=== PATIENT | female | born 1970 | race Caucasian/White ===

== ENCOUNTER 2019-01-31 15:45 | Emergency (ER) | payer OTHER, SELFPAY ==
[2019-01-31 15:50] VITALS: BP 182/91; PULSE 86; RESP 20; TEMP 36.7; O2SAT 96; BMI 59.1
--- NOTE | 2019-01-31 17:16 | ED.DCSUM_ITS ---
- ER Visit Summary Date of Service: 01/31/19 Chief Complaint: Concern for right lower leg cellulitis History of Present Illness: The patient is a 48 F who presents for evaluation with concern for right lower leg cellulitis. Patient states for the last 15 days she has been on Keflex for treatment of welling and erythema to the anterior right lower leg. She states that she has been having the swelling and redness intermittently over the last 3 years. She noted that it will improve when she sleeps overnight, including this latest bout that started a few weeks ago. Patient denies any fever, shortness of breath, chest pain, abdominal pain, nausea or vomiting, or any other complaints other than the discomfort at the site of the right lower leg. Has noted some clear seepage from the area. Patient has history of hypothyroidism, degenerative joint disease, and lower extremity edema. Physical Examination: Vital signs: afebrile, hemodynamically stable, no hypoxia on room air General: well nourished, well developed, in no distress Skin: warm, dry, no rash, no pallor HEENT: normocephalic and atraumatic; PERRL, EOMI, moist mucous membranes Cardiovascular: regular rate and rhythm without murmurs, 2+ pulses all distal extremities Respiratory: No increased work of breathing, lungs are clear to auscultation bilaterally, no rales, rhonchi or wheezing Abdominal: Abdomen is soft, nontender with normoactive bowel sounds, no guarding or rebound, no masses MSK: Moves all extremities, no deformities, normal strength, bilateral lower extremity 2+ pitting edema below the knees down to the ankles. Anterior right lower leg has erythema superimposed on hyperpigmentation and mild skin thickening, no warmth, no tenderness to palpation; mild skin hyperpigmentation and thickening to the anterior left lower extremity Neuro: Awake and alert, oriented ?4. No facial droop, sensation and motor function intact and symmetric Test Results: Abnormal Lab Results 01/31/19 01/31/19 17:20 17:20 WBC 11.6 H RBC 4.77 Hgb 12.5 Hct 39.4 MCV 82.6 MCH 26.2 L MCHC 31.7 L RDW 15.8 H RDW Differential 47.1 H Plt Count 269 MPV 11.1 Immature Gran % (Auto) 0.500 Neut % (Auto) 70.1 H Lymph % (Auto) 21.3 [place] % (Auto) 5.4 Eos % (Auto) 2.4 Baso % (Auto) 0.3 Absolute Neuts (auto) 8.2 H Absolute Lymphs (auto) 2.48 Total Counted Not Reportable Sodium 141 Potassium 3.6 Chloride 110 H Carbon Dioxide 25.0 Anion Gap 6 BUN 12 Creatinine 0.83 Estim Creat Clear Calc 68.57 Est GFR (MDRD) Af Amer 94 Est GFR (MDRD) Non-Af 78 BUN/Creatinine Ratio 14.5 Glucose 93 Calcium 8.4 L Total Bilirubin 0.30 AST 13 L ALT 18 Alkaline Phosphatase 78 Total Protein 7.5 Albumin 3.4 Globulin 4.1 Albumin/Globulin Ratio 0.8 L Emergency Department Course and Treatment: Patient's examination looks more consistent with skin changes secondary to significant lower extremity edema rather than cellulitis, especially given history of improvement when she sleeps at night, episodes over the last 3 years, and no improvement with antibiotic treatment over the last 2 weeks. Patient's legs were wrapped and elevated to help decrease the swelling. Workup was performed to look for any underlying systemic infection. Labs are unremarkable. Patient was reevaluated after having her legs wrapped and elevated for a period of time. The swelling had improved. Because there is still be small concern that this could be failed outpatient treatment of cellulitis on Keflex, patient was prescribed clindamycin. Will rewrap to help with the edema, and patient is in the process of getting compression stockings to help. She is to follow-up with her doctor to discuss whether she needs to be on any diuretics to help with the fluid overload as well. Patient is afebrile, well-appearing, no evidence of any systemic infection, no fluctuance or purulence noted to her leg, and no significant twisting frame changer the course of a couple weeks it would be concerning for need for inpatient management on IV antibiotics. Patient agreed with this plan and will return if any worsening of her condition. Discharged home. Treatment Plan: [] Disposition: [] Impression: Bilateral lower extremity lymphedema, concern for right lower extremity cellulitis This note was generated with iSTARation software. It may contain incorrect words, spelling, and punctuation that were not noted in review of the chart prior to signing ED Disposition - Plan for ED Patient: Disposition: Home or Assisted Living Instructions: Discharge Instructions for Cellulitis, ED Leg Swelling Bilateral Prescriptions: RX: Clindamycin [Cleocin] 450 mg PO TID #63 cap Referrals: Cirilo Feng MD [Primary Care Provider] - 3-5 Days Additional Instructions: Your right leg swelling and redness looks more consistent with changes from chronic leg edema and less concerning for cellulitis, especially since this is been ongoing and intermittent for 3 years and you have been on antibiotics for 2 weeks without any change. However in case is failure of the current antibiotic, you have been prescribed a new one to take. Please follow-up with your doctor in 3-5 days for another check of your legs. Please wrapped them as we showed you with the Piter wraps until you get appropriate compression socks to wear to help with the leg swelling. If you have any worsening of your condition or any new concerning symptoms, please return immediately to the emergency department for another evaluation.
[2019-01-31 17:40] LABS: Absolute Lymphocyte Count 2.48 X10^3/ul (0.83-4.51); Absolute Neutrophil Count 8.2 X10^3/uL (2.0-7.7); Basophil# 0.04 X10^3/uL; Basophil% 0.3 % (0-1); Eosinophil# 0.28 X10^3/uL; Eosinophils% 2.4 % (0-5); Hematocrit 39.4 % (37-47); Hemoglobin 12.5 g/dl (12.0-15.0); Lymphocyte # 2.48 X10^3/ul (4.0); Lymphocyte % 21.3 % (19-41); Mean Corp Hgb Conc 31.7 g/gl (32-36); Mean Corpuscular Hgb 26.2 pg (27.0-32.0); Mean Corpuscular Volume 82.6 fL (81-99); Mean Platelet Vol. 11.1 fl (6.2-12.0); Monocyte# 0.63 X10^3/uL; Monocyte% 5.4 % (0-10); Neutrophil # 8.15 X10^3/uL (2.7-7.7); Neutrophil % 70.1 % (47-70); POSITIVE COUNT NO; POSITIVE DIFFERENTIAL NO; POSITIVE MORPHOLOGY NO; Platelet Count 269 K/mm3 (150-450); RBC Distribution Width CV 15.8 % (11.6-14.6); RBC Distribution Width SD 47.1 fl (35.1-43.9); Red Blood Count 4.77 M/mm3 (4.2-5.4); White Blood Count 11.6 K/mm3 (4.4-11.0)
[2019-01-31 17:45] VITALS: RESP 14
--- NOTE | 2019-01-31 17:53 | ED.RN ---
PER MD, YONY WRAP APPLIED TO BILAT LOWER LEGS. NO COMPLAINTS OR CONCERNS REGARDING THE YONY WRAPS.
[2019-01-31 18:05] LABS: ALB/GLOB Ratio 0.8 RATIO (0.9-2.4); AST(SGOT) 13 U/L (15-37); Alanine Aminotransfer ALT/SGPT 18 U/L (13-56); Albumin, Serum 3.4 g/dL (3.2-5.0); Alkaline Phosphatase 78 U/L (45-117); Anion Gap 6 (5-15); BUN 12 mg/dL (7-18); BUN/Creat Ratio 14.5 RATIO (10-20); Calcium,Total 8.4 mg/dL (8.5-10.1); Chloride 110 mmol/L (98-107); Creatinine, Serum 0.83 mg/dL (0.55-1.02); EST Glomerular Filtration Rate 78 mL/min (>60); Est Glom Filt Rate - Afr Amer 94 mL/min (>60); Estimated Creatinine Clearance 68.57 ml/min; Globulin 4.1 g/dL (2.2-4.2); Glucose 93 mg/dL (74-106); Potassium 3.6 mmol/L (3.5-5.1); Protein, Total 7.5 g/dL (6.4-8.2); Sodium Level 141 mmol/L (136-145)
[2019-01-31 20:00] VITALS: PULSE 82; RESP 18; O2SAT 97
== END 2019-01-31 20:18 | disposition home or self-care (01) ==
PROVIDERS: Emergency Provider Emergency Medicine; Family Provider Family Medicine; PCP Family Medicine
DX: I89.0 Lymphedema, not elsewhere classified (principal); E03.9 Hypothyroidism, unspecified
CPT/HCPCS: 80053; 85025; 99284

== ENCOUNTER 2022-02-16 14:08 | Outpatient (CLI) | payer BC, SELFPAY ==
--- NOTE | 2022-02-16 14:15 | RAD_ITS ---
STUDY: X-RAY - PELVIS REASON FOR EXAM: Female, 51 years old. INFLAMMATORY POLYARTHROPATHY TECHNIQUE: One view of the pelvis was obtained. COMPARISON: None. FINDINGS: There is a non-specific bowel gas pattern. Normal visualized soft tissue structures. Degenerative lower lumbar changes. Normal bilateral iliac wings, sacroiliac joints and visualized sacrum. Normal visualized bilateral superior and inferior pubic rami. Normal pubic symphysis. Normal ischial tuberosities. Normal visualized right femoral head. Normal right acetabulum. Normal right hip joint. Normal visualized left femoral head. Normal left acetabulum. Normal left hip joint. RAD/Pelvis 1 or 2 Views IMPRESSION: Normal x-ray examination of the pelvis. Electronically Signed: Ryan Anguiano DO at 23:56 EDT ,
[2022-02-16 18:13] LABS: Absolute Lymphocyte Count 2.96 X10^3/uL (0.83-4.51); Absolute Neutrophil Count 6.4 X10^3/uL (2.0-7.7); Basophil# 0.07 X10^3/uL; Basophil% 0.7 % (0-1); Eosinophils% 1.9 % (0-5); Hematocrit 40.3 % (37-47); Hemoglobin 12.2 g/dL (12.0-15.0); Lymphocyte # 2.96 X10^3/ul (0.83-4.51); Lymphocyte % 28.5 % (19-41); Mean Corp Hgb Conc 30.3 g/dL (32-36); Mean Corpuscular Hgb 24.4 pg (27.0-32.0); Mean Corpuscular Volume 80.8 fL (81-99); Mean Platelet Vol. 12.3 fl (6.2-12.0); Monocyte# 0.69 X10^3/uL; Monocyte% 6.6 % (0-10); NRBC Flagged by Analyzer 0 % (0-5); Neutrophil # 6.42 X10^3/uL (2.7-7.7); Neutrophil % 61.8 % (47-70); Platelet Count 278 K/mm3 (150-450); RBC Distribution Width CV 16.1 % (11.6-14.6); RBC Distribution Width SD 47.5 fl (35.1-43.9); Red Blood Count 4.99 M/mm3 (4.2-5.4); White Blood Count 10.4 K/mm3 (4.4-11.0)
[2022-02-16 18:24] LABS: Erythrocyte Sedimentation Rate 50 mm/hr (0-30)
[2022-02-16 18:34] LABS: ALB/GLOB Ratio 0.9 RATIO (0.9-2.4); AST(SGOT) 17 U/L (15-37); Alanine Aminotransfer ALT/SGPT 28 U/L (13-56); Albumin, Serum 3.6 g/dL (3.2-5.0); Alkaline Phosphatase 77 U/L (45-117); Anion Gap 5 (5-15); BUN 23 mg/dL (7-18); BUN/Creat Ratio 20.7 RATIO (10-20); Calcium,Total 9.2 mg/dL (8.5-10.1); Chloride 106 mmol/L (98-107); Creatinine, Serum 1.11 mg/dL (0.55-1.02); EST Glomerular Filtration Rate 55 mL/min (>60); Est Glom Filt Rate - Afr Amer 67 mL/min (>60); Globulin 4.1 g/dL (2.2-4.2); Glucose 89 mg/dL (74-106); Protein, Total 7.7 g/dL (6.4-8.2); Sodium Level 139 mmol/L (136-145)
[2022-02-17 08:47] LABS: Hepatitis B Surface Antibody Non-Reactive; Hepatitis B Surface Antigen Non-Reactive (Nonreactive); Hepatitis C Antibody Non-Reactive (Nonreactive)
[2022-02-19 17:10] LABS: ANTINUCLEAR ANTIBODIES DIRECT Negative (Negative)
[2022-02-24 18:11] LABS: HLA B27 Negative (.)
== END 2022-02-16 23:59 | disposition home or self-care (01) ==
PROVIDERS: PCP Family Medicine; Referring Provider Internal Medicine Rheumatology; Visit Provider Internal Medicine Rheumatology
DX: M06.4 Inflammatory polyarthropathy (principal); M17.0 Bilateral primary osteoarthritis of knee; M47.897 Other spondylosis, lumbosacral region; K21.9 Gastro-esophageal reflux disease without esophagitis; J45.909 Unspecified asthma, uncomplicated; E03.9 Hypothyroidism, unspecified; G47.33 Obstructive sleep apnea (adult) (pediatric); G43.909 Migraine, unspecified, not intractable, without status migrainosus; I87.2 Venous insufficiency (chronic) (peripheral); M21.42 Flat foot [pes planus] (acquired), left foot; M21.41 Flat foot [pes planus] (acquired), right foot
CPT/HCPCS: 36415; 72170; 80053; 81374; 85025; 85652; 86038; 86140; 86431; 86706; 86803; 87340

== ENCOUNTER → 2022-03-31 | Outpatient (CLI) | payer BC, SELFPAY ==
[2022-03-31 15:15] LABS: Absolute Lymphocyte Count 1.92 X10^3/uL (0.83-4.51); Absolute Neutrophil Count 5.8 X10^3/uL (2.0-7.7); Basophil# 0.07 X10^3/uL; Basophil% 0.8 % (0-1); Eosinophils% 2.3 % (0-5); Hematocrit 39.3 % (37-47); Hemoglobin 11.9 g/dL (12.0-15.0); Lymphocyte # 1.92 X10^3/ul (0.83-4.51); Lymphocyte % 22.3 % (19-41); Mean Corp Hgb Conc 30.3 g/dL (32-36); Mean Corpuscular Hgb 24.8 pg (27.0-32.0); Mean Platelet Vol. 12.3 fl (6.2-12.0); Monocyte# 0.56 X10^3/uL; Monocyte% 6.5 % (0-10); NRBC Flagged by Analyzer 0 % (0-5); Neutrophil # 5.82 X10^3/uL (2.7-7.7); Neutrophil % 67.5 % (47-70); Platelet Count 286 K/mm3 (150-450); RBC Distribution Width CV 15.9 % (11.6-14.6); RBC Distribution Width SD 47.3 fl (35.1-43.9); Red Blood Count 4.79 M/mm3 (4.2-5.4); White Blood Count 8.6 K/mm3 (4.4-11.0)
[2022-03-31 15:32] LABS: ALB/GLOB Ratio 0.8 RATIO (0.9-2.4); AST(SGOT) 15 U/L (15-37); Alanine Aminotransfer ALT/SGPT 26 U/L (13-56); Albumin, Serum 3.4 g/dL (3.2-5.0); Alkaline Phosphatase 62 U/L (45-117); Anion Gap 4 (5-15); BUN 16 mg/dL (7-18); BUN/Creat Ratio 16.2 RATIO (10-20); Calcium,Total 9.1 mg/dL (8.5-10.1); Chloride 108 mmol/L (98-107); Creatinine, Serum 0.99 mg/dL (0.55-1.02); EST Glomerular Filtration Rate 63 mL/min (>60); Est Glom Filt Rate - Afr Amer 76 mL/min (>60); Glucose 99 mg/dL (74-106); Potassium 4.1 mmol/L (3.5-5.1); Protein, Total 7.4 g/dL (6.4-8.2); Sodium Level 141 mmol/L (136-145)
== END | disposition home or self-care (01) ==
LOC: MTLAB 13:51
PROVIDERS: PCP Family Medicine; Referring Provider Internal Medicine Rheumatology; Visit Provider Internal Medicine Rheumatology
DX: M05.79 Rheumatoid arthritis with rheumatoid factor of multiple sites without organ or systems involvement (principal); Z79.899 Other long term (current) drug therapy; M17.0 Bilateral primary osteoarthritis of knee; M47.897 Other spondylosis, lumbosacral region; K21.9 Gastro-esophageal reflux disease without esophagitis; J45.909 Unspecified asthma, uncomplicated; E03.9 Hypothyroidism, unspecified; G47.33 Obstructive sleep apnea (adult) (pediatric); G43.909 Migraine, unspecified, not intractable, without status migrainosus; I87.2 Venous insufficiency (chronic) (peripheral); M21.41 Flat foot [pes planus] (acquired), right foot; M21.42 Flat foot [pes planus] (acquired), left foot
CPT/HCPCS: 36415; 80053; 85025

== ENCOUNTER → 2022-06-27 | Outpatient (CLI) | payer BC, SELFPAY ==
[2022-06-27 18:13] LABS: Absolute Lymphocyte Count 2.13 X10^3/uL (0.83-4.51); Absolute Neutrophil Count 5.8 X10^3/uL (2.0-7.7); Basophil# 0.07 X10^3/uL; Basophil% 0.8 % (0-1); Eosinophil# 0.25 X10^3/uL; Eosinophils% 2.8 % (0-5); Hematocrit 38.8 % (37-47); Hemoglobin 12.3 g/dL (12.0-15.0); Lymphocyte # 2.13 X10^3/ul (0.83-4.51); Mean Corp Hgb Conc 31.7 g/dL (32-36); Mean Corpuscular Hgb 25.8 pg (27.0-32.0); Mean Corpuscular Volume 81.3 fL (81-99); Mean Platelet Vol. 11.7 fl (6.2-12.0); Monocyte# 0.54 X10^3/uL; Monocyte% 6.1 % (0-10); NRBC Flagged by Analyzer 0 % (0-5); Neutrophil # 5.84 X10^3/uL (2.7-7.7); Neutrophil % 65.8 % (47-70); Platelet Count 255 K/mm3 (150-450); RBC Distribution Width CV 15.7 % (11.6-14.6); RBC Distribution Width SD 46.5 fl (35.1-43.9); Red Blood Count 4.77 M/mm3 (4.2-5.4); White Blood Count 8.9 K/mm3 (4.4-11.0)
[2022-06-27 18:30] LABS: ALB/GLOB Ratio 0.8 RATIO (0.9-2.4); AST(SGOT) 11 U/L (15-37); Alanine Aminotransfer ALT/SGPT 25 U/L (13-56); Albumin, Serum 3.3 g/dL (3.2-5.0); Alkaline Phosphatase 77 U/L (45-117); Anion Gap 6 (5-15); BUN 23 mg/dL (7-18); BUN/Creat Ratio 18.4 RATIO (10-20); Calcium,Total 9.1 mg/dL (8.5-10.1); Chloride 108 mmol/L (98-107); Creatinine, Serum 1.25 mg/dL (0.55-1.02); EST Glomerular Filtration Rate 48 mL/min (>60); Est Glom Filt Rate - Afr Amer 58 mL/min (>60); Globulin 4.1 g/dL (2.2-4.2); Glucose 100 mg/dL (74-106); Potassium 4.1 mmol/L (3.5-5.1); Protein, Total 7.4 g/dL (6.4-8.2); Sodium Level 139 mmol/L (136-145)
== END | disposition home or self-care (01) ==
LOC: MTLAB 16:04
PROVIDERS: PCP Family Medicine; Referring Provider Internal Medicine Rheumatology; Visit Provider Internal Medicine Rheumatology
DX: M05.79 Rheumatoid arthritis with rheumatoid factor of multiple sites without organ or systems involvement (principal); Z79.899 Other long term (current) drug therapy; M17.0 Bilateral primary osteoarthritis of knee; M47.897 Other spondylosis, lumbosacral region; K21.9 Gastro-esophageal reflux disease without esophagitis; J45.909 Unspecified asthma, uncomplicated; E03.9 Hypothyroidism, unspecified; G47.33 Obstructive sleep apnea (adult) (pediatric); G43.909 Migraine, unspecified, not intractable, without status migrainosus; I87.2 Venous insufficiency (chronic) (peripheral); M21.41 Flat foot [pes planus] (acquired), right foot; M21.42 Flat foot [pes planus] (acquired), left foot
CPT/HCPCS: 36415; 80053; 85025

== ENCOUNTER → 2022-09-13 | Outpatient (CLI) | payer BC, SELFPAY ==
[2022-09-13 17:48] LABS: Absolute Lymphocyte Count 2.37 X10^3/uL (0.83-4.51); Absolute Neutrophil Count 5.9 X10^3/uL (2.0-7.7); Basophil# 0.08 X10^3/uL; Basophil% 0.9 % (0-1); Eosinophil# 0.28 X10^3/uL; Eosinophils% 3.1 % (0-5); Hematocrit 42.6 % (37-47); Lymphocyte # 2.37 X10^3/ul (0.83-4.51); Lymphocyte % 25.9 % (19-41); Mean Corp Hgb Conc 30.5 g/dL (32-36); Mean Corpuscular Volume 81.9 fL (81-99); Mean Platelet Vol. 12.9 fl (6.2-12.0); Monocyte# 0.49 X10^3/uL; Monocyte% 5.4 % (0-10); NRBC Flagged by Analyzer 0 % (0-5); Neutrophil # 5.87 X10^3/uL (2.7-7.7); Neutrophil % 64.2 % (47-70); Platelet Count 241 K/mm3 (150-450); RBC Distribution Width CV 15.5 % (11.6-14.6); RBC Distribution Width SD 45.5 fl (35.1-43.9); White Blood Count 9.1 K/mm3 (4.4-11.0)
[2022-09-13 17:54] LABS: ALB/GLOB Ratio 0.9 RATIO (0.9-2.4); AST(SGOT) 13 U/L (15-37); Alanine Aminotransfer ALT/SGPT 24 U/L (13-56); Albumin, Serum 3.4 g/dL (3.2-5.0); Alkaline Phosphatase 79 U/L (45-117); Anion Gap 9 (5-15); BUN 18 mg/dL (7-18); BUN/Creat Ratio 16.8 RATIO (10-20); Calcium,Total 8.9 mg/dL (8.5-10.1); Chloride 110 mmol/L (98-107); Creatinine, Serum 1.07 mg/dL (0.55-1.02); EST Glomerular Filtration Rate 57 mL/min (>60); Est Glom Filt Rate - Afr Amer 69 mL/min (>60); Globulin 3.8 g/dL (2.2-4.2); Glucose 123 mg/dL (74-106); Protein, Total 7.2 g/dL (6.4-8.2); Sodium Level 140 mmol/L (136-145)
== END | disposition home or self-care (01) ==
PROVIDERS: PCP Family Medicine; Referring Provider Internal Medicine Rheumatology; Visit Provider Internal Medicine Rheumatology
DX: M05.79 Rheumatoid arthritis with rheumatoid factor of multiple sites without organ or systems involvement (principal); M17.0 Bilateral primary osteoarthritis of knee; M47.897 Other spondylosis, lumbosacral region; K21.9 Gastro-esophageal reflux disease without esophagitis; J45.909 Unspecified asthma, uncomplicated; E03.9 Hypothyroidism, unspecified; G47.33 Obstructive sleep apnea (adult) (pediatric); G43.909 Migraine, unspecified, not intractable, without status migrainosus; I87.2 Venous insufficiency (chronic) (peripheral); M21.42 Flat foot [pes planus] (acquired), left foot; M21.41 Flat foot [pes planus] (acquired), right foot; K76.0 Fatty (change of) liver, not elsewhere classified; Z79.899 Other long term (current) drug therapy
CPT/HCPCS: 36415; 80053; 85025

== ENCOUNTER 2022-09-25 15:59 | Outpatient (CLI) | payer BC, SELFPAY ==
--- NOTE | 2022-09-25 16:02 | RAD_ITS ---
INDICATION: RA EXAMINATION/TECHNIQUE: X-RAY - XR Chest 2 Views COMPARISON: 11/13/2015 FINDINGS: LIFE-SUPPORT AND LINES: 1. None HEART AND VESSELS: The cardiac silhouette, pulmonary vasculature have normal appearance. No evidence of congestive failure. LUNGS AND PLEURAL SPACES: Lungs are clear. No focal infiltrate, consolidation or effusions. No evidence of pneumothorax. Mild crowding of bronchovascular markings at the lung bases contributed by shallow inspiration. MEDIASTINUM AND HILAR REGIONS: No masses adenopathy noted. No areas of calcification. Visualized upper airway is normal in position. BONY ELEMENTS: No acute bony changes noted. RAD/Chest PA and Lateral IMPRESSION: 1. No evidence of acute cardiopulmonary process. Shallow inspiration and a subsequent mild crowding of bronchovascular markings. Electronically Signed: Sebastian Rizvi MD at 17:15 EST ,
[2022-09-27 19:07] LABS: QNTFERON TB Mitogen Value > 10.00 IU/mL (.); QNTFERON TB Nil Value 0.02 IU/mL (.); QNTFERON TB1+ Ag Value 0.01 IU/mL (.); QNTFERON TB2+ Ag Value 0 IU/mL (.)
[2022-09-28 07:52] LABS: QNTIFERON TB Positive Criteria Negative (Negative)
== END 2022-09-25 23:59 | disposition home or self-care (01) ==
LOC: MTLAB 16:00
PROVIDERS: PCP Family Medicine; Referring Provider Internal Medicine Rheumatology; Visit Provider Internal Medicine Rheumatology
DX: M05.79 Rheumatoid arthritis with rheumatoid factor of multiple sites without organ or systems involvement (principal); Z79.899 Other long term (current) drug therapy; M17.0 Bilateral primary osteoarthritis of knee; M47.897 Other spondylosis, lumbosacral region; K21.9 Gastro-esophageal reflux disease without esophagitis; J45.909 Unspecified asthma, uncomplicated; E03.9 Hypothyroidism, unspecified; G57.33 Lesion of lateral popliteal nerve, bilateral lower limbs; G43.909 Migraine, unspecified, not intractable, without status migrainosus; I87.2 Venous insufficiency (chronic) (peripheral); M21.42 Flat foot [pes planus] (acquired), left foot; M21.41 Flat foot [pes planus] (acquired), right foot; K76.0 Fatty (change of) liver, not elsewhere classified
CPT/HCPCS: 36415; 71046; 86480

== ENCOUNTER → 2022-12-04 | Outpatient (CLI) | payer BC, SELFPAY ==
[2022-12-04 18:14] LABS: Absolute Neutrophil Count 5.6 X10^3/uL (2.0-7.7); Basophil# 0.07 X10^3/uL; Basophil% 0.8 % (0-1); Eosinophils% 2.2 % (0-5); Hematocrit 43.6 % (37-47); Hemoglobin 13.2 g/dL (12.0-15.0); Lymphocyte % 29.4 % (19-41); Mean Corp Hgb Conc 30.3 g/dL (32-36); Mean Corpuscular Hgb 25.4 pg (27.0-32.0); Mean Platelet Vol. 12.6 fl (6.2-12.0); Monocyte# 0.61 X10^3/uL; Monocyte% 6.6 % (0-10); NRBC Flagged by Analyzer 0 % (0-5); Neutrophil # 5.56 X10^3/uL (2.7-7.7); Neutrophil % 60.6 % (47-70); Platelet Count 307 K/mm3 (150-450); RBC Distribution Width CV 15.5 % (11.6-14.6); RBC Distribution Width SD 47.2 fl (35.1-43.9); Red Blood Count 5.19 M/mm3 (4.2-5.4); White Blood Count 9.2 K/mm3 (4.4-11.0)
[2022-12-04 18:41] LABS: ALB/GLOB Ratio 0.9 RATIO (0.9-2.4); AST(SGOT) 14 U/L (15-37); Alanine Aminotransfer ALT/SGPT 24 U/L (13-56); Albumin, Serum 3.6 g/dL (3.2-5.0); Alkaline Phosphatase 79 U/L (45-117); Anion Gap 9 (5-15); BUN 19 mg/dL (7-18); BUN/Creat Ratio 18.6 RATIO (10-20); Calcium,Total 9.2 mg/dL (8.5-10.1); Chloride 105 mmol/L (98-107); Creatinine, Serum 1.02 mg/dL (0.55-1.02); EST Glomerular Filtration Rate 60 mL/min (>60); Est Glom Filt Rate - Afr Amer 73 mL/min (>60); Globulin 3.9 g/dL (2.2-4.2); Glucose 89 mg/dL (74-106); Potassium 3.8 mmol/L (3.5-5.1); Protein, Total 7.5 g/dL (6.4-8.2); Sodium Level 142 mmol/L (136-145)
== END | disposition home or self-care (01) ==
PROVIDERS: PCP Family Medicine; Referring Provider Internal Medicine Rheumatology; Visit Provider Internal Medicine Rheumatology
DX: Z79.899 Other long term (current) drug therapy (principal); M17.0 Bilateral primary osteoarthritis of knee; M47.897 Other spondylosis, lumbosacral region; K21.9 Gastro-esophageal reflux disease without esophagitis; J45.909 Unspecified asthma, uncomplicated; E03.9 Hypothyroidism, unspecified; G47.33 Obstructive sleep apnea (adult) (pediatric); G43.909 Migraine, unspecified, not intractable, without status migrainosus; I87.2 Venous insufficiency (chronic) (peripheral); M21.42 Flat foot [pes planus] (acquired), left foot; M21.41 Flat foot [pes planus] (acquired), right foot; K76.0 Fatty (change of) liver, not elsewhere classified
CPT/HCPCS: 36415; 80053; 85025

== ENCOUNTER → 2023-02-12 | Outpatient (CLI) | payer BC, SELFPAY ==
[2023-02-12 17:42] LABS: Absolute Lymphocyte Count 2.91 X10^3/uL (0.83-4.51); Absolute Neutrophil Count 5.4 X10^3/uL (2.0-7.7); Basophil% 1.1 % (0-1); Eosinophil# 0.22 X10^3/uL; Eosinophils% 2.4 % (0-5); Hematocrit 43.4 % (37-47); Hemoglobin 13.2 g/dL (12.0-15.0); Lymphocyte # 2.91 X10^3/ul (0.83-4.51); Lymphocyte % 31.1 % (19-41); Mean Corp Hgb Conc 30.4 g/dL (32-36); Mean Corpuscular Hgb 25.8 pg (27.0-32.0); Mean Corpuscular Volume 84.8 fL (81-99); Monocyte# 0.68 X10^3/uL; Monocyte% 7.3 % (0-10); NRBC Flagged by Analyzer 0 % (0-5); Neutrophil % 57.6 % (47-70); Platelet Count 300 K/mm3 (150-450); RBC Distribution Width CV 15.5 % (11.6-14.6); RBC Distribution Width SD 47.1 fl (35.1-43.9); Red Blood Count 5.12 M/mm3 (4.2-5.4); White Blood Count 9.4 K/mm3 (4.4-11.0)
[2023-02-12 17:58] LABS: ALB/GLOB Ratio 0.9 RATIO (0.9-2.4); AST(SGOT) 16 U/L (15-37); Alanine Aminotransfer ALT/SGPT 25 U/L (13-56); Albumin, Serum 3.5 g/dL (3.2-5.0); Alkaline Phosphatase 77 U/L (45-117); BUN 19 mg/dL (7-18); BUN/Creat Ratio 14.3 RATIO (10-20); Chloride 109 mmol/L (98-107); Creatinine, Serum 1.33 mg/dL (0.55-1.02); EST Glomerular Filtration Rate 44 mL/min (>60); Est Glom Filt Rate - Afr Amer 54 mL/min (>60); Globulin 3.7 g/dL (2.2-4.2); Glucose 90 mg/dL (74-106); Potassium 3.9 mmol/L (3.5-5.1); Protein, Total 7.2 g/dL (6.4-8.2); Sodium Level 138 mmol/L (136-145)
[2023-02-12 17:59] LABS: Anion Gap 2 (5-15)
== END | disposition home or self-care (01) ==
PROVIDERS: PCP Family Medicine; Referring Provider Internal Medicine Rheumatology; Visit Provider Internal Medicine Rheumatology
DX: M05.79 Rheumatoid arthritis with rheumatoid factor of multiple sites without organ or systems involvement (principal); Z79.899 Other long term (current) drug therapy; M17.0 Bilateral primary osteoarthritis of knee; M47.897 Other spondylosis, lumbosacral region; K21.9 Gastro-esophageal reflux disease without esophagitis; J45.909 Unspecified asthma, uncomplicated; E03.9 Hypothyroidism, unspecified; G47.33 Obstructive sleep apnea (adult) (pediatric); G43.909 Migraine, unspecified, not intractable, without status migrainosus; I87.2 Venous insufficiency (chronic) (peripheral)
CPT/HCPCS: 36415; 80053; 85025

== ENCOUNTER → 2023-05-09 | Outpatient (CLI) | payer BC, SELFPAY ==
[2023-05-09 17:55] LABS: Absolute Lymphocyte Count 2.54 X10^3/uL (0.83-4.51); Absolute Neutrophil Count 5.9 X10^3/uL (2.0-7.7); Basophil# 0.08 X10^3/uL; Basophil% 0.9 % (0-1); Eosinophil# 0.18 X10^3/uL; Eosinophils% 1.9 % (0-5); Hematocrit 43.1 % (37-47); Hemoglobin 13.7 g/dL (12.0-15.0); Lymphocyte # 2.54 X10^3/ul (0.83-4.51); Lymphocyte % 27.3 % (19-41); Mean Corp Hgb Conc 31.8 g/dL (32-36); Mean Corpuscular Hgb 26.8 pg (27.0-32.0); Mean Corpuscular Volume 84.2 fL (81-99); Mean Platelet Vol. 12.5 fl (6.2-12.0); Monocyte# 0.55 X10^3/uL; Monocyte% 5.9 % (0-10); NRBC Flagged by Analyzer 0 % (0-5); Neutrophil # 5.89 X10^3/uL (2.7-7.7); Neutrophil % 63.5 % (47-70); Platelet Count 243 K/mm3 (150-450); RBC Distribution Width CV 14.6 % (11.6-14.6); RBC Distribution Width SD 44.2 fl (35.1-43.9); Red Blood Count 5.12 M/mm3 (4.2-5.4); White Blood Count 9.3 K/mm3 (4.4-11.0)
[2023-05-09 18:22] LABS: ALB/GLOB Ratio 0.9 RATIO (0.9-2.4); AST(SGOT) 12 U/L (15-37); Alanine Aminotransfer ALT/SGPT 22 U/L (13-56); Albumin, Serum 3.4 g/dL (3.2-5.0); Alkaline Phosphatase 78 U/L (45-117); Anion Gap 6 (5-15); BUN 14 mg/dL (7-18); BUN/Creat Ratio 12.2 RATIO (10-20); Calcium,Total 8.9 mg/dL (8.5-10.1); Chloride 109 mmol/L (98-107); Creatinine, Serum 1.15 mg/dL (0.55-1.02); EST Glomerular Filtration Rate 53 mL/min (>60); Est Glom Filt Rate - Afr Amer 64 mL/min (>60); Globulin 3.8 g/dL (2.2-4.2); Glucose 102 mg/dL (74-106); Potassium 4.2 mmol/L (3.5-5.1); Protein, Total 7.2 g/dL (6.4-8.2); Sodium Level 140 mmol/L (136-145)
== END | disposition home or self-care (01) ==
LOC: MTLAB 16:07
PROVIDERS: PCP Family Medicine; Referring Provider Internal Medicine Rheumatology; Visit Provider Internal Medicine Rheumatology
DX: M05.79 Rheumatoid arthritis with rheumatoid factor of multiple sites without organ or systems involvement (principal); M17.0 Bilateral primary osteoarthritis of knee; Z79.899 Other long term (current) drug therapy
CPT/HCPCS: 36415; 80053; 85025

== ENCOUNTER 2023-06-06 17:44 | Emergency (ER) | payer BC, SELFPAY ==
[2023-06-06 17:44] VITALS: BP 223/116; PULSE 146; RESP 20; TEMP 36.6; O2SAT 100; BMI 63.6
[2023-06-06 18:01] VITALS: BP 170/99; PULSE 146; RESP 17; O2SAT 98
--- NOTE | 2023-06-06 18:09 | EKG12_ITS ---
Test Reason : Blood Pressure : / mmHG Vent. Rate : 144 BPM Atrial Rate : 000 BPM P-R Int : 000 ms QRS Dur : 122 ms QT Int : 344 ms P-R-T Axes : 000 015 196 degrees QTc Int : 532 ms Atrial flutter with 2 to 1 block Non-specific intra-ventricular conduction delay ST & T wave abnormality, consider inferior ischemia ST & T wave abnormality, consider anterolateral ischemia Abnormal ECG Confirmed by DEREK KEITH, WYATT ([id number]), mapping editor DANIA WILLETT ([id number]) on 06/08/2023 1:06:07 PM Referred By: JACKELINE Confirmed By:RAUL REED MD
--- NOTE | 2023-06-06 18:10 | EDS_ITS ---
HPI History of Present Illness Chief Complaint: Chest Pain Detail of Chief Complaint: Tachycardia Informant: patient and spouse/S.O. Narrative Narrative: Patient presents to the emergency department with complaint of tachycardia. Patient states that she was just sitting watching her cat when she started feeling like her heart was racing. Patient denies any chest pain. She denies recent travel or surgery. Patient states that prior to one of her surgeries she think she remembers being told that she had A-fib. Patient currently not anticoagulated. She denies any chest pain. Denies significant shortness of breath. Patient denies recent illness. PFSH PFS Home Medications prednisone 20 mg tablet 60 mg (3 x 20 mg) PO DAILY ##15 11/13/15 [Rx Last Taken Unknown] Synthroid 1 tab PO DAILY 01/31/19 [History Last Taken Unknown] clindamycin HCl 150 mg capsule 450 mg (3 x 150 mg) PO TID #63 caps 01/31/19 [Rx Last Taken Unknown] apixaban 5 mg tablet (Eliquis) 5 mg PO BID #74 tabs 06/06/23 [Rx Last Taken Unknown] diltiazem HCl 120 mg capsule,extended release 24 hr (Cardizem CD) 120 mg PO DAILY #30 caps 06/06/23 [Rx Last Taken Unknown] Allergy/AdvReac Type Severity Reaction Status Date / Time azithromycin Allergy Hives Verified 06/06/23 17:46 tramadol Allergy Angioedema Verified 06/06/23 17:46 diclofenac AdvReac Vomiting Verified 06/06/23 17:46 doxycycline AdvReac Diarrhea Verified 06/06/23 17:46 levofloxacin [From Levaquin] AdvReac Other Verified 06/06/23 17:46 sulfamethoxazole AdvReac Diarrhea Verified 06/06/23 17:46 [From Bactrim] trimethoprim [From Bactrim] AdvReac Diarrhea Verified 06/06/23 17:46 Social History Smoking Status: Former smoker ROS ROS ED Review of Systems ROS Unobtainable: other Constitutional Constitutional ED: Reports lethargy; Denies chills, fever(s), sweats or weight loss Eyes Eyes: Denies blurry vision, change in vision or diplopia ENT ENT ED: Denies rhinorrhea or sore throat Cardiovascular Cardiovascular: Reports racing heartbeat; Denies chest pain or orthopnea Respiratory/Chest Respiratory/Chest: Denies cough, dyspnea, dyspnea on exertion, orthopnea or sputum Gastrointestinal Gastrointestinal: Denies abdominal pain, diarrhea, nausea or vomiting Genitourinary Genitourinary ED: Denies dysuria, hematuria or urinary frequency Musculoskeletal Musculoskeletal: Denies arthralgias, back pain, myalgias or neck pain Integumentary Denies abscess, Abrasions or rash Neurologic Neurologic: Denies headache(s) or weakness Psychiatric Psychiatric: Denies anxiety, depression or suicidal thoughts Endocrine Endocrinology: Denies polydipsia, polyphagia or polyuria Hematologic/Lymphatic Hematologic/Lymphatic: Denies easy bleeding, easy bruising or lymphadenopathy Allergic/Immunologic Allergic/Immunologic ED: Denies mouth swelling, tongue swelling or urticaria EXAM Physical Exam Const Vital Signs: 06/06/23 17:44 06/06/23 18:01 06/06/23 18:03 Temperature 97.8 F Temperature Source Temporal Pulse Rate 146 H 146 H Respiratory Rate 20 H 17 Respiratory Pattern Normal Blood Pressure 223/116 H 170/99 H Blood Pressure Mean 151 122 Pulse Ox 100 98 Oxygen Delivery Method Room Air Room Air 06/06/23 18:28 06/06/23 19:00 Temperature Temperature Source Pulse Rate 93 71 Respiratory Rate 18 11 L Respiratory Pattern Blood Pressure 152/82 H 147/76 H Blood Pressure Mean 105 99 Pulse Ox 96 98 Oxygen Delivery Method Room Air Room Air Positive well nourished and well developed General Appearance ED: well developed and NAD HEENT Reports TM's clear and moist mucous membranes normocephalic and atraumatic; Negative for trauma or tenderness Tympanic Membrane ED: Yes TM's clear Eyes PERRL and EOMs intact bilaterally General Eye ED: Negative for pale conjunctiva or scleral icterus Neck no lymphadenopathy, supple and no JVD General: Negative for tenderness Chest Wall inspection of chest normal and palpation of chest normal Chest: Negative for tenderness Resp normal respiratory effort and clear to auscultation bilaterally Effort and Inspection: Negative for respiratory distress or pain with movement Auscultation: Negative for rhonchi, wheezes or diminished lung sounds Cardio regular rhythm, S1 normal heart sound, S2 normal heart sound and no murmurs; Negative for regular rate Rate: tachycardic Peripheral Pulses: pulses 2+ throughout GI normal to inspection, nondistended, normoactive bowel sounds, soft to palpation, non-tender, non-distended and no masses Back/Spine no CVA tenderness and no thoracic nor lumbar tenderness Extremity normal to inspection General Extremety ED: Negative for edema General Extremity: Negative for edema Neuro oriented x3, CN's II-XII intact bilaterally, no sensory deficits noted and gait normal Sensorium / Orientation: awake, alert, oriented to person, oriented to place and oriented to time Motor Exam: strength 5/5 throughout and strength abnormal Psych mental status grossly normal Skin no rashes or lesions noted and no wounds MDM MDM MDM Narrative Medical decision making narrative: IV line established on arrival. Patient placed on a bus driver/monitor. EKG obtained on arrival showed a narrow complex tachycardia with a rate of [address] changes. Based on the rate and morphology suspect this could be atrial flutter with 2-1 block versus sinus tachycardia. Patient will have basic lab work-up ordered. I will give her Cardizem 20 mg IV bolus. Patient was given the Cardizem bolus and she converted back to sinus rhythm repeat EKG showed a sinus rhythm with a ventricular rate of 68 bpm with no acute ST segment changes. CBC with differential unremarkable. Chemistries unremarkable. Troponin was normal at 10 and D-dimer was less than 0.27. 1 view chest x-ray obtained showed no acute disease process. I discussed case with cardiology on-call Dr. Mayfield who recommended started patient on Cardizem CD and Eliquis. Patient was given first dose of Eliquis in the department. Patient will be discharged to home and advised to return if chest pain, increasing shortness of breath, tachycardia, or condition worsen anyway. Lpn Care Manager did review patient's EKG and was in agreement that this was likely a flutter. Lab Data Attestation: I reviewed the patient's lab results. Labs: Laboratory Results - last 24 hr 06/06/23 18:15 WBC 10.1 RBC 5.23 Hgb 13.6 Hct 43.9 MCV 83.9 MCH 26.0 L MCHC 31.0 L RDW Std Deviation 45.2 H RDW Coeff of Vijaya 14.9 H Plt Count 229 MPV 12.4 H Immature Gran % (Auto) 0.600 Neut % (Auto) 64.2 Lymph % (Auto) 25.7 [place] % (Auto) 6.6 Eos % (Auto) 2.1 Baso % (Auto) 0.8 Absolute Neuts (auto) 6.5 Absolute Lymphs (auto) 2.60 Nucleated RBC % 0 D-Dimer Quant (PE/DVT) < 0.27 L Sodium 140 Potassium 3.7 Chloride 110 H Carbon Dioxide 24.0 Anion Gap 6 BUN 16 Creatinine 1.02 Estim Creat Clear Calc 53.37 Est GFR (MDRD) Af Amer 73 Est GFR (MDRD) Non-Af 60 BUN/Creatinine Ratio 15.7 Glucose 103 Calcium 8.7 Troponin I High Sens 10 Radiography Diagnostic Testing: Clinical Impression(s) from Imaging Studies Chest X-Ray 06/06/23 18:31 IMPRESSION: 1. No evidence of acute cardiopulmonary process Electronically Signed: Sebastian Rizvi MD at 19:02 EDT , 1 view chest x-ray obtained interpreted by myself as no acute disease process without evidence of infiltrate or pneumothorax. EKG Initial EKG: Attestation: I personally reviewed and interpreted this EKG as follows: Comments: Supraventricular tachycardia with a rate of [address] changes. I suspect this may represent atrial flutter with 2-1 block. Discharge Plan Triage Chief Complaint: Chest Pain ED Provider: Chelsy Camp Dx/Rx/DC Orders Clinical Impression: Atrial flutter Instructions: ED Atrial Flutter Prescriptions: New diltiazem HCl [Cardizem CD] 120 mg capsule,extended release 24hr 120 mg PO DAILY Qty: 30 0RF Eliquis 5 mg tablet 5 mg PO BID Qty: 74 0RF Rx Instructions: 10 mg twice a day for the first week. Then 5 mg twice a day. No Action prednisone 20 MG tablet 60 mg PO DAILY Qty: 15 0RF Synthroid 1 TAB 1 tab PO DAILY clindamycin HCl 150 MG capsule 450 mg PO TID Qty: 63 0RF Primary Care Provider: Cirilo Feng Referrals: Cirilo Feng MD [Primary Care Provider] - Brenda Mayfield MD [Med Staff - Active Staff] - 3-5 Days Disposition Disposition: Home, Self Care
[2023-06-06 18:21] LABS: Absolute Neutrophil Count 6.5 X10^3/uL (2.0-7.7); Basophil# 0.08 X10^3/uL; Basophil% 0.8 % (0-1); Eosinophil# 0.21 X10^3/uL; Eosinophils% 2.1 % (0-5); Hematocrit 43.9 % (37-47); Hemoglobin 13.6 g/dL (12.0-15.0); Lymphocyte % 25.7 % (19-41); Mean Corpuscular Volume 83.9 fL (81-99); Mean Platelet Vol. 12.4 fl (6.2-12.0); Monocyte# 0.67 X10^3/uL; Monocyte% 6.6 % (0-10); NRBC Flagged by Analyzer 0 % (0-5); Neutrophil # 6.48 X10^3/uL (2.7-7.7); Neutrophil % 64.2 % (47-70); Platelet Count 229 K/mm3 (150-450); RBC Distribution Width CV 14.9 % (11.6-14.6); RBC Distribution Width SD 45.2 fl (35.1-43.9); Red Blood Count 5.23 M/mm3 (4.2-5.4); White Blood Count 10.1 K/mm3 (4.4-11.0)
[2023-06-06] MEDS: dilTIAZem 25 MG/5 ML Vial 20 MG IV BOLUS (18:22)
[2023-06-06] MEDS: 0.9% Normal Saline 1,000 ML 150 ML IV (18:22)
[2023-06-06 18:28] VITALS: BP 152/82; PULSE 93; RESP 18; O2SAT 96
--- NOTE | 2023-06-06 18:31 | RAD_ITS ---
INDICATION: tachycardia EXAMINATION/TECHNIQUE: X-RAY - XR Chest 1 View COMPARISON: 09/25/2022 FINDINGS: LIFE-SUPPORT AND LINES: 1. None HEART AND VESSELS: The cardiac silhouette, pulmonary vasculature have normal appearance. No evidence of congestive failure. LUNGS AND PLEURAL SPACES: Lungs are clear. No focal infiltrate, consolidation or effusions. No evidence of pneumothorax. No pulmonary mass is noted. MEDIASTINUM AND HILAR REGIONS: No masses adenopathy noted. No areas of calcification. Visualized upper airway is normal in position. BONY ELEMENTS: No acute bony changes noted. RAD/Chest 1 View (Portable) IMPRESSION: 1. No evidence of acute cardiopulmonary process Electronically Signed: Sebastian Rizvi MD at 19:02 EDT ,
[2023-06-06 18:39] LABS: Anion Gap 6 (5-15); BUN 16 mg/dL (7-18); BUN/Creat Ratio 15.7 RATIO (10-20); Calcium,Total 8.7 mg/dL (8.5-10.1); Chloride 110 mmol/L (98-107); Creatinine, Serum 1.02 mg/dL (0.55-1.02); D-Dimer Quantitative (DVT/PE) < 0.27 FEU/ug/m (0.27-0.49); EST Glomerular Filtration Rate 60 mL/min (>60); Est Glom Filt Rate - Afr Amer 73 mL/min (>60); Estimated Creatinine Clearance 53.37 ml/min; Glucose 103 mg/dL (74-106); Potassium 3.7 mmol/L (3.5-5.1); Sodium Level 140 mmol/L (136-145); Troponin-I HS 10 pg/mL (3.0-54.0)
[2023-06-06 19:00] VITALS: BP 147/76; PULSE 71; RESP 11; O2SAT 98
--- NOTE | 2023-06-06 20:03 | EKG12_ITS ---
Test Reason : DYSRHYTHMIA Blood Pressure : / mmHG Vent. Rate : 068 BPM Atrial Rate : 068 BPM P-R Int : 178 ms QRS Dur : 078 ms QT Int : 398 ms P-R-T Axes : 069 033 074 degrees QTc Int : 423 ms Normal sinus rhythm Normal ECG Confirmed by DEREK KEITH, WYATT ([id number]), city editor DANIA WILLETT ([id number]) on 06/08/2023 1:27:39 PM Referred By: HAO Confirmed By:RAUL REED MD
[2023-06-06 21:00] VITALS: BP 148/74; PULSE 71; RESP 20; O2SAT 95
== END 2023-06-06 21:17 | disposition home or self-care (01) ==
PROVIDERS: Emergency Provider Emergency Medicine; PCP Family Medicine; Visit Provider Emergency Medicine
DX: I48.92 Unspecified atrial flutter (principal); Z87.891 Personal history of nicotine dependence
CPT/HCPCS: 36415; 71045; 80048; 84484; 85025; 85379; 93005; 96361; 96374; 99284; J7030; A4216

== ENCOUNTER → 2023-08-07 | Outpatient (CLI) | payer BC, SELFPAY ==
[2023-08-07 17:45] LABS: Absolute Lymphocyte Count 2.27 X10^3/uL (0.83-4.51); Basophil# 0.07 X10^3/uL; Basophil% 0.8 % (0-1); Eosinophils% 2.2 % (0-5); Hematocrit 41.8 % (37-47); Hemoglobin 12.9 g/dL (12.0-15.0); Lymphocyte # 2.27 X10^3/ul (0.83-4.51); Lymphocyte % 24.7 % (19-41); Mean Corp Hgb Conc 30.9 g/dL (32-36); Mean Corpuscular Hgb 26.5 pg (27.0-32.0); Mean Platelet Vol. 12.2 fl (6.2-12.0); Monocyte# 0.64 X10^3/uL; NRBC Flagged by Analyzer 0 % (0-5); Neutrophil # 5.98 X10^3/uL (2.7-7.7); Neutrophil % 64.9 % (47-70); Platelet Count 248 K/mm3 (150-450); RBC Distribution Width CV 15.4 % (11.6-14.6); RBC Distribution Width SD 48.7 fl (35.1-43.9); Red Blood Count 4.86 M/mm3 (4.2-5.4); White Blood Count 9.2 K/mm3 (4.4-11.0)
[2023-08-07 18:17] LABS: ALB/GLOB Ratio 0.9 RATIO (0.9-2.4); AST(SGOT) 13 U/L (15-37); Alanine Aminotransfer ALT/SGPT 31 U/L (13-56); Albumin, Serum 3.4 g/dL (3.2-5.0); Alkaline Phosphatase 78 U/L (45-117); Anion Gap 6 (5-15); BUN 19 mg/dL (7-18); BUN/Creat Ratio 23.8 RATIO (10-20); Calcium,Total 8.8 mg/dL (8.5-10.1); Chloride 109 mmol/L (98-107); EST Glomerular Filtration Rate 80 mL/min (>60); Est Glom Filt Rate - Afr Amer 97 mL/min (>60); Globulin 3.7 g/dL (2.2-4.2); Glucose 97 mg/dL (74-106); Protein, Total 7.1 g/dL (6.4-8.2); Sodium Level 140 mmol/L (136-145)
== END | disposition home or self-care (01) ==
LOC: MTLAB 16:11
PROVIDERS: PCP Family Medicine; Referring Provider Internal Medicine Rheumatology; Visit Provider Internal Medicine Rheumatology
DX: M05.79 Rheumatoid arthritis with rheumatoid factor of multiple sites without organ or systems involvement (principal); M17.0 Bilateral primary osteoarthritis of knee; Z79.899 Other long term (current) drug therapy
CPT/HCPCS: 36415; 80053; 85025

== ENCOUNTER → 2023-08-14 | Outpatient (CLI) | payer BC, SELFPAY ==
--- NOTE | 2023-08-14 08:50 | ECHOCS_ITS ---
Reason For Study: ATRIAL FIBRILLATION Procedure This was a 2D Doppler, Color Flow transthoracic echocardiogram. The study was technically difficult. Exam performed in department. Left Ventricle Normal LV size. Left ventricular systolic function is normal. The estimated ejection fraction is 65 %. No regional wall motion abnormalities noted. Right Ventricle Normal RV size. Normal systolic function. Atria Normal left atrium. Normal right atrium. Mitral Valve Normal mitral valve. Tricuspid Valve Normal tricuspid valve. Mild (1+) tricuspid valve insufficiency. Pulmonary artery systolic pressure is 30 mmHg. Aortic Valve Normal aortic valve. Pulmonic Valve Normal pulmonic valve. Great Vessels Normal aortic root. The pulmonary artery is normal size. Normal inferior vena cava. Pericardium/Pleural No pericardial effusion. Medication 22 gauge I.V. with prn adaptor inserted into right arm. Diluted definity 2ml given slow IV push to enhance endocardial definition. MMode/2D Measurements & Calculations LVIDd: 4.8 cm IVSd: 1.1 cm Ao root diam: 2.9 cm LVIDs: 3.2 cm LVPWd: 1.1 cm RVDd: 3.6 cm FS: 32.4 % LAV(MOD-bp): 43.3 ml LVAd ap4: 35.3 cm2 SV(MOD-sp4): 74.9 ml LAV(MOD-bp) Indexed: 17.8 ml/m2 LVLd ap4: 8.0 cm LAV(MOD-sp2): 43.4 ml EDV(MOD-sp4): 125.7 ml LAV(MOD-sp4): 41.8 ml EDV(sp4-el): 132.8 ml LVAs ap4: 19.5 cm2 LVLs ap4: 6.1 cm ESV(MOD-sp4): 50.8 ml ESV(sp4-el): 52.5 ml EF(MOD-sp4): 59.6 % EF(sp4-el): 60.4 % SV(sp4-el): 80.3 ml LA A4 area: 16.9 cm2 LA dimension(2D): 4.0 cm RA A4 area: 15.7 cm2 Time Measurements MV dec time: 0.23 sec Doppler Measurements & Calculations MV E max jean: 94.4 cm/sec Lat Peak E' Jean: 13.2 cm/sec Med Peak E' Jean: 10.8 cm/sec MV A max jean: 94.4 cm/sec E/E' lat: 7.1 E/E' med: 8.8 MV E/A: 1.0 Ao V2 max: 138.0 cm/sec LV V1 max: 119.1 cm/sec PA V2 max: 97.9 cm/sec Ao max P.6 mmHg LV V1 max P.7 mmHg TR max jean: 258.0 cm/sec TR max P.6 mmHg ECHO/Echo Complete W/ Contrast Interpretation Summary Normal LV size. Left ventricular systolic function is normal. The estimated ejection fraction is 65 %. Pulmonary artery systolic pressure is 30 mmHg. Contrast injection was performed. Ordering Physician: Domo Bettencourt Referring Physician: SWEETIE COLEY Performed By: Vianney Mandel RDCS
== END | disposition home or self-care (01) ==
PROVIDERS: PCP Family Medicine; Referring Provider Internal Medicine Cardiovascular Disease; Visit Provider Internal Medicine Cardiovascular Disease
DX: I48.0 Paroxysmal atrial fibrillation (principal)
CPT/HCPCS: 93306; Q9957; A4216; C8929

== ENCOUNTER 2023-12-05 16:55 | Emergency (ER) | payer BC, SELFPAY ==
[2023-12-05] VITALS (10 sets, daily range): BP systolic 92–149; BP diastolic 47–74; PULSE 74–103; RESP 18–25; TEMP 35.9–37; O2SAT 97–100; BMI 56.7
--- NOTE | 2023-12-05 17:11 | EDS_ITS ---
HPI History of Present Illness Chief Complaint: Dizziness Detail of Chief Complaint: Low blood pressure status post gastric sleeve done yesterday. Informant: patient and spouse/S.O. Onset/Context/Timing Onset: Today Context: Sudden Onset Timing: Continuous Current Severity: Moderate Maximum Severity: Moderate Narrative Narrative: 53-year-old female history of A-fib, hypothyroid isms with a prior subtotal thyroidectomy, rheumatoid arthritis. On Sunday had a gastric sleeve bariatric surgery done in [facility] by a Dr. Tapia. Patient was discharged today. Says she felt fine when she got home she felt lightheaded and had a near syncopal episode. Did not lose consciousness. No injuries. Says she feels lightheaded. Denies nausea, vomiting or diarrhea. Denies fever or chills. Denies dysuria. She is having no chest pain or shortness of breath. Said her abdominal pain postop has not gotten any worse. Her last bowel movement was 2 days ago. Prior similar symptoms: Yes Recent Illness/Hospitalization: Yes PFSH [facility] Medical History Depression GERD (gastroesophageal reflux disease) Hyperlipidemia Hypothyroidism NORBERT on CPAP Paroxysmal atrial fibrillation Rheumatoid arthritis Home Medications diltiazem HCl 120 mg capsule,extended release 24 hr (Cardizem CD) 120 mg PO DAILY #30 caps 06/06/23 [Rx Last Taken Unknown] etanercept 50 mg/mL (1 mL) subcutaneous pen injector (Enbrel SureClick) 50 mg subcut QWEEK 07/02/23 [History Last Taken Unknown] hydroxychloroquine 200 mg tablet 200 mg PO BID 07/02/23 [History Last Taken Unknown] levothyroxine 200 mcg tablet 200 mcg PO DAILY 07/02/23 [History Last Taken Unknown] prednisone 10 mg tablet 10 mg PO DAILY PRN 07/02/23 [History Last Taken Unknown] ropinirole 1 mg tablet 1 mg PO QHS 07/02/23 [History Last Taken Unknown] albuterol sulfate 90 mcg/actuation aerosol inhaler 2 puff inhalation Q6H PRN 08/01/23 [History Last Taken Unknown] cholecalciferol (vitamin D3) 1,250 mcg (50,000 unit) capsule 1,250 mcg PO QWEEK 08/01/23 [History Last Taken Unknown] Allergy/AdvReac Type Severity Reaction Status Date / Time azithromycin Allergy Hives Verified 12/05/23 17:23 tramadol Allergy Angioedema Verified 12/05/23 17:23 diclofenac AdvReac Vomiting Verified 12/05/23 17:23 doxycycline AdvReac Diarrhea Verified 12/05/23 17:23 levofloxacin [From Levaquin] AdvReac Other Verified 12/05/23 17:23 sulfamethoxazole AdvReac Diarrhea Verified 12/05/23 17:23 [From Bactrim] trimethoprim [From Bactrim] AdvReac Diarrhea Verified 12/05/23 17:23 dioxyline phosphate Allergy Unknown Diarrhea Uncoded 08/01/23 13:54 Family History Mother Cancer Non hodgkins lymphoma Reticular sarcoma Father CVA (cerebral vascular accident) Atrial fibrillation Grandmother Diabetes Sister Atrial fibrillation Surgical History H/O arthroscopic knee surgery History of cholecystectomy History of colonoscopy History of esophagogastroduodenoscopy (EGD) History of lumbar laminectomy History of subtotal thyroidectomy History of total abdominal hysterectomy and bilateral salpingo-oophorectomy Social History Smoking Status: Former smoker how long ago did patient quit smokin alcohol intake: never substance use type: does not use ROS ROS ED ROS Narrative Denies recent illness. Review of Systems ROS Unobtainable: Denies due to encephalopathy Constitutional Constitutional ED: Denies chills or fever(s) Eyes Eyes: Denies blurry vision ENT ENT ED: Denies ear pain Cardiovascular Cardiovascular: Denies chest pain Respiratory/Chest Respiratory/Chest: Denies cough or dyspnea Gastrointestinal Gastrointestinal: Denies abdominal pain Genitourinary Genitourinary ED: Denies dysuria or hematuria Musculoskeletal Musculoskeletal: Denies arthralgias Integumentary Denies abscess Neurologic Neurologic: Denies headache(s) Psychiatric Psychiatric: Denies anxiety Endocrine Endocrinology: Denies cold intolerance Hematologic/Lymphatic Hematologic/Lymphatic: Reports none Allergic/Immunologic Allergic/Immunologic ED: Denies mouth swelling, tongue swelling or urticaria EXAM Physical Exam Narrative Exam Narrative: 33-year-old female blood pressure 92/47. Pulse ox 100% on room air no hypoxia. She does not look septic or toxic. H EENT exam very dry tongue and mucous membranes. Consistent with dehydration. Neck nontender no lymphadenopathy. Lungs clear to auscultation bilaterally. Heart regular rhythm rate about 99 no murmur. Chest wall and ribs nontender. Abdomen soft she just recently had her laparoscopic gastric sleeve surgery. She has well-healing incisions. Her abdomen is diffusely tender. More so than I would think from just being postop. She is not distended. No hernia or signs of obstruction. Moving all 4 extremities. Nontender no edema. Neurologically she is awake and alert with no focal motor deficits. Const Vital Signs: 12/05/23 16:56 12/05/23 17:22 12/05/23 17:36 Temperature 96.6 F L 96.6 F L Temperature Source Temporal Temporal Pulse Rate 99 99 Respiratory Rate 18 18 Respiratory Effort Normal Respiratory Pattern Normal Blood Pressure 92/47 L 92/47 L Blood Pressure Mean 62 62 Pulse Ox 100 100 Oxygen Delivery Method Room Air Room Air 12/05/23 18:49 Temperature 98.6 F Temperature Source Oral Pulse Rate 76 Respiratory Rate 24 H Respiratory Effort Respiratory Pattern Blood Pressure 149/71 H Blood Pressure Mean 97 Pulse Ox 100 Oxygen Delivery Method Room Air Positive well nourished and well developed; Negative for cachectic or contractures General Appearance ED: well developed; Negative for cachectic, contractures, cyanotic, diaphoretic, NAD or pallor Nutritional Appearance: Negative for cachectic HEENT Reports dry mucous membranes; Denies moist mucous membranes Negative for trauma or tenderness Mouth ED: Yes dry mucous membranes Mouth: dry mucous membranes Eyes PERRL and EOMs intact bilaterally General Eye ED: Negative for pale conjunctiva or scleral icterus Neck no lymphadenopathy, supple and no JVD General: Negative for tenderness Lymph Lymphatic: Negative for other Chest Wall inspection of chest normal and palpation of chest normal Chest: Negative for other Resp normal respiratory effort and clear to auscultation bilaterally Effort and Inspection: Negative for retractions, pain with movement or other Cardio regular rate, regular rhythm, S1 normal heart sound, S2 normal heart sound and no murmurs Palpation: Negative for palpable S3 or palpable S4 Rate: Negative for bradycardia, tachycardic or other Rhythm: Negative for abnormal rhythm GI normal to inspection, nondistended, normoactive bowel sounds, non-distended and no masses; Negative for non-tender GI Narrative: Recent laparoscopic surgery with well-healing incisions. They are dry and clean. Diffusely tender more than just postoperative abdominal wall pain. Inspection: Negative for abdominal distention Auscultation: normoactive bowel sounds Palpation: soft, tender and guarding; Negative for mass Back/Spine no CVA tenderness General Back: Negative for CVA tenderness Cervical Spine: Negative for cervical spine tenderness Thoracic Spine / Upper Back: Negative for thoracic spinal tenderness Lumbar Spine / Lower Back: Negative for lumbar spinal tenderness Extremity normal to inspection General Extremety ED: Negative for edema or tenderness General Extremity: Negative for edema Neuro oriented x3 and CN's II-XII intact bilaterally Sensorium / Orientation: alert; Negative for orientation impaired, lethargic or stuporous Motor Exam: strength 5/5 throughout Psych mental status grossly normal Appearance: Negative for other Attitude: No agitated Mood & Affect: Negative for depressed, anxious or tearful Skin no rashes or lesions noted and no wounds General Skin Exam: Negative for jaundice or pallor Lesions: No lesion noted Rashes: No rashes noted Trauma: Negative for abrasion Wounds: Negative for wounds noted MDM MDM MDM Narrative Medical decision making narrative: 53-year-old female status post laparoscopic gastric sleeve done yesterday at [facility]. Presents hypotensive and clinically looks dehydrated. She received 2 L normal saline. Screening labs and EKG will be obtained. History & Record Review Discussion w/independent historian: Patient Additional record(s) reviewed:: Prior inpatient record, Prior outpatient record, Prior ED visit and Prior labs Lab Data Attestation: I reviewed the patient's lab results. Lab results narrative: CBC shows elevated white count of 31,700. H&H 10.6 and 35.5. She did just have surgery. Platelets 464. Electrolytes show gap of 12. BUN of 18 creatinine 1.89. Glucose 224. Lactic acid is elevated 6.8. Liver enzymes are unremarkable. Labs: Laboratory Results - last 24 hr 12/05/23 17:01 WBC 31.7 H* RBC 4.15 L Hgb 10.6 L Hct 35.5 L MCV 85.5 MCH 25.5 L MCHC 29.9 L RDW Std Deviation 45.9 H RDW Coeff of Vijaya 15.1 H Plt Count 464 H MPV 13.2 H Immature Gran % (Auto) 1.500 H Neut % (Auto) 84.2 H Lymph % (Auto) 8.2 L [place] % (Auto) 5.7 Eos % (Auto) 0.0 Baso % (Auto) 0.4 Absolute Neuts (auto) 26.7 H Absolute Lymphs (auto) 2.59 Nucleated RBC % 0 Differential Comment SCANNED Diff Path Review March Sodium 142 Potassium 3.9 Chloride 111 H Carbon Dioxide 19.0 L Anion Gap 12 BUN 18 Creatinine 1.89 H Estim Creat Clear Calc 48.67 Est GFR (MDRD) Af Amer 36 L Est GFR (MDRD) Non-Af 30 L BUN/Creatinine Ratio 9.5 L Glucose 224 H Lactic Acid 6.8 H* Calcium 9.0 Total Bilirubin 0.50 AST 15 ALT 36 Alkaline Phosphatase 55 Total Protein 6.3 L Albumin 3.1 L Globulin 3.2 Albumin/Globulin Ratio 1.0 Radiography Chest X-Ray - ED: 1 View, Read by ED Physician, Read by Radiologist, Heart, Lungs, Mediastinum, Bony Structures, No Acute Disease and Chronic Changes Diagnostic Testing: Clinical Impression(s) from Imaging Studies Chest X-Ray 12/05/23 17:12 IMPRESSION: No radiographic evidence of acute cardiopulmonary disease. Electronically Signed: Ryan Anguiano DO at 17:35 EST , Abdomen/Pelvis CT 12/05/23 17:40 IMPRESSION: Complex fluid in the abdomen and pelvis likely related to blood product. Probable hematoma in the left upper quadrant. Left adrenal nodule. Electronically Signed: Ryan Anguiano DO at 19:02 EST , Chest x-ray, portable, single view interpreted by myself and radiologist shows no acute abnormality. Normal cardiac silhouette. Normal lung brooke. Rhythm Strip Rhythm Strip: Sinus Rhythm Rate: 85 Ectopy: PAC(s) Critical Care Time Critical Care Time: Yes Critical care time (excluding procedures): 30-74 minutes, Including time spent:, Discussing w/Patient &/or Family/Associate Director Finance, Discussing w/Consultants, Arranging Admission or Transfer, Performing Direct Patient Care at Bedside and - (40 minutes) Discharge Plan Triage Chief Complaint: Dizziness ED Provider: Isidro Schmidt Dx/Rx/DC Orders Clinical Impression: Acute hypotension, Anemia, Post-op bleeding, History of bariatric surgery Prescriptions: No Action hydroxychloroquine 200 mg tablet 200 mg PO BID Patient Comments: take 1 tablet by mouth twice a day ropinirole 1 mg tablet 1 mg PO QHS Patient Comments: take 1 tablet by mouth at bedtime levothyroxine 200 mcg tablet 200 mcg PO DAILY Patient Comments: take 1 tablet by mouth once daily ON AN EMPTY STOMACH FOR THYROID prednisone 10 mg tablet 10 mg PO DAILY PRN Patient Comments: take 1 tablet by mouth once daily if needed take for 3-5 DAYS WITH A FLARE Enbrel SureClick 50 mg/mL (1 mL) pen injector 50 mg subcut QWEEK cholecalciferol (vitamin D3) 1,250 mcg (50,000 unit) capsule 1,250 mcg PO QWEEK albuterol sulfate 90 mcg/actuation HFA aerosol inhaler 2 puff inhalation Q6H PRN diltiazem HCl [Cardizem CD] 120 mg capsule,extended release 24hr 120 mg PO DAILY Qty: 30 0RF Primary Care Provider: Cirilo Feng Referrals: Cirilo Feng MD [Primary Care Provider] - Disposition Disposition: Acute Care Hospital
--- NOTE | 2023-12-05 17:12 | RAD_ITS ---
INDICATION: hypotension post op EXAMINATION/TECHNIQUE: X-RAY - XR Chest 1 View COMPARISON: June 06, 2023 FINDINGS: LINES/DEVICES: None. LUNGS: No consolidation, edema or effusion. No pneumothorax. MEDIASTINUM AND CARDIOVASCULAR STRUCTURES: Cardiac silhouette not enlarged. Central airways and mediastinal contour are unremarkable. BONES AND SOFT TISSUES: Degenerative vertebral changes. RAD/Chest 1 View (Portable) IMPRESSION: No radiographic evidence of acute cardiopulmonary disease. Electronically Signed: Ryan Anguiano DO at 17:35 EST ,
[2023-12-05] MEDS: 0.9% Normal Saline (1000mL) 1,000 ML 1000 ML IV ×2 (17:14→17:16)
[2023-12-05 17:30] LABS: Absolute Lymphocyte Count 2.59 X10^3/uL (0.83-4.51); Absolute Neutrophil Count 26.7 X10^3/uL (2.0-7.7); Basophil# 0.14 X10^3/uL; Basophil% 0.4 % (0-1); Eosinophil# 0.01 X10^3/uL; Hematocrit 35.5 % (37-47); Hemoglobin 10.6 g/dL (12.0-15.0); Lymphocyte # 2.59 X10^3/ul (0.83-4.51); Lymphocyte % 8.2 % (19-41); Mean Corp Hgb Conc 29.9 g/dL (32-36); Mean Corpuscular Hgb 25.5 pg (27.0-32.0); Mean Corpuscular Volume 85.5 fL (81-99); Mean Platelet Vol. 13.2 fl (6.2-12.0); Monocyte# 1.81 X10^3/uL; Monocyte% 5.7 % (0-10); NRBC Flagged by Analyzer 0 % (0-5); Neutrophil # 26.68 X10^3/uL (2.7-7.7); Neutrophil % 84.2 % (47-70); POSITIVE COUNT YES; POSITIVE DIFFERENTIAL YES; Platelet Count 464 K/mm3 (150-450); RBC Distribution Width CV 15.1 % (11.6-14.6); RBC Distribution Width SD 45.9 fl (35.1-43.9); Red Blood Count 4.15 M/mm3 (4.2-5.4)
[2023-12-05 17:34] LABS: Differential Indicated SCAN CRITERIA MET; White Blood Count 31.7 K/mm3 (4.4-11.0)
--- NOTE | 2023-12-05 17:40 | CT_ITS ---
We are attempting to reach an attending provider to discuss findings. An addendum with communication details will be sent when the communication is complete. STUDY: CT ABDOMEN AND PELVIS WITH CONTRAST REASON FOR EXAM: Female, 53 years old. hypotension s/p gastric sleeve surgery yesterday RADIATION DOSAGE (If Supplied By Facility): CTDIvol = ( 29.07 ) mGy, DLP = ( 1853.91 ) mGycm TECHNIQUE: Transaxial images were obtained from the dome of the diaphragm to the symphysis pubis without oral contrast. IV 100mL Isovue-300 was administered. Sagittal and coronal images were reconstructed. Individualized dose optimization techniques were used for this CT. COMPARISON: None. FINDINGS: The visualized lung bases are unremarkable. The visualized portions of the heart are within normal limits. Normal liver. Hyperdense perihepatic and perisplenic fluid. Nonvisualization of the gallbladder. No significant dilatation of the extrahepatic biliary system. Normal spleen. Normal pancreas. 1.2 cm left adrenal nodule. Normal right kidney. Normal left kidney. Prior surgery of the stomach with an adjacent heterogeneous 12.5 x 9.9 x 10 cm mass likely a hematoma. Normal small intestine. Normal colon. The appendix is visualized and appears normal. Calcified abdominal aorta. Normal inferior vena cava. Normal retroperitoneum. Normal urinary bladder. Moderate complex fluid in the pelvis. Small gas droplets in the anterior abdominal wall. Normal osseous structures. CT/Abdomen/Pelvis W IV Cont ONLY IMPRESSION: Complex fluid in the abdomen and pelvis likely related to blood product. Probable hematoma in the left upper quadrant. Left adrenal nodule. Electronically Signed: Ryan Anguiano DO at 19:02 EST Reading Location ID and State: [facility] / [place] Tel [phone], Service support ,
--- OUTSIDE RECORDS SUMMARY | 2023-12-05 17:41 | XMS RPT_ITS | CCD ---
Author Name Unknown Address [address] [place] [address] Organization [facility] Care Team Providers Care Primer Boxer Name Role Phone Sweetie Feng Primary Care Provider [phone] DR SWEETIE FENG MD Primary Care Physician [phone] Sweetie Feng MD Primary Care Provider Sweetie Feng MD Primary Care Provider [phone] Sweetie Feng MD Primary Care Provider SOHA SHEPHERD Referring Unavailable SWEETIE FENG Primary Care Unavailable PROVIDER, UNKNOWN Referring Unavailable SWEETIE FENG Primary Care Unavailable Adrian GRIFFIN.Dixon MAGANA Unavailable SWEETIE FENG Primary Care Unavailable DAVID SHAIKH Attending Unavailable SWEETIE FENG Primary Care Unavailable VERN SHAIKHE Referring Unavailable SWEETIE FENG Primary Care Unavailable RUDDAILY, SOHA Referring Unavailable SWEETIE FENG Primary Care Unavailable RUDICK, SOHA Referring Unavailable SWEETIE FENG Primary Care Unavailable RUDICK SOHA Referring Unavailable SWEETIE FENG Primary Care Unavailable ADRIAN, DIXON Referring Unavailable SWEETIE FENG Primary Care Unavailable VERN SHAIKHE Attending Unavailable SWEETIE FENG Primary Care Unavailable ADRIAN, DIXON Referring Unavailable SWEETIE FENG Primary Care Unavailable BRANDIE CAREY Referring Unavailable SWEETIE FENG Primary Care Unavailable VERN SHAIKHE Attending Unavailable SWEETIE FENG Primary Care Unavailable MIKE RAMIREZ Attending Unavailable OLGA, SOHA Attending Unavailable ELDERBROCK, SWEETIE D Primary Care Unavailable LYALL-REESE, MALIHA Attending Unavailable ELDERBROCK, SWEETIE D Primary Care Unavailable JOAQUIN SHAW Attending Unavailab le DIXON CAMPBELL Referring Unavailable ELDERBROCK, SWEETIE D Primary Care Unavailable LIONEL MCGILL Attending Unavailable ELDERBROCK, SWEETIE D Primary Care Unavailable LYALL-REESE, MALIHA Attending Unavailable ELDERBROCK, SWEETIE D Primary Care Unavailable ELDERBROCK, SWEETIE D Referring Unavailable ADRIAN, DIXON Attending Unavailable ELDERBROCK, SWEETIE D Primary Care Unavailable ELDERBROCK, SWEETIE D Referring Unavailable ELDERBROCK, SWEETIE D Primary Care Unavailable DOWNING, SUZANNE Attending Unavailable ELDERBROCK, SWEETIE D Primary Care Unavailable ELDERBROCK, SWEETIE D Referring Unavailable ADRIAN, DIXON Attending Unavailable ELDERBROCK, SWEETIE D Primary Care Unavailable ELDERBROCK, SWEETIE D Referring Unavailable DOWNING, SUZANNE Attending Unavailable ELDERBROCK, SWEETIE D Referring Unavailable ADRIAN, DIXON Attending Unavailable ELDERBROCK, SWEETIE D Primary Care Unavailable ELDERBROCK, SWEETIE D Primary Care Unavailable ELDERBROCK, SWEETIE D Referring Unavailable ANDI, KARON Attending Unavailable ANDI, KARON Admitting Unavailable ANDI, KARON Referring Unavailable ANDI, KARON Attending Unavailable ELDERBROCK, SWEETIE D Primary Care Unavailable GROMOVSKY, BRANDIE R Attending Unavailable ELDERBROCK, SWEETIE D Primary Care Unavailable ELDERBROCK, SWEETIE D Referring Unavailable ADRIAN, DIXON Attending Unavailable ELDERBROCK, SWEETIE D Referring Unavailable ELDERBROCK, SWEETIE D Primary Care Unavailable ANDI, KARON Referring Unavailable ELDERBROCK, SWEETIE D Primary Care Unavailable GROKELSEA, BRANDIE R Attending Unavailable ELDERBROCK, SWEETIE D Primary Care Unavailable GROMOVSKY, BRANDIE R Referring Unavailable ELDERBROCK, SWEETIE D Primary Care Unavailable ELDERBROCK, SWEETIE D Referring Unavailable ANDI, KARON Attending Unavailable ELDERBROCK, SWEETIE D Primary Care Unavailable ELDERBROCK, SWEETIE D Primary Care Unavailable ANDI, KARON Referring Unavailable ELDERBROCK, SWEETIE D Primary Care Unavailable ANDI, KARON Referring Unavailable DOWNING, SUZANNE Attending Unavailable ELDERBROCK, SWEETIE D Referring Unavailable DOWNING, SUZANNE Attending Unavailable ELDERBROCK, SWEETIE D Primary Care Unavailable MERA RICHTER Attending Unavailable ELDERBROCK, SWEETIE D Primary Care Unavailable Allergies Allergy Classification Reported Allergen(s) Allergy Type Date of Onset Reaction(s) Facility (6 sources) Azithromycin; Translations: [azithromycin] Drug Allergy 11-05-19 08 Hives, Shortness Of Breath [place], [place] (20 sources) Diclofenac; Translations: [DICLOFENAC] Drug Allergy 04-27-20 14 Diarrhea [place], [place] (20 sources) Doxycycline; Translations: [doxycycline] Drug Allergy 11-03-20 11 Nausea And Vomiting, Vomiting [place] (20 sources) levoFLOXacin; Translations: [LEVOFLOXACIN] Drug Allergy 06-09-20 18 Other: See Comments [place] (20 sources) Sulfamethoxazole / Trimethoprim; Translations: [sulfamethoxazole-tr imethoprim] Drug Allergy 12-02-19 08 Rash, Diarrhea [place] (20 sources) traMADol; Translations: [TRAMADOL] Drug Allergy 02-07-20 18 Swelling, Other: See Comments [place] (7 sources) Other; Translations: [OTHER] Propensity to adverse reactions 02-11-20 08 Itching, Shortness Of Breath [place] (1 source) Vancomycin; Translations: [vancomycin] Drug Allergy [facility] Work Phone: (20 sources) Azithromycin Drug Allergy 02-11-20 08 Itching, Shortness of Breath [facility] (20 sources) Dioxyline Phosphate; Translations: [DIOXYLINE PHOSPHATE] Drug Allergy 10-17-20 16 Diarrhea [facility] NEGATED: Highlighted row has been ruled out! (1 source) Drug allergy [facility] Work Phone: Medications Current Medications Medication Drug Class(es) Dates Sig (Normalized) Sig (Original) acetaminophen 325 mg / oxyCODONE hydrochloride 5 mg oral tablet (1 source) Opioid Agonist Start: 07-11-2019 End: 07-18-2019 take 1 tablet by mouth every six hours as needed for pain, then take 1 tablet by mouth as needed for pain oxyCODONE-acetaminop hen (PERCOCET) 5-325 MG per tablet Indications: Biliary dyskinesia Take 1 tablet by mouth every 6 hours as needed for Pain for up to 7 days. Intended supply: 7 days. Take lowest dose possible to manage pain 28 tablet 0 07/11/2019 07/18/2019 Active ALPRAZolam 0.25 mg disintegrating oral tablet (1 source) Benzodiazepine Start: 07-11-2019 ALPRAZolam (NIRAVAM) dissolvable tablet 0.25 mg calcium chloride 0.0014 meq/ml / potassium chloride 0.004 meq/ml / sodium chloride 0.103 meq/ml / sodium lactate 0.028 meq/ml injectable solution (1 source) Start: 07-11-2019 lactated ringers infusion CPAP Machine MISC (3 sources) CPAP Machine MIS C Indications: Settings per paitent NORBERT 11 cm by Does not apply route nightly Indications: Settings per paitent NORBERT 0 Active cyclobenzaprine hydrochloride 10 mg oral tablet (6 sources) Muscle Relaxant Start: 08-03-2023 End: 09-02-2023 take 1 tablet by mouth every eight hours as needed cyclobenzaprine (FLEXERIL) 10 mg tablet Take 1 tablet by mouth three times a day as needed for muscle spasm. 90 tablet 0 08/03/2023 09/02/2023 Active Completed/Discontinued Medications Medication Drug Class(es) Dates Sig (Normalized) Sig (Original) acetaminophen 500 mg oral tablet (1 source) Start: 07-11-2019 End: 07-11-2019 acetaminophen (TYLENOL) tablet 1,000 mg [id number] 200 actuat albuterol 0.09 mg/actuat metered dose inhaler (20 sources) beta2-Adrenergic Agonist Start: 01-30-2022 take 1-2 puff(s) by inhalation four times daily as needed for wheezing albuterol HFA (PROVENTIL HFA, VENTOLIN HFA) 90 mcg/actuation inhaler Inhale 1-2 Puffs as instructed four times daily as needed. FOR WHEEZING AND SHORTNESS OF BREATH. 1 g 5 01/30/2022 Active Problems Active Problems Problem Classification Problem Date Documented Date Episodic/Chronic Acute bronchitis (1 source) Viral bronchitis; Translations: [Acute bronchitis due to other specified organisms] Episodic Anxiety disorders (2 sources) Claustrophobia; Translations: [Claustrophobia] 08-20-2023 Chronic Asthma (3 sources) Asthma; Translations: [Mild intermittent asthma, uncomplicated] Onset: 05-30-2023 03-28-2016 Chronic Biliary tract disease (3 sources) Biliary dyskinesia; Translations: [Biliary dyskinesia] Onset: 07-11-2019 07-11-2019 Episodic Cardiac dysrhythmias (20 sources) Atrial fibrillation; Translations: [Unspecified atrial fibrillation] Onset: 06-22-2023 06-25-2023 Chronic Diabetes mellitus without complication (3 sources) Prediabetes; Translations: [Pre-diabetes] 04-30-2019 Episodic Disorders of lipid metabolism (5 sources) Hyperlipidemia; Translations: [Hyperlipidemia, unspecified] Onset: 10-25-2023 08-10-2015 Chronic Esophageal disorders (1 source) Gastro-esophageal reflux disease without esophagitis; Translations: [Gastroesophageal reflux disease without esophagitis] Onset: 10-25-2023 Chronic Essential hypertension (3 sources) Hypertensive disorder; Translations: [High blood pressure] 04-30-2019 Chronic Headache; including migraine (20 sources) Abdominal migraine; Translations: [Abdominal migraine, not intractable] Onset: 01-20-2008 09-22-2015 Chronic Joint disorders and dislocations; trauma-related (20 sources) Chondromalacia of patella; Translations: [Chondromalacia patellae, unspecified knee] Onset: 06-28-2009 06-28-2009 Chronic Malaise and fatigue (3 sources) Fatigue; Translations: [Fatigue] 04-30-2019 Episodic Miscellaneous mental health disorders (2 sources) Not getting enough sleep; Translations: [Insufficient sleep syndrome] 08-28-2023 Chronic Mood disorders (20 sources) Depressive disorder; Translations: [Other specified depressive episodes] Onset: 09-18-2013 09-18-2013 Chronic Nutritional deficiencies (2 sources) Vitamin D deficiency; Translations: [Vitamin D deficiency, unspecified] Chronic Osteoarthritis (20 sources) Osteoarthritis of right knee joint; Translations: [Unilateral primary osteoarthritis, right knee] Onset: 02-24-2016 02-24-2016 Chronic Other connective tissue disease (1 source) Muscle pain; Translations: [Myalgia, unspecified site] Episodic Other connective tissue disease (1 source) Pain in left lower limb; Translations: [Pain in left leg] 08-03-2023 Episodic Other diseases of kidney and ureters (1 source) Disorder of kidney and/or ureter; Translations: [Other specified disorders of kidney and ureter] 08-17-2023 Chronic Other diseases of kidney and ureters (3 sources) Other specified disorders of kidney and ureter; Translations: [Other specified disorders of kidney and ureter] Onset: 08-17-2023 Chronic Other diseases of kidney and ureters (2 sources) Acquired renal cystic disease; Translations: [Cyst of kidney, acquired] 09-11-2023 Episodic Other diseases of kidney and ureters (2 sources) Cyst of kidney, acquired; Translations: [Acquired cyst of kidney] Onset: 09-14-2023 Episodic Other diseases of kidney and ureters (1 source) Kidney lesion; Translations: [Disorder of kidney and ureter, unspecified] 09-18-2023 Episodic Other diseases of kidney and ureters (1 source) Disorder of kidney and ureter, unspecified; Translations: [Kidney lesion] Onset: 10-31-2023 Episodic Other endocrine disorders (1 source) Other specified disorders of adrenal gland; Translations: [Adrenal incidentaloma (HCC)] Onset: 11-26-2023 Chronic Other hereditary and degenerative nervous system conditions (3 sources) Restless legs; Translations: [Restless legs syndrome] Chronic Other hereditary and degenerative nervous system conditions (2 sources) Restless legs syndrome; Translations: [RLS (restless legs syndrome)] Onset: 08-28-2023 Chronic Other liver diseases (2 sources) Fatty (change of) liver, not elsewhere classified; Translations: [Other chronic nonalcoholic liver disease] Onset: 10-25-2023 08-09-2023 Chronic Other lower respiratory disease (3 sources) Dyspnea on exertion; Translations: [Shortness of breath on exertion] 04-30-2019 Episodic Other lower respiratory disease (1 source) Cough; Translations: [Acute cough] Episodic Other nutritional; endocrine; and metabolic disorders (20 sources) Morbid obesity; Translations: [Morbid (severe) obesity due to excess calories] Onset: 08-05-2014 04-30-2019 Chronic Other nutritional; endocrine; and metabolic disorders (20 sources) Obesity; Translations: [Obesity, unspecified] 04-04-2019 Chronic Other nutritional; endocrine; and metabolic disorders (6 sources) Severe obesity; Translations: [Morbid (severe) obesity due to excess calories] 06-11-2023 Chronic Other nutritional; endocrine; and metabolic disorders (10 sources) Morbid (severe) obesity due to excess calories; Translations: [Morbid obesity (HCC)] Onset: 08-05-2014 Chronic Other nutritional; endocrine; and metabolic disorders (3 sources) Body mass index (BMI) 60.0-69.9, adult; Translations: [Class 3 severe obesity with body mass index (BMI) of 60.0 to 69.9 in adult, unspecified obesity type, unspecified whether serious comorbidity present (HCC)] Onset: 04-04-2019 Chronic Other nutritional; endocrine; and metabolic disorders (2 sources) Body mass index (BMI) 50.0-59.9, adult; Translations: [Class 3 severe obesity due to excess calories with body mass index (BMI) of 50.0 to 59.9 in adult, unspecified whether serious comorbidity present (HCC)] Onset: 04-04-2019 Chronic Other screening for suspected conditions (not mental disorders or infectious disease) (7 sources) Patient encounter status; Translations: [Encounter for screening mammogram for malignant neoplasm of breast] Episodic Other upper respiratory infections (1 source) Viral upper respiratory tract infection; Translations: [Acute upper respiratory infection, unspecified] Episodic Residual codes; unclassified (20 sources) Obstructive sleep apnea syndrome; Translations: [Obstructive sleep apnea (adult) (pediatric)] Onset: 08-05-2014 05-01-2019 Chronic Residual codes; unclassified (4 sources) Obstructive sleep apnea (adult) (pediatric); Translations: [NORBERT (obstructive sleep apnea)] Onset: 11-01-2021 Chronic Rheumatoid arthritis and related disease (4 sources) Rheumatoid arteritis; 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] Onset: 08-09-2023 08-09-2023 Chronic Screening and history of mental health and substance abuse codes (7 sources) Tobacco use and exposure - finding; Translations: [Personal history of nicotine dependence] Onset: 08-28-2023 08-27-2023 Episodic Thyroid disorders (20 sources) Acquired hypothyroidism; Translations: [Hypothyroidism] Onset: 01-20-2008 10-13-2015 Chronic Unclassified (1 source) None (qualifier value) 02-15-2014 Unclassified (1 source) Established Patient Onset: 06-25-2023 Viral infection (1 source) COVID-19; Translations: [Other specified viral infection] Episodic Past or Other Problems Problem Classification Problem Date Documented Da te Episodic/Chronic Joint disorders and dislocations; trauma-related (20 sources) Tear of meniscus of knee; Translations: [Unspecified tear of unspecified meniscus, current injury, right knee, initial encounter] Onset: 2014 2014 Episodic Other aftercare (20 sources) Surgical follow-up; Translations: [Encounter for follow-up examination after completed treatment for conditions other than malignant neoplasm] Onset: 11-10-2009 11-10-2009 Episodic Other bone disease and musculoskeletal deformities (20 sources) Chondromalacia; Translations: [Chondromalacia, unspecified knee] Onset: 2014 2014 Episodic Other connective tissue disease (20 sources) Calcaneal spur; Translations: [Calcaneal spur, unspecified foot] Onset: 08-06-2012 08-06-2012 Episodic Other non-traumatic joint disorders (20 sources) Pain in right knee; Translations: [Pain in joint, lower leg] Onset: 2014 2014 Episodic Sprains and strains (20 sources) Sprain of wrist; Translations: [Unspecified sprain of unspecified wrist, initial encounter] Onset: 01-20-2008 01-20-2008 Episodic Results Test Name Value Interpretation Reference Range Facil ity Vital Signs Date Time Vital Sign Value Performing Clinician Faci lity 10-16-2023 07:39-0500 Body height 160.[address] Work Phone: [facility] 10-16-2023 07:39-0500 Body weight 149.69 kg [address] Work Phone: [facility] 10-05-2023 08:56-0500 Diastolic blood pressure 80 mm[Hg] David Dario PRICE ANALYST.[employer] [address] SQL DEVELOPER Work Phone: [facility] 10-05-2023 08:56-0500 Systolic blood pressure 140 mm[Hg] David Dario PRICE ANALYSTRaineSENIOR ORACLE [address] SQL DEVELOPER Work Phone: [facility] 10-05-2023 08:40-0500 Body weight 152.41 kg David Shaikh PRICE ANALYSTRaineSENIOR [address] SQL DEVELOPER Work Phone: [facility] 10-05-2023 08:40-0500 Heart rate 75 /min David Shaikh PRICE ANALYST.[employer] SQL DEVELOPER Work Phone: [facility] 10-05-2023 08:40-0500 Respiratory rate 16 /min David Shaikh APRN.[employer] SQL DEVELOPER Work Phone: [facility] 10-05-2023 08:40-0500 SaO2% (BldA) [Mass fraction] 98 % David Shaikh PRICE ANALYST.[employer] [address] SQL DEVELOPER Work Phone: [facility] 09-24-2023 07:46-0500 Body height 160.7 cm Dixon Campbell PRICE ANALYST.[employer] [address] SQL DEVELOPER Work Phone: [facility] 09-24-2023 07:46-0500 Body weight 148.78 kg Dixon Campbell PRICE ANALYST.[employer] [address] SQL DEVELOPER Work Phone: [facility] 09-21-2023 09:16-0500 Body height 160.[address] Work Phone: [facility] 09-21-2023 09:16-0500 Body weight 148.[address] Work Phone: [facility] 09-13-2023 02:19-0500 Body height 160.7 cm Sleep Main Work Phone: [facility] 09-13-2023 02:19-0500 Body weight 152 kg Sleep Main Work Phone: [facility] 09-07-2023 10:39-0400 Body height 160.7 cm Pulm Wstr Work Phone: [facility] 09-07-2023 10:39-0400 Body weight 151.96 kg Pulm Wstr Work Phone: [facility] 08-31-2023 08:46-0400 Body height 160 [address] Work Phone: [facility] 08-31-2023 08:46-0400 Body weight 150.[address] Work Phone: [facility] 08-28-2023 10:27-0400 Body height 160 cm Sohajennifer Portilloick DO Work Phone: [facility] 08-28-2023 10:27-0400 Body weight 150.59 kg Sohajennifer Portilloick DO Work Phone: [facility] 08-28-2023 10:27-0400 Diastolic blood pressure 71 mm[Hg] Soha Rudick DO Work Phone: [facility] 08-28-2023 10:27-0400 Heart rate 77 /min Soha Rudick DO Work Phone: [facility] 08-28-2023 10:27-0400 SaO2% (BldA) [Mass fraction] 96 % Soah Rudick DO Work Phone: [facility] 08-28-2023 10:27-0400 Systolic blood pressure 152 mm[Hg] Soha Rudick DO Work Phone: [facility] 08-09-2023 10:25-0400 Body height 160 cm Karon Escamilla MD Work Phone: [facility] 08-09-2023 10:25-0400 Body weight 152.68 kg Karon Escamilla MD Work Phone: [facility] 08-09-2023 10:25-0400 Diastolic blood pressure 85 mm[Hg] Karon Escamilla MD Work Phone: [facility] 08-09-2023 10:25-0400 Heart rate 72 /min Karon Escamilla MD Work Phone: [facility] 08-09-2023 10:25-0400 Systolic blood pressure 163 mm[Hg] Karon Escamilla MD Work Phone: [facility] 08-03-2023 07:44-0400 Body height 162.6 cm David Dario PRICE ANALYST.[employer] [address] SQL DEVELOPER Work Phone: [facility] 08-03-2023 07:44-0400 Body temperature 98.29 [degF] David Dario PRICE ANALYST.[employer] [address] SQL DEVELOPER Work Phone: [facility] 08-03-2023 07:44-0400 Body weight 154.04 kg David Dario PRICE ANALYST.[employer] [address] SQL DEVELOPER Work Phone: [facility] 08-03-2023 07:44-0400 Diastolic blood pressure 81 mm[Hg] David Dario PRICE ANALYST.[employer] [address] SQL DEVELOPER Work Phone: [facility] 08-03-2023 07:44-0400 Heart rate 67 /min David Dario PRICE ANALYST.[employer] [address] SQL DEVELOPER Work Phone: [facility] 08-03-2023 07:44-0400 Respiratory rate 16 /min David Dario PRICE ANALYST.[employer] [address] SQL DEVELOPER Work Phone: [facility] 08-03-2023 07:44-0400 SaO2% (BldA) [Mass fraction] 97 % David Dario PRICE ANALYST.[employer] [address] SQL DEVELOPER Work Phone: [facility] 08-03-2023 07:44-0400 Systolic blood pressure 134 mm[Hg] David Dario PRICE ANALYST.[employer] [address] SQL DEVELOPER Work Phone: [facility] 06-25-2023 13:48-0400 Body height 160 cm Dixon Pradok PRICE ANALYST.[employer] [address] SQL DEVELOPER Work Phone: [facility] 06-25-2023 13:48-0400 Body weight 156.58 kg Dixon Campbell PRICE ANALYST.[employer] [address] SQL DEVELOPER Work Phone: [facility] 06-11-2023 10:27-0400 Body height [address] Work Phone: [facility] 06-11-2023 10:27-0400 Body weight 162.[address] Work Phone: [facility] 02-22-2022 10:50-0400 Body temperature 97.7 [degF] Ricardo Michaud MD Work Phone: [facility] 02-22-2022 10:50-0400 Diastolic blood pressure 74 mm[Hg] Ricardo Michaud MD Work Phone: [facility] 02-22-2022 10:50-0400 SaO2% (BldA) [Mass fraction] 94 % Ricardo Michaud MD Work Phone: [facility] 02-22-2022 10:50-0400 Systolic blood pressure 125 mm[Hg] Ricardo Michaud MD Work Phone: [facility] 09-14-2021 03:49-0500 Body height 160 cm JOSE L LINDQUISTESKA DO [facility] 09-14-2021 03:49-0500 Body temperature 97.88 [degF] JOSE L LINDQUISTESKA DO [facility] 09-14-2021 03:49-0500 Body weight 159 kg JOSE L LINDQUISTESKA DO [facility] 09-14-2021 03:49-0500 Diastolic blood pressure 92 mm[Hg] JOSE L LINDQUISTESKA DO [facility] 09-14-2021 03:49-0500 Heart rate 90 /min JOSE L LINDQUISTESKA DO [facility] 09-14-2021 03:49-0500 Respiratory rate 18 /min JOSE L LINDQUISTESKA DO [facility] 09-14-2021 03:49-0500 Systolic blood pressure 148 mm[Hg] JOSE L LINDQUISTESKA DO [facility] 07-11-2019 14:45-0400 BP Diastolic 76 mm[Hg] [facility] [place] 07-11-2019 14:45-0400 BP Systolic 147 mm[Hg] Enrrique [employer] [facility] [place] 07-11-2019 14:45-0400 Pulse (Heart Rate) 66 /min Enrrique [employer] [facility] 07-11-2019 14:45-0400 Pulse Oximetry 94 % Enrrique [employer] [facility] [place] 07-11-2019 14:45-0400 Respiratory Rate 16 /min Enrrique Doty [facility] , [place] 07-11-2019 12:45-0400 Body Temperature 99 [degF] [facility] [place] 07-11-2019 10:56-0400 BMI (Body Mass Index) 60.05 kg/m2 Enrrique Doty [facility] 07-11-2019 10:56-0400 Body weight 153.77 [facility] [place] 07-11-2019 10:56-0400 Height 160 [facility] [place] 07-04-2019 11:41-0400 BP Diastolic 81 mm[Hg] [facility] [place] 07-04-2019 11:41-0400 BP Systolic 160 mm[Hg] [facility] [place] 07-04-2019 11:41-0400 Pulse (Heart Rate) 86 /min [facility] [place] 07-04-2019 11:41-0400 Respiratory Rate 18 /min [facility] [place] 07-04-2019 11:40-0400 Body Temperature 97.5 [degF] [facility] [place] 07-04-2019 11:40-0400 Pulse Oximetry 95 % Enrrique Doty [facility] [place] 07-04-2019 11:01-0400 BMI (Body Mass Index) 60.05 kg/m2 [facility] [place] 07-04-2019 11:01-0400 Body weight 153.77 kg [facility] [place] 07-04-2019 11:01-0400 Height 160 cm [facility] [place] Encounters Encounter Date Encounter Type Care Provider Facility Start: 12-04-2023 Evaluation and manag ement of inpatient KARON ESCAMILLA Facility:[facility] Start: 11-30-2023 End: 12-01-2023 ambulatory BRANDIE CAREY Facility:[facility] Start: 11-30-2023 End: 12-01-2023 ambulatory KARON ESCAMILLA Facility:[facility] Start: 11-30-2023 Encounter for other preprocedural examination [facility] Start: 11-26-2023 End: 11-26-2023 ambulatory LIONEL MCGILL Facility:[id number] Start: 11-23-2023 End: 11-23-2023 ambulatory DIXON CAMPBELL Facility:[facility] Start: 11-21-2023 End: 11-21-2023 ambulatory BRANDIE CAREY Facility:[facility] Start: 10-31-2023 End: 10-31-2023 ambulatory JOAQUIN SHAW Facility:[id number] Start: 10-25-2023 End: 10-25-2023 ambulatory SWEETIE Kelsi VIANCA Facility:[facility] Start: 10-24-2023 End: 10-24-2023 ambulatory SWEETIE Kelsi POLANCONORMA Facility:[facility] Start: 10-16-2023 End: 10-16-2023 ambulatory Suzanne Falcon BREANNA Work Phone: [facility] Procedures Date Procedure Procedure Detail Performing Clinician Start: 11-30-2023 Antibody screen SWEETIE FINNEY Plan of Treatment Date Care Activity Detail Author Start: 07-27-2028 Lipid 1996 panel - Serum or Plasma Lipid Screening [facility] Start: 07-27-2028 Lipid panel Lipid Screening [facility] Start: 10-31-2026 LIPID SCREEN LIPID SCREEN [facility] Start: 07-27-2026 Diabetes Screening Diabetes Screening [facility] Start: 10-31-2024 DIABETES SCREEN DIABETES SCREEN [facility] Start: 10-05-2024 Annual PCP Team Chronic Disease Visit Annual PCP Team Chronic Disease Visit [facility] Start: 09-01-2024 DTaP/Tdap/Td vaccine (2 - Td) DTaP/Tdap/Td vaccine (2 - Td) [place] Start: 09-01-2024 Urine microalbumin profile [facility] Start: 08-03-2024 Annual PCP Team Chronic Disease Visit Annual PCP Team Chronic Disease Visit [facility] Start: 06-22-2024 ANNUAL PCP TEAM CHRONIC DISEASE VISIT ANNUAL PCP TEAM CHRONIC DISEASE VISIT [facility] Start: 10-03-2023 End: 12-03-2023 Thyrotropin [Units/volume] in Serum or Plasma TSH BLD Lab Routine Hypothyroid obesity Expected: 10/03/2023, Expires: 12/03/2023 [facility] Work Phone: Immunizations Immunization Date Immunization Notes Care Provider Fa sergio 08-03-2023 influenza, injectabl e, quadrivalent, contains preservative David Dario PRICE ANALYST.SENIOR [employer] [address] SQL DEVELOPER Work Phone: [facility] 08-03-2023 pneumococcal (PCV20) vaccine, 20 valent (PREVNAR 20) David Dario PRICE ANALYST.SENIOR ORACLE [address] SQL DEVELOPER Work Phone: [facility] 08-03-2023 pneumococcal Conjuga te, unspecified formulation David Dario PRICE ANALYST.SENIOR ORAC[employer] [address] SQL DEVELOPER Work Phone: [facility] Work Phone: 08-22-2021 influenza virus vaccine, unspecified formulation Dixon Adrian PRICE ANALYST.SENIOR ORAC[employer] [address] SQL DEVELOPER Work Phone: [facility] 08-19-2020 influenza virus vaccine, unspecified formulation Dixon Adrian PRICE ANALYST.SENIOR [employer] SQL DEVELOPER Work Phone: [facility] 08-24-2015 influenza, seasonal, injectable Sweetie Feng MD Work Phone: [facility] 08-24-2015 influenza, seasonal, injectable, preservative free Dixon Adrian PRICE ANALYST.SENIOR [address] SQL DEVELOPER Work Phone: [facility] 07-31-2015 influenza, seasonal, injectable, preservative free Dixon Adrian PRICE ANALYST.SENIOR ORACLE [address] SQL DEVELOPER Work Phone: [facility] 07-31-2015 FLUVIRIN 0.5 ML NANCY [place], [place] 09-01-2014 influenza, seasonal, injectable Sweetie Feng MD Work Phone: [facility] 09-01-2014 tetanus toxoid, redu alverto diphtheria toxoid, and acellular pertussis vaccine, adsorbed Sweetie Feng MD Work Phone: [facility] 08-08-2013 influenza virus vaccine, unspecified formulation Sweetie Feng MD Work Phone: [facility] 10-22-2012 pneumococcal polysaccharide vaccine, 23 valent Sweetie Feng MD Work Phone: [facility] Work Phone: 08-29-2010 influenza virus vaccine, unspecified formulation Sweetie Feng MD Work Phone: [facility] Payers Date Payer Category Payer Unknown [id number] 2020 Unknown MATT CARRERO PPO [id number] 2020-Present [phone] [address] [place] [address] PPO [id number] 2020 Unknown [id number] 2020 Unknown [id number] 2015 Private Health Insurance [employer] A ETNA - OPEN ACCESS (HMO) xxxxxxxxxx 2015-Present [phone] [address] [place] [address] xxxxxxxxxx [id number] Social History Date Type Detail Facility Start: 07-04-2019 End: 06-11-2023 Tobacco smoking status NHIS Former smoker [facility] End: 10-22-2012 History of tobacco use Current smoker [place] End: 10-22-2012 History of tobacco use Cigarette Smoker [place] Start: 07-04-2019 End: 05-30-2023 Cigarettes smoked current (pack per day) - Reported [facility] Start: 07-04-2019 End: 05-30-2023 Alcohol intake No [facility] Start: 07-04-2019 Alcohol Comment RARE [place] Sex Assigned At Not on file [place] Start: 09-14-2021 Never smoked tobacco (finding) [facility] Sex Assigned At [facility] Start: 08-08-2013 End: 06-11-2023 Tobacco use and exposure Former smokeless tobacco user [facility] Start: 11-16-2021 End: 10-16-2023 Alcohol intake Current non-drinker of alcohol (finding) [facility] Start: 07-02-2021 End: 09-13-2022 History SDOH Alcohol Frequency 1 [facility] Start: 07-02-2021 History SDOH Alcohol Std Drinks 98 [facility] Start: 07-02-2021 History SDOH Social Connections Phone 5 [facility] Start: 07-02-2021 End: 09-13-2022 History SDOH Social Connections Get Together 2 [facility] Start: 07-02-2021 History SDOH Social Connections Living 3 [facility] Start: 07-02-2021 History SDOH Physical Activity DPW 0 [facility] Start: 07-02-2021 Education 15 [facility] Start: 04-27-2014 Tobacco Comment < 1 ppd , shewed x 1 year [facility] Start: 1970 Sex Assigned At Female [facility] Do you belong to any clubs or organizations such as taoist groups, 56.coms, fraKILTR or athletic groups, or school groups? No [facility] Are you now , , , , never or living with a partner? [facility] How often to you hav e a drink containing alcohol? Never [facility] How many standard dr inks containing alcohol do you have on a typical day? Patient refused [facility] Do you feel stress - tense, restless, nervous, or anxious, or unable to sleep at night because your mind is troubled all the time - these days [OSQ] Only a little [facility] The food that (I/we) bought just didn't last, and (I/we) didn't have money to get more. Never true [facility] Start: 09-04-2019 Gender identity Identifies as female gender (finding) [facility] Start: 09-04-2019 Sexual orientation Heterosexual (finding) [facility] Start: 06-11-2023 Tobacco Comment quit 2011. [facility] Goals Date Patient Goal Desired Activity /State Personal health goal Personal health goal Clinical Notes 09-14-2021 to 12-04-[address] - 10/16/2023 8:00 AM ESTTelephone Encounter - David Shaikh APRN.CHINO - 10/15/2023 12:11 PM ESTTelephone Encounter - Katerina Mauro COMBAT CONTROL MANAGER - 10/10/2023 2:32 PM EST Note Date & Type Note Facility 12-04-2023 Note HNO ID: [id number] Author: CASSIA DIAZ DO Service: General Surgery Author Type: Resident Type: Plan of Care Filed: 12/04/2023 21:44 Note Text: Plan of Care Post-Op Check The patient is POD0 from a laparoscopic sleeve gastrectomy. Has been AF, vitals have been stable, and is saturating well on RA. Pain is currently well controlled with current medication. Has ambulated the halls multiple times without difficulty and is tolerating sips of B1 diet without dysphagia, nausea, or vomiting. Denies any chest pain, headaches, or sob. No BM or flatus as of yet. Exam: General: alert and oriented x 3. No acute distress. HEENT: atraumatic, no midline tenderness, no step off deformities CV: extremities warm and well perfused Respiratory: unlabored breathing on RA, equal chest rise bilaterally. Abdomen: Soft, mildly distended, appropriately TTP, no rebound, guarding. Incisions c/d/I, closed with surgical glue. Heme: no bleeding, no ecchymoses Skin: no rashes, lesions noted. Skin warm and dry. MSK: AROM grossly wnl in all four extremities. Plan: - Doing well post-operatively with pain well controlled and no nausea or vomiting. - Tolerating Bariatric sips. - Continue current pain control and post-operative ERAS protocol. - Zofran prn nausea. - Will re-evaluate in the morning. Elective General Surgery Service Pager: For questions or concerns Mon-Fri 6a-5p please page [phone]. After 5pm and on Weekends and Holidays, please page [phone] if in ICU or [phone] if on RNF. BP 168/70 Pulse 82 Temp 36.8 ?C (98.3 ?F) (Oral) Resp 18 Ht 160 cm (5' 3 ) Wt (!) 138.3 kg (305 lb) SpO2 92% BMI 54.03 kg/m? Cassia Diaz DO 12/04/2023 9:40 PM [facility] 12-04-2023 Note HNO ID: [id number] Author: SHAINA DIAZ RN Service: Nursing Author Type: Registered Nurse Type: Nursing Progress Note Filed: 12/04/2023 13:21 Note Text: Waiting on room assignment. Patient appears comfortable.Resting with eyes closed. Resp's easy. [facility] 12-04-2023 Note HNO ID: [id number] Author: SHAINA DIZA RN Service: Nursing Author Type: Registered Nurse Type: Nursing Progress Note Filed: 12/04/2023 11:35 Note Text: in for a visit. [facility] 12-04-2023 Note HNO ID: [id number] Author: KEVON RIGGS APRN.CRNA Service: ? Author Type: Nurse Clinical Pharmacy Specialist Type: Anesthesia Procedure Notes Filed: 12/04/2023 08:04 Note Text: ANESTHESIOLOGY PROCEDURE NOTE Airway General Information Procedure Start Time/Medication Administration: 12/04/2023 7:44 AM Patient location during procedure: OR Timeout Performed Pre-procedure: timeout performed Consent Obtained: Yes Patient identity confirmed: arm band Staffing DIRECTOR OF CREATIVE SERVICES: Kevon Riggs APRN.DIRECTOR OF CREATIVE SERVICES Performed by: KRISTA Indications and Patient Condition Indications for airway management: anesthesia and airway protection Preoxygenated: yes anesthesia circuit Patient position: sniffing Method: asleep Cricoid Pressure: No Manual In-Line Stabilization: No Difficult Mask: No Final Airway Details Final airway type: endotracheal airway Final Endotracheal Airway: ETT Cuffed: yes Successful intubation technique: video laryngoscopy Devices used: [place] Endotracheal tube insertion site: oral Blade: Christi Blade size: #3 ETT size (mm): 7.5 Measured from: lips Measurement (cm): 21 Placement verified by: chest auscultation and capnometry Cormack-Lehane Classification: grade I - full view of glottis Number of attempts at approach: 1 Failed airway: no Unrecognized esophageal intubation: no Airway not difficult SIGNATURE: Kevon Riggs APRN.DIRECTOR OF CREATIVE SERVICES PATIENT NAME: Rene Bethea DATE: December 04, 2023 TIME: 8:03 AM CSN: [id number] [facility] 11-26-2023 Note HNO ID: [id number] Author: LIONEL MCGILL MD Service: ? Author Type: Physician Type: Progress Notes Filed: 11/26/2023 10:27 Note Text: [facility] NEW CONSULT HISTORY AND PHYSICAL EXAMINATION PATIENT: Rene Bethea (53 year old) REFERRING PROVIDER: PCP: Sweetie Feng MD Consultation requested by for an opinion regarding Rene Bethea. My final recommendations will be communicated back to the requesting physician by way of shared Medical record or letter to requesting physician via US mail. ----- SUMMARY: Referred by Dr. Shaw for surgical consultation. #Right renal mass. 1.7-cm hypoechoic lower pole lesion incidentally seen on RUQ US-07/2023 for preop eval for bariatric surgery. 1.5-cm Bosniak 2F nonenhancing complex cyst see on CT-09/2023. #PMH: Afib, NORBERT, morbid obesity (BMI=60), RA (on Plaquenil, Enbrel). #PSH: lap caleb, vag hys, lap sleeve gastrectomy planned 12/04/23. ASSESSMENT: 1. Right renal mass - ICD9: 593.9, ICD10: N28.89 (primary diagnosis) 2. 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 Acquired cyst of kidney - ICD9: 593.2, ICD10: N28.1 PLAN: #1 The diagnosis of small renal mass versus complex cyst was discussed in detail. Based on its radiographic appearance, I counseled the patient that there is an ~5% risk of malignancy. Of malignant tumors, I counseled that 75% are indolent while 25% tend to be aggressive. Renal cancers associated with cysts tend to be indolent. At its current size, I estimate that the risk of metastasis, if the lesion is cancerous, is <1% (<=2 cm). I do not recommend biopsy due to the cystic nature of the lesion, the high non-diagnostic rate, and the morbidity. For these reasons, I have counseled the patient against pursuing renal mass biopsy as it is unlikely to alter management and carries serious risks. At this time, I recommend surveillance of the right renal lesion. I recommend repeat imaging in ~6 months. The patient is scheduled to undergo bariatric surgery at the end of the month. The renal lesion is not a contraindication for her bariatric surgery from a urology standpoint. She has claustrophobia. I prefer an MRI over a CT for evaluation of cystic renal lesions. She thinks she could have the MRI if she received an anxiolytic. Follow up in ~6 months with MRI. All questions were answered. #2 1.5 cm incidental adrenal nodule noted in the left kidney. I recommend a functional work up with Endocrinology. She is scheduled to see her linseed oil refiner next month. FOLLOW UP: Return in about 6 months (around 05/26/2024) for MRI kidney. ----- CHIEF COMPLAINT: Patient presents with: Right renal mass HISTORY OF PRESENT ILLNESS: I personally reviewed the past medical records received from the referring provider. I personally reviewed the prior radiology images, and my findings were discussed with the patient. She is doing well today. ENRRIQUE/AUASS FORMS No question data found. REVIEW OF SYSTEMS: Noncontributory ALLERGIES: ALLERGIES Allergen Reactions Bactrim [Sulfametho* Diarrhea Diclofenac Diarrhea severe Dioxyline Phosphate Diarrhea Doxycycline Vomiting Levofloxacin Other: See Comments Tramadol Other: See Comments, Swelling Patient reported to ER on 02/06/18 after taking tramadol. Pt. presented with swollen lips after taking this medication. Z-Pack [Azithromyci* Shortness of Breath MEDICATIONS: dilTIAZem ER (CARDIZEM SR) 60 mg 12 hr capsule Take 1 capsule by mouth two times a day. acetaminophen (TYLENOL) 500 mg tablet Take 2 tablets by mouth every 6 hours for 7 days. TO START AFTER SURGERY levothyroxine (SYNTHROID) 25 mcg tablet Take 1 tablet by mouth daily before breakfast. Take on empty stomach. For thyroid. dilTIAZem CD (CARDIZEM CD) 120 mg 24 hr capsule Take 1 capsule by mouth once daily. rOPINIRole (REQUIP) 1 mg tablet Take 1 tablet by mouth daily at bedtime. levothyroxine (SYNTHROID) 200 mcg tablet Take 1 tablet by mouth once daily. Take on empty stomach. For Thyroid. hydrOXYchloroQUINE (PLAQUENIL) 200 mg tablet Take 1 tablet by mouth every 12 hours 6am/6pm. albuterol HFA (PROVENTIL HFA, VENTOLIN HFA) 90 mcg/actuation inhaler Inhale 1-2 Puffs as instructed four times daily as needed. FOR WHEEZING AND SHORTNESS OF BREATH. CPAP CPAP 11 cmH2O, suitable mask, tubing, humidifier, filters. Lifetime supplies. Dx: G47.33 - Obstructive sleep apnea iv contrast (will be provided with radiology test) MRI Kidney Inject, intravenously, once for 1 dose. No IV access, insert saline lock prior to the beginning of sedation, infusion, injection of imaging exam. Discontinue saline (more content not included)... [facility] 11-23-2023 Note HNO ID: [id number] Author: DIXON CAMPBELL APRN.[facility] Service: ? Author Type: Nurse Practitioner Type: Progress Notes Filed: 11/23/2023 13:14 Note Text: BARIATRIC SURGERY CLINIC FOLLOW UP NOTE DISTANCE HEALTH VISIT This Team Access Model visit is a virtual encounter. It required patient-provider interaction for the medical decision making as documented below. Consent was obtained to complete today's distance health visit. I have communicated my name and active licensure. The patient's identity and physical location were verified at the time of this visit. Either the patient or their legal union contract representative has been informed of the risks and benefits of -- and alternatives to -- treatment through a remote evaluation and consents to proceed with the evaluation remotely. HPI: Rene Bethea a 53 year old female is scheduled for Lap Sleeve Gastrectomy with Dr. Escamilla on 12/04/23. Denies recent illness, hospitalization, ED visits, medication changes. She is using her CPAP nightly and was educated on importance of using it before and after surgery.She was instructed to bring CPAP to hospital. HISTORY REVIEWED (electronic chart updated): - medical history - medications - allergies PAST MEDICAL HISTORY Diagnosis Date Atrial fibrillation (HCC) 06/06/2023 Depression Esophageal reflux Gastroesophageal reflux Mixed hyperlipidemia Hyperlipidemia Morbid obesity (HCC) Obstructive sleep apnea RA (rheumatoid arthritis) (HCC) Sleep apnea Uses C-pap Unspecified hypothyroidism Hypothyroidism Social: Social History Tobacco Use Smoking status: Former Packs/day: 1.00 Years: 30.00 Additional pack years: 0.00 Total pack years: 30.00 Types: Cigarettes Quit date: 10/22/2012 Years since quittin.0 Smokeless tobacco: Former Tobacco comments: quit 2011. Substance Use Topics Alcohol use: No Drug use: No Medications: Current Outpatient Medications Medication Sig dilTIAZem ER (CARDIZEM SR) 60 mg 12 hr capsule Take 1 capsule by mouth two times a day. levothyroxine (SYNTHROID) 25 mcg tablet Take 1 tablet by mouth daily before breakfast. Take on empty stomach. For thyroid. dilTIAZem CD (CARDIZEM CD) 120 mg 24 hr capsule Take 1 capsule by mouth once daily. rOPINIRole (REQUIP) 1 mg tablet Take 1 tablet by mouth daily at bedtime. levothyroxine (SYNTHROID) 200 mcg tablet Take 1 tablet by mouth once daily. Take on empty stomach. For Thyroid. hydrOXYchloroQUINE (PLAQUENIL) 200 mg tablet Take 1 tablet by mouth every 12 hours 6am/6pm. ENBREL SURECLICK 50 mg/mL (1 mL) albuterol HFA (PROVENTIL HFA, VENTOLIN HFA) 90 mcg/actuation inhaler Inhale 1-2 Puffs as instructed four times daily as needed. FOR WHEEZING AND SHORTNESS OF BREATH. CPAP CPAP 11 cmH2O, suitable mask, tubing, humidifier, filters. Lifetime supplies. Dx: G47.33 - Obstructive sleep apnea cholecalciferol, Vitamin D3, (VITAMIN D3) 1,250 mcg (50,000 unit) cap capsule Take 1 capsule by mouth one time a week for 12 doses. Transition to 2,000-4,000 units of Vitamin D OTC after completing 12 weeks No current facility-administered medications for this visit. REVIEW OF SYSTEMS General: No fatigue or fevers HEENT: Negative for frequent or significant headaches, No changes in hearing or vision, no nose bleeds or other nasal problems PAP Therapy: Using it nightly. GI:No nausea, vomiting, or diarrhea and No heartburn or reflux symptoms Muskuloskeletal: Negative for joint pain or swelling, back pain or muscle pain Skin: Negative for lesions, rash, and itching Psych: Negative for sleep disturbance, mood disorder and recent psychosocial stressors PHYSICAL EXAMINATION Wt 156 kg (344 lb) BMI 60.94 kg/m2 Ht 160 cm (5' 3 ) BMI 60.94 kg/m2 GENERAL APPEARANCE: Pleasant, interacts appropriately and in no apparent distress. Appropriately groomed, happy, smiling, and interactive SKIN: Skin of normal texture, temperature without rashes/lesions/ulcerations. LUNGS: unlabored on room air negative findings: normal respiratory rate no cough NEURO/PSYCH: Oriented to person, place, time; appropriate insight and judgement. Appropriate affect. The plan of treatment for Rene Bethea is Required monthly visits: 7 of 0 months Patient is interested in: Sleeve gastrectomy versus DS or two staged procedure EGD: defer to UGI Upper GI: 1. Gastroesophageal reflux superiorly into the cervical esophagus. No hiatal hernia. Remainder of exam is unremarkable. RUQ US: 1. Fatty infiltration of the liver. 2. Indeterminate hypoechoic structure partially exophytic from the lower pole of the right kidney which could be further evaluated by CT. -CT scan kidney: Minimally enhancing lower pole right renal lesion. Six-month follow-up recommended. Indeterminate. Bosniak 2F. 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 Sleep Study: severe NORBERT, using CPAP CXR:per pulmonary clearance EKG:per cardiac clearance H Py (more content not included)... [facility] 11-21-2023 Note HNO ID: [id number] Author: BRANDIE CAREY APRN.SENIOR ORACLE [address] SQL DEVELOPER Service: ? Author Type: Nurse Practitioner Type: Progress Notes Filed: 11/21/2023 13:57 Note Text: Date: November 21, 2023 Time: 1:56 PM DISTANCE HEALTH VISIT This Team Access Model visit is a virtual encounter. It required patient-provider interaction for the medical decision making as documented below. Consent was obtained to complete today's distance health visit. I have communicated my name and active licensure. The patient's identity and physical location were verified at the time of this visit. Either the patient or their legal union contract representative has been informed of the risks and benefits of -- and alternatives to -- treatment through a remote evaluation and consents to proceed with the evaluation remotely. Name: Rene Bethea CHIEF COMPLAINT: This is a 53 year old female with morbid obesity who presents to clinic for bariatric surgery and is completing educational class today. HISTORY OF PRESENTING ILLNESS: This individual is currently enrolled in the [facility] Program persuing weight loss surgery and presents to complete preoperative requirements.Rene Bethea has been seen monthly for medically supervised weight loss and is being evaluated on their lifestyle modifications.Denies any difficulty hearing presentation. Denies any difficulty visualizing educational materials PHYSICAL EXAM: General Appearance: Well appearing, alert, in no acute distress, well-hydrated, well nourished. IMPRESSION: Rene Bethea is a 53 year old female with the following diagnosis and co-morbidities: Morbid (severe) obesity PLAN: Counseling and surgical care coordination was addressed during this educational class. Pathophysiology and side effects of surgery were discussed. Medications to be stopped 2 weeks and 1 week prior to surgery were discussed. Discharge instructions in terms of dietary restrictions, activity requirements, medications, follow-up were reviewed. Vitamins and supplements were reviewed with samples provided. Additionally, signs and symptoms of vitamin deficiencies reviewed. Postoperative medication management was explained. Received prevention education in terms of post operative problems and complications. Patient was educated on signs and symptoms requiring immediate and/or emergent medical attention. This patient also received dietary education. Patient was educated on incision care, signs of surgical site infection, and importance of contacting surgical team for incision concerns. Patient was educated on risk and should not get within two years after bariatric surgery (if applicable). could result in very poor weight loss and could be dangerous for the baby. This individual received an educational handouts reviewing the for mentioned class materials. At the end of class, Rene Bethea was provided time to answer questions. Denies any further questions or concerns. The [facility] Patient agreement was reviewed and Rene Bethea received a copy of the patient agreement. The patient is aware by receiving this agreement, this accepts their understanding of the agreement and that surgery may not be recommended for medical and behavorial health reasons. Total time of virtual encounter: 60 minutes Brandie Carey APRN.[facility] 10-31-2023 Note HNO ID: [id number] Author: Joaquin Shaw MD Service: ? Author Type: Physician Type: Progress Notes Filed: 10/31/2023 9:51 AM Note Text: Rene Bethea is a 53 year old female who presents with follow-up of her right renal mass. Is kind of more bottom part of the right kidney sticks out. Helsel again is 30 and after contrast is 42 I do not see any other cysts. He tells us that he had Bosniak 2F recommended repeat x-ray in 6 months I looked at the renal ultrasound and the CT I think it looks a little more solid and I may have her see Dr. Mcgill and see if he thinks. L adrenal adenoma. Endocrine? Review of Systems- Reviewed and otherwise non-contributory. BP 148/81 (BP Site: Left Arm, BP Position: Sitting, BP Cuff Size: Extra Large Adult) Pulse 76 Ht 160 cm (5' 3 ) Wt (!) 156.2 kg (344 lb 4.8 oz) BMI 60.99 kg/m? PAST MEDICAL HISTORY Diagnosis Date Atrial fibrillation (HCC) 06/06/2023 Depression Esophageal reflux Gastroesophageal reflux Mixed hyperlipidemia Hyperlipidemia Morbid obesity (HCC) Obstructive sleep apnea RA (rheumatoid arthritis) (HCC) Sleep apnea Uses C-pap Unspecified hypothyroidism Hypothyroidism PAST SURGICAL HISTORY Procedure Laterality Date ARTHROSCOPY KNEE DIAGNOSTIC W/WO SYNOVIAL BX SPX 11/05/2003 Arthroscopy, knee, left times 2 ARTHROSCOPY KNEE DIAGNOSTIC W/WO SYNOVIAL BX SPX 11/05/2008 Arthroscopy, knee right ARTHRS KNE SURG W/MENISCECTOMY MED/LAT W/SHVG 07/29/2014 Right knee arthroscopic medial meniscectomy, PF chondroplasty and removal of loose body CHOLECYSTECTOMY HX COLONOSCOPY W/BIOPSY SINGLE/MULTIPLE 03/06/2014 EGD TRANSORAL BIOPSY SINGLE/MULTIPLE 03/06/2014 LAMINECTOMY W/O FFD 1/2 VERT SEG LUMBAR 11/05/1999 Laminectomy, lumbar PAST SURGICAL HISTORY OF BTL PAST SURGICAL HISTORY OF remote laparoscopy THYROIDECTOMY TOTAL/COMPLETE 11/05/1993 Subtotal -for goiter TOTAL ABDOMINAL HYSTERECT W/WO RMVL TUBE OVARY 11/05/2002 Hysterectomy, OSWALD; 1 ovary left in Current Outpatient Medications Medication Sig Dispense Refill rOPINIRole (REQUIP) 1 mg tablet Take 1 tablet by mouth daily at bedtime. 30 tablet 11 levothyroxine (SYNTHROID) 200 mcg tablet Take 1 tablet by mouth once daily. Take on empty stomach. For Thyroid. 30 tablet 11 dilTIAZem CD (CARDIZEM CD) 120 mg 24 hr capsule Take 1 capsule by mouth once daily. 60 capsule 1 levothyroxine (SYNTHROID) 25 mcg tablet Take 1 tablet by mouth daily before breakfast. Take on empty stomach. For thyroid. 30 tablet 3 hydrOXYchloroQUINE (PLAQUENIL) 200 mg tablet Take 1 tablet by mouth every 12 hours 6am/6pm. ENBREL SURECLICK 50 mg/mL (1 mL) albuterol HFA (PROVENTIL HFA, VENTOLIN HFA) 90 mcg/actuation inhaler Inhale 1-2 Puffs as instructed four times daily as needed. FOR WHEEZING AND SHORTNESS OF BREATH. 1 g 5 CPAP CPAP 11 cmH2O, suitable mask, tubing, humidifier, filters. Lifetime supplies. Dx: G47.33 - Obstructive sleep apnea 1 Device 0 cholecalciferol, Vitamin D3, (VITAMIN D3) 1,250 mcg (50,000 unit) cap capsule Take 1 capsule by mouth one time a week for 12 doses. Transition to 2,000-4,000 units of Vitamin D OTC after completing 12 weeks 12 capsule 0 No current facility-administered medications for this visit. (N28.89) Renal mass (primary encounter diagnosis) (N28.9) Kidney lesion Plan: CONSULT TO UROLOGY Joaquin Shaw MD This note was generated with voice recognition software and may contain errors, including spelling, grammar, syntax and misrecognition of what was dictated, that are not fully corrected. [facility] 10-25-2023 Note HNO ID: [id number] Author: Brandie Carey APRN.[address] SQL DEVELOPER Service: ? Author Type: Nurse Practitioner Type: Progress Notes Filed: 10/25/2023 3:23 PM Note Text: Required monthly visits: 6 of 0 months Patient is interested in: Sleeve gastrectomy versus DS or two staged procedure EGD: defer to UGI Upper GI: 1. Gastroesophageal reflux superiorly into the cervical esophagus. No hiatal hernia. Remainder of exam is unremarkable. RUQ US: 1. Fatty infiltration of the liver. 2. Indeterminate hypoechoic structure partially exophytic from the lower pole of the right kidney which could be further evaluated by CT. -CT scan kidney: Minimally enhancing lower pole right renal lesion. Six-month follow-up recommended. Indeterminate. Bosniak 2F. 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 Sleep Study: severe NORBERT, using CPAP CXR:per pulmonary clearance EKG:per cardiac clearance H Pylori pending Labs: low vit D, elevated TSH Nicotine use <12 months: NA, ordered per insurance - negative Tox: ordered per insurance - negative Antiplatelet/anticoagulants: None Immunosuppressive therapy: Yes- Plaquenil and Enbrel Estrogen therapy: No Evaluations Psychology: cleared Nutrition: cleared Education class: ongoing Clearances: -Cardiac (low risk; scanned in) -Pulmonary (using CPAP; waiting on letter) -Rheumatology (no need to hold Plaquenil, hold Enbrel 2 weeks before surgery and resume after healed) -PCP (Requip) Risk Calculator: VTE Risk: BMI > 60 ; on eliquis ISS score: not diabetic Adverse Event score: 1.73% Post-op Medications: Extended Lovenox: BMI > 60, recently on Eliquis (Jun) Actigall: NA hx of cholecystectomy PPI: will require PST orders placed Brandie Carey, ELIAS.[facility] 10-25-2023 Note HNO ID: [id number] Author: Karon Escamilla MD Service: ? Author Type: Physician Type: Progress Notes Filed: 10/25/2023 3:23 PM Note Text: BARIATRIC SURGERY NEW PATIENT CONSULTATION HISTORY AND PHYSICAL Date: October 25, 2023 Time: 2:46 PM Rene Bethea is a 53 year old year old female with obesity (Body mass index is 60.49 kg/m?.), NORBERT (now complainant with CPAP), atrial fibrillation (new dx on 06/06; cardioverted in ED; sent home with diltiazem AND eliquis and now off; [facility]), Asthma, Rheumatoid arthritis (f/u with Rheumatology; Plaquenil; off Enbrel injections x1 month, prednisone prn which is usually 3x monthly), HLD, NAFLD, situational depression who presents to the clinic today for consideration of bariatric surgery. She has completed all requirements of the bariatric program and presents today to consent. Her weight today is 344 pounds, which is up from her previous weight of 236 pounds at her initial visit with me on 08/09/23. She attributes this 8 pound weight gain to recently being on prednisone regularly of 2-3 doses per week. She has been doing 15-20 min of chair exercises per day. Per my previous clinic note: She was diagnosed with NORBERT in and did use CPAP for a short period of time and then independently stopped use. She remains noncompliant w/ CPAP. She was recently diagnosed with A-fib for the first time on 06/06 in the ER. She underwent cardioversion and was sent home with diltiazem AND Eliquis. She has since followed up with [place]. She was taken off of Eliquis and has a scheduled ECHO this coming Sunday. Her asthma is well-managed with albuterol prn, uses less than once monthly. She was diagnosed with Rheumatoid arthritis about one year ago. She follows Rheumatology and is on Plaquenil, Enbrel injections once weekly, and prednisone prn. She usually requires steroids a few times a month. She denies symptoms of GERD, dysphagia or regurgitation. She denies use of NSAIDs She has attempted bariatric surgery programs on 2 separate occasions ([facility] and [facility]), but due to insurance issues she was never able to make it to surgery. Social: she denies tobacco (quit 2011), SH smoke, alcohol, illicit drug use, and NSAID use (d/t borderline kidney dysfunction) PSHx: multiple arthroscopies, laminectomy, lap cholecystectomy, total abdominal hysterectomy (vaginal) PAST MEDICAL HISTORY Diagnosis Date Atrial fibrillation (HCC) 06/06/2023 Depression Esophageal reflux Gastroesophageal reflux Mixed hyperlipidemia Hyperlipidemia Morbid obesity (HCC) Obstructive sleep apnea RA (rheumatoid arthritis) (HCC) Sleep apnea Uses C-pap Unspecified hypothyroidism Hypothyroidism PAST SURGICAL HISTORY Procedure Laterality Date ARTHROSCOPY KNEE DIAGNOSTIC W/WO SYNOVIAL BX SPX 11/05/2003 Arthroscopy, knee, left times 2 ARTHROSCOPY KNEE DIAGNOSTIC W/WO SYNOVIAL BX SPX 11/05/2008 Arthroscopy, knee right ARTHRS KNE SURG W/MENISCECTOMY MED/LAT W/SHVG 07/29/2014 Right knee arthroscopic medial meniscectomy, PF chondroplasty and removal of loose body CHOLECYSTECTOMY HX COLONOSCOPY W/BIOPSY SINGLE/MULTIPLE 03/06/2014 EGD TRANSORAL BIOPSY SINGLE/MULTIPLE 03/06/2014 LAMINECTOMY W/O FFD 1/2 VERT SEG LUMBAR 11/05/1999 Laminectomy, lumbar PAST SURGICAL HISTORY OF BTL PAST SURGICAL HISTORY OF remote laparoscopy THYROIDECTOMY TOTAL/COMPLETE 11/05/1993 Subtotal -for goiter TOTAL ABDOMINAL HYSTERECT W/WO RMVL TUBE OVARY 11/05/2002 Hysterectomy, OSWALD; 1 ovary left in FAMILY HISTORY Problem Relation Age of Onset Cancer Mother non hodgkins lymphoma, reticular sarcoma Stroke Father other (afib) Father Diabetes Maternal Grandmother other (a-fib) Sister Social History Tobacco Use Smoking status: Former Packs/day: 1.00 Years: 30.00 Additional pack years: 0.00 Total pack years: 30.00 Types: Cigarettes Quit date: 10/22/2012 Years since quittin.0 Smokeless tobacco: Former Tobacco comments: quit 2011. Substance Use Topics Alcohol use: No Drug use: No Current Outpatient Medications Medication Sig rOPINIRole (REQUIP) 1 mg tablet Take 1 tablet by mouth daily at bedtime. levothyroxine (SYNTHROID) 200 mcg tablet Take 1 tablet by mouth once daily. Take on empty stomach. For Thyroid. dilTIAZem CD (CARDIZEM CD) 120 mg 24 hr capsule Take 1 capsule by mouth once daily. levothyroxine (SYNTHROID) 25 mcg tablet Take 1 tablet by mouth daily before breakfast. Take on empty stomach. For thyroid. hydrOXYchloroQUINE (PLAQUENIL) 200 mg tablet Take 1 tablet by mouth every 12 hours 6am/6pm. ENBREL SURECLICK 50 mg/mL (1 mL) albuterol HFA (PROVENTIL HFA, VENTOLIN HFA) 90 mcg/actuation inhaler Inhale 1-2 Puffs as instructed four times daily as needed. FOR WHEEZING AND SHORTNESS OF BREATH. CPAP CPAP 11 cmH2O, suitable mask, tubing, humidifier, filters. Lifetime s (more content not included)... [facility] 10-24-2023 Note HNO ID: [id number] Author: Dixon Campbell APRN.SEN[address] SQL DEVELOPER Service: ? Author Type: Nurse Practitioner Type: Progress Notes Filed: 10/24/2023 9:01 AM Note Text: BARIATRIC SURGERY CLINIC FOLLOW UP NOTE DISTANCE HEALTH VISIT This Team Access Model visit is a virtual encounter. It required patient-provider interaction for the medical decision making as documented below. Consent was obtained to complete today's distance health visit. I have communicated my name and active licensure. The patient's identity and physical location were verified at the time of this visit. Either the patient or their legal union contract representative has been informed of the risks and benefits of -- and alternatives to -- treatment through a remote evaluation and consents to proceed with the evaluation remotely. HPI: Rene Bethea a 53 year old female presents for medically supervised weight loss treatment of her obesity related co morbidities. This individual presents for month 6 of 0 required visits. Rene Bethea weight has decreased since first visit in the program. [place] reports still doing well with nutrition recommendations, getting adequate fluid and protein in daily. Denies recent illnesses, hospitalizations, and medication changes. Besides occasional self-resolving constipation from increased protein, denies diarrhea, abd pain, and reflux symptoms. She started using her CPAP 2 weeks ago. HISTORY REVIEWED (electronic chart updated): - medical history - medications - allergies PAST MEDICAL HISTORY Diagnosis Date Atrial fibrillation (HCC) 06/06/2023 Depression Esophageal reflux Gastroesophageal reflux Mixed hyperlipidemia Hyperlipidemia Morbid obesity (HCC) Obstructive sleep apnea RA (rheumatoid arthritis) (HCC) Sleep apnea Uses C-pap Unspecified hypothyroidism Hypothyroidism Social: Social History Tobacco Use Smoking status: Former Packs/day: 1.00 Years: 30.00 Additional pack years: 0.00 Total pack years: 30.00 Types: Cigarettes Quit date: 10/22/2012 Years since quittin.0 Smokeless tobacco: Former Tobacco comments: quit 2011. Substance Use Topics Alcohol use: No Drug use: No Medications: Current Outpatient Medications Medication Sig rOPINIRole (REQUIP) 1 mg tablet Take 1 tablet by mouth daily at bedtime. levothyroxine (SYNTHROID) 200 mcg tablet Take 1 tablet by mouth once daily. Take on empty stomach. For Thyroid. dilTIAZem CD (CARDIZEM CD) 120 mg 24 hr capsule Take 1 capsule by mouth once daily. levothyroxine (SYNTHROID) 25 mcg tablet Take 1 tablet by mouth daily before breakfast. Take on empty stomach. For thyroid. hydrOXYchloroQUINE (PLAQUENIL) 200 mg tablet Take 1 tablet by mouth every 12 hours 6am/6pm. ENBREL SURECLICK 50 mg/mL (1 mL) albuterol HFA (PROVENTIL HFA, VENTOLIN HFA) 90 mcg/actuation inhaler Inhale 1-2 Puffs as instructed four times daily as needed. FOR WHEEZING AND SHORTNESS OF BREATH. CPAP CPAP 11 cmH2O, suitable mask, tubing, humidifier, filters. Lifetime supplies. Dx: G47.33 - Obstructive sleep apnea CPAP CPAP 11 cmH2O, suitable mask, tubing, humidifier, filters. Lifetime supplies. Dx: 327.23 - Obstructive sleep apnea cholecalciferol, Vitamin D3, (VITAMIN D3) 1,250 mcg (50,000 unit) cap capsule Take 1 capsule by mouth one time a week for 12 doses. Transition to 2,000-4,000 units of Vitamin D OTC after completing 12 weeks No current facility-administered medications for this visit. REVIEW OF SYSTEMS General: No fatigue or fevers HEENT: Negative for frequent or significant headaches, No changes in hearing or vision, no nose bleeds or other nasal problems PAP Therapy: Using it nightly. GI:No nausea, vomiting, or diarrhea and No heartburn or reflux symptoms Muskuloskeletal: Negative for joint pain or swelling, back pain or muscle pain Skin: Negative for lesions, rash, and itching Psych: Negative for sleep disturbance, mood disorder and recent psychosocial stressors PHYSICAL EXAMINATION Wt 149.7 kg (330 lb) BMI 58 kg/m2 Ht 160.7 cm (5' 3.25 ) BMI 58 kg/m2 GENERAL APPEARANCE: Pleasant, interacts appropriately and in no apparent distress. Appropriately groomed, happy, smiling, and interactive SKIN: Skin of normal texture, temperature without rashes/lesions/ulcerations. LUNGS: unlabored on room air negative findings: normal respiratory rate no cough NEURO/PSYCH: Oriented to person, place, time; appropriate insight and judgement. Appropriate affect. Diagnostic Tests Reviewed for Today's Visit No new labs The plan of treatment for Rene Bethea is Further Work-up: Required monthly visits: 6 of 0 months Patient is interested in: Sleeve gastrectomy versus DS or two staged procedure EGD: defer to UGI Upper GI: 1. Gastroesophageal reflux superiorly into the cervical esophagus. No hiatal hernia. Remainder of exam is unremarkable. RUQ US: 1. Fatty infiltration of the liver. 2. Indetermi (more content not included)... [facility] 10-16-2023 Note HNO ID: [id number] Author: Suzanne Falcon RD Service: ? Author Type: Registered Dietitian Type: Progress Notes Filed: 10/16/2023 8:34 AM Note Text: Rene Bethea--Visit conducted via [employer] (audio and visual) d/t COVID 19 Education Class: Patient will receive instruction regarding healthy food choices and eating behaviors identified as optimal when preparing for surgery, losing weight after surgery, and maintaining weight loss long-term. Patient will also receive instruction regarding the Bariatric Full Liquid diet following surgery and optimal post-operative high-protein supplement choices. Education class to be completed prior to surgery. Behaviors Accomplished: Visit # 6 Date: 10/16/2023 Weight: (!) 149.7 kg (330 lb) Keeping journal daily Eating 3 meals/one snack Choose healthy foods Daily multivitamin No high fat/fast foods D/c'd caffeinated, carbonated beverages 70 average protein intake (g) 64+ average liquid intake (oz) 24 hour diet recall Breakfast: whole wheat toast with peanut butter Lunch: chicken pot pie Dinner: 3 tacos without shells Snacks: none Fluids (liquid intake-oz): yesterday: 64+ oz Protein (grams/day): yesterday: ~50 g Alcohol/Caffeine/Sugar/Sweetener/ Carbonation Beverages in Diet: Carbonation: eliminated Caffeine: none Sugar: none Sweeteners: 1-2x/week--flavored packets in water Alcohol: none Exercise: chair exercise---2-3x/week for 15-25 minutes at a time. fell and hurt her hip while on vacation in [place]. Still able to exercise as noted above, but not as aerobic intensive. Written information provided and reviewed: As noted Prepatient currently in month #6 of supervised diet and exercise. She was cleared by dietitian last month, but met with RD today to review consent diet info. Reviewed consent diet info: Very low calorie diet, enhanced recovery after surgery protocol and postop vitamin/mineral protocols. Of note, patient will require 45 mg of iron per day postop. The patient meets NIH guidelines for weight loss surgery and has been thoroughly evaluated and educated on good dietary practices. Patient is capable of following these guidelines pre-and post-surgically. From nutrition standpoint, the patient is cleared for weight loss surgery. No additional visits with nutrition are required at this time; however, pt is welcome to return as needed/desired before or after surgery. *All requirements have been met. Additional requirements may arise in course of treatment. *THIS PATIENT RECEIVED INSTRUCTIONS FOR VLCD, ERAS AND POST-OP VITAMIN SCHEDULE WITH PLAN TO CONSENT W/ SURGEON AT FUTURE APPOINTMENT-WILL RECEIVE ENSURE CLEAR BEVERAGES AT CONSENT APPOINTMENT -VLCD, ERAS, post-op vitamin schedule--via [employer] Plan: no appointment needed Total time in direct patient contact = 13 min. Greater than 50% of the time was spent in counseling and/or coordination of care. Suzanne Falcon RD This note was generated using voice recognition technology and may contain grammatical errors. [facility] 10-16-2023 History of Present illness Narrative Rene Bethea--Visit conducted via [employer] (audio and visual) d/t ABEL 19 Education Class: Patient will receive instruction regarding healthy food choices and eating behaviors identified as optimal when preparing for surgery, losing weight after surgery, and maintaining weight loss long-term. Patient will also receive instruction regarding the Bariatric Full Liquid diet following surgery and optimal post-operative high-protein supplement choices. Education class to be completed prior to surgery. Behaviors Accomplished: Visit # 6 Date: 10/16/2023 Weight: (!) 149.7 kg (330 lb) Keeping journal daily Eating 3 meals/one snack Choose healthy foods Daily multivitamin No high fat/fast foods D/c'd caffeinated, carbonated beverages 70 average protein intake (g) 64+ average liquid intake (oz) 24 hour diet recall Breakfast: whole wheat toast with peanut butter Lunch: chicken pot pie Dinner: 3 tacos without shells Snacks: none Fluids (liquid intake-oz): yesterday: 64+ oz Protein (grams/day): yesterday: ~50 g Alcohol/Caffeine/Sugar/Sweetener/ Carbonation Beverages in Diet: Carbonation: eliminated Caffeine: none Sugar: none Sweeteners: 1-2x/week--flavored packets in water Alcohol: none Exercise: chair exercise---2-3x/week for 15-25 minutes at a time. fell and hurt her hip while on vacation in [place]. Still able to exercise as noted above, but not as aerobic intensive. Written information provided and reviewed: As noted Prepatient currently in month #6 of supervised diet and exercise. She was cleared by dietitian last month, but met with RD today to review consent diet info. Reviewed consent diet info: Very low calorie diet, enhanced recovery after surgery protocol and postop vitamin/mineral protocols. Of note, patient will require 45 mg of iron per day postop. The patient meets NIH guidelines for weight loss surgery and has been thoroughly evaluated and educated on good dietary practices. Patient is capable of following these guidelines pre-and post-surgically. From nutrition standpoint, the patient is cleared for weight loss surgery. No additional visits with nutrition are required at this time; however, pt is welcome to return as needed/desired before or after surgery. *All requirements have been met. Additional requirements may arise in course of treatment. *THIS PATIENT RECEIVED INSTRUCTIONS FOR VLCD, ERAS AND POST-OP VITAMIN SCHEDULE WITH PLAN TO CONSENT W/ SURGEON AT FUTURE APPOINTMENT-WILL RECEIVE ENSURE CLEAR BEVERAGES AT CONSENT APPOINTMENT -VLCD, ERAS, post-op vitamin schedule--via [employer] Plan: no appointment needed Total time in direct patient contact = 13 min. Greater than 50% of the time was spent in counseling and/or coordination of care. Suzanne Falcon RD This note was generated using voice recognition technology and may contain grammatical errors. documented in this encounter [facility] 10-15-2023 Miscellaneous Notes The following approved medication requests have been transmitted electronically. Requested Prescriptions Pending Prescriptions Disp Refills rOPINIRole (REQUIP) 1 mg tablet 30 tablet 11 Sig: Take 1 tablet by mouth daily at bedtime. David Shaikh APRN.CNP documented in this encounter [facility] 10-10-2023 Miscellaneous Notes Edilson with Dr. Yanni Holt's office called to request pt's last office visit. Identified pt with name and date of . Faxed to [phone], Done. Katerina Mauro LPN documented in this encounter [facility] 10-05-2023 Note HNO ID: [id number] Author: David Shaikh APRN.SENIOR [address] SQL DEVELOPER Service: ? Author Type: Nurse Practitioner Type: Progress Notes Filed: 10/05/2023 9:12 AM Note Text: Chief Complaint Patient presents with: 2 month f/u: Thyroid HPI Rene Bethea is a 53 year old female who presents here today for Chronic Medical Conditions. follow up for thyroid. Patient is here for routine follow-up for thyroid. At her last visit her levothyroxine was increased due to increased TSH. She has not really noticed a difference. TSH is more normal range at 0.374. She denies any chest pain or shortness of breath. No neck swelling or difficulty swallowing. She is prepping for gastric bypass surgery. She is very excited for it. She feels like she is ready for this. She would like to lose a lot of weight. She has some follow-ups in October and hopefully we can get this completed soon. We discussed some nuances with likely needing decreased dose of levothyroxine as she loses weight. She continues to follow with cardiology for hypertension, atrial fibrillation. Blood pressure at home is normal. Past medical history, appointments, medications, allergies reviewed. EXAM: BP 140/80 Pulse 75 Resp 16 Wt (!) 152.4 kg (336 lb) SpO2 98% BMI 59.05 kg/m? General Appearance: Well appearing, alert, in no acute distress, well-hydrated, well nourished.. Lungs: Lungs clear to auscultation. No wheezing, rhonchi, rales.. Heart: RRR without murmur, gallop, or rubs. No ectopy. Component Latest Ref Rng AND Units 07/27/2023 10/03/2023 TSH 0.270 - 4.200 mIU/L 9.160 (H) 0.374 ASSESSMENT/PLAN: 1. Hypothyroidism, unspecified type - ICD9: 244.9, ICD10: E03.9 - Instructed patient on importance of taking on an empty stomach either first thing in the morning or at bedtime. - continue current dose of Synthroid 225 mcg daily. - Return to office 1 month after surgery for follow up David Shaikh APRN.CHINO This note was partly generated using [employer] voice recognition dictation and may contain some misspelled or inaccurate words missed on review. [facility] 10-05-2023 History of Present illness Narrative Chief Complaint Patient presents with: 2 month f/u: Thyroid HPI Rene Bethea is a 53 year old female who presents here today for Chronic Medical Conditions. follow up for thyroid. Patient is here for routine follow-up for thyroid. At her last visit her levothyroxine was increased due to increased TSH. She has not really noticed a difference. TSH is more normal range at 0.374. She denies any chest pain or shortness of breath. No neck swelling or difficulty swallowing. She is prepping for gastric bypass surgery. She is very excited for it. She feels like she is ready for this. She would like to lose a lot of weight. She has some follow-ups in October and hopefully we can get this completed soon. We discussed some nuances with likely needing decreased dose of levothyroxine as she loses weight. She continues to follow with cardiology for hypertension, atrial fibrillation. Blood pressure at home is normal. Past medical history, appointments, medications, allergies reviewed. EXAM: BP 140/80 Pulse 75 Resp 16 Wt (!) 152.4 kg (336 lb) SpO2 98% BMI 59.05 kg/m General Appearance: Well appearing, alert, in no acute distress, well-hydrated, well nourished.. Lungs: Lungs clear to auscultation. No wheezing, rhonchi, rales.. Heart: RRR without murmur, gallop, or rubs. No ectopy. Component Latest Ref Rng & Units 07/27/2023 10/03/2023 TSH 0.270 - 4.200 mIU/L 9.160 (H) 0.374 ASSESSMENT/PLAN: 1. Hypothyroidism, unspecified type - ICD9: 244.9, ICD10: E03.9 - Instructed patient on importance of taking on an empty stomach either first thing in the morning or at bedtime. - continue current dose of Synthroid 225 mcg daily. - Return to office 1 month after surgery for follow up David Shaikh APRN.CNP This note was partly generated using [employer] voice recognition dictation and may contain some misspelled or inaccurate words missed on review. documented in this encounter [facility] 09-26-2023 Miscellaneous Notes Order for auto CPAP faxed to [facility]. Erin PARKER documented in this encounter [facility] 09-24-2023 Note HNO ID: [id number] Author: Dixon Campbell APRN.CNP Service: ? Author Type: Nurse Practitioner Type: Progress Notes Filed: 09/24/2023 8:23 AM Note Text: BARIATRIC SURGERY CLINIC FOLLOW UP NOTE DISTANCE HEALTH VISIT This Team Access Model visit is a virtual encounter. It required patient-provider interaction for the medical decision making as documented below. Consent was obtained to complete today's distance health visit. I have communicated my name and active licensure. The patient's identity and physical location were verified at the time of this visit. Either the patient or their legal union contract representative has been informed of the risks and benefits of -- and alternatives to -- treatment through a remote evaluation and consents to proceed with the evaluation remotely. HPI: Rene Bethea a 53 year old female presents for medically supervised weight loss treatment of her obesity related co morbidities. This individual presents for month 5 of 0 required visits. Rene Bethea weight has decreased since first visit in the program. [place] reports doing very well with nutrition recommendations still. She was recently cleared by RD. She reports getting 64+ ounces fluids and 60 to 90 g protein daily. She utilizes the [employer] willian to log her diet. For exercise, she does chair exercises 3 times weekly for 15 to 20 minutes. Denies recent illness, hospitalizations, emergency visits, and medication changes. Denies constipation, diarrhea, abdominal pain, and reflux symptoms. She was recently seen by pulmonology and her CPAP has been ordered. Still waiting on clearance from cardiology and medication recommendations for Enbrel and Plaquenil from rheumatology. Will reach out again today. HISTORY REVIEWED (electronic chart updated): - medical history - medications - allergies PAST MEDICAL HISTORY Diagnosis Date Atrial fibrillation (HCC) 06/06/2023 Depression Esophageal reflux Gastroesophageal reflux Mixed hyperlipidemia Hyperlipidemia Morbid obesity (HCC) Obstructive sleep apnea RA (rheumatoid arthritis) (HCC) Sleep apnea Uses C-pap Unspecified hypothyroidism Hypothyroidism Social: Social History Tobacco Use Smoking status: Former Packs/day: 1.00 Years: 30.00 Additional pack years: 0.00 Total pack years: 30.00 Types: Cigarettes Quit date: 10/22/2012 Years since quittin.9 Smokeless tobacco: Former Tobacco comments: quit 2011. Substance Use Topics Alcohol use: No Drug use: No Medications: Current Outpatient Medications Medication Sig dilTIAZem CD (CARDIZEM CD) 120 mg 24 hr capsule Take 1 capsule by mouth once daily. levothyroxine (SYNTHROID) 25 mcg tablet Take 1 tablet by mouth daily before breakfast. Take on empty stomach. For thyroid. cholecalciferol, Vitamin D3, (VITAMIN D3) 1,250 mcg (50,000 unit) cap capsule Take 1 capsule by mouth one time a week for 12 doses. Transition to 2,000-4,000 units of Vitamin D OTC after completing 12 weeks hydrOXYchloroQUINE (PLAQUENIL) 200 mg tablet Take 1 tablet by mouth every 12 hours 6am/6pm. ENBREL SURECLICK 50 mg/mL (1 mL) rOPINIRole (REQUIP) 1 mg tablet Take 1 tablet by mouth daily at bedtime. levothyroxine (SYNTHROID) 200 mcg tablet Take 1 tablet by mouth once daily. Take on empty stomach. For Thyroid. albuterol HFA (PROVENTIL HFA, VENTOLIN HFA) 90 mcg/actuation inhaler Inhale 1-2 Puffs as instructed four times daily as needed. FOR WHEEZING AND SHORTNESS OF BREATH. predniSONE (DELTASONE) 10 mg tablet Take 2 tablets by mouth once daily. (Patient not taking: Reported on 08/28/2023) CPAP CPAP 11 cmH2O, suitable mask, tubing, humidifier, filters. Lifetime supplies. Dx: G47.33 - Obstructive sleep apnea (Patient not taking: Reported on 08/03/2023) CPAP CPAP 11 cmH2O, suitable mask, tubing, humidifier, filters. Lifetime supplies. Dx: 327.23 - Obstructive sleep apnea (Patient not taking: Reported on 08/03/2023) No current facility-administered medications for this visit. REVIEW OF SYSTEMS General: No fatigue or fevers HEENT: Negative for frequent or significant headaches, No changes in hearing or vision, no nose bleeds or other nasal problems PAP Therapy: Waiting for CPAP delivery GI:No nausea, vomiting, or diarrhea and No heartburn or reflux symptoms Muskuloskeletal: Negative for joint pain or swelling, back pain or muscle pain Skin: Negative for lesions, rash, and itching Psych: Negative for sleep disturbance, mood disorder and recent psychosocial stressors PHYSICAL EXAMINATION Ht 160.7 cm (5' 3.25 ) Wt (!) 148.8 kg (328 lb) BMI 57.64 kg/m? GENERAL APPEARANCE: Pleasant, interacts appropriately and in no apparent distress. Appropriately groomed, happy, smiling, and interactive SKIN: Skin of normal texture, temperature without rashes/lesions/ulcerations. LUNGS: unlabored on room air negative findings: normal respiratory rate no cough NEURO/PSYCH: Orien (more content not included)... [facility] 09-24-2023 Miscellaneous Notes Letter sent/faxed to re: med recs for Enbrel and Plaquenil pre and post op. Aide Cardoso RN Cardiac clearance letter sent/faxed to Dr. Bettencourt at [facility]. Aide Cardoso RN documented in this encounter [facility] 09-24-2023 History of Present illness Narrative BARIATRIC SURGERY CLINIC FOLLOW UP NOTE DISTANCE HEALTH VISIT This Team Access Model visit is a virtual encounter. It required patient-provider interaction for the medical decision making as documented below. Consent was obtained to complete today's distance health visit. I have communicated my name and active licensure. The patient's identity and physical location were verified at the time of this visit. Either the patient or their legal union contract representative has been informed of the risks and benefits of -- and alternatives to -- treatment through a remote evaluation and consents to proceed with the evaluation remotely. HPI: Rene Bethea a 53 year old female presents for medically supervised weight loss treatment of her obesity related co morbidities. This individual presents for month 5 of 0 required visits. Rene Bethea weight has decreased since first visit in the program. [place] reports doing very well with nutrition recommendations still. She was recently cleared by RD. She reports getting 64+ ounces fluids and 60 to 90 g protein daily. She utilizes the [employer] willian to log her diet. For exercise, she does chair exercises 3 times weekly for 15 to 20 minutes. Denies recent illness, hospitalizations, emergency visits, and medication changes. Denies constipation, diarrhea, abdominal pain, and reflux symptoms. She was recently seen by pulmonology and her CPAP has been ordered. Still waiting on clearance from cardiology and medication recommendations for Enbrel and Plaquenil from rheumatology. Will reach out again today. HISTORY REVIEWED (electronic chart updated): - medical history - medications - allergies PAST MEDICAL HISTORY Diagnosis Date Atrial fibrillation (HCC) 06/06/2023 Depression Esophageal reflux Gastroesophageal reflux Mixed hyperlipidemia Hyperlipidemia Morbid obesity (HCC) Obstructive sleep apnea RA (rheumatoid arthritis) (HCC) Sleep apnea Uses C-pap Unspecified hypothyroidism Hypothyroidism Social: Social History Tobacco Use Smoking status: Former Packs/day: 1.00 Years: 30.00 Additional pack years: 0.00 Total pack years: 30.00 Types: Cigarettes Quit date: 10/22/2012 Years since quittin.9 Smokeless tobacco: Former Tobacco comments: quit 2011. Substance Use Topics Alcohol use: No Drug use: No Medications: Current Outpatient Medications Medication Sig dilTIAZem CD (CARDIZEM CD) 120 mg 24 hr capsule Take 1 capsule by mouth once daily. levothyroxine (SYNTHROID) 25 mcg tablet Take 1 tablet by mouth daily before breakfast. Take on empty stomach. For thyroid. cholecalciferol, Vitamin D3, (VITAMIN D3) 1,250 mcg (50,000 unit) cap capsule Take 1 capsule by mouth one time a week for 12 doses. Transition to 2,000-4,000 units of Vitamin D OTC after completing 12 weeks hydrOXYchloroQUINE (PLAQUENIL) 200 mg tablet Take 1 tablet by mouth every 12 hours 6am/6pm. ENBREL SURECLICK 50 mg/mL (1 mL) rOPINIRole (REQUIP) 1 mg tablet Take 1 tablet by mouth daily at bedtime. levothyroxine (SYNTHROID) 200 mcg tablet Take 1 tablet by mouth once daily. Take on empty stomach. For Thyroid. albuterol HFA (PROVENTIL HFA, VENTOLIN HFA) 90 mcg/actuation inhaler Inhale 1-2 Puffs as instructed four times daily as needed. FOR WHEEZING AND SHORTNESS OF BREATH. predniSONE (DELTASONE) 10 mg tablet Take 2 tablets by mouth once daily. (Patient not taking: Reported on 08/28/2023) CPAP CPAP 11 cmH2O, suitable mask, tubing, humidifier, filters. Lifetime supplies. Dx: G47.33 - Obstructive sleep apnea (Patient not taking: Reported on 08/03/2023) CPAP CPAP 11 cmH2O, suitable mask, tubing, humidifier, filters. Lifetime supplies. Dx: 327.23 - Obstructive sleep apnea (Patient not taking: Reported on 08/03/2023) No current facility-administered medications for this visit. REVIEW OF SYSTEMS General: No fatigue or fevers HEENT: Negative for frequent or significant headaches, No changes in hearing or vision, no nose bleeds or other nasal problems PAP Therapy: Waiting for CPAP delivery GI:No nausea, vomiting, or diarrhea and No heartburn or reflux symptoms Muskuloskeletal: Negative for joint pain or swelling, back pain or muscle pain Skin: Negative for lesions, rash, and itching Psych: Negative for sleep disturbance, mood disorder and recent psychosocial stressors PHYSICAL EXAMINATION Ht 160.7 cm (5' 3.25 ) Wt (!) 148.8 kg (328 lb) BMI 57.64 kg/m GENERAL APPEARANCE: Pleasant, interacts appropriately and in no apparent distress. Appropriately groomed, happy, smiling, and interactive SKIN: Skin of normal texture, temperature without rashes/lesions/ulcerations. LUNGS: unlabored on room air negative findings: normal respiratory rate no cough NEURO/PSYCH: Oriented to person, place, time; appropriate insight and judgement. Appropriate affect. Diagnostic Tests Reviewed for Today's Visit Most recent imaging The plan of treatment for Rene Bethea is Further Work-up: Required monthly visits: 5 of 0 months Patient is interested in: Sleeve gastrectomy versus DS or two staged procedure EGD: defer to UGI Upper GI: 1. Gastroesophageal reflux superiorly into the cervical esophagus. No hiatal hernia. Remainder of exam is unremarkable. RUQ US: 1. Fatty infiltration of the liver. 2. Indeterminate hypoechoic structure partially exophytic from the lower pole of the right kidney which could be further evaluated by CT. -CT scan kidney: Minimally enhancing lower pole right renal lesion. Six-month follow-up recommended. Indeterminate. Bosniak 2F. 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 Sleep Study: severe NORBERT CXR:per pulmonary clearance EKG:per cardiac clearance H Pylori pending Labs: low vit D, elevated TSH Nicotine use <12 months: NA, ordered per insurance - negative Tox: ordered per insurance - negative Antiplatelet/anticoagulants: None Immunosuppressive therapy: Yes- Plaquenil and Enbrel Estrogen therapy: No Evaluations Psychology: cleared Nutrition: cleared Education class: ongoing Clearances: -Cardiac (Sept at [facility]) -Pulmonary (CPAP ordered) -Rheumatology (recs on Enbrel & Plaquenil) -requip from PCP -PCP Risk Calculator: VTE Risk: BMI > 60 ISS score: not diabetic Adverse Event score: TBD Post-op Medications: Extended Lovenox: BMI > 60, recently on Eliquis (Jun) Actigall: NA hx of cholecystectomy PPI: will require Total time in direct patient contact = 10 minutes. Greater than 50% of the time was spent in counseling and/or coordination of care. This note was generated using voice recognition technology and may contain grammatical errors. ASSESSMENT/PLAN: 1. Class 3 severe obesity due to excess calories with serious comorbidity and body mass index (BMI) of 50.0 to 59.9 in adult (HCC) - ICD9: 278.01, V85.43, ICD10: E66.01, Z68.43 (primary diagnosis) Weight decreasing - Behavioral and pharmacological intervention , - Medical nutrition therapy with dietitian, and - Psychology - Nutrition Counseling Practice these: - Eat 3 meals daily--can use approved/recommended protein shake as 1 meal replacement (should be <200 calories, 20-30g protein, <5g added sugar) - Keep a food journal 5-7x/week (consider Astley Clarke or [employer] willian) and demonstrate meeting protein goal (60-90g protein for females, 70-105g protein for males)- Lean meats, fish, low fat dairy - cottage cheese, [place] Islander yogurt, light yogurt, cheese, ricotta cheese, nuts, peanut butter, beans/legumes. Eat protein first at all meals. and 64oz of caffeine-free, carbonation-free fluids at least 5 days per week - engage in formal, planned exercise 5x/week for 30 minutes of cardiovascular activity OR 150+ minutes of cardiovascular activity per week - eliminate all caffeine, carbonation, alcohol and sugar-containing beverages from diet --consider sugar-free drink mixes, water, decaf coffee and tea - Separate eating and drinking by 30 minutes - Chew your food 20-30x per bite - Sip beverages slowly--no guzzling or gulping 2. NORBERT (obstructive sleep apnea) - ICD9: 327.23, ICD10: G47.33 - CPAP ordered per pulmonology note. 3. Atrial fibrillation, unspecified type (HCC) - ICD9: 427.31, ICD10: I48.91 - Per pt, she has been cleared by cardiology. Will send clearance letter to Dr. Bettencourt, retail area manager today. 4. Rheumatoid arteritis (HCC) - ICD9: 714.2, ICD10: M05.20 - Need med recs on Enbrel and Plaquenil from Dr. Malik, pitching coach. All testing is complete. Clearances obtained from nutrition and psychology. Need clearance from pulmonology (waiting on CPAP delivery) and cardiology (sending clearance letter today). Follow-up with ELECTRIC METER TESTER in 4 weeks, unless she received CPAP and we received cardiology clearance, then she can consent. Dixon Campbell APRN.CNP Medical Decision Making: Problems: Moderate: 2+ stable chronic illnesses Data: Unique source(s) for external note(s) reviewed: 1 Unique test result(s) reviewed: 1 Assessment requiring an independent historian(s) Medical Decision Making Level: 4 - Moderate documented in this encounter [facility] 09-21-2023 Note HNO ID: [id number] Author: Suzanne Falcon RD Service: ? Author Type: Registered Dietitian Type: Progress Notes Filed: 09/21/2023 10:55 AM Note Text: Rene K Swineharhaider--Visit conducted via [employer] (audio and visual) d/t COVID 19 Education Class: Patient will receive instruction regarding healthy food choices and eating behaviors identified as optimal when preparing for surgery, losing weight after surgery, and maintaining weight loss long-term. Patient will also receive instruction regarding the Bariatric Full Liquid diet following surgery and optimal post-operative high-protein supplement choices. Education class to be completed prior to surgery. Behaviors Accomplished: Visit # 5 Date: 09/21/2023 Weight: (!) 148.8 kg (328 lb), reported 8 lb weight loss since initial in office encounter. Behaviors that helped/hindered weight loss: helped--eliminated dining out Keeping journal daily Eating 3 meals/one snack Choose healthy foods Daily multivitamin No high fat/fast foods D/c'd caffeinated, carbonated beverages 24 hour diet recall Breakfast: eggs, zamarripa, toast Lunch: grilled chicken with parmesan cheese Dinner: none Snacks: 1/2 shake Fluids (liquid intake-oz): yesterday: 64 oz , 2 days ago: 45 oz , 3 days ago: 80 oz, 4 days ago: 64 oz, 5 days ago: 64 oz, 6 days ago:80 oz, 7 days ago: 64 oz Alcohol/Caffeine/Sugar/Sweetener/ Carbonation Beverages in Diet: Carbonation: eliminated Caffeine: none Sugar: none Sweeteners: 1-2x/week--flavored packets in water Alcohol: none Protein (grams/day): yesterday: 93 g, 2 days ago: 65 g, 3 days ago: 66 g, 4 days ago: 92 g, 5 days ago: 77 g, 6 days ago: 79 g, 7 days ago: 62 g Exercise: chair exercise---2-3x/week for 15-25 minutes at a time. fell and hurt her hip while on vacation in [place]. Still able to exercise as noted above, but not as aerobic intensive. Written information provided and reviewed: As noted Preop patient currently in month #5 for supervised diet and exercise. Over the last month, she has been able to eat eliminate dining out. She remains consistently adherent to all other preop nutrition requirements. Therefore, nutrition clearance was obtained at today's visit. Patient has not met with ELECTRIC METER TESTER since June. Recommend that she follow-up with ELECTRIC METER TESTER next week before scheduling consent visit with surgeon. I will plan on seeing patient again first week of October to review consent diet info. The patient meets NIH guidelines for weight loss surgery and has been thoroughly evaluated and educated on good dietary practices. Patient is capable of following these guidelines pre-and post-surgically. From nutrition standpoint, the patient is cleared for weight loss surgery. No additional visits with nutrition are required at this time; however, pt is welcome to return as needed/desired before or after surgery. *All requirements have been met. Additional requirements may arise in course of treatment. Plan: follow up with ELECTRIC METER TESTER week of 09/24. Schedule RD appt first week of October to review consent diet info. Total time in direct patient contact = 10 min. Greater than 50% of the time was spent in counseling and/or coordination of care. Suzanne Falcon RD This note was generated using voice recognition technology and may contain grammatical errors. [facility] 09-21-2023 History of Present illness Narrative Rene Bethea--Visit conducted via [employer] (audio and visual) d/t [id number] [id number] Education Class: Patient will receive instruction regarding healthy food choices and eating behaviors identified as optimal when preparing for surgery, losing weight after surgery, and maintaining weight loss long-term. Patient will also receive instruction regarding the Bariatric Full Liquid diet following surgery and optimal post-operative high-protein supplement choices. Education class to be completed prior to surgery. Behaviors Accomplished: Visit # 5 Date: 09/21/2023 Weight: (!) 148.8 kg (328 lb), reported 8 lb weight loss since initial in office encounter. Behaviors that helped/hindered weight loss: helped--eliminated dining out Keeping journal daily Eating 3 meals/one snack Choose healthy foods Daily multivitamin No high fat/fast foods D/c'd caffeinated, carbonated beverages 24 hour diet recall Breakfast: eggs, zamarripa, toast Lunch: grilled chicken with parmesan cheese Dinner: none Snacks: 1/2 shake Fluids (liquid intake-oz): yesterday: 64 oz , 2 days ago: 45 oz , 3 days ago: 80 oz, 4 days ago: 64 oz, 5 days ago: 64 oz, 6 days ago:80 oz, 7 days ago: 64 oz Alcohol/Caffeine/Sugar/Sweetener/ Carbonation Beverages in Diet: Carbonation: eliminated Caffeine: none Sugar: none Sweeteners: 1-2x/week--flavored packets in water Alcohol: none Protein (grams/day): yesterday: 93 g, 2 days ago: 65 g, 3 days ago: 66 g, 4 days ago: 92 g, 5 days ago: 77 g, 6 days ago: 79 g, 7 days ago: 62 g Exercise: chair exercise---2-3x/week for 15-25 minutes at a time. fell and hurt her hip while on vacation in [place]. Still able to exercise as noted above, but not as aerobic intensive. Written information provided and reviewed: As noted Preop patient currently in month #5 for supervised diet and exercise. Over the last month, she has been able to eat eliminate dining out. She remains consistently adherent to all other preop nutrition requirements. Therefore, nutrition clearance was obtained at today's visit. Patient has not met with ELECTRIC METER TESTER since June. Recommend that she follow-up with ELECTRIC METER TESTER next week before scheduling consent visit with surgeon. I will plan on seeing patient again first week of October to review consent diet info. The patient meets NIH guidelines for weight loss surgery and has been thoroughly evaluated and educated on good dietary practices. Patient is capable of following these guidelines pre-and post-surgically. From nutrition standpoint, the patient is cleared for weight loss surgery. No additional visits with nutrition are required at this time; however, pt is welcome to return as needed/desired before or after surgery. *All requirements have been met. Additional requirements may arise in course of treatment. Plan: follow up with ELECTRIC METER TESTER week of 09/24. Schedule RD appt first week of October to review consent diet info. Total time in direct patient contact = 10 min. Greater than 50% of the time was spent in counseling and/or coordination of care. Suzanne Falcon RD This note was generated using voice recognition technology and may contain grammatical errors. documented in this encounter [facility] 09-21-2023 Miscellaneous Notes Radiology Service Progress Note PATIENT NAME: Rene Bethea DATE OF SERVICE: September 21, 2023 TIME: 8:47 AM PATIENT IDENTITY VERIFICATION COMPLETED USING TWO (2) IDENTIFIERS: Name and Date of confirmed by patient verbally and Name and Date of confirmed by identification band. FALL SCREENING: Has the patient had 2 falls in the last year or 1 fall with injury or currently using an Ambulatory Assistive Device (Walker, Cane, Wheelchair, Crutches, etc.)? Yes, Patient High Risk for Falls What interventions were put in place to prevent falls during this visit? [place] Risk Wristband Applied, Instructed Patient to Remain Seated (Not on Exam Table) Until Exam, and Increased Observations by Caregivers PATIENT GENDER DATA: Female. status: : No status: NO. PATIENT RELEVANT IMPLANT DATA REVIEWED: Not Applicable RADIOLOGY DEPARTMENT: General X-ray: Exam(s) Completed: GI/ Procedure(s): Upper GI with barium contrast PERIPHERAL IV DATA: Not applicable SIGNED BY: RT Peggy(David) September 21, 2023 8:47 AM documented in this encounter [facility] 09-14-2023 Note HNO ID: [id number] Author: Guera Laughlin RT(R) Service: Radiology Author Type: Technologist Type: Progress Notes Filed: 09/14/2023 12:24 PM Note Text: Radiology Service Progress Note PATIENT NAME: Rene Bethea DATE OF SERVICE: September 14, 2023 TIME: 12:17 PM PATIENT IDENTITY VERIFICATION COMPLETED USING TWO (2) IDENTIFIERS: Name and Date of confirmed by patient verbally and Name and Date of confirmed by identification band. FALL SCREENING: Has the patient had 2 falls in the last year or 1 fall with injury or currently using an Ambulatory Assistive Device (Walker, Cane, Wheelchair, Crutches, etc.)? Yes, Patient High Risk for Falls What interventions were put in place to prevent falls during this visit? Increased Observations by Caregivers PATIENT GENDER DATA: Female. status: : No status: NO. PATIENT RELEVANT IMPLANT DATA REVIEWED: Yes RADIOLOGY DEPARTMENT: CT; Exam(s) Completed: Kidney PERIPHERAL IV DATA: Site assessment: Clean,Dry and Intact, Site disposition Discontinued SIGNED BY: RT Vivian(R) September 14, 2023 12:17 PM [facility] 09-14-2023 History of Present illness Narrative Radiology Service Progress Note PATIENT NAME: Rene Bethea DATE OF SERVICE: September 14, 2023 TIME: 12:17 PM PATIENT IDENTITY VERIFICATION COMPLETED USING TWO (2) IDENTIFIERS: Name and Date of confirmed by patient verbally and Name and Date of confirmed by identification band. FALL SCREENING: Has the patient had 2 falls in the last year or 1 fall with injury or currently using an Ambulatory Assistive Device (Walker, Cane, Wheelchair, Crutches, etc.)? Yes, Patient High Risk for Falls What interventions were put in place to prevent falls during this visit? Increased Observations by Caregivers PATIENT GENDER DATA: Female. status: : No status: NO. PATIENT RELEVANT IMPLANT DATA REVIEWED: Yes RADIOLOGY DEPARTMENT: CT; Exam(s) Completed: Kidney PERIPHERAL IV DATA: Site assessment: Clean,Dry and Intact, Site disposition Discontinued SIGNED BY: RT Vivian(R) September 14, 2023 12:17 PM documented in this encounter [facility] 09-14-2023 Nurse Note Radiology Service Progress Note DATE OF SERVICE: September 14, 2023 TIME: 12:18 PM PATIENT WEIGHT: 335LBS PATIENT IDENTITY VERIFICATION COMPLETED USING TWO (2) STANDARD IDENTIFIERS: Name and Date of confirmed by patient verbally and Name and Date of confirmed by identification band. FALL SCREENING: Has the patient had 2 falls in the last year or 1 fall with injury or currently using an Ambulatory Assistive Device (Walker, Cane, Wheelchair, Crutches, etc.)? Yes, Patient High Risk for Falls What interventions were put in place to prevent falls during this visit? [place] Risk Wristband Applied PATIENT GENDER DATA: Female. status: : No status: NO. ALLERGIES: Reviewed and unchanged CONTRAST ALLERGY: No EXAM: CT -CONTRAST INDUCED NEPHROPATHY RISK FACTORS: Not applicable CREATININE: Creatinine Date Value Ref Range Status 07/27/2023 0.85 0.58 - 0.96 mg/dL Final 07/08/2021 0.87 0.58 - 0.96 mg/dL Final 06/06/2019 0.87 0.58 - 0.96 mg/dL Final Estimated Glomerular Filtration Rate Date Value Ref Range Status 07/27/2023 82 >=60 mL/min/1.73m Final Comment: Estimated Glomerular Filtration Rate (eGFR) is calculated using the 2020 CKD-EPI creatinine equation. This equation utilizes serum creatinine, sex, and age as parameters. The creatinine assay has traceable calibration to isotope dilution-mass spectrometry. Refer to KDIGO guidelines for clinical interpretation. In patients with unstable renal function, e.g. those with acute kidney injury, the eGFR may not accurately reflect actual GFR. eGFR- Date Value Ref Range Status 07/08/2021 >60 Final P.O.C.T. RESULTS: N/A September 14, 2023 TREATMENT: N/A IV SITE: Ambulatory: A peripheral IV was started in the Left with a Angio cath: 20 gauge. IV SITE APPEARANCE: Clean,Dry and Intact SIGNATURE: Lorena Hinson RN PATIENT NAME: Rene Bethea DATE: September 14, 2023 TIME: 12:18 PM documented in this encounter [facility] 09-13-2023 Note HNO ID: [id number] Author: Amada Menon Service: ? Author Type: ? Type: Progress Notes Filed: 09/13/2023 2:23 AM Note Text: Sleep Study Check-In Documentation Date: September 13, 2023 Name: Rene Bethea Patient was accompanied by Self. Location: [place] Latex allergy: No Tape allergy: No Current medications were reviewed with the patient:Yes Sleep aid taken by patient for the sleep study: Yes Name of sleep aid: Ropinirole Procedure was explained to the patient and all questions were answered. PAP treatment discussed and shown to patient: Yes If PAP used enter mask info: Mask Name: AirFit N30i Make: ResMed Mask Type: Nasal Mask Size: Medium Chin Strap Used: No --------- Knowledge Program (KP): KP was not completed in [facility] by patient and accepted Study type: Split Study-Polysomnogram with CPAP titration Adverse Event: No (If yes create a new abstract) Comments: Patient was advised to follow up with their ordering provider regarding test results Amada THRASHER [facility] 09-13-2023 History of Present illness Narrative Sleep Study Check-In Documentation Date: September 13, 2023 Name: Rene Bethea Patient was accompanied by Self. Location: [place] Latex allergy: No Tape allergy: No Current medications were reviewed with the patient:Yes Sleep aid taken by patient for the sleep study: Yes Name of sleep aid: Ropinirole Procedure was explained to the patient and all questions were answered. PAP treatment discussed and shown to patient: Yes If PAP used enter mask info: Mask Name: AirFit N30i Make: ResMed Mask Type: Nasal Mask Size: Medium Chin Strap Used: No Knowledge Program (KP): KP was not completed in epic by patient and accepted Study type: Split Study-Polysomnogram with CPAP titration Adverse Event: No (If yes create a new abstract) Comments: Patient was advised to follow up with their ordering provider regarding test results Amada THRASHER documented in this encounter [facility] 09-12-2023 Note HNO ID: [id number] Author: Maliha Bonilla PSYD Service: ? Author Type: Psychologist Type: Progress Notes Filed: 09/12/2023 10:41 AM Note Text: [facility] Follow-Up Visit Behavioral Services Progress Note September 12, 2023 CPT Code: 71873 Psychotherapy 16-37 minutes Time: 19 Minutes This is a virtual visit using [employer] video visit. It required patient-provider interaction for the medical decision making as documented below. I have communicated my name and active licensure. The patient's identity and physical location were verified at the time of this visit. Either the patient or their legal union contract representative has been informed of the risks and benefits of -- and alternatives to -- treatment through a remote evaluation and consents to proceed with the evaluation remotely. Session #: 2 Summary of Session: The patient stated she had lost 30 pounds so far with the program. She said she was not experiencing the urge to emotionally eat or graze often as she had changed her diet and was having more protein and drinking more water. She said she was eating regular meals across the day and tracking utilizing [employer]. Evaluated symptoms of mood and she said her mood continued to be positive and she was feeling even better as she was approaching surgery. Patient mood is: calm. Affect is: Appropriate. Patient Data Binge Eating Scale (BES) No flowsheet data found.<18 = minimal binge eating, 18-26 = moderate binge eating, >27 = severe binge eating Generalized Anxiety Disorder Scale (AL-7) AL - 7 SCORES 09/06/2023 AL-7 Score 0 (0-4) minimal anxiety, (5-9) mild anxiety, (10-14) moderate anxiety, (15-21) severe anxiety Patient Health Questionnaire (PHQ-9) PHQ-9 01/31/2019 09/13/2022 09/06/2023 Score 5 3 1 (0-4) minimal depression, (5-9) mild depression, (10-14) moderate depression, (15-19) moderately severe depression, (20-27) severe depression Diagnosis: Eating disorder, unspecified type (primary encounter diagnosis) Current Medications: Current Outpatient Medications Medication Sig iv contrast (will be provided with radiology test) CT kidney wow Inject, intravenously, once for 1 dose.No IV access, insert saline lock prior to the beginning of sedation, infusion, injection of imaging exam. Discontinue saline lock post exam. If Pt. has a central line or IVAD, may access for administration according to line specific nursing protocol. Once exam is complete flush line and de-access according to line specific nursing protocol in the CT contrast administration guidelines link. dilTIAZem CD (CARDIZEM CD) 120 mg 24 hr capsule Take 1 capsule by mouth once daily. levothyroxine (SYNTHROID) 25 mcg tablet Take 1 tablet by mouth daily before breakfast. Take on empty stomach. For thyroid. cholecalciferol, Vitamin D3, (VITAMIN D3) 1,250 mcg (50,000 unit) cap capsule Take 1 capsule by mouth one time a week for 12 doses. Transition to 2,000-4,000 units of Vitamin D OTC after completing 12 weeks hydrOXYchloroQUINE (PLAQUENIL) 200 mg tablet Take 1 tablet by mouth every 12 hours 6am/6pm. ENBREL SURECLICK 50 mg/mL (1 mL) rOPINIRole (REQUIP) 1 mg tablet Take 1 tablet by mouth daily at bedtime. levothyroxine (SYNTHROID) 200 mcg tablet Take 1 tablet by mouth once daily. Take on empty stomach. For Thyroid. albuterol HFA (PROVENTIL HFA, VENTOLIN HFA) 90 mcg/actuation inhaler Inhale 1-2 Puffs as instructed four times daily as needed. FOR WHEEZING AND SHORTNESS OF BREATH. predniSONE (DELTASONE) 10 mg tablet Take 2 tablets by mouth once daily. (Patient not taking: Reported on 08/28/2023) CPAP CPAP 11 cmH2O, suitable mask, tubing, humidifier, filters. Lifetime supplies. Dx: G47.33 - Obstructive sleep apnea (Patient not taking: Reported on 08/03/2023) CPAP CPAP 11 cmH2O, suitable mask, tubing, humidifier, filters. Lifetime supplies. Dx: 327.23 - Obstructive sleep apnea (Patient not taking: Reported on 08/03/2023) No current facility-administered medications for this visit. Treatment Modality: - Behavior Modification Plan/Recommendations: The patient has been cleared for surgery, she was advised she could have additional appointments with bariatric psychology as needed. Maliha Bonilla PSYD Clinical Psychologist Bariatrics [facility] 09-12-2023 History of Present illness Narrative [facility] Follow-Up Visit Behavioral Services Progress Note September 12, 2023 CPT Code: 22738 Psychotherapy 16-37 minutes Time: 19 Minutes This is a virtual visit using [employer] video visit. It required patient-provider interaction for the medical decision making as documented below. I have communicated my name and active licensure. The patient's identity and physical location were verified at the time of this visit. Either the patient or their legal union contract representative has been informed of the risks and benefits of -- and alternatives to -- treatment through a remote evaluation and consents to proceed with the evaluation remotely. Session #: 2 Summary of Session: The patient stated she had lost 30 pounds so far with the program. She said she was not experiencing the urge to emotionally eat or graze often as she had changed her diet and was having more protein and drinking more water. She said she was eating regular meals across the day and tracking utilizing [employer]. Evaluated symptoms of mood and she said her mood continued to be positive and she was feeling even better as she was approaching surgery. Patient mood is: calm. Affect is: Appropriate. Patient Data Binge Eating Scale (BES) No flowsheet data found.<18 = minimal binge eating, 18-26 = moderate binge eating, >27 = severe binge eating Generalized Anxiety Disorder Scale (AL-7) AL - 7 SCORES 09/06/2023 AL-7 Score 0 (0-4) minimal anxiety, (5-9) mild anxiety, (10-14) moderate anxiety, (15-21) severe anxiety Patient Health Questionnaire (PHQ-9) PHQ-9 01/31/2019 09/13/2022 09/06/2023 Score 5 3 1 (0-4) minimal depression, (5-9) mild depression, (10-14) moderate depression, (15-19) moderately severe depression, (20-27) severe depression Diagnosis: Eating disorder, unspecified type (primary encounter diagnosis) Current Medications: Current Outpatient Medications Medication Sig iv contrast (will be provided with radiology test) CT kidney wow Inject, intravenously, once for 1 dose.No IV access, insert saline lock prior to the beginning of sedation, infusion, injection of imaging exam. Discontinue saline lock post exam. If Pt. has a central line or IVAD, may access for administration according to line specific nursing protocol. Once exam is complete flush line and de-access according to line specific nursing protocol in the CT contrast administration guidelines link. dilTIAZem CD (CARDIZEM CD) 120 mg 24 hr capsule Take 1 capsule by mouth once daily. levothyroxine (SYNTHROID) 25 mcg tablet Take 1 tablet by mouth daily before breakfast. Take on empty stomach. For thyroid. cholecalciferol, Vitamin D3, (VITAMIN D3) 1,250 mcg (50,000 unit) cap capsule Take 1 capsule by mouth one time a week for 12 doses. Transition to 2,000-4,000 units of Vitamin D OTC after completing 12 weeks hydrOXYchloroQUINE (PLAQUENIL) 200 mg tablet Take 1 tablet by mouth every 12 hours 6am/6pm. ENBREL SURECLICK 50 mg/mL (1 mL) rOPINIRole (REQUIP) 1 mg tablet Take 1 tablet by mouth daily at bedtime. levothyroxine (SYNTHROID) 200 mcg tablet Take 1 tablet by mouth once daily. Take on empty stomach. For Thyroid. albuterol HFA (PROVENTIL HFA, VENTOLIN HFA) 90 mcg/actuation inhaler Inhale 1-2 Puffs as instructed four times daily as needed. FOR WHEEZING AND SHORTNESS OF BREATH. predniSONE (DELTASONE) 10 mg tablet Take 2 tablets by mouth once daily. (Patient not taking: Reported on 08/28/2023) CPAP CPAP 11 cmH2O, suitable mask, tubing, humidifier, filters. Lifetime supplies. Dx: G47.33 - Obstructive sleep apnea (Patient not taking: Reported on 08/03/2023) CPAP CPAP 11 cmH2O, suitable mask, tubing, humidifier, filters. Lifetime supplies. Dx: 327.23 - Obstructive sleep apnea (Patient not taking: Reported on 08/03/2023) No current facility-administered medications for this visit. Treatment Modality: - Behavior Modification Plan/Recommendations: The patient has been cleared for surgery, she was advised she could have additional appointments with bariatric psychology as needed. Maliha Bonilla PSYD Clinical Psychologist Bariatrics documented in this encounter [facility] 09-11-2023 Miscellaneous Notes Phone call from [facility] regarding patients CT order. Patient was originally scheduled at [place] and rescheduled to [place] however the order was discontinued. They are requesting that we place a new order. Patient is scheduled for 09/14. Marla Young MA documented in this encounter [facility] 09-07-2023 Note HNO ID: [id number] Author: Nandini Pierre RPFT Service: ? Author Type: Respiratory Therapist Type: Progress Notes Filed: 09/07/2023 10:40 AM Note Text: PULM FUNCTION SMARTBLOCK: Provider: Soha Shepherd DO Assisting Tech: Petush, Nandini, RPFT Spirometry: 1 DLCO: 1 LV - Box: 1 [facility] 09-07-2023 History of Present illness Narrative PULM FUNCTION SMARTBLOCK: Provider: Soha Shepherd DO Assisting Tech: Petush, Nandini, RPFT Spirometry: 1 DLCO: 1 LV - Box: 1 documented in this encounter [facility] 09-03-2023 Miscellaneous Notes Called left voicemail informing patient PSG (Polysomnogram) has been scheduled in [place] on 09/12/2023 @ 9:15 pm . Informed patient if she is unable to keep this appointment she can contact [place] scheduling at [phone] Miranda Guajardo MA documented in this encounter [facility] 08-31-2023 Note HNO ID: [id number] Author: Suzanne Falcon RD Service: ? Author Type: Registered Dietitian Type: Progress Notes Filed: 08/31/2023 10:03 AM Note Text: Rene Bethea--Visit conducted via [employer] (audio and visual) d/t COVID 19 Education Class: Patient will receive instruction regarding healthy food choices and eating behaviors identified as optimal when preparing for surgery, losing weight after surgery, and maintaining weight loss long-term. Patient will also receive instruction regarding the Bariatric Full Liquid diet following surgery and optimal post-operative high-protein supplement choices. Education class to be completed prior to surgery. Behaviors Accomplished: Visit # 4 Date: 08/31/2023 Weight: (!) 150.1 kg (331 lb), reported 5 lb weight loss since initial in office encounter. Behaviors that helped/hindered weight loss: decreased portions, limiting sweets, continues to avoid soda Keeping journal daily Eating 3 meals/one snack Choose healthy foods Daily multivitamin No high fat/fast foods D/c'd caffeinated, carbonated beverages 24 hour diet recall Breakfast: meatlovers breakfast bowl Lunch: antipasto salad Dinner: roast beef, 1/2 cup chicken salad Snacks: strawberries, blueberries, pineapple, chocolate chip cookie Fluids (liquid intake-oz): yesterday: 64 oz , 2 days ago: 80 oz , 3 days ago: 80 oz, 4 days ago: 64 oz, 5 days ago: 64 oz, 6 days ago:80 oz, 7 days ago: 48 oz Alcohol/Caffeine/Sugar/Sweetener/ Carbonation Beverages in Diet: Carbonation: eliminated Caffeine: none Sugar: none Sweeteners: 1-2x/week--flavored packets in water Alcohol: none Protein (grams/day): yesterday: 65 g, 2 days ago: 103 g, 3 days ago: 36 g, 4 days ago: 111 g, 5 days ago: 71 g, 6 days ago: 67 g , 7 days ago: 68 g Exercise: chair exercise---2-3x/week for 15-20 minutes at a time. fell and hurt her hip while on vacation in [place]. Still able to exercise as noted above, but not as aerobic intensive. Written information provided and reviewed: As noted Preop patient currently in month number for a supervised diet and exercise. Presents with a reported 5 pound weight loss since initial in office encounter. She is working towards obtaining nutrition clearance. Over the last month, she has been able to reduce her portion sizes-now within range for protein goals. Fortunately, she fell and hurt her hip while traveling to the [place]. Therefore, exercise has been a struggle. She reports eating out on average, 3 times per week. Counseled patient on importance of limiting to 2 times per week. She remains adherent to all other preop nutrition requirements. Goals limit dining out to 2x/week The patient meets NIH guidelines for weight loss surgery and has been thoroughly evaluated and educated on good dietary practices. Patient is capable of following these guidelines pre-and post-surgically. From nutrition standpoint, the has partially met nutrition clearance and will need to demonstrate limiting dining out to 2x/week to receive nutrition clearance. Plan: Follow up with RD x 1 month Total time in direct patient contact = 23 min. Greater than 50% of the time was spent in counseling and/or coordination of care. Suzanne Falcon RD This note was generated using voice recognition technology and may contain grammatical errors. [facility] 08-31-2023 Miscellaneous Notes Lvm and sent my chart to return call for follow up lime mixer tender appt 1 month Zonia Sargent MA documented in this encounter [facility] 08-31-2023 History of Present illness Narrative Rene Bethea--Visit conducted via [employer] Zoom (audio and visual) d/t JUDAHID 19 Education Class: Patient will receive instruction regarding healthy food choices and eating behaviors identified as optimal when preparing for surgery, losing weight after surgery, and maintaining weight loss long-term. Patient will also receive instruction regarding the Bariatric Full Liquid diet following surgery and optimal post-operative high-protein supplement choices. Education class to be completed prior to surgery. Behaviors Accomplished: Visit # 4 Date: 08/31/2023 Weight: (!) 150.1 kg (331 lb), reported 5 lb weight loss since initial in office encounter. Behaviors that helped/hindered weight loss: decreased portions, limiting sweets, continues to avoid soda Keeping journal daily Eating 3 meals/one snack Choose healthy foods Daily multivitamin No high fat/fast foods D/c'd caffeinated, carbonated beverages 24 hour diet recall Breakfast: meatlovers breakfast bowl Lunch: antipasto salad Dinner: roast beef, 1/2 cup chicken salad Snacks: strawberries, blueberries, pineapple, chocolate chip cookie Fluids (liquid intake-oz): yesterday: 64 oz , 2 days ago: 80 oz , 3 days ago: 80 oz, 4 days ago: 64 oz, 5 days ago: 64 oz, 6 days ago:80 oz, 7 days ago: 48 oz Alcohol/Caffeine/Sugar/Sweetener/ Carbonation Beverages in Diet: Carbonation: eliminated Caffeine: none Sugar: none Sweeteners: 1-2x/week--flavored packets in water Alcohol: none Protein (grams/day): yesterday: 65 g, 2 days ago: 103 g, 3 days ago: 36 g, 4 days ago: 111 g, 5 days ago: 71 g, 6 days ago: 67 g , 7 days ago: 68 g Exercise: chair exercise---2-3x/week for 15-20 minutes at a time. fell and hurt her hip while on vacation in [place]. Still able to exercise as noted above, but not as aerobic intensive. Written information provided and reviewed: As noted Preop patient currently in month number for a supervised diet and exercise. Presents with a reported 5 pound weight loss since initial in office encounter. She is working towards obtaining nutrition clearance. Over the last month, she has been able to reduce her portion sizes-now within range for protein goals. Fortunately, she fell and hurt her hip while traveling to the [place]. Therefore, exercise has been a struggle. She reports eating out on average, 3 times per week. Counseled patient on importance of limiting to 2 times per week. She remains adherent to all other preop nutrition requirements. Goals limit dining out to 2x/week The patient meets NIH guidelines for weight loss surgery and has been thoroughly evaluated and educated on good dietary practices. Patient is capable of following these guidelines pre-and post-surgically. From nutrition standpoint, the has partially met nutrition clearance and will need to demonstrate limiting dining out to 2x/week to receive nutrition clearance. Plan: Follow up with BREANNA x 1 month Total time in direct patient contact = 23 min. Greater than 50% of the time was spent in counseling and/or coordination of care. Suzanne Falcon RD This note was generated using voice recognition technology and may contain grammatical errors. documented in this encounter [facility] 08-30-2023 Miscellaneous Notes Paperwork faxed in. Pt notified via [employer]. Catrachita Cobos Ma Form done Sweetie Feng MD Forms printed and on PCP's desk to complete. Catrachita Cobos Ma Pt saw David Shaikh 08/03/23 for wellness exam. Are you able to complete FMLA paperwork? Catrachita Cobos Ma documented in this encounter [facility] 08-28-2023 Note HNO ID: [id number] Author: Soha Shepherd, DO Service: ? Author Type: Physician Type: Progress Notes Filed: 08/28/2023 11:47 AM Note Text: PULMONARY MEDICINE HISTORY AND PHYSICAL Patient Name: Rene Bethea PRIMARY CARE PHYSICIAN: Sweetie Feng MD REFERRING PHYSICIAN: No ref. provider found Consultation requested by Dr. Escamilla for an opinion regarding preoperative assessment, morbid obesity. My final recommendations will be communicated back to the requesting physician by way of shared Medical record or letter to requesting physician via US mail. CHIEF COMPLAINT: Morbid obesity HISTORY OF PRESENT ILLNESS: Rene Bethea is a 53 year old White female, There were no vitals taken for this visit.. This patient is here for first Pulmonary office visit and consultation I reviewed available objective data including imaging as available. Mrs. Bethea is a pleasant morbidly obese 53-year-old woman referred for preoperative assessment prior to anticipated bariatric surgery. She states she is planning on having a robotic sleeve gastrectomy. In 2013 she was diagnosed with obstructive sleep apnea she was given a CPAP machine. She states she wore it for a little while, less than 6 months. She could not get equipment and stopped using it. At this time she does admit to occasional snoring. She states she has an adjustable bed and when she sleeps more upright her snoring gets better. Her snoring is also better with weight loss. She has lost 30 pounds over the last 3 months while being on her diet. She denies snorting arousals from her sleep denies witnessed apneas. Her bedtime is 8:30 PM. 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 She falls asleep within 5 minutes. She awakens for the day around 2 AM to 3 AM. She states she feels refreshed upon awakening from a night sleep. She also has a history of restless leg syndrome which is well controlled with 1 mg of ropinirole in the evening. She admits to occasional sleepiness while she is sitting at a computer for prolonged period of time but otherwise denies excessive daytime sleepiness. She denies napping during the day. She denies being a restless sleeper. She states she sleeps on her back. Sometimes on her side. She admits to having dreams. Denies hypnagogic or hypnopompic hallucinations. Denies acting out her dreams. She denies somnambulism. Admits to somniloquy. Denies bruxism. Denies sleep paralysis or cataplexy. Denies awakening with a dry mouth. Denies morning cephalgia. She admits to 1 episode of nocturia at night. She denies nasal congestion or sinus drainage. Denies gastroesophageal reflux. She is a past smoker quitting in 2011. She smoked a pack and a half a day for 20 years. She denies use of alcohol or illicit drugs. She denies use of caffeine. She has pet cats. Most of the time they do not sleep in bed with her. Travel history is to the [place] recently. She has a past history of paroxysmal atrial fibrillation and was taking Eliquis which she no longer takes. Her episode of atrial fibrillation was in June 2023. History pertinent for hypothyroidism with a subtotal thyroidectomy in the past PAST MEDICAL HISTORY Diagnosis Date Atrial fibrillation (HCC) 06/06/2023 Depression Esophageal reflux Gastroesophageal reflux Mixed hyperlipidemia Hyperlipidemia Morbid obesity (HCC) Obstructive sleep apnea RA (rheumatoid arthritis) (HCC) Sleep apnea Uses C-pap Unspecified hypothyroidism Hypothyroidism PAST SURGICAL HISTORY Procedure Laterality Date ARTHROSCOPY KNEE DIAGNOSTIC W/WO SYNOVIAL BX SPX 11/05/2003 Arthroscopy, knee, left times 2 ARTHROSCOPY KNEE DIAGNOSTIC W/WO SYNOVIAL BX SPX 11/05/2008 Arthroscopy, knee right ARTHRS KNE SURG W/MENISCECTOMY MED/LAT W/SHVG 07/29/2014 Right knee arthroscopic medial meniscectomy, PF chondroplasty and removal of loose body CHOLECYSTECTOMY HX COLONOSCOPY W/BIOPSY SINGLE/MULTIPLE 03/06/2014 EGD TRANSORAL BIOPSY SINGLE/MULTIPLE 03/06/2014 LAMINECTOMY W/O FFD 1/2 VERT SEG LUMBAR 11/05/1999 Laminectomy, lumbar PAST SURGICAL HISTORY OF BTL PAST SURGICAL HISTORY OF remote laparoscopy THYROIDECTOMY TOTAL/COMPLETE 11/05/1993 Subtotal -for goiter TOTAL ABDOMINAL HYSTERECT W/WO RMVL TUBE OVARY 11/05/2002 Hysterectomy, OSWALD; 1 ovary left in FAMILY HISTORY Problem Relation Age of Onset Cancer Mother non hodgkins lymphoma, reticular sarcoma Stroke Father other (afib) Father Diabetes Maternal Grandmother other (a-fib) Sister No reported family hx of ILD fibrosis, PAH, Tb, lung cancer, A1AT deficiency Social History Tobacco Use Smoking status: Former Packs/day: 1.00 Years: 30.00 Additional pack years: 0.00 Total pack years: 30.00 Types: Cigarettes Quit date: 10/22/2012 Years since quittin.8 Smokeless tobacco: Former Tobacco comments: quit 2011. Substance Use Topics Alcohol use: No Drug use: (more content not included)... [facility] 08-28-2023 Instructions Soha Shepherd DO - 08/28/2023 11:29 AM EDT Return for follow-up in 3 months Schedule in lab nocturnal polysomnogram split-night study if enough events. Transcutaneous CO2 monitoring at [facility] sleep laboratory Continue attempts at weight loss, exercise, conditioning Recommend rechecking TSH level and following hypothyroidism Pulmonary function testing with lung volumes, DLCO, 2-week sleep diary Recommend adequate sleep hygiene and maintenance of a regular sleep-wake schedule. Recommend keeping your bedroom dark, quiet, and at a comfortable temperature, 68 to 70 F. Please try to avoid sleeping with your pets if possible. Please try to get 7 to 8 hours of sleep daily. CC Dr. Escamilla, Dr. Feng documented in this encounter [facility] 08-28-2023 History of Present illness Narrative Images from the original note were not included. PULMONARY MEDICINE HISTORY AND PHYSICAL Patient Name: Rene Bethea PRIMARY CARE PHYSICIAN: Sweetie Feng MD REFERRING PHYSICIAN: No ref. provider found Consultation requested by Dr. Escamilla for an opinion regarding preoperative assessment, morbid obesity. My final recommendations will be communicated back to the requesting physician by way of shared Medical record or letter to requesting physician via US mail. CHIEF COMPLAINT: Morbid obesity HISTORY OF PRESENT ILLNESS: Rene Bethea is a 53 year old White female, There were no vitals taken for this visit.. This patient is here for first Pulmonary office visit and consultation I reviewed available objective data including imaging as available. Mrs. Bethea is a pleasant morbidly obese 53-year-old woman referred for preoperative assessment prior to anticipated bariatric surgery. She states she is planning on having a robotic sleeve gastrectomy. In 2013 she was diagnosed with obstructive sleep apnea she was given a CPAP machine. She states she wore it for a little while, less than 6 months. She could not get equipment and stopped using it. At this time she does admit to occasional snoring. She states she has an adjustable bed and when she sleeps more upright her snoring gets better. Her snoring is also better with weight loss. She has lost 30 pounds over the last 3 months while being on her diet. She denies snorting arousals from her sleep denies witnessed apneas. Her bedtime is 8:30 PM. 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 She falls asleep within 5 minutes. She awakens for the day around 2 AM to 3 AM. She states she feels refreshed upon awakening from a night sleep. She also has a history of restless leg syndrome which is well controlled with 1 mg of ropinirole in the evening. She admits to occasional sleepiness while she is sitting at a computer for prolonged period of time but otherwise denies excessive daytime sleepiness. She denies napping during the day. She denies being a restless sleeper. She states she sleeps on her back. Sometimes on her side. She admits to having dreams. Denies hypnagogic or hypnopompic hallucinations. Denies acting out her dreams. She denies somnambulism. Admits to somniloquy. Denies bruxism. Denies sleep paralysis or cataplexy. Denies awakening with a dry mouth. Denies morning cephalgia. She admits to 1 episode of nocturia at night. She denies nasal congestion or sinus drainage. Denies gastroesophageal reflux. She is a past smoker quitting in 2011. She smoked a pack and a half a day for 20 years. She denies use of alcohol or illicit drugs. She denies use of caffeine. She has pet cats. Most of the time they do not sleep in bed with her. Travel history is to the [place] [facility] [place] recently. She has a past history of paroxysmal atrial fibrillation and was taking Eliquis which she no longer takes. Her episode of atrial fibrillation was in June 2023. History pertinent for hypothyroidism with a subtotal thyroidectomy in the past PAST MEDICAL HISTORY Diagnosis Date Atrial fibrillation (HCC) 06/06/2023 Depression Esophageal reflux Gastroesophageal reflux Mixed hyperlipidemia Hyperlipidemia Morbid obesity (HCC) Obstructive sleep apnea RA (rheumatoid arthritis) (HCC) Sleep apnea Uses C-pap Unspecified hypothyroidism Hypothyroidism PAST SURGICAL HISTORY Procedure Laterality Date ARTHROSCOPY KNEE DIAGNOSTIC W/WO SYNOVIAL BX SPX 11/05/2003 Arthroscopy, knee, left times 2 ARTHROSCOPY KNEE DIAGNOSTIC W/WO SYNOVIAL BX SPX 11/05/2008 Arthroscopy, knee right ARTHRS KNE SURG W/MENISCECTOMY MED/LAT W/SHVG 07/29/2014 Right knee arthroscopic medial meniscectomy, PF chondroplasty and removal of loose body CHOLECYSTECTOMY HX COLONOSCOPY W/BIOPSY SINGLE/MULTIPLE 03/06/2014 EGD TRANSORAL BIOPSY SINGLE/MULTIPLE 03/06/2014 LAMINECTOMY W/O FFD 1/2 VERT SEG LUMBAR 11/05/1999 Laminectomy, lumbar PAST SURGICAL HISTORY OF BTL PAST SURGICAL HISTORY OF remote laparoscopy THYROIDECTOMY TOTAL/COMPLETE 11/05/1993 Subtotal -for goiter TOTAL ABDOMINAL HYSTERECT W/WO RMVL TUBE OVARY 11/05/2002 Hysterectomy, OSWALD; 1 ovary left in FAMILY HISTORY Problem Relation Age of Onset Cancer Mother non hodgkins lymphoma, reticular sarcoma Stroke Father other (afib) Father Diabetes Maternal Grandmother other (a-fib) Sister No reported family hx of ILD fibrosis, PAH, Tb, lung cancer, A1AT deficiency Social History Tobacco Use Smoking status: Former Packs/day: 1.00 Years: 30.00 Additional pack years: 0.00 Total pack years: 30.00 Types: Cigarettes Quit date: 10/22/2012 Years since quittin.8 Smokeless tobacco: Former Tobacco comments: quit 2012. 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 levothyroxine (SYNTHROID) 25 mcg tablet Take 1 tablet by mouth daily before breakfast. Take on empty stomach. For thyroid. cholecalciferol, Vitamin D3, (VITAMIN D3) 1,250 mcg (50,000 unit) cap capsule Take 1 capsule by mouth one time a week for 12 doses. Transition to 2,000-4,000 units of Vitamin D OTC after completing 12 weeks hydrOXYchloroQUINE (PLAQUENIL) 200 mg tablet Take 1 tablet by mouth every 12 hours 6am/6pm. ENBREL SURECLICK 50 mg/mL (1 mL) rOPINIRole (REQUIP) 1 mg tablet Take 1 tablet by mouth daily at bedtime. levothyroxine (SYNTHROID) 200 mcg tablet Take 1 tablet by mouth once daily. Take on empty stomach. For Thyroid. albuterol HFA (PROVENTIL HFA, VENTOLIN HFA) 90 mcg/actuation inhaler Inhale 1-2 Puffs as instructed four times daily as needed. FOR WHEEZING AND SHORTNESS OF BREATH. cyclobenzaprine (FLEXERIL) 10 mg tablet Take 1 tablet by mouth three times a day as needed for muscle spasm. (Patient not taking: Reported on 08/28/2023) predniSONE (DELTASONE) 10 mg tablet Take 2 tablets by mouth once daily. (Patient not taking: Reported on 08/28/2023) CPAP CPAP 11 cmH2O, suitable mask, tubing, humidifier, filters. Lifetime supplies. Dx: G47.33 - Obstructive sleep apnea (Patient not taking: Reported on 08/03/2023) CPAP CPAP 11 cmH2O, suitable mask, tubing, humidifier, filters. Lifetime supplies. Dx: 327.23 - Obstructive sleep apnea (Patient not taking: Reported on 08/03/2023) ALLERGIES: ALLERGIES Allergen Reactions Bactrim [Sulfametho* Diarrhea Diclofenac Diarrhea severe Dioxyline Phosphate Diarrhea Doxycycline Vomiting Levofloxacin Other: See Comments Tramadol Other: See Comments, Swelling Patient reported to ER on 4/4/18 after taking tramadol. Pt. presented with swollen lips after taking this medication. Zpak [Other] Itching, Shortness of Breath REVIEW OF SYSTEMS GENERAL: Weight loss 30 pounds in the last 3 months. Intentional HEENT: Negative for frequent or significant headaches, No changes in hearing or vision, no nose bleeds or other nasal problems NECK: Negative for lumps, goiter, pain and significant neck swelling RESPIRATORY: Negative for cough, hemoptysis, wheezing, COPD, dyspnea or shortness of breath CARDIOVASCULAR: History of peripheral edema. History of paroxysmal atrial fibrillation. Now sinus GI: No nausea, vomiting, or diarrhea : No history of dysuria, frequency or incontinence. Nocturia once a night MUSCULOSKELETAL: History of degenerative joint disease. History of rheumatoid arthritis on Enbrel and Plaquenil SKIN: Negative for lesions, rash, and itching PSYCH: See HPI HEMATOLOGY/LYMPHOLOGY: Negative for prolonged bleeding, bruising easily or swollen nodes ENDOCRINE: Negative for cold or heat intolerance, polyuria, polydipsia and goiter. History of hypothyroidism. Status post subtotal thyroidectomy NEURO: No history of headaches, syncope, paralysis, seizures or tremors The remainder of the ROS was negative or as per documentation. OBJECTIVE PHYSICAL EXAMINATION: BP 152/71 Pulse 77 Ht 160 cm (5' 3 ) Wt (!) 150.6 kg (332 lb) SpO2 96% BMI 58.81 kg/m PHYSICAL EXAMINATION: General: Patient awake and alert in no acute distress. Head: Normocephalic, no masses, lesions, tenderness or abnormalities Eyes: Anicteric sclera. Pupils are equally round and reactive to light. Extraocular movements are intact. Ears: TM's intact Nose:normal mucosa without ulceration Oropharynx: Lips, mucosa, and tongue normal, teeth and gums normal, oropharynx normal Oralpharynx mallampati score 3. Grade 1 tonsillar tissue Neck: Supple, no adenopathy; thyroid symmetric, normal size, no bruits Lungs: Lungs clear to auscultation. No wheezing, rhonchi, rales Heart: RRR without murmur, gallop, or rubs. No ectopy Abdomen: Abdomen soft, non-tender. Bowel sounds normal. No masses, organomegaly. Obese. Examination limited. Performed in the sitting position Extremities: Edema: 2+. Venous stasis changes. No cyanosis or clubbing Neuro: Patient awake, alert, oriented x 3. Moves all extremities. No focal signs. LAST LAB RESULTS: No results found for this basename: inr:1,ptsec:1 Glucose (mg/dL) Date Value 07/27/2023 95 07/08/2021 110 Potassium (mmol/L) Date Value 07/27/2023 4.2 07/08/2021 4.7 Sodium (mmol/L) Date Value 07/27/2023 142 07/08/2021 139 Chloride (mmol/L) Date Value 07/27/2023 109 07/08/2021 106 CO2 (mmol/L) Date Value 07/27/2023 22 07/08/2021 21 Creatinine (mg/dL) Date Value 07/27/2023 0.85 07/08/2021 0.87 BUN (mg/dL) Date Value 07/27/2023 19 07/08/2021 13 Anion Gap (mmol/L) Date Value 07/27/2023 11 07/08/2021 12 Calcium (mg/dL) Date Value 07/08/2021 9.6 Calcium, Total (mg/dL) Date Value 07/27/2023 9.0 Protein, Total (g/dL) Date Value 07/27/2023 6.9 07/08/2021 7.5 Albumin (g/dL) Date Value 07/27/2023 4.1 07/08/2021 3.9 Bilirubin, Total (mg/dL) Date Value 07/27/2023 0.3 07/08/2021 0.3 Alkaline Phosphatase (U/L) Date Value 07/27/2023 66 07/08/2021 76 AST (U/L) Date Value 07/27/2023 16 07/08/2021 19 ALT (U/L) Date Value 07/27/2023 28 07/08/2021 16 Glucose Date Value Ref Range Status 07/27/2023 95 74 - 99 mg/dL Final Comment: The [place] [employer] (ADA) provides guidance for cutoff values for fasting glucose and random glucose. The ADA defines fasting as no caloric intake for at least 8 hours. Fasting plasma glucose results between 100 to 125 mg/dL indicate increased risk for diabetes (prediabetes). Fasting plasma glucose results greater than or equal to 126 mg/dL meet the criteria for diagnosis of diabetes. In the absence of unequivocal hyperglycemia, results should be confirmed by repeat testing. In a patient with classic symptoms of hyperglycemia or hyperglycemic crisis, random plasma glucose results greater than or equal to 200 mg/dL meet the criteria for diagnosis of diabetes. Reference: Standards of Medical Care in Diabetes 2016, [place] [employer]. Diabetes Care. 2016.39(Suppl 1). Latest Reference Range & Units Most Recent Vitamin B12 232 - 1,245 pg/mL 447 07/27/23 07:50 Folate >4.7 ng/mL 16.8 07/27/23 07:50 Ferritin 14.7 - 205.1 ng/mL 114.0 07/27/23 07:50 Iron 41 - 186 ug/dL 46 07/27/23 07:50 TIBC 232 - 386 ug/dL 357 07/27/23 07:50 Transferrin Saturation 15.0 - 57.0 % 12.9 (L) 07/27/23 07:50 Cholesterol, Total <200 mg/dL 175 07/27/23 07:50 Triglyceride <150 mg/dL 137 07/27/23 07:50 Fasting Time hrs 13 07/27/23 07:50 HDL Cholesterol >39 mg/dL 48 07/27/23 07:50 LDL Cholesterol <100 mg/dL 100 (H) 07/27/23 07:50 VLDL Cholesterol <30 mg/dL 27 07/27/23 07:50 TC:HDL Ratio <5.10 3.65 07/27/23 07:50 LDL:HDL Ratio <2.54 2.08 07/27/23 07:50 Non HDL Cholesterol <130 mg/dL 127 07/27/23 07:50 Vitamin A 0.30 - 1.20 mg/L 0.79 07/27/23 07:50 Vitamin B1 (TDP), Whole Blood 84.3 - 213.3 nmol/L 193.9 07/27/23 07:50 Vitamin D 25 Hydroxy 31.0 - 80.0 ng/mL 24.6 (L) 07/27/23 07:50 Amphetamines Negative Negative 07/27/23 07:58 Barbiturates Negative Negative 07/27/23 07:58 Benzodiazepines Urine Negative Negative 07/27/23 07:58 Cocaine Urine Negative Negative 07/27/23 07:58 Cannabinoids, Urine Negative Negative 07/27/23 07:58 Ethanol, Urine <11 mg/dL <11 07/27/23 07:58 Opiates Negative Negative 07/27/23 07:58 Phencyclidine Negative Negative 07/27/23 07:58 Oxycodone, Urine Negative Negative 07/27/23 07:58 Zinc 60 - 120 ug/dL 72 07/27/23 07:50 Urin Nicotine Quant ng/mL <15 07/27/23 07:58 Urin Cotinine Quant ng/mL <15 07/27/23 07:58 Urin Anabasine Quant ng/mL <5 07/27/23 07:58 Hemoglobin A1C 4.3 - 5.6 % 4.9 07/27/23 07:50 Estimated Average Glucose mg/dL 94 07/27/23 07:50 TSH 0.270 - 4.200 mIU/L 9.160 (H) 07/27/23 07:50 PTH, Intact 15 - 65 pg/mL 52 07/27/23 07:50 WBC 3.70 - 11.00 k/uL 8.88 07/27/23 07:50 RBC 3.90 - 5.20 m/uL 5.27 (H) 07/27/23 07:50 Hemoglobin 11.5 - 15.5 g/dL 14.0 07/27/23 07:50 Hematocrit 36.0 - 46.0 % 43.8 07/27/23 07:50 Platelet Count 150 - 400 k/uL 251 07/27/23 07:50 MCV 80.0 - 100.0 fL 83.1 07/27/23 07:50 MCH 26.0 - 34.0 pg 26.6 07/27/23 07:50 MCHC 30.5 - 36.0 g/dL 32.0 07/27/23 07:50 MPV 9.0 - 12.7 fL 12.4 07/27/23 07:50 RDW-CV 11.5 - 15.0 % 15.7 (H) 07/27/23 07:50 Absolute nRBC <0.01 k/uL <0.01 07/27/23 07:50 (L): Data is abnormally low (H): Data is abnormally high DATA: Diagnostic tests reviewed for today's visit, films/specimens were personally reviewed by me: Echocardiogram 08/14/2023 Normal left ventricular size. LVEF 65% RVSP 30 mmHg-borderline normal. Mitral valve normal. +1 tricuspid insufficiency Normal aortic valve. Normal pulmonic valve No pericardial effusion Nocturnal polysomnogram 06/09/2014 Decrease sleep efficiency of 57% Decrease sleep onset latency. This was a split-night study. During the diagnostic portion of the study severe obstructive sleep apnea was noted with an AHI of 39.1. Respiratory events were sleep stage related. REM AHI was 48.0. During the CPAP titration portion of the study 13 cm H2O appeared to be effective. AHI 11 cm H2O is also 2.4 and this was recommended. Right upper quadrant ultrasound 07/27/2023 Fatty infiltration of the liver Indeterminate hypoechoic structure partially exophytic from the lower pole of the right kidney Chest x-ray done at outside hospital 06/06/2023 No acute radiographic abnormality by report Medications reviewed Education provided today regarding the stated disease states IMPRESSIONS: 1. NORBERT (obstructive sleep apnea) - ICD9: 327.23, ICD10: G47.33 (primary diagnosis) Previous history of obstructive sleep apnea. Schedule split-night sleep study [facility] - POLYSOMNOGRAM (PSG) 2. Morbid obesity (HCC) - ICD9: 278.01, ICD10: E66.01 Weight decreasing - Behavioral intervention. Anticipated robotic sleeve gastrectomy - SPIROMETRY WITH DILATOR IF OBSTRUCTED - LUNG DIFFUSION CAPACITY (DLCO) - LUNG VOLUMES - POLYSOMNOGRAM (PSG) 3. Past use of tobacco - ICD9: V15.82, ICD10: Z87.891 Check pulmonary function testing - SPIROMETRY WITH DILATOR IF OBSTRUCTED - LUNG DIFFUSION CAPACITY (DLCO) - LUNG VOLUMES - POLYSOMNOGRAM (PSG) 4. Paroxysmal atrial fibrillation (HCC) - ICD9: 427.31, ICD10: I48.0 Remains in sinus - SPIROMETRY WITH DILATOR IF OBSTRUCTED - LUNG DIFFUSION CAPACITY (DLCO) - LUNG VOLUMES - POLYSOMNOGRAM (PSG) 5. Hypothyroidism, unspecified type - ICD9: 244.9, ICD10: E03.9 On thyroid replacement - POLYSOMNOGRAM (PSG) 6. RLS (restless legs syndrome) - ICD9: 333.94, ICD10: G25.81 Takes ropinirole. Iron panel appears normal - POLYSOMNOGRAM (PSG) 7. Insufficient sleep syndrome - ICD9: 307.44, ICD10: F51.12 Recommend adequate sleep hygiene. Recommended 7 to 8 hours of sleep daily PLAN: Return for follow-up in 3 months Schedule in lab nocturnal polysomnogram split-night study if enough events. Transcutaneous CO2 monitoring at [facility] sleep laboratory Continue attempts at weight loss, exercise, conditioning Recommend rechecking TSH level and following hypothyroidism Pulmonary function testing with lung volumes, DLCO, 2-week sleep diary Recommend adequate sleep hygiene and maintenance of a regular sleep-wake schedule. Recommend keeping your bedroom dark, quiet, and at a comfortable temperature, 68 to 70 F. Please try to avoid sleeping with your pets if possible. Please try to get 7 to 8 hours of sleep daily. Patient at intermediate risk for postoperative pulmonary complications. Cleared from pulmonary standpoint for anticipated surgery CC Dr. Escamilla, Dr. Feng ARISCAT pre op risk Age ?50 years old (0 points) x 51 to 80 years old (3 points) >80 years old (16 points) Preoperative oxygen saturation x ?96% (0 points) 91 to 95% (8 points) ?90% (24 points) Other clinical risk factors [] Respiratory infection in the last month (17 points) [] Preoperative anemia with hemoglobin ?10 g/dL (11 points) [] Emergency surgery (8 points) Surgical incision x Upper abdominal (15 points) Intrathoracic (24 points) Duration of surgery ?2 hours (0 points) x 2 to 3 hours (16 points) >3 hours (23 points) Total criteria point count: 34 ARISCAT risk index interpretation 0 to 25 points: Low risk: 1.6% pulmonary complication rate 26 to 44 points: Intermediate risk: 13.3% pulmonary complication rate 45 to 123 points: High risk: 42.1% pulmonary complication rate Some documentation from previous note was copied and pasted, documentation has been reviewed and edited as necessary for today's visit. Written and verbal health teaching given to patient, patient verbalizes understanding and agrees with treatment plan. Electronically Signed: Soha Shepherd DO, FACOI, FCCP, FAASM August 28, 2023 documented in this encounter [facility] 08-28-2023 Nurse Note Luis 08/28/2023 Sitting and reading 1 - Slight Chance Watching TV 1 - Slight Chance Sitting/inactive in public place 0 - Never Car for an hour without break 1 - Slight Chance Lying down for rest (afternoon) 0 - Never Sitting and talking to someone 0 - Never Sitting quietly after lunch (no alcohol) 0 - Never In car, stopped in traffic 0 - Never Neck Cir: 16 documented in this encounter [facility] 08-09-2023 Note HNO ID: [id number] Author: Karon Escamilla MD Service: ? Author Type: Physician Type: Progress Notes Filed: 08/09/2023 11:53 AM Note Text: BARIATRIC SURGERY NEW PATIENT CONSULTATION HISTORY AND PHYSICAL Date: August 09, 2023 Time: 11:24 AM Rene Bethea is a 53 year old year old female with obesity (Body mass index is 59.63 kg/m?.), NORBERT (noncompliant with CPAP), atrial fibrillation (new dx on 06/06; cardioverted in ED; sent home with diltiazem AND eliquis; [facility]), Asthma, Rheumatoid arthritis (f/u with Rheumatology; Plaquenil and Enbrel injections, prednisone prn which is usually 3x monthly), HLD, situational depression who presents to the clinic today for consideration of bariatric surgery. This patient has struggled with weight related concerns for most of their life. 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 The heaviest adult weight they can recall was 361 pounds at the start of our program and the healthiest adult weight they can recall was 108 pounds at high school graduation. Her weight today is 226 pounds. She was diagnosed with NORBERT in and did use CPAP for a short period of time and then independently stopped use. She remains noncompliant w/ CPAP. She was recently diagnosed with A-fib for the first time on 06/06 in the ER. She underwent cardioversion and was sent home with diltiazem AND Eliquis. She has since followed up with [facility]. She was taken off of Eliquis and has a scheduled ECHO this coming Sunday. Her asthma is well-managed with albuterol prn, uses less than once monthly. She was diagnosed with Rheumatoid arthritis about one year ago. She follows Rheumatology and is on Plaquenil, Enbrel injections once weekly, and prednisone prn. She usually requires steroids a few times a month. She denies symptoms of GERD, dysphagia or regurgitation. She denies use of NSAIDs She has attempted bariatric surgery programs on 2 separate occasions ([facility] and [facility]), but due to insurance issues she was never able to make it to surgery. Social: she denies tobacco (quit 2011), SH smoke, alcohol, illicit drug use, and NSAID use (d/t borderline kidney dysfunction) PSHx: multiple arthroscopies, laminectomy, lap cholecystectomy, total abdominal hysterectomy (vaginal) PAST MEDICAL HISTORY Diagnosis Date Atrial fibrillation (HCC) 06/06/2023 Depression Esophageal reflux Gastroesophageal reflux Mixed hyperlipidemia Hyperlipidemia Morbid obesity (HCC) Obstructive sleep apnea RA (rheumatoid arthritis) (HCC) Sleep apnea Uses C-pap Unspecified hypothyroidism Hypothyroidism PAST SURGICAL HISTORY Procedure Laterality Date ARTHROSCOPY KNEE DIAGNOSTIC W/WO SYNOVIAL BX SPX 11/05/2003 Arthroscopy, knee, left times 2 ARTHROSCOPY KNEE DIAGNOSTIC W/WO SYNOVIAL BX SPX 11/05/2008 Arthroscopy, knee right ARTHRS KNE SURG W/MENISCECTOMY MED/LAT W/SHVG 07/29/2014 Right knee arthroscopic medial meniscectomy, PF chondroplasty and removal of loose body CHOLECYSTECTOMY HX COLONOSCOPY W/BIOPSY SINGLE/MULTIPLE 03/06/2014 EGD TRANSORAL BIOPSY SINGLE/MULTIPLE 03/06/2014 LAMINECTOMY W/O FFD 1/2 VERT SEG LUMBAR 11/05/1999 Laminectomy, lumbar PAST SURGICAL HISTORY OF BTL PAST SURGICAL HISTORY OF remote laparoscopy THYROIDECTOMY TOTAL/COMPLETE 11/05/1993 Subtotal -for goiter TOTAL ABDOMINAL HYSTERECT W/WO RMVL TUBE OVARY 11/05/2002 Hysterectomy, OSWALD; 1 ovary left in FAMILY HISTORY Problem Relation Age of Onset Cancer Mother non hodgkins lymphoma, reticular sarcoma Stroke Father other (afib) Father Diabetes Maternal Grandmother other (a-fib) Sister Social History Tobacco Use Smoking status: Former Packs/day: 1.00 Years: 30.00 Additional pack years: 0.00 Total pack years: 30.00 Types: Cigarettes Quit date: 10/22/2012 Years since quittin.8 Smokeless tobacco: Former Tobacco comments: quit 2011. Substance Use Topics Alcohol use: No Drug use: No Current Outpatient Medications Medication Sig cyclobenzaprine (FLEXERIL) 10 mg tablet Take 1 tablet by mouth three times a day as needed for muscle spasm. dilTIAZem CD (CARDIZEM CD) 120 mg 24 hr capsule Take 1 capsule by mouth once daily. levothyroxine (SYNTHROID) 25 mcg tablet Take 1 tablet by mouth daily before breakfast. Take on empty stomach. For thyroid. cholecalciferol, Vitamin D3, (VITAMIN D3) 1,250 mcg (50,000 unit) cap capsule Take 1 capsule by mouth one time a week for 12 doses. Transition to 2,000-4,000 units of Vitamin D OTC after completing 12 weeks hydrOXYchloroQUINE (PLAQUENIL) 200 mg tablet Take 1 tablet by mouth every 12 hours 6am/6pm. ENBREL SURECLICK 50 mg/mL (1 mL) rOPINIRole (REQUIP) 1 mg tablet Take 1 tablet by mouth daily at bedtime. levothyroxine (SYNTHROID) 200 mcg tablet Take 1 tablet by mouth once daily. Take on empty stomach. (more content not included)... [facility] 08-09-2023 Note HNO ID: [id number] Author: Dixon Campbell APRN.SEN[employer] [address] SQL DEVELOPER Service: ? Author Type: Nurse Practitioner Type: Progress Notes Filed: 08/09/2023 11:53 AM Note Text: *She has attempted the bariatric surgery program on 2 separate occasions, but due to insurance issues she was never able to make it to surgery. PMH: +NORBERT (noncompliant w/ CPAP) +Atrial fibrillation on 06/06 (converted in ED and sent home with diltiazem AND Eliquis, f/u with [facility]) +Asthma (well managed with albuterol prn, once monthly) +Rheumatoid arthritis (f/u with Rheumatology; Plaquenil and Enbrel injections, prednisone prn which is usually 3x monthly) +HLD +Situational depression (well managed) -Denies tobacco (quit 2012), SH smoke, alcohol, illicit drug use, and NSAID use (d/t borderline kidney dysfunction) Surgical hx: multiple arthroscopies, laminectomy, lap cholecystectomy, total abdominal hysterectomy Further Work-up: Required monthly visits: 4 of 0 months Patient is interested in: Gastric Bypass vs SG EGD: surgeon Upper GI: surgeon JESSENIA US: 1. Fatty infiltration of the liver. 2. Indeterminate hypoechoic structure partially exophytic from the lower pole of the right kidney which could be further evaluated by CT. CT scan scheduled for 08/17 Sleep Study: Sleep apnea, not compliant with CPAP CXR:per pulmonary clearance EKG:per cardiac clearance H Pylori pending Labs: low vit D, elevated TSH Nicotine use <12 months: NA, ordered per insurance - negative Tox: ordered per insurance - negative Antiplatelet/anticoagulants: Eliquis Immunosuppressive therapy: Yes- Plaquenil and Enbrel Estrogen therapy: No Evaluations Psychology: ongoing (09/12) Nutrition: ongoing (08/31) Education class: ongoing Clearances: -Cardiac (Jul at [facility]) -Pulmonary (08/28) -Rheumatology (recs on meds) -PCP Risk Calculator: VTE Risk: BMI > 60 ISS score: not diabetic Adverse Event score: TBD Post-op Medications: Extended Lovenox: BMI > 60, recently on Eliquis (Jun) Actigall: NA hx of cholecystectomy PPI: will require Dixon Campbell APRN.[facility] 08-09-2023 History of Present illness Narrative BARIATRIC SURGERY NEW PATIENT CONSULTATION HISTORY AND PHYSICAL Date: August 09, 2023 Time: 11:24 AM Rene Bethea is a 53 year old year old female with obesity (Body mass index is 59.63 kg/m .), NORBERT (noncompliant with CPAP), atrial fibrillation (new dx on 06/06; cardioverted in ED; sent home with diltiazem & eliquis; [facility]), Asthma, Rheumatoid arthritis (f/u with Rheumatology; Plaquenil and Enbrel injections, prednisone prn which is usually 3x monthly), HLD, situational depression who presents to the clinic today for consideration of bariatric surgery. This patient has struggled with weight related concerns for most of their life. They have attempted weight loss with diet and exercise programs without usp success. The heaviest adult weight they can recall was 361 pounds at the start of our program and the healthiest adult weight they can recall was 108 pounds at high school graduation. Her weight today is 226 pounds. She was diagnosed with NORBERT in and did use CPAP for a short period of time and then independently stopped use. She remains noncompliant w/ CPAP. She was recently diagnosed with A-fib for the first time on 06/06 in the ER. She underwent cardioversion and was sent home with diltiazem & Eliquis. She has since followed up with [facility]. She was taken off of Eliquis and has a scheduled ECHO this coming Sunday. Her asthma is well-managed with albuterol prn, uses less than once monthly. She was diagnosed with Rheumatoid arthritis about one year ago. She follows Rheumatology and is on Plaquenil, Enbrel injections once weekly, and prednisone prn. She usually requires steroids a few times a month. She denies symptoms of GERD, dysphagia or regurgitation. She denies use of NSAIDs She has attempted bariatric surgery programs on 2 separate occasions ([facility] and [facility]), but due to insurance issues she was never able to make it to surgery. Social: she denies tobacco (quit 2011), SH smoke, alcohol, illicit drug use, and NSAID use (d/t borderline kidney dysfunction) PSHx: multiple arthroscopies, laminectomy, lap cholecystectomy, total abdominal hysterectomy (vaginal) PAST MEDICAL HISTORY Diagnosis Date Atrial fibrillation (HCC) 06/06/2023 Depression Esophageal reflux Gastroesophageal reflux Mixed hyperlipidemia Hyperlipidemia Morbid obesity (HCC) Obstructive sleep apnea RA (rheumatoid arthritis) (HCC) Sleep apnea Uses C-pap Unspecified hypothyroidism Hypothyroidism PAST SURGICAL HISTORY Procedure Laterality Date ARTHROSCOPY KNEE DIAGNOSTIC W/WO SYNOVIAL BX SPX 11/05/2003 Arthroscopy, knee, left times 2 ARTHROSCOPY KNEE DIAGNOSTIC W/WO SYNOVIAL BX SPX 11/05/2008 Arthroscopy, knee right ARTHRS KNE SURG W/MENISCECTOMY MED/LAT W/SHVG 07/29/2014 Right knee arthroscopic medial meniscectomy, PF chondroplasty and removal of loose body CHOLECYSTECTOMY HX COLONOSCOPY W/BIOPSY SINGLE/MULTIPLE 03/06/2014 EGD TRANSORAL BIOPSY SINGLE/MULTIPLE 03/06/2014 LAMINECTOMY W/O FFD 1/2 VERT SEG LUMBAR 11/05/1999 Laminectomy, lumbar PAST SURGICAL HISTORY OF BTL PAST SURGICAL HISTORY OF remote laparoscopy THYROIDECTOMY TOTAL/COMPLETE 11/05/1993 Subtotal -for goiter TOTAL ABDOMINAL HYSTERECT W/WO RMVL TUBE OVARY 11/05/2002 Hysterectomy, OSWALD; 1 ovary left in FAMILY HISTORY Problem Relation Age of Onset Cancer Mother non hodgkins lymphoma, reticular sarcoma Stroke Father other (afib) Father Diabetes Maternal Grandmother other (a-fib) Sister Social History Tobacco Use Smoking status: Former Packs/day: 1.00 Years: 30.00 Additional pack years: 0.00 Total pack years: 30.00 Types: Cigarettes Quit date: 10/22/2012 Years since quittin.8 Smokeless tobacco: Former Tobacco comments: quit 2011. Substance Use Topics Alcohol use: No Drug use: No Current Outpatient Medications Medication Sig cyclobenzaprine (FLEXERIL) 10 mg tablet Take 1 tablet by mouth three times a day as needed for muscle spasm. dilTIAZem CD (CARDIZEM CD) 120 mg 24 hr capsule Take 1 capsule by mouth once daily. levothyroxine (SYNTHROID) 25 mcg tablet Take 1 tablet by mouth daily before breakfast. Take on empty stomach. For thyroid. cholecalciferol, Vitamin D3, (VITAMIN D3) 1,250 mcg (50,000 unit) cap capsule Take 1 capsule by mouth one time a week for 12 doses. Transition to 2,000-4,000 units of Vitamin D OTC after completing 12 weeks hydrOXYchloroQUINE (PLAQUENIL) 200 mg tablet Take 1 tablet by mouth every 12 hours 6am/6pm. ENBREL SURECLICK 50 mg/mL (1 mL) rOPINIRole (REQUIP) 1 mg tablet Take 1 tablet by mouth daily at bedtime. levothyroxine (SYNTHROID) 200 mcg tablet Take 1 tablet by mouth once daily. Take on empty stomach. For Thyroid. albuterol HFA (PROVENTIL HFA, VENTOLIN HFA) 90 mcg/actuation inhaler Inhale 1-2 Puffs as instructed four times daily as needed. FOR WHEEZING AND SHORTNESS OF BREATH. predniSONE (DELTASONE) 10 mg tablet Take 2 tablets by mouth once daily. (Patient taking differently: Take 20 mg by mouth as needed.) apixaban (ELIQUIS) 5 mg tab(s) Take 1 tablet by mouth twice daily. (Patient not taking: Reported on 08/03/2023) CPAP CPAP 11 cmH2O, suitable mask, tubing, humidifier, filters. Lifetime supplies. Dx: G47.33 - Obstructive sleep apnea (Patient not taking: Reported on 08/03/2023) CPAP CPAP 11 cmH2O, suitable mask, tubing, humidifier, filters. Lifetime supplies. Dx: 327.23 - Obstructive sleep apnea (Patient not taking: Reported on 08/03/2023) No current facility-administered medications for this visit. ALLERGIES Allergen Reactions Bactrim [Sulfametho* Diarrhea Diclofenac Diarrhea severe Dioxyline Phosphate Diarrhea Doxycycline Vomiting Levofloxacin Other: See Comments Tramadol Other: See Comments, Swelling Patient reported to ER on 02/06/18 after taking tramadol. Pt. presented with swollen lips after taking this medication. Zpak [Other] Itching, Shortness of Breath Review of Systems Constitutional: Negative for chills, diaphoresis, fever and malaise/fatigue. HENT: Negative for congestion, hearing loss, nosebleeds, sinus pain, sore throat and tinnitus. Eyes: Negative for blurred vision, double vision, pain and redness. Respiratory: Negative for cough, hemoptysis, sputum production, shortness of breath and wheezing. Cardiovascular: Positive for leg swelling (chronic). Negative for chest pain, palpitations, orthopnea and PND. Gastrointestinal: Negative for abdominal pain, blood in stool, constipation, diarrhea, heartburn, nausea and vomiting. Genitourinary: Negative for dysuria, frequency, hematuria and urgency. Musculoskeletal: Positive for joint pain. Negative for back pain, falls, myalgias and neck pain. Skin: Negative for itching and rash. Neurological: Negative for dizziness, speech change, focal weakness, seizures, loss of consciousness, weakness and headaches. Endo/Heme/Allergies: Does not bruise/bleed easily. Psychiatric/Behavioral: Negative for depression, hallucinations, memory loss, substance abuse and suicidal ideas. The patient is not nervous/anxious and does not have insomnia. Physical Exam Vitals reviewed. Constitutional: Appearance: Normal appearance. She is obese. HENT: Head: Normocephalic and atraumatic. Nose: Nose normal. Eyes: General: No scleral icterus. Extraocular Movements: Extraocular movements intact. Conjunctiva/sclera: Conjunctivae normal. Pupils: Pupils are equal, round, and reactive to light. Cardiovascular: Rate and Rhythm: Normal rate. Pulmonary: Effort: Pulmonary effort is normal. No respiratory distress. Skin: General: Skin is warm and dry. Coloration: Skin is not jaundiced or pale. Neurological: General: No focal deficit present. Mental Status: She is alert and oriented to person, place, and time. Psychiatric: Mood and Affect: Mood normal. Behavior: Behavior normal. Further Work-up: Required monthly visits: 4 of 0 months Patient is interested in: Sleeve gastrectomy versus DS or two staged procedure EGD: defer to UGI Upper GI: ordered RUQ US: 1. Fatty infiltration of the liver. 2. Indeterminate hypoechoic structure partially exophytic from the lower pole of the right kidney which could be further evaluated by CT. CT scan scheduled for 08/17 Sleep Study: Sleep apnea, not compliant with CPAP CXR:per pulmonary clearance EKG:per cardiac clearance H Pylori pending Labs: low vit D, elevated TSH Nicotine use <12 months: NA, ordered per insurance - negative Tox: ordered per insurance - negative Antiplatelet/anticoagulants: None Immunosuppressive therapy: Yes- Plaquenil and Enbrel Estrogen therapy: No Evaluations Psychology: ongoing (09/12) Nutrition: ongoing (08/31) Education class: ongoing Clearances: -Cardiac (Sept at ) -Pulmonary (08/28) -Rheumatology (recs on meds) -PCP Risk Calculator: VTE Risk: BMI > 60 ISS score: not diabetic Adverse Event score: TBD Post-op Medications: Extended Lovenox: BMI > 60, recently on Eliquis (Jun) Actigall: NA hx of cholecystectomy PPI: will require Plan IMPRESSION: Rene Bethea is a 53 year old year old female who presents for consideration of bariatric surgery (Body mass index is 59.63 kg/m .). She does meet the criteria for a surgical weight loss procedure according to NIH guidelines. The plan of treatment for Rene is to continue with the consultations and tests ordered today in hopes of qualifying for pre-operative clearance for bariatric surgery. She is interested in: Sleeve gastrectomy ASSESSMENT/PLAN: 1. Class 3 severe obesity with serious comorbidity and body mass index (BMI) of 60.0 to 69.9 in adult, unspecified obesity type (HCC) - ICD9: 278.01, V85.44, ICD10: E66.01, Z68.44 (primary diagnosis) - Today we discussed the bariatric surgical options available to her. We discussed the risks and benefits associated with the sleeve gastrectomy, laura-en-y gastric bypass., duodenal switch, and possible two staged procedure. At this time she is open to either the Sleeve or the DS. I am most concerned about her many medical co morbid conditions and intermittent use of steroids; for this reason I am recommending the sleeve gastrectomy with a planned second staged procedure of DS/KIKI. We discussed the possible risks/complications associated with the sleeve gastrectomy - especially the risk of temporary versus chronic GERD and need for usp reflux medication. All of her questions were addressed. She will follow up with all recommended testing and then return to clinic for formal testing. - XR UPPER GI ROUTINE DOUBLE CONTRAST/AIR 2. NAFLD (nonalcoholic fatty liver disease) - ICD9: 571.8, ICD10: K76.0 - Continue current lifestyle and dietary modifications 3. NORBERT (obstructive sleep apnea) - ICD9: 327.23, ICD10: G47.33 - Needs to see pulmonary medicine and possibly undergo repeat testing. Needs to start using CPAP as she has been on-compliant with use 4. Atrial fibrillation, unspecified type (HCC) - ICD9: 427.31, ICD10: I48.91 - Continue medical management - no longer on Eliquis. ECHO pending 5. Rheumatoid arteritis (HCC) - ICD9: 714.2, ICD10: M05.20 - Continue medical management. Will base timing on Rheumatology recommendations 6. Hyperlipidemia, unspecified hyperlipidemia type - ICD9: 272.4, ICD10: E78.5 - Continue medical management Nutrition Counseling Practice these: - Eat 3 meals daily--can use approved/recommended protein shake as 1 meal replacement (should be <200 calories, 20-30g protein, <5g added sugar) - Keep a food journal 5-7x/week (consider [employer] or [employer] willian) and demonstrate meeting protein goal (60-90g protein for females, 70-105g protein for males)- Lean meats, fish, low fat dairy - cottage cheese, [place] Islander yogurt, light yogurt, cheese, ricotta cheese, nuts, peanut butter, beans/legumes. Eat protein first at all meals. and 64oz of caffeine-free, carbonation-free fluids at least 5 days per week - engage in formal, planned exercise 5x/week for 30 minutes of cardiovascular activity OR 150+ minutes of cardiovascular activity per week - eliminate all caffeine, carbonation, alcohol and sugar-containing beverages from diet --consider sugar-free drink mixes, water, decaf coffee and tea - Separate eating and drinking by 30 minutes - Chew your food 20-30x per bite - Sip beverages slowly--no guzzling or gulping Information regarding probable and potential postoperative complications, dietary and medical postoperative limitations, and potential cosmetic sequelae has been received by individual. Karon Escamilla MD Advanced Laparoscopic and Bariatric Surgery Medical Decision Making: Problems: Moderate: 2+ stable chronic illnesses Data: Unique test result(s) reviewed: 3+ Unique test(s) ordered: 1 Discussed management or test w/ external physician/QHCP/source Risk: High: Decision on elective major surgery w/ risk factors Medical Decision Making Level: 5 - High *She has attempted the bariatric surgery program on 2 separate occasions, but due to insurance issues she was never able to make it to surgery. PMH: +NORBERT (noncompliant w/ CPAP) +Atrial fibrillation on 06/06 (converted in ED and sent home with diltiazem & Eliquis, f/u with [facility]) +Asthma (well managed with albuterol prn, once monthly) +Rheumatoid arthritis (f/u with Rheumatology; Plaquenil and Enbrel injections, prednisone prn which is usually 3x monthly) +HLD +Situational depression (well managed) -Denies tobacco (quit 2012), SH smoke, alcohol, illicit drug use, and NSAID use (d/t borderline kidney dysfunction) Surgical hx: multiple arthroscopies, laminectomy, lap cholecystectomy, total abdominal hysterectomy Further Work-up: Required monthly visits: 4 of 0 months Patient is interested in: Gastric Bypass vs SG EGD: surgeon Upper GI: surgeon RUQ US: 1. Fatty infiltration of the liver. 2. Indeterminate hypoechoic structure partially exophytic from the lower pole of the right kidney which could be further evaluated by CT. CT scan scheduled for 08/17 Sleep Study: Sleep apnea, not compliant with CPAP CXR:per pulmonary clearance EKG:per cardiac clearance H Pylori pending Labs: low vit D, elevated TSH Nicotine use <12 months: NA, ordered per insurance - negative Tox: ordered per insurance - negative Antiplatelet/anticoagulants: Eliquis Immunosuppressive therapy: Yes- Plaquenil and Enbrel Estrogen therapy: No Evaluations Psychology: ongoing (09/12) Nutrition: ongoing (08/31) Education class: ongoing Clearances: -Cardiac (Jul at ) -Pulmonary (08/28) -Rheumatology (recs on meds) -PCP Risk Calculator: VTE Risk: BMI > 60 ISS score: not diabetic Adverse Event score: TBD Post-op Medications: Extended Lovenox: BMI > 60, recently on Eliquis (Jun) Actigall: NA hx of cholecystectomy PPI: will require Dixon Campbell APRN.SENIOR [employer] [address] SQL DEVELOPER documented in this encounter [facility] 08-03-2023 Note HNO ID: [id number] Author: Ashley Kaba Service: ? Author Type: ? Type: Progress Notes Filed: 08/03/2023 2:07 PM Note Text: Chief Complaint Patient presents with: Physical HPI Rene Bethea is a 53 year old female who presents here today for physical. Patient recently had right knee pain, received a cortisone injection in the middle June. Then her left knee started hurting and then affected her hip. She received an injection on 07/02. She said that injection did not help and has been using a crutch to help since. She did it all without pain medication. She said she needs both knees replaced but needs to get her gastric bypass surgery first. Patient is in the process of getting gastric bypass surgery. She is down > 20 lbs since her weight loss journey 2 months ago. She reports feeling better and encouraged. Patient is being followed by rheumatology for her RA. She went to the retail area manager on Sunday 07/01 and her EKG showed NSR. She is now off blood thinners (Eliquis) and will get an ECHO in the coming weeks to be cleared for her surgery. She currently is still taking her dilt until ECHO is completed. She was newly dx'd with Afib last month 06/06/2023. Patient reports taking her blood pressure at home getting 108-120/78-82 at home. She endorses having weight coat syndrome. Denies headaches, chest pain, palpitations, syncope, dizziness, shortness of breath. Her TSH is high, reports taking synthroid at 3am with water. No food or other medication until after 6am. She reports good compliance with no missed doses. Denies unusual heat intolerance, constipation, hair loss, fatigue or weight gain. She wants to complete her lung cancer screening and colon cancer screening after her gastric bypass surgery. She will get her Shingles vaccine at the pharmacy. Past medical history, appointments, medications, allergies reviewed. Previous Medical History PAST MEDICAL HISTORY Diagnosis Date Atrial fibrillation (HCC) 06/06/2023 Depression Esophageal reflux Gastroesophageal reflux Mixed hyperlipidemia Hyperlipidemia Morbid obesity (HCC) Obstructive sleep apnea RA (rheumatoid arthritis) (HCC) Sleep apnea Uses C-pap Unspecified hypothyroidism Hypothyroidism Previous Surgical History PAST SURGICAL HISTORY Procedure Laterality Date ARTHROSCOPY KNEE DIAGNOSTIC W/WO SYNOVIAL BX SPX 11/05/2003 Arthroscopy, knee, left times 2 ARTHROSCOPY KNEE DIAGNOSTIC W/WO SYNOVIAL BX SPX 11/05/2008 Arthroscopy, knee right ARTHRS KNE SURG W/MENISCECTOMY MED/LAT W/SHVG 07/29/2014 Right knee arthroscopic medial meniscectomy, PF chondroplasty and removal of loose body CHOLECYSTECTOMY HX COLONOSCOPY W/BIOPSY SINGLE/MULTIPLE 03/06/2014 EGD TRANSORAL BIOPSY SINGLE/MULTIPLE 03/06/2014 LAMINECTOMY W/O FFD 1/2 VERT SEG LUMBAR 11/05/1999 Laminectomy, lumbar PAST SURGICAL HISTORY OF BTL PAST SURGICAL HISTORY OF remote laparoscopy THYROIDECTOMY TOTAL/COMPLETE 11/05/1993 Subtotal -for goiter TOTAL ABDOMINAL HYSTERECT W/WO RMVL TUBE OVARY 11/05/2002 Hysterectomy, OSWALD; 1 ovary left in Family History FAMILY HISTORY Problem Relation Age of Onset Cancer Mother non hodgkins lymphoma, reticular sarcoma Stroke Father other (afib) Father Diabetes Maternal Grandmother other (a-fib) Sister Patient Allergies ALLERGIES Allergen Reactions Bactrim [Sulfametho* Diarrhea Diclofenac Diarrhea severe Dioxyline Phosphate Diarrhea Doxycycline Vomiting Levofloxacin Other: See Comments Tramadol Other: See Comments, Swelling Patient reported to ER on 02/06/18 after taking tramadol. Pt. presented with swollen lips after taking this medication. Zpak [Other] Itching, Shortness of Breath Current Medications Current Outpatient Medications on File Prior to Visit Medication Sig cholecalciferol, Vitamin D3, (VITAMIN D3) 1,250 mcg (50,000 unit) cap capsule Take 1 capsule by mouth one time a week for 12 doses. Transition to 2,000-4,000 units of Vitamin D OTC after completing 12 weeks dilTIAZem CD (CARDIZEM CD) 120 mg 24 hr capsule Take 1 capsule by mouth once daily. apixaban (ELIQUIS) 5 mg tab(s) Take 1 tablet by mouth twice daily. hydrOXYchloroQUINE (PLAQUENIL) 200 mg tablet Take 1 tablet by mouth every 12 hours 6am/6pm. ENBREL SURECLICK 50 mg/mL (1 mL) rOPINIRole (REQUIP) 1 mg tablet Take 1 tablet by mouth daily at bedtime. levothyroxine (SYNTHROID) 200 mcg tablet Take 1 tablet by mouth once daily. Take on empty stomach. For Thyroid. albuterol HFA (PROVENTIL HFA, VENTOLIN HFA) 90 mcg/actuation inhaler Inhale 1-2 Puffs as instructed four times daily as needed. FOR WHEEZING AND SHORTNESS OF BREATH. predniSONE (DELTASONE) 10 mg tablet Take 2 tablets by mouth once daily. (Patient taking differently: Take 20 mg by mouth as needed.) CPAP CPAP 11 cmH2O, suitable mask, tubing, humidifier, filters. Lifetime supplies. Dx: G47.33 - Obstructive sleep apnea (more content not included)... [facility] 08-03-2023 Instructions David Shaikh APRN.CNP - 08/03/2023 8:52 AM EDT Flu vaccine and pneumonia vaccine Colonoscopy scheduled TSH level in 8 weeks Follow up in 8 weeks Start the extra 25mcg of Synthroid daily total of 225 mcg before breakfast and wait at least an hour before taking other medications or food. David Shaikh APRN.CNP documented in this encounter [facility] 08-03-2023 History of Present illness Narrative Chief Complaint Patient presents with: Physical HPI Rene Bethea is a 53 year old female who presents here today for physical. Patient recently had right knee pain, received a cortisone injection in the middle June. Then her left knee started hurting and then affected her hip. She received an injection on 07/02. She said that injection did not help and has been using a crutch to help since. She did it all without pain medication. She said she needs both knees replaced but needs to get her gastric bypass surgery first. Patient is in the process of getting gastric bypass surgery. She is down > 20 lbs since her weight loss journey 2 months ago. She reports feeling better and encouraged. Patient is being followed by rheumatology for her RA. She went to the retail area manager on Sunday 07/01 and her EKG showed NSR. She is now off blood thinners (Eliquis) and will get an ECHO in the coming weeks to be cleared for her surgery. She currently is still taking her dilt until ECHO is completed. She was newly dx'd with Afib last month 06/06/2023. Patient reports taking her blood pressure at home getting 108-120/78-82 at home. She endorses having weight coat syndrome. Denies headaches, chest pain, palpitations, syncope, dizziness, shortness of breath. Her TSH is high, reports taking synthroid at 3am with water. No food or other medication until after 6am. She reports good compliance with no missed doses. Denies unusual heat intolerance, constipation, hair loss, fatigue or weight gain. She wants to complete her lung cancer screening and colon cancer screening after her gastric bypass surgery. She will get her Shingles vaccine at the pharmacy. Past medical history, appointments, medications, allergies reviewed. Previous Medical History PAST MEDICAL HISTORY Diagnosis Date Atrial fibrillation (HCC) 06/06/2023 Depression Esophageal reflux Gastroesophageal reflux Mixed hyperlipidemia Hyperlipidemia Morbid obesity (HCC) Obstructive sleep apnea RA (rheumatoid arthritis) (HCC) Sleep apnea Uses C-pap Unspecified hypothyroidism Hypothyroidism Previous Surgical History PAST SURGICAL HISTORY Procedure Laterality Date ARTHROSCOPY KNEE DIAGNOSTIC W/WO SYNOVIAL BX SPX 11/05/2003 Arthroscopy, knee, left times 2 ARTHROSCOPY KNEE DIAGNOSTIC W/WO SYNOVIAL BX SPX 11/05/2008 Arthroscopy, knee right ARTHRS KNE SURG W/MENISCECTOMY MED/LAT W/SHVG 07/29/2014 Right knee arthroscopic medial meniscectomy, PF chondroplasty and removal of loose body CHOLECYSTECTOMY HX COLONOSCOPY W/BIOPSY SINGLE/MULTIPLE 03/06/2014 EGD TRANSORAL BIOPSY SINGLE/MULTIPLE 03/06/2014 LAMINECTOMY W/O FFD 1/2 VERT SEG LUMBAR 11/05/1999 Laminectomy, lumbar PAST SURGICAL HISTORY OF BTL PAST SURGICAL HISTORY OF remote laparoscopy THYROIDECTOMY TOTAL/COMPLETE 11/05/1993 Subtotal -for goiter TOTAL ABDOMINAL HYSTERECT W/WO RMVL TUBE OVARY 11/05/2002 Hysterectomy, OSWALD; 1 ovary left in Family History FAMILY HISTORY Problem Relation Age of Onset Cancer Mother non hodgkins lymphoma, reticular sarcoma Stroke Father other (afib) Father Diabetes Maternal Grandmother other (a-fib) Sister Patient Allergies ALLERGIES Allergen Reactions Bactrim [Sulfametho* Diarrhea Diclofenac Diarrhea severe Dioxyline Phosphate Diarrhea Doxycycline Vomiting Levofloxacin Other: See Comments Tramadol Other: See Comments, Swelling Patient reported to ER on 02/06/18 after taking tramadol. Pt. presented with swollen lips after taking this medication. Zpak [Other] Itching, Shortness of Breath Current Medications Current Outpatient Medications on File Prior to Visit Medication Sig cholecalciferol, Vitamin D3, (VITAMIN D3) 1,250 mcg (50,000 unit) cap capsule Take 1 capsule by mouth one time a week for 12 doses. Transition to 2,000-4,000 units of Vitamin D OTC after completing 12 weeks dilTIAZem CD (CARDIZEM CD) 120 mg 24 hr capsule Take 1 capsule by mouth once daily. apixaban (ELIQUIS) 5 mg tab(s) Take 1 tablet by mouth twice daily. hydrOXYchloroQUINE (PLAQUENIL) 200 mg tablet Take 1 tablet by mouth every 12 hours 6am/6pm. ENBREL SURECLICK 50 mg/mL (1 mL) rOPINIRole (REQUIP) 1 mg tablet Take 1 tablet by mouth daily at bedtime. levothyroxine (SYNTHROID) 200 mcg tablet Take 1 tablet by mouth once daily. Take on empty stomach. For Thyroid. albuterol HFA (PROVENTIL HFA, VENTOLIN HFA) 90 mcg/actuation inhaler Inhale 1-2 Puffs as instructed four times daily as needed. FOR WHEEZING AND SHORTNESS OF BREATH. predniSONE (DELTASONE) 10 mg tablet Take 2 tablets by mouth once daily. (Patient taking differently: Take 20 mg by mouth as needed.) CPAP CPAP 11 cmH2O, suitable mask, tubing, humidifier, filters. Lifetime supplies. Dx: G47.33 - Obstructive sleep apnea CPAP CPAP 11 cmH2O, suitable mask, tubing, humidifier, filters. Lifetime supplies. Dx: 327.23 - Obstructive sleep apnea No current facility-administered medications on file prior to visit. Social History Social History Tobacco Use Smoking status: Former Packs/day: 1.00 Years: 30.00 Additional pack years: 0.00 Total pack years: 30.00 Types: Cigarettes Quit date: 10/22/2012 Years since quittin.7 Smokeless tobacco: Former Tobacco comments: quit 2011. Substance Use Topics Alcohol use: No Drug use: No REVIEW OF SYSTEMS: as above Reviewed relevant PMHx, PSHx, Social Hx, current medications and allergies. EXAM: BP 134/81 Pulse 67 Temp 36.8 C (98.3 F) (Left Tympanic) Resp 16 Ht 162.6 cm (5' 4 ) Wt (!) 154 kg (339 lb 9.6 oz) SpO2 97% BMI 58.29 kg/m General Appearance: Well appearing, alert, in no acute distress, well-hydrated, well nourished and morbidly obese.. Head: Normocephalic, no masses, lesions, tenderness or abnormalities. Eyes: Anicteric sclera. Pupils are equally round and reactive to light. Extraocular movements are intact. . Ears: External ears normal, canals clear. Nose/Sinuses: Nares normal, septum midline, mucosa normal, no drainage or sinus tenderness. Neck: Supple, no adenopathy; thyroid symmetric, normal size, no bruits. Back:no pain to palpation of vertebrae, good flexion and extension, good range of motion, reflexes are 2+ and symmetric, motor and sensory appear to be normal. Left leg muscle tenderness/tightness. Lungs: Lungs clear to auscultation. No wheezing, rhonchi, rales.. Heart: RRR without murmur, gallop, or rubs. No ectopy. Extremities: No deformities, clubbing or cyanosis. Good capillary refill. Lowe extremity +1 dependent edema and ruddiness. Musculoskeletal: Bilateral leg pain, left leg muscle tightness Peripheral Pulses: Normal 2/2 Health Maintenance List Hepatitis B Vaccine(1 of 3 - 3-dose series) Never done Hepatitis C Screening Never done HIV Screening Never done Shingrix Vaccine(1 of 2) Never done Pneumococcal Vaccine(2 - PCV) due on 10/22/2013 Colorectal Cancer Screening due on 2015 Lung Cancer Screening Never done Mammogram Screening due on 09/26/2020 Covid-19 Vaccine(3 - Pfizer risk series) due on 10/03/2021 Influenza Vaccine(1) due on 07/06/2023 Annual PCP Team Chronic Disease Visit due on 06/22/2024 DTaP,Tdap,Td Vaccine(2 - Td or Tdap) due on 09/01/2024 Diabetes Screening due on 07/27/2026 Lipid Screening due on 07/27/2028 Pap Testing Discontinued HPV Testing Discontinued Data reviewed Component Latest Ref Rng & Units 07/27/2023 Protein, Total 6.3 - 8.0 g/dL 6.9 Albumin 3.9 - 4.9 g/dL 4.1 Calcium 8.5 - 10.2 mg/dL 9.0 Bilirubin, Total 0.2 - 1.3 mg/dL 0.3 Alkaline Phosphatase 34 - 123 U/L 66 AST 13 - 35 U/L 16 ALT 7 - 38 U/L 28 Glucose 74 - 99 mg/dL 95 BUN 7 - 21 mg/dL 19 Creatinine 0.58 - 0.96 mg/dL 0.85 Sodium 136 - 144 mmol/L 142 Potassium 3.7 - 5.1 mmol/L 4.2 Chloride 97 - 105 mmol/L 109 (H) CO2 22 - 30 mmol/L 22 Anion Gap 9 - 18 mmol/L 11 eGFR >=60 mL/min/1.73m 82 WBC 3.70 - 11.00 k/uL 8.88 RBC 3.90 - 5.20 m/uL 5.27 (H) Hemoglobin 11.5 - 15.5 g/dL 14.0 Hematocrit 36.0 - 46.0 % 43.8 MCV 80.0 - 100.0 fL 83.1 MCH 26.0 - 34.0 pg 26.6 MCHC 30.5 - 36.0 g/dL 32.0 RDW-CV 11.5 - 15.0 % 15.7 (H) Platelet Count 150 - 400 k/uL 251 MPV 9.0 - 12.7 fL 12.4 Absolute nRBC <0.01 k/uL <0.01 Cholesterol, Total <200 mg/dL 175 Triglyceride <150 mg/dL 137 HDL Cholesterol >39 mg/dL 48 Non HDL Cholesterol <130 mg/dL 127 Fasting Time hrs 13 VLDL Cholesterol <30 mg/dL 27 TC:HDL Ratio <5.10 3.65 LDL Cholesterol <100 mg/dL 100 (H) LDL:HDL Ratio <2.54 2.08 Iron 41 - 186 ug/dL 46 TIBC 232 - 386 ug/dL 357 Transferrin Saturation 15.0 - 57.0 % 12.9 (L) Hemoglobin A1C 4.3 - 5.6 % 4.9 Estimated Average Glucose mg/dL 94 Ferritin 14.7 - 205.1 ng/mL 114.0 Folate >4.7 ng/mL 16.8 PTH, Intact 15 - 65 pg/mL 52 TSH 0.270 - 4.200 mIU/L 9.160 (H) Vitamin A 0.30 - 1.20 mg/L 0.79 Vitamin B12 232 - 1,245 pg/mL 447 Vitamin B1 (TDP), Whole Blood 84.3 - 213.3 nmol/L 193.9 Vitamin D 25 Hydroxy 31.0 - 80.0 ng/mL 24.6 (L) ASSESSMENT/PLAN: 1. Wellness examination - ICD9: V70.0, ICD10: Z00.00 (primary diagnosis) - Counseled on healthy diet and regular exercise - Discussed need and benefit for weight loss. BMI 58.29 kg/(m^2) - Colorectal cancer screening recommended - agrees to Colonoscopy - Lung cancer screening recommended - Follow up for annual exam in one year 2. Hypothyroid obesity - ICD9: 244.9, ICD10: E03.9 - Instructed patient on importance of taking on an empty stomach either first thing in the morning or at bedtime. - check TSH in 8 weeks - Increase Synthroid dose to 225 mcg daily - Follow up in 2 months Stable - TSH BLD - LEVOTHYROXINE 225 MCG TABLET 3. Leg pain, left - ICD9: 729.5, ICD10: M79.605 - Start taking Flexeril for muscle pain/tightness. Continue recommended stretches. Continue to follow up with orthopedics 4. Atrial fibrillation, unspecified type (HCC) - ICD9: 427.31, ICD10: I48.91 Resolved. Complete ECHO ordered by cards. Continue diltiazem until cleared by cardiology. - DILTIAZEM SR 120 MG 24 HR CAP 5. Encounter for immunization - ICD9: V03.89, ICD10: Z23 - INFLUENZA VACCINE, AGE 6 MO - 64 YR, QUADRIVALENT (AFLURIA, FLULAVAL, FLUZONE) - PNEUMOCOCCAL VACCINE (PREVNAR 20) 6. Screening for colon cancer - ICD9: V76.51, ICD10: Z12.11 - CONSULT TO GENERAL SURGERY Ashley Kaba RTO in 2 months, sooner if needed. I have personally seen and examined the patient and performed the medical-decision making components. I have reviewed the Advanced Practice Registered Nurse (PRICE ANALYST) student's documentation and verified the findings in the note as written. Any additions or changes are noted in bold/italics. David Shaikh APRN.CNP This note was partly generated using [employer] voice recognition dictation and may contain some misspelled or inaccurate words missed on review. documented in this encounter [facility] 07-27-2023 Note HNO ID: [id number] Author: Yamileth Yates RT(R) Service: Radiology Author Type: Technologist Type: Progress Notes Filed: 07/27/2023 8:40 AM Note Text: Radiology Service Progress Note PATIENT NAME: Rene Bethea DATE OF SERVICE: July 27, 2023 TIME: 8:39 AM PATIENT IDENTITY VERIFICATION COMPLETED USING TWO (2) IDENTIFIERS: Name and Date of confirmed by patient verbally. FALL SCREENING: Has the patient had 2 falls in the last year or 1 fall with injury or currently using an Ambulatory Assistive Device (Walker, Cane, Wheelchair, Crutches, etc.)? No PATIENT GENDER DATA: Female. status: : No status: N/A PATIENT RELEVANT IMPLANT DATA REVIEWED: Not Applicable RADIOLOGY DEPARTMENT: Ultrasound PERIPHERAL IV DATA: Not applicable SIGNED BY: Yamileth Yates Rdms July 27, 2023 8:39 AM [facility] 07-27-2023 History of Present illness Narrative Radiology Service Progress Note PATIENT NAME: Rene Bethea DATE OF SERVICE: July 27, 2023 TIME: 8:39 AM PATIENT IDENTITY VERIFICATION COMPLETED USING TWO (2) IDENTIFIERS: Name and Date of confirmed by patient verbally. FALL SCREENING: Has the patient had 2 falls in the last year or 1 fall with injury or currently using an Ambulatory Assistive Device (Walker, Cane, Wheelchair, Crutches, etc.)? No PATIENT GENDER DATA: Female. status: : No status: N/A PATIENT RELEVANT IMPLANT DATA REVIEWED: Not Applicable RADIOLOGY DEPARTMENT: Ultrasound PERIPHERAL IV DATA: Not applicable SIGNED BY: Yamileth Yates Rdms July 27, 2023 8:39 AM documented in this encounter [facility] 07-25-2023 Note HNO ID: [id number] Author: Suzanne Falcon RD Service: ? Author Type: Registered Dietitian Type: Progress Notes Filed: 07/25/2023 8:38 AM Note Text: Rene Bethea--Visit conducted via [employer] (audio and visual) d/t COVID 19 Education Class: Patient will receive instruction regarding healthy food choices and eating behaviors identified as optimal when preparing for surgery, losing weight after surgery, and maintaining weight loss long-term. Patient will also receive instruction regarding the Bariatric Full Liquid diet following surgery and optimal post-operative high-protein supplement choices. Education class to be completed prior to surgery. Behaviors Accomplished: Visit # 3 Date: 07/25/2023 Weight: (!) 152.4 kg (336 lb)- no in office visit. Reported 26 lb weight loss since first appointment. Behaviors that helped/hindered weight loss: maintaining food journal--keeping track of protein Keeping journal daily Eating 3 meals/one snack Choose healthy foods Daily multivitamin No high fat/fast foods D/c'd caffeinated, carbonated beverages 24 hour diet recall Breakfast: protein shake (30 g), meat lovers breakfast bowl Lunch: [employer]--chicken mushroom/zucchini, lo mein Dinner: 3 oz honeyham Snacks: 3 pieces string cheese Fluids (liquid intake-oz): yesterday: 48 oz , 2 days ago: 48 oz , 3 days ago: 48 oz water, 4 days ago: 64 oz, 5 days ago: 40 oz, 6 days ago:64 oz water, 7 days ago: 48 oz Alcohol/Caffeine/Sugar/Sweetener/ Carbonation Beverages in Diet: Carbonation: eliminated Caffeine: none Sugar: none Sweeteners: 1-2x/week--flavored packets in water Alcohol: none Protein (grams/day): yesterday: 80 g, 2 days ago: 88 g , 3 days ago: 103 g, 4 days ago: 141 g, 5 days ago: 100 g, 6 days ago: 122 g , 7 days ago: 31 g Exercise: chair exercise---2-3x/week for 15-20 minutes at a time. Written information provided and reviewed: As noted Preop patient currently in month #3 of supervised diet and exercise. Presents with a reported 26 pound weight loss since she initially enrolled in our program. She is doing very well with working towards obtaining nutrition clearance. She is remaining adherent to most preop nutrition requirements. She is able to demonstrate an ability to maintain a food journal at least 5 days/week. However, she is slightly below her fluid goal and slightly above her protein goal. Patient was trying to limit her carbohydrate intake to 30 to 50 g per day. Counseled patient on importance of increasing variety of food groups into her diet, including complex carbohydrates. It is likely that she is exceeding her protein goals since she is limiting her carbohydrate intake. She has also been able to implement a formal exercise routine. Plans to increase, as tolerated, with a goal of 150 minutes/week. Goals formal exercise 5-7x/week as tolerated, goal of 30 minutes OR 150 minutes of activity per week journal daily and bring to all appointments--meet protein and fluid goals at least 5 days/week (60-90 g protein/day and 64 oz water/day) The patient meets NIH guidelines for weight loss surgery and has been thoroughly evaluated and educated on good dietary practices. Patient is capable of following these guidelines pre-and post-surgically. From nutrition standpoint, the has partially met nutrition clearance and will need to demonstrate increasing exercise as tolerated with goal of 150 minutes/week and meet protein and fluid goals at least 5 days/week to receive nutrition clearance. Plan: Follow up with RD x 1 month Total time in direct patient contact = 20 min. Greater than 50% of the time was spent in counseling and/or coordination of care. Suzanne Falcon RD This note was generated using voice recognition technology and may contain grammatical errors. [facility] 06-25-2023 Note HNO ID: [id number] Author: Dixon Campbell APRN.SENIOR [address] SQL DEVELOPER Service: ? Author Type: Nurse Practitioner Type: Progress Notes Filed: 06/25/2023 3:05 PM Note Text: BARIATRIC SURGERY CLINIC FOLLOW UP NOTE DISTANCE HEALTH VISIT This Team Access Model visit is a virtual encounter. It required patient-provider interaction for the medical decision making as documented below. Consent was obtained to complete today's distance health visit. I have communicated my name and active licensure. The patient's identity and physical location were verified at the time of this visit. Either the patient or their legal union contract representative has been informed of the risks and benefits of -- and alternatives to -- treatment through a remote evaluation and consents to proceed with the evaluation remotely. HPI: Rene Bethea a 52 year old female for presents for medically supervised weight loss treatment of her obesity related co morbidities. This individual presents for month 2 of 0 required visits. Rene Bethea weight has decreased by 17 lb since first visit in the program She reports doing really well with nutrition recommendations. She is consistently hitting protein goals and drinking 4-6 17 ounce bottles of water daily. She reports struggling with decreasing carb intake. She is logging food with the [employer] willian. For exercise, her mobility is limited, however, she still does chair exercises and uses her 3 wheeled bike to get to work. On 06/06, her Fitbit detected a consistent high heart rate of 150-170. After it did not go down for 10+ minutes, she went to the [facility] ED and found out she was in atrial fibrillation. They treated her in the ED with medication and were able to convert her. She was sent home with prescriptions for diltiazem and Eliquis. This was her first episode of A-fib ever. She is following up with [facility] cardiology department next month (Dr. Brenda Mayfield). She will also ask for surgical clearance there, as her [facility] cardiology appointment is in September. She is feeling much better today. Denies constipation, diarrhea, abd pain, and reflux symptoms. Encouraged her to get labs done. HISTORY REVIEWED (electronic chart updated): - medical history - medications - allergies PAST MEDICAL HISTORY Diagnosis Date Atrial fibrillation (HCC) 06/22/2023 Depression Esophageal reflux Gastroesophageal reflux Mixed hyperlipidemia Hyperlipidemia Morbid obesity (HCC) Obstructive sleep apnea RA (rheumatoid arthritis) (HCC) Sleep apnea Uses C-pap Unspecified hypothyroidism Hypothyroidism Social: Social History Tobacco Use Smoking status: Former Packs/day: 1.00 Years: 30.00 Additional pack years: 0.00 Total pack years: 30.00 Types: Cigarettes Quit date: 10/22/2012 Years since quittin.6 Smokeless tobacco: Former Tobacco comments: quit 2011. Substance Use Topics Alcohol use: No Drug use: No Medications: Current Outpatient Medications Medication Sig dilTIAZem CD (CARDIZEM CD) 120 mg 24 hr capsule Take 1 capsule by mouth once daily. apixaban (ELIQUIS) 5 mg tab(s) Take 1 tablet by mouth twice daily. hydrOXYchloroQUINE (PLAQUENIL) 200 mg tablet Take 1 tablet by mouth every 12 hours 6am/6pm. ENBREL SURECLICK 50 mg/mL (1 mL) rOPINIRole (REQUIP) 1 mg tablet Take 1 tablet by mouth daily at bedtime. levothyroxine (SYNTHROID) 200 mcg tablet Take 1 tablet by mouth once daily. Take on empty stomach. For Thyroid. albuterol HFA (PROVENTIL HFA, VENTOLIN HFA) 90 mcg/actuation inhaler Inhale 1-2 Puffs as instructed four times daily as needed. FOR WHEEZING AND SHORTNESS OF BREATH. predniSONE (DELTASONE) 10 mg tablet Take 2 tablets by mouth once daily. (Patient taking differently: Take 20 mg by mouth as needed.) CPAP CPAP 11 cmH2O, suitable mask, tubing, humidifier, filters. Lifetime supplies. Dx: G47.33 - Obstructive sleep apnea CPAP CPAP 11 cmH2O, suitable mask, tubing, humidifier, filters. Lifetime supplies. Dx: 327.23 - Obstructive sleep apnea No current facility-administered medications for this visit. REVIEW OF SYSTEMS General: No fatigue or fevers HEENT: Negative for frequent or significant headaches, No changes in hearing or vision, no nose bleeds or other nasal problems PAP Therapy: noncompliant GI:No nausea, vomiting, or diarrhea and No heartburn or reflux symptoms Muskuloskeletal: Negative for joint pain or swelling, back pain or muscle pain Skin: Negative for lesions, rash, and itching Psych: Negative for sleep disturbance, mood disorder and recent psychosocial stressors PHYSICAL EXAMINATION Ht 160 cm (5' 3 ) Wt (!) 156.6 kg (345 lb 3.2 oz) BMI 61.15 kg/m? GENERAL APPEARANCE: Pleasant, interacts appropriately and in no apparent distress. Appropriately groomed, happy, smiling, and interactive SKIN: Skin of normal texture, temperature without rashes/lesions/ulcerations. LUNGS: unlabored on (more content not included)... [facility] 06-25-2023 History of Present illness Narrative BARIATRIC SURGERY CLINIC FOLLOW UP NOTE DISTANCE HEALTH VISIT This Team Access Model visit is a virtual encounter. It required patient-provider interaction for the medical decision making as documented below. Consent was obtained to complete today's distance health visit. I have communicated my name and active licensure. The patient's identity and physical location were verified at the time of this visit. Either the patient or their legal union contract representative has been informed of the risks and benefits of -- and alternatives to -- treatment through a remote evaluation and consents to proceed with the evaluation remotely. HPI: Rene Bethea a 52 year old female for presents for medically supervised weight loss treatment of her obesity related co morbidities. This individual presents for month 2 of 0 required visits. Rene Bethea weight has decreased by 17 lb since first visit in the program She reports doing really well with nutrition recommendations. She is consistently hitting protein goals and drinking 4-6 17 ounce bottles of water daily. She reports struggling with decreasing carb intake. She is logging food with the [employer] willian. For exercise, her mobility is limited, however, she still does chair exercises and uses her 3 wheeled bike to get to work. On 06/06, her Fitbit detected a consistent high heart rate of 150-170. After it did not go down for 10+ minutes, she went to the [facility] ED and found out she was in atrial fibrillation. They treated her in the ED with medication and were able to convert her. She was sent home with prescriptions for diltiazem and Eliquis. This was her first episode of A-fib ever. She is following up with [facility] cardiology department next month (Dr. Brenda Mayfield). She will also ask for surgical clearance there, as her [facility] cardiology appointment is in September. She is feeling much better today. Denies constipation, diarrhea, abd pain, and reflux symptoms. Encouraged her to get labs done. HISTORY REVIEWED (electronic chart updated): - medical history - medications - allergies PAST MEDICAL HISTORY Diagnosis Date Atrial fibrillation (HCC) 06/22/2023 Depression Esophageal reflux Gastroesophageal reflux Mixed hyperlipidemia Hyperlipidemia Morbid obesity (HCC) Obstructive sleep apnea RA (rheumatoid arthritis) ([facility]) Sleep apnea Uses C-pap Unspecified hypothyroidism Hypothyroidism Social: Social History Tobacco Use Smoking status: Former Packs/day: 1.00 Years: 30.00 Additional pack years: 0.00 Total pack years: 30.00 Types: Cigarettes Quit date: 10/22/2012 Years since quittin.6 Smokeless tobacco: Former Tobacco comments: quit 2011. Substance Use Topics Alcohol use: No Drug use: No Medications: Current Outpatient Medications Medication Sig dilTIAZem CD (CARDIZEM CD) 120 mg 24 hr capsule Take 1 capsule by mouth once daily. apixaban (ELIQUIS) 5 mg tab(s) Take 1 tablet by mouth twice daily. hydrOXYchloroQUINE (PLAQUENIL) 200 mg tablet Take 1 tablet by mouth every 12 hours 6am/6pm. ENBREL SURECLICK 50 mg/mL (1 mL) rOPINIRole (REQUIP) 1 mg tablet Take 1 tablet by mouth daily at bedtime. levothyroxine (SYNTHROID) 200 mcg tablet Take 1 tablet by mouth once daily. Take on empty stomach. For Thyroid. albuterol HFA (PROVENTIL HFA, VENTOLIN HFA) 90 mcg/actuation inhaler Inhale 1-2 Puffs as instructed four times daily as needed. FOR WHEEZING AND SHORTNESS OF BREATH. predniSONE (DELTASONE) 10 mg tablet Take 2 tablets by mouth once daily. (Patient taking differently: Take 20 mg by mouth as needed.) CPAP CPAP 11 cmH2O, suitable mask, tubing, humidifier, filters. Lifetime supplies. Dx: G47.33 - Obstructive sleep apnea CPAP CPAP 11 cmH2O, suitable mask, tubing, humidifier, filters. Lifetime supplies. Dx: 327.23 - Obstructive sleep apnea No current facility-administered medications for this visit. REVIEW OF SYSTEMS General: No fatigue or fevers HEENT: Negative for frequent or significant headaches, No changes in hearing or vision, no nose bleeds or other nasal problems PAP Therapy: noncompliant GI:No nausea, vomiting, or diarrhea and No heartburn or reflux symptoms Muskuloskeletal: Negative for joint pain or swelling, back pain or muscle pain Skin: Negative for lesions, rash, and itching Psych: Negative for sleep disturbance, mood disorder and recent psychosocial stressors PHYSICAL EXAMINATION Ht 160 cm (5' 3 ) Wt (!) 156.6 kg (345 lb 3.2 oz) BMI 61.15 kg/m GENERAL APPEARANCE: Pleasant, interacts appropriately and in no apparent distress. Appropriately groomed, happy, smiling, and interactive SKIN: Skin of normal texture, temperature without rashes/lesions/ulcerations. LUNGS: unlabored on room air negative findings: normal respiratory rate no cough NEURO/PSYCH: Oriented to person, place, time; appropriate insight and judgement. Appropriate affect. Diagnostic Tests Reviewed for Today's Visit No new labs The plan of treatment for Rene Bethea is Further Work-up: Required monthly visits: 2 of 0 months Patient is interested in: Gastric Bypass vs SG EGD: surgeon Upper GI: surgeon JESSENIA US: pending Sleep Study: Sleep apnea, not compliant with CPAP CXR:per pulmonary clearance EKG:per cardiac clearance H Pylori pending Labs: pending Nicotine use <12 months: NA, ordered per insurance Tox: ordered per insurance Antiplatelet/anticoagulants: Eliquis Immunosuppressive therapy: Yes- Plaquenil and Enbrel Estrogen therapy: No Evaluations Psychology: ongoing (09/12) Nutrition: ongoing (07/25) Education class: ongoing Clearances: -Cardiac (Jul at ) -Pulmonary (08/28) -Rheumatology (recs on meds) -PCP Risk Calculator: VTE Risk: BMI > 60 ISS score: not diabetic Adverse Event score: TBD Post-op Medications: Extended Lovenox: BMI > 60, recently on Eliquis (Jun) Actigall: NA hx of cholecystectomy PPI: will require Total time in direct patient contact = 10 min. Greater than 50% of the time was spent in counseling and/or coordination of care. This note was generated using voice recognition technology and may contain grammatical errors. ASSESSMENT/PLAN: 1. Class 3 severe obesity with body mass index (BMI) of 60.0 to 69.9 in adult, unspecified obesity type, unspecified whether serious comorbidity present (HCC) - ICD9: 278.01, V85.44, ICD10: E66.01, Z68.44 (primary diagnosis) Weight decreasing - Behavioral and pharmacological intervention , - Medical nutrition therapy with dietitian, and - Psychology - ABD RIGHT UPPER QUADRANT - Nutrition Counseling Practice these: - Eat 3 meals daily--can use approved/recommended protein shake as 1 meal replacement (should be <200 calories, 20-30g protein, <5g added sugar) - Keep a food journal 5-7x/week (consider Astley Clarke or [employer] willian) and demonstrate meeting protein goal (60-90g protein for females, 70-105g protein for males)- Lean meats, fish, low fat dairy - cottage cheese, [place] Islander yogurt, light yogurt, cheese, ricotta cheese, nuts, peanut butter, beans/legumes. Eat protein first at all meals. and 64oz of caffeine-free, carbonation-free fluids at least 5 days per week - engage in formal, planned exercise 5x/week for 30 minutes of cardiovascular activity OR 150+ minutes of cardiovascular activity per week - eliminate all caffeine, carbonation, alcohol and sugar-containing beverages from diet --consider sugar-free drink mixes, water, decaf coffee and tea - Separate eating and drinking by 30 minutes - Chew your food 20-30x per bite - Sip beverages slowly--no guzzling or gulping 2. Atrial fibrillation, unspecified type (HCC) - ICD9: 427.31, ICD10: I48.91 -Event happened on 06/06. Went into the ED where she was medically converted. Currently on Cardizem and Eliquis. 3. NORBERT (obstructive sleep apnea) - ICD9: 327.23, ICD10: G47.33 -Noncompliant. Appointment scheduled with sleep medicine for surgical clearance. She has no testing completed. Surgeon appointment in August for further testing. She will need nutrition, psychology, cardiology, and pulmonology clearance. Appointment with RD next month, surgeon in August, and follow-up with ELECTRIC METER TESTER end of Jul to assess cardiac clearance. Dixon Campbell APRN.CNP Medical Decision Making: Problems: Moderate: 2+ stable chronic illnesses Data: Unique source(s) for external note(s) reviewed: 1 Unique test result(s) reviewed: 1 Unique test(s) ordered: 1 Medical Decision Making Level: 4 - Moderate documented in this encounter [facility] 06-22-2023 Note HNO ID: [id number] Author: David Shaikh APRN.SENIOR ORACLE [address] SQL DEVELOPER Service: ? Author Type: Nurse Practitioner Type: Progress Notes Filed: 06/22/2023 8:23 AM Note Text: Telemedicine Visit - Distance Health Virtual Visit Note Patient seen on [employer] video visit platform. Location of patient: [place] I have communicated my name and active licensure. The patient's identity and physical location were verified at the time of this visit. Either the patient or their legal union contract representative has been informed of the risks and benefits of -- and alternatives to -- treatment through a remote evaluation and consents to proceed with the evaluation remotely. History of Present Illness Rene Bethea is a 52 year old year old female who presents for ER follow up HOSPITAL/ER FOLLOW UP: Reason for visit: Heart palpitations Which facility: [facility] Date of visit: 06/06/2023 Diagnosis: Atrial Fibrillation Testing done: ECG, Labs Treatment given: Discharged on Cardizem and Eliquis Current symptoms: At this time, she feels okay. Her heart rate has not went over 103. No chest pain or shortness of breath. No syncope. Just needing refills until she can get to cardiology Appointment with [facility] on August 01. PAST MEDICAL HISTORY Diagnosis Date Depression Esophageal reflux Gastroesophageal reflux Mixed hyperlipidemia Hyperlipidemia Morbid obesity (HCC) Obstructive sleep apnea RA (rheumatoid arthritis) (HCC) Sleep apnea Uses C-pap Unspecified hypothyroidism Hypothyroidism PAST SURGICAL HISTORY Procedure Laterality Date ARTHROSCOPY KNEE DIAGNOSTIC W/WO SYNOVIAL BX SPX 11/05/2003 Arthroscopy, knee, left times 2 ARTHROSCOPY KNEE DIAGNOSTIC W/WO SYNOVIAL BX SPX 11/05/2008 Arthroscopy, knee right ARTHRS KNE SURG W/MENISCECTOMY MED/LAT W/SHVG 07/29/2014 Right knee arthroscopic medial meniscectomy, PF chondroplasty and removal of loose body CHOLECYSTECTOMY HX COLONOSCOPY W/BIOPSY SINGLE/MULTIPLE 03/06/2014 EGD TRANSORAL BIOPSY SINGLE/MULTIPLE 03/06/2014 LAMINECTOMY W/O FFD 1/2 VERT SEG LUMBAR 11/05/1999 Laminectomy, lumbar PAST SURGICAL HISTORY OF BTL PAST SURGICAL HISTORY OF remote laparoscopy THYROIDECTOMY TOTAL/COMPLETE 11/05/1993 Subtotal -for goiter TOTAL ABDOMINAL HYSTERECT W/WO RMVL TUBE OVARY 11/05/2002 Hysterectomy, OSWALD; 1 ovary left in FAMILY HISTORY Problem Relation Age of Onset Cancer Mother non hodgkins lymphoma, reticular sarcoma Stroke Father other (afib) Father Diabetes Maternal Grandmother other (a-fib) Sister Social History Tobacco Use Smoking status: Former Packs/day: 1.00 Years: 30.00 Additional pack years: 0.00 Total pack years: 30.00 Types: Cigarettes Quit date: 10/22/2012 Years since quittin.6 Smokeless tobacco: Former Tobacco comments: quit 2011. Substance Use Topics Alcohol use: No Drug use: No Current Outpatient Medications Medication Sig hydrOXYchloroQUINE (PLAQUENIL) 200 mg tablet Take 1 tablet by mouth every 12 hours 6am/6pm. ENBREL SURECLICK 50 mg/mL (1 mL) rOPINIRole (REQUIP) 1 mg tablet Take 1 tablet by mouth daily at bedtime. levothyroxine (SYNTHROID) 200 mcg tablet Take 1 tablet by mouth once daily. Take on empty stomach. For Thyroid. albuterol HFA (PROVENTIL HFA, VENTOLIN HFA) 90 mcg/actuation inhaler Inhale 1-2 Puffs as instructed four times daily as needed. FOR WHEEZING AND SHORTNESS OF BREATH. predniSONE (DELTASONE) 10 mg tablet Take 2 tablets by mouth once daily. (Patient taking differently: Take 20 mg by mouth as needed.) CPAP CPAP 11 cmH2O, suitable mask, tubing, humidifier, filters. Lifetime supplies. Dx: G47.33 - Obstructive sleep apnea CPAP CPAP 11 cmH2O, suitable mask, tubing, humidifier, filters. Lifetime supplies. Dx: 327.23 - Obstructive sleep apnea No current facility-administered medications for this visit. ALLERGIES Allergen Reactions Bactrim [Sulfametho* Diarrhea Diclofenac Diarrhea severe Dioxyline Phosphate Diarrhea Doxycycline Vomiting Levofloxacin Other: See Comments Tramadol Other: See Comments, Swelling Patient reported to ER on 02/06/18 after taking tramadol. Pt. presented with swollen lips after taking this medication. Zpak [Other] Itching, Shortness of Breath BP: 123/51 Pulse: 63 SpO2: 96 % Taken at home. Video Exam (Examination performed via Video enabled technology) General appearance: Alert, oriented, pleasant, in NAD :Yes Ill appearing :No Lethargic appearing :No Respiratory distress :No ASSESSMENT/PLAN: 1. Atrial fibrillation, unspecified type (HCC) - ICD9: 427.31, ICD10: I48.91 - New diagnosis. Continue with plan to see cardiology. Refills sent to get her to the appointment. - DILTIAZEM SR 120 MG 24 HR CAP - APIXABAN 5 MG TABLET David Shaikh APRN.SENIOR ORAC[address] SQL DEVELOPER PLAN: - Red flags discussed for need for in person care - All questions answered - Encouraged patient to follow up (more content not included)... [facility] 06-11-2023 Note HNO ID: [id number] Author: Mera Richter RD Service: ? Author Type: Registered Dietitian Type: Progress Notes Filed: 06/11/2023 2:25 PM Note Text: [facility] - Bariatric Department New Patient Nutritional Assessment Conducted via zoom due to COVID 19 - Audio/Visual Rene Bethea Month 12/11 -- waiting for benefit clarification Anthropometrics: 52 year old female Ht 160 cm (5' 3 ) Wt (!) 162.8 kg (359 lb) BMI 63.59 kg/m? Percent Body Fat: deferred Medical History: PAST MEDICAL HISTORY Diagnosis Date Depression Esophageal reflux Gastroesophageal reflux Mixed hyperlipidemia Hyperlipidemia Morbid obesity (HCC) Obstructive sleep apnea RA (rheumatoid arthritis) (HCC) Sleep apnea Uses C-pap Unspecified hypothyroidism Hypothyroidism Medications: Current Outpatient Medications Medication Sig Dispense Refill hydrOXYchloroQUINE (PLAQUENIL) 200 mg tablet Take 1 tablet by mouth every 12 hours 6am/6pm. ENBREL SURECLICK 50 mg/mL (1 mL) rOPINIRole (REQUIP) 1 mg tablet Take 1 tablet by mouth daily at bedtime. 30 tablet 11 levothyroxine (SYNTHROID) 200 mcg tablet Take 1 tablet by mouth once daily. Take on empty stomach. For Thyroid. 30 tablet 11 albuterol HFA (PROVENTIL HFA, VENTOLIN HFA) 90 mcg/actuation inhaler Inhale 1-2 Puffs as instructed four times daily as needed. FOR WHEEZING AND SHORTNESS OF BREATH. 1 g 5 predniSONE (DELTASONE) 10 mg tablet Take 2 tablets by mouth once daily. (Patient taking differently: Take 20 mg by mouth as needed.) 60 tablet 2 CPAP CPAP 11 cmH2O, suitable mask, tubing, humidifier, filters. Lifetime supplies. Dx: G47.33 - Obstructive sleep apnea 1 Device 0 CPAP CPAP 11 cmH2O, suitable mask, tubing, humidifier, filters. Lifetime supplies. Dx: 327.23 - Obstructive sleep apnea 1 Device 0 No current facility-administered medications for this visit. Allergies: Bactrim [Sulfamethoxazole-Trimethoprim], Diclofenac, Dioxyline Phosphate, Doxycycline, Levofloxacin, Tramadol, and Zpak [Other] Weight History: See ELECTRIC METER TESTER notes from initial program visit. Dietary Intake: 24 hour recall provided Breakfast- Nothing Lunch- [place] Dinner- Nothing Snacks- Nothing Limitations of keeping a food record: Nothing Food Allergies: None Frequency of fried foods: 2 times weekly Frequency of high sugar foods: 4 times weekly Frequency of snack-type foods: 2 times weekly Frequency of caffeine/carbonated beverages: 6 days a week Frequency of dining out meals: 5 times a weekly Physical Activity: Physical conditions limiting activity: Yes Current activity: None READINESS TO LEARN Cognitive ability: Alert and oriented Motivation to learn: Eager Family support: Unable to assess - Family not present Instruction provided to: Patient Patient learns best by: Multiple Methods Factors affecting learning: Unable to assess Physical limitations affecting learning: None Nutrition Diagnosis: Overweight/obesity related to nutrition knowledge deficit as evidenced by BMI above normative range for age and gender, increased intake of high sugar foods/snack type foods/fried foods more than 1 time a week, increase intake of caffeinated/carbonated beverages more than 1 time a week, frequent dining out more than 1 time a week patient reports 5 times per week, skipping meals per recall, and inadequate physical activity for weight loss. Nutrition Intervention: Start to follow meal guidelines provided and work toward goals outlined below. Nutrition Monitoring AND Evaluation: Monthly supervised wt loss to evaluate weight loss efforts with patient protein goal of 60-90g in addition to requirements from nutrition checklist provided by Dietitian during visit and sent via [employer] message. Required months of supervised weight loss per insurance: per E[employer]ER TE[employer] notes The setting was a shared nutrition appointment in which the patient was seen individually with group observers. Consent to be seen in a group setting was obtained virtually. Goals reviewed and outlined below. [facility] Patient agreement was reviewed and Rene Bethea received a copy of the patient agreement. The patient is aware by receiving this agreement, this accepts their understanding of the agreement and that surgery may not be recommended for medical and behavorial health reasons. Goals: Goals formal exercise 5-7x/week as tolerated, goal of 30 minutes OR 150 minutes of activity per week aim for 3 meals or 5-6 small meals per day with a protein source - can use 1 protein shake as 1 meal replacment journal daily and bring to all appointments Total time in direct patient contact = 50 min. Greater than 50% of the time was spent in counseling and/or coordination of care. Mera Richter RD This note was generated using voice recognition technology and may contain grammatical errors. [facility] 06-11-2023 History of Present illness Narrative [facility] - Bariatric Department New Patient Nutritional Assessment Conducted via zoom due to COVID 19 - Audio/Visual Rene Bethea Month 12/11 -- waiting for benefit clarification Anthropometrics: 52 year old female Ht 160 cm (5' 3 ) Wt (!) 162.8 kg (359 lb) BMI 63.59 kg/m Percent Body Fat: deferred Medical History: PAST MEDICAL HISTORY Diagnosis Date Depression Esophageal reflux Gastroesophageal reflux Mixed hyperlipidemia Hyperlipidemia Morbid obesity (HCC) Obstructive sleep apnea RA (rheumatoid arthritis) (HCC) Sleep apnea Uses C-pap Unspecified hypothyroidism Hypothyroidism Medications: Current Outpatient Medications Medication Sig Dispense Refill hydrOXYchloroQUINE (PLAQUENIL) 200 mg tablet Take 1 tablet by mouth every 12 hours 6am/6pm. ENBREL SURECLICK 50 mg/mL (1 mL) rOPINIRole (REQUIP) 1 mg tablet Take 1 tablet by mouth daily at bedtime. 30 tablet 11 levothyroxine (SYNTHROID) 200 mcg tablet Take 1 tablet by mouth once daily. Take on empty stomach. For Thyroid. 30 tablet 11 albuterol HFA (PROVENTIL HFA, VENTOLIN HFA) 90 mcg/actuation inhaler Inhale 1-2 Puffs as instructed four times daily as needed. FOR WHEEZING AND SHORTNESS OF BREATH. 1 g 5 predniSONE (DELTASONE) 10 mg tablet Take 2 tablets by mouth once daily. (Patient taking differently: Take 20 mg by mouth as needed.) 60 tablet 2 CPAP CPAP 11 cmH2O, suitable mask, tubing, humidifier, filters. Lifetime supplies. Dx: G47.33 - Obstructive sleep apnea 1 Device 0 CPAP CPAP 11 cmH2O, suitable mask, tubing, humidifier, filters. Lifetime supplies. Dx: 327.23 - Obstructive sleep apnea 1 Device 0 No current facility-administered medications for this visit. Allergies: Bactrim [Sulfamethoxazole-Trimethoprim], Diclofenac, Dioxyline Phosphate, Doxycycline, Levofloxacin, Tramadol, and Zpak [Other] Weight History: See ELECTRIC METER TESTER notes from initial program visit. Dietary Intake: 24 hour recall provided Breakfast- Nothing Lunch- [place] Dinner- Nothing Snacks- Nothing Limitations of keeping a food record: Nothing Food Allergies: None Frequency of fried foods: 2 times weekly Frequency of high sugar foods: 4 times weekly Frequency of snack-type foods: 2 times weekly Frequency of caffeine/carbonated beverages: 6 days a week Frequency of dining out meals: 5 times a weekly Physical Activity: Physical conditions limiting activity: Yes Current activity: None READINESS TO LEARN Cognitive ability: Alert and oriented Motivation to learn: Eager Family support: Unable to assess - Family not present Instruction provided to: Patient Patient learns best by: Multiple Methods Factors affecting learning: Unable to assess Physical limitations affecting learning: None Nutrition Diagnosis: Overweight/obesity related to nutrition knowledge deficit as evidenced by BMI above normative range for age and gender, increased intake of high sugar foods/snack type foods/fried foods more than 1 time a week, increase intake of caffeinated/carbonated beverages more than 1 time a week, frequent dining out more than 1 time a week patient reports 5 times per week, skipping meals per recall, and inadequate physical activity for weight loss. Nutrition Intervention: Start to follow meal guidelines provided and work toward goals outlined below. Nutrition Monitoring & Evaluation: Monthly supervised wt loss to evaluate weight loss efforts with patient protein goal of 60-90g in addition to requirements from nutrition checklist provided by Dietitian during visit and sent via [employer] message. Required months of supervised weight loss per insurance: per E[employer]RIC [employer]ER TE[employer] notes The setting was a shared nutrition appointment in which the patient was seen individually with group observers. Consent to be seen in a group setting was obtained virtually. Goals reviewed and outlined below. [facility] Patient agreement was reviewed and Rene Bethea received a copy of the patient agreement. The patient is aware by receiving this agreement, this accepts their understanding of the agreement and that surgery may not be recommended for medical and behavorial health reasons. Goals: Goals formal exercise 5-7x/week as tolerated, goal of 30 minutes OR 150 minutes of activity per week aim for 3 meals or 5-6 small meals per day with a protein source - can use 1 protein shake as 1 meal replacment journal daily and bring to all appointments Total time in direct patient contact = 50 min. Greater than 50% of the time was spent in counseling and/or coordination of care. Mera Richter RD This note was generated using voice recognition technology and may contain grammatical errors. documented in this encounter [facility] 06-07-2023 Note HNO ID: [id number] Author: Maliha Bonilla PSYD Service: ? Author Type: Psychologist Type: Progress Notes Filed: 06/07/2023 11:11 AM Note Text: [facility] BEHAVIORAL HEALTH EVALUATION Bariatrics New Patient Evaluation DATE OF SERVICE: 06/07/2023 CPT CODE: - [id number] Virtual Psych Diagnostic Eval This is a virtual visit using [employer] video visit. It required patient-provider interaction for the medical decision making as documented below. I have communicated my name and active licensure. The patient's identity and physical location were verified at the time of this visit. Either the patient or their legal union contract representative has been informed of the risks and benefits of -- and alternatives to -- treatment through a remote evaluation and consents to proceed with the evaluation remotely. I spent a total of 60 minutes on the date of the service which included [id number] patient care. IDENTIFYING INFORMATION Rene Bethea is a 52 year old. She is seeking bariatric surgery. Consent form was provided to the patient and reviewed in detail prior to starting the session. MOTIVATION FOR WEIGHT MANAGEMENT: Improve health, Prevent health problems, Improve quality of life, Healthier for children, Reduce medications, and Permanent weight loss MEDICAL PROBLEMS ACTIVE PROBLEM LIST Hypothyroidism Sprain of Wrist, Unspecified Site Abdominal Migraine, Not Intractable Chondromalacia of Patella Sprain and Strain of Unspecified Site of Knee and Leg Follow-Up Examination, Following Unspecified Surgery Calcaneal Spur Depressive Disorder, Not Elsewhere Classified Tear of Meniscus of Right Knee Right Knee Pain Chondromalacia of Knee NORBERT (obstructive sleep apnea) AHI 39 Morbid Obesity (Hcc) Primary Osteoarthritis of Right Knee Obesity MEDICATIONS Current Outpatient Medications Medication Sig hydrOXYchloroQUINE (PLAQUENIL) 200 mg tablet Take 1 tablet by mouth every 12 hours 6am/6pm. ENBREL SURECLICK 50 mg/mL (1 mL) rOPINIRole (REQUIP) 1 mg tablet Take 1 tablet by mouth daily at bedtime. levothyroxine (SYNTHROID) 200 mcg tablet Take 1 tablet by mouth once daily. Take on empty stomach. For Thyroid. albuterol HFA (PROVENTIL HFA, VENTOLIN HFA) 90 mcg/actuation inhaler Inhale 1-2 Puffs as instructed four times daily as needed. FOR WHEEZING AND SHORTNESS OF BREATH. predniSONE (DELTASONE) 10 mg tablet Take 2 tablets by mouth once daily. (Patient taking differently: Take 20 mg by mouth as needed.) CPAP CPAP 11 cmH2O, suitable mask, tubing, humidifier, filters. Lifetime supplies. Dx: G47.33 - Obstructive sleep apnea CPAP CPAP 11 cmH2O, suitable mask, tubing, humidifier, filters. Lifetime supplies. Dx: 327.23 - Obstructive sleep apnea No current facility-administered medications for this visit. ALLERGIES ALLERGIES Allergen Reactions Bactrim [Sulfametho* Diarrhea Diclofenac Diarrhea severe Dioxyline Phosphate Diarrhea Doxycycline Vomiting Levofloxacin Other: See Comments Tramadol Other: See Comments, Swelling Patient reported to ER on 02/06/18 after taking tramadol. Pt. presented with swollen lips after taking this medication. Zpak [Other] Itching, Shortness of Breath EATING/WEIGHT HISTORY: Her highest weight as an adult was 359 lbs. The patient reports the following factors as contributing to weight gain: Genetics and Health Problems. She reports a family history of obesity. Last 3 Encounter Wt Readings: Date: Wt: 05/30/2023 164.2 kg (362 lb) 10/31/2021 160.5 kg (353 lb 12.8 oz) 05/25/2021 160.8 kg (354 lb 9.6 oz) The patient has tried weight loss strategies in the past including: She has been engaged with the [facility] bariatric program before ([address] [facility] after that. Currently following ww. The patient denies a history of laxative/diuretic use. The patient denies a history of vomiting to lose weight. The patient denies a history of an eating disorder. The patient has not had treatment for eating disorders in the past. CURRENT WEIGHT LOSS MEDICATIONS: None CURRENT EATING PATTERNS: The patient is working on changing the following eating habits: Dietitian Emotional Eating Endorsed: Tired, stressed, and anxious may want something to eat. Trigger Food/s: pizza, has pizza 3 or 4 days a week. 24 hour recall: Breakfast: Iris Lechuga with water Snack: nature trail pb biscuit Lunch: chicken sub, no bun w/ cheese, pinapple, mushroom, and tomato Snack: none Dinner: Nothing ..was in the ER due to AFIB- night before had [facility] chicken tenders w/ no breading and coleslaw Snack: No Patient Data Binge Eating Scale (BES) No flowsheet data found.<18 = minimal binge eating, 18-26 = moderate binge eating, >27 = severe binge eating Generalized Anxiety Disorder Scale (AL-7) No flowsheet data found.(0-4) minimal anxiety, (5-9) mild anxiety, (10-14) moderate anxiety, (15-21) severe anxiety Patient Health Questionnaire (PHQ (more content not included)... [facility] 05-30-2023 Miscellaneous Notes Rheumatology clearance letter with recommendations faxed to Dr. King Soto RN May 30, 2023 1:11 PM documented in this encounter [facility] 05-30-2023 Note HNO ID: [id number] Author: Brandie Carey APRN.[address] SQL DEVELOPER Service: ? Author Type: Nurse Practitioner Type: Progress Notes Filed: 05/30/2023 10:43 AM Note Text: BARIATRIC SURGERY NEW PATIENT CONSULTATION HISTORY AND PHYSICAL DISTANCE HEALTH VISIT This Team Access Model visit is a virtual encounter. It required patient-provider interaction for the medical decision making as documented below. Consent was obtained to complete today's distance health visit. I have communicated my name and active licensure. The patient's identity and physical location were verified at the time of this visit. Either the patient or their legal union contract representative has been informed of the risks and benefits of -- and alternatives to -- treatment through a remote evaluation and consents to proceed with the evaluation remotely. Date: May 30, 2023 Time: 10:33 AM Name: Rene Brandon Nawaf CHIEF COMPLAINT: This is a 52 year old female with morbid obesity (Body mass index is 62.14 kg/m?.) who presents to clinic for consideration of bariatric surgery. HISTORY OF PRESENTING ILLNESS: Rene Bethea presents today for consideration of bariatric surgery. She has suffered from weight problems majority of she lifespan and has numerous attempts at weight loss. This individual has lost weight through diet and exercise attempts, however ultimately regained this weight. Furthermore,She has struggled with weight loss and being overweight most of her adult life. She has made multiple attempts at weight loss on her own through diet, exercise, and previous bariatric programs. She has had little success on her own or ultimately will regain the weight. Her heaviest adult weight is 362 pounds, her healthiest adult weight was 120 pounds. She has attempted the bariatric surgery program on 2 separate occasions, but due to insurance issues she was never able to make it to surgery. She has a history of sleep apnea, she is currently noncompliant with CPAP. She has a history of asthma, currently well managed. She denies recent exacerbations. She uses albuterol inhaler as needed, once per month. She has rheumatoid arthritis-takes Plaquenil and Enbrel injections. She takes prednisone as needed, which she reports is on average 3 times per month. Denies use of NSAIDs due to borderline kidney dysfunction. She is followed by rheumatology. Cardiac history significant for hyperlipidemia. She denies further cardiac issues such as hypertension, CAD, CHF. She denies acid reflux symptoms, dysphagia, regurgitation. She denies history of diabetes, DVT, PE Psychosocial history is significant for situational depression, currently well managed. She quit smoking in 2012, no relapses. She is not exposed to secondhand smoke. She denies alcohol use and illicit drug use Surgical history significant for multiple arthroscopies, laminectomy, laparoscopic cholecystectomy, total abdominal hysterectomy HISTORY REVIEWED (electronic chart updated): - medical history - medications - allergies PAST MEDICAL HISTORY Diagnosis Date Depression Esophageal reflux Gastroesophageal reflux Mixed hyperlipidemia Hyperlipidemia Morbid obesity (HCC) Obstructive sleep apnea RA (rheumatoid arthritis) (HCC) Sleep apnea Uses C-pap Unspecified hypothyroidism Hypothyroidism PAST SURGICAL HISTORY Procedure Laterality Date ARTHROSCOPY KNEE DIAGNOSTIC W/WO SYNOVIAL BX SPX 11/05/2003 Arthroscopy, knee, left times 2 ARTHROSCOPY KNEE DIAGNOSTIC W/WO SYNOVIAL BX SPX 11/05/2008 Arthroscopy, knee right ARTHRS KNE SURG W/MENISCECTOMY MED/LAT W/SHVG 07/29/2014 Right knee arthroscopic medial meniscectomy, PF chondroplasty and removal of loose body CHOLECYSTECTOMY HX COLONOSCOPY W/BIOPSY SINGLE/MULTIPLE 03/06/2014 EGD TRANSORAL BIOPSY SINGLE/MULTIPLE 03/06/2014 LAMINECTOMY W/O FFD 1/2 VERT SEG LUMBAR 11/05/1999 Laminectomy, lumbar PAST SURGICAL HISTORY OF BTL PAST SURGICAL HISTORY OF remote laparoscopy THYROIDECTOMY TOTAL/COMPLETE 11/05/1993 Subtotal -for goiter TOTAL ABDOMINAL HYSTERECT W/WO RMVL TUBE OVARY 11/05/2002 Hysterectomy, OSWALD; 1 ovary left in FAMILY HISTORY Problem Relation Age of Onset Cancer Mother non hodgkins lymphoma, reticular sarcoma Stroke Father other (afib) Father Diabetes Maternal Grandmother other (a-fib) Sister SOCIAL HISTORY: Social History Tobacco Use Smoking status: Former Packs/day: 1.00 Years: 30.00 Total pack years: 30.00 Types: Cigarettes Quit date: 10/22/2012 Years since quittin.6 Smokeless tobacco: Former Tobacco comments: quit 2011. Substance Use Topics Alcohol use: No Drug use: No MEDICATIONS: Prior to Admission Medications: hydrOXYchloroQUINE (PLAQUENIL) 200 mg tablet Take 1 tablet by mouth every 12 hours 6am/6pm. ENBREL SURECLICK 50 mg/mL (1 mL) rOPINIRole (REQUIP) 1 mg tablet Take 1 tablet by mouth daily at bedtime. levothyroxine (SYNTHROID (more content not included)... [facility] 04-27-2023 Miscellaneous Notes Bariatric Investigation: EXCLUDED: No E66.01 Obesity Medicine Coverage: Yes [id number] RNY Yes [id number] SLEEVE Yes [id number] REVISION Yes Insurance Company: [employer] BC/BS PPO Group#:[id number] Provider Phone#:[phone] Single 90% 10% $750 ind.met $$48.52-Deductible fam. $1500 met $186.55 $3500- met $350.01-Out of Pocket fam. $7000 met $799.18 After out of pocket met will be covered at 100% Virtual visit coverage: Yes Obesity Medicine Coverage: REQUIREMENTS: Prior authorization required Pulmonary Clearance: Yes Cardiac Clearance: Yes Nicotine Testing: Yes Drug Testing: Yes TSH Testing: Yes If Female patient, is test required: N/A Months of Wt Loss: 6 Consecutive: Yes Months of Weight History: 6 Is weight loss history required prior to starting Bariatric Program? No If yes, how many months prior is required? 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 Update IPW letter sent 04/26/23 documented in this encounter [facility] 04-04-2023 Note Patient Outreach (IN [facility]) RENE BETHEA ([id number]) 1970 F Date Time Provider Department 04/04/23 SWEETIE [facility]NG During your visit today, we recorded the following information about you: Allergies As of Date: 04/04/2023 Noted Allergy Reaction BACTRIM (SULFAMETHOXAZOLE-TRIMETH* 008 6 - Diarrhea DICLOFENAC 04/27/2014 6 - Diarrhea Comments: severe DIOXYLINE PHOSPHATE 10/17/2016 6 - Diarrhea DOXYCYCLINE 11/03/2011 11 - Vomiting LEVOFLOXACIN 06/09/2018 14 - Other: See Comments TRAMADOL 02/06/2018 14 - Other: See Comments 7 - Swelling Comments: Patient reported to ER on 02/06/18 after taking tramadol. Pt. presented with swollen lips after taking this medication. zpak [Other] 02/11/2008 9 - Itching 12 - Shortness of Breath Date Reviewed: 02/06/2023 Reviewed by: Mike Ramirez APRN.[address] SQL DEVELOPER - Fully Assessed Visit Diagnosis:Encounter for screening mammogram for breast cancer [Z12.31] Order(s):[facility] SCREENING [[id number]] Order #: [id number] FUTURE Prescriptions as of 04/09/2023 - benzonatate (TESSALON PERLES) 100 mg capsule Take 1-2 capsules by mouth three times daily as needed for cough. - rOPINIRole (REQUIP) 1 mg tablet Take 1 tablet by mouth daily at bedtime. - levothyroxine (SYNTHROID) 200 mcg tablet Take 1 tablet by mouth once daily. Take on empty stomach. For Thyroid. - nabumetone (RELAFEN) 500 mg tablet take 1 tablet by mouth twice a day with food - cholecalciferol, Vitamin D3, (VITAMIN D3) 1,250 mcg (50,000 unit) cap capsule Take 1 capsule by mouth one time a week. - albuterol HFA (PROVENTIL HFA, VENTOLIN HFA) 90 mcg/actuation inhaler Inhale 1-2 Puffs as instructed four times daily as needed. FOR WHEEZING AND SHORTNESS OF BREATH. - predniSONE (DELTASONE) 10 mg tablet Take 2 tablets by mouth once daily. - Blood Pressure Test Kit-Wrist kit 1 Each once daily. - CPAP CPAP 11 cmH2O, suitable mask, tubing, humidifier, filters. Lifetime supplies. Dx: G47.33 - Obstructive sleep apnea - CPAP CPAP 11 cmH2O, suitable mask, tubing, humidifier, filters. Lifetime supplies. 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 Bariatric consult filed Sweetie Feng MD Please place consult which will generate automatic referral with insurance. Spoke to patient who is aware can call next week for appointment Marina Michael Ma documented in this encounter [facility] 02-06-2023 Note HNO ID: [id number] Author: Mike Ramirez APRN.[address] SQL DEVELOPER Service: ? Author Type: Nurse Practitioner Type: Progress Notes Filed: 02/06/2023 5:49 PM Note Text: Telemedicine Evaluation for COVID-19 Infection Alternative video platform was used for evaluation of this patient. I have communicated my name and active licensure. The patient's identity and physical location were verified at the time of this visit. Either the patient or their legal union contract representative has been informed of the risks and benefits of -- and alternatives to -- treatment through a remote evaluation and consents to proceed with the evaluation remotely. LYNDA Bethea is a 52 year old female who presents with 3 days of symptoms that are worsening. Took COVID x2 that resulted positive. Unknown exposure but is covid vaccinated. Symptoms include: Fever (?100.4F): Yes, 100.1 or Chills: Yes Cough: Yes Shortness of breath: Yes or Difficulty breathing: No Fatigue: Yes Muscle aches: No Headache: Yes New loss of smell or taste: Yes, taste Sore throat: Yes Nasal congestion: No or Rhinorrhea: Yes Nausea: No or Vomiting: No Diarrhea: No OTC meds/remedies that patient has tried: OTC cough syrup. High risk category assessment On immunosuppressive therapy Morbid Obesity (BMI>40) Exposures: Sick contacts? No Family or close contacts with confirmed/probable COVID-19 in last 14 days? No OBJECTIVE VIDEO EXAM GENERAL: well appearing, alert, in no acute distress HEENT: no conjunctival injection, pupils equal, moist mucous membranes, oropharynx clear without erythema, sinuses non-tender to self-palpation, and no cervical adenopathy by self-palpation PULMONARY: breathing comfortably on room air , coughing, and no wheezing noted ASSESSMENT/PLAN (U07.1) Positive self-administered antigen test for COVID-19 (primary encounter diagnosis) (R05.1) Acute cough Discussed COVID-19 symptom management, contagiousness, quarantine guidelines, along with Red Flag symptoms that would warrant in person exam if arise. Patient is a candidate for oral antiviral Molnupiravir. Discussed risks vs benefits, along with providing the fact sheet for patient to review. After receiving all of the information the patient has decided to start this medication - Discussed symptom monitoring and supportive care - Red flag symptoms requiring follow up discussed Molnupiravir Eligibility and Patient Discussion [facility] Formulary Restriction Criteria: Adult outpatients 18 years and older with ALL of the following: [x] Patient has symptoms for 5 days or less [x] Not requiring hospitalization at any time for management of COVID-19 [x] Not requiring supplemental oxygen or a change in baseline supplemental oxygen [x] Not utilized for pre-exposure or post-exposure prophylaxis for prevention of COVID-19 [x] Patient is not or lactating [x] Meeting at least one of the criteria for high risk of progression to severe COVID-19: [] Age over 65 years [] Cancer [] Chronic kidney disease [] Chronic liver disease [] Chronic lung diseases, including cystic fibrosis [] Dementia or other neurological conditions [] Diabetes (type 1 or type 2) [] Disabilities, including Down syndrome and neurodevelopmental disorders [] Heart conditions [] HIV infection [x] Immunocompromised state [] Mental health conditions [] Medical related technological dependence (tracheostomy, gastrostomy, or positive pressure ventilation (not related to COVID) [x] Overweight and obesity (BMI greater or equal to 25 for adults) [] Physical inactivity [] Sickle cell disease or thalassemia [] Smoking, current or former [] Solid organ or blood stem cell transplant [] Stroke or cerebrovascular disease [] Substance use disorders [] Tuberculosis [] People from racial and ethnic minority groups Criteria above are met: Yes Date of Symptom Onset: 01/03/23 Patient received COVID vaccine: Yes / status reviewed: Females: [x] Patient is not currently and there is no possibility the patient could be (select one of the following): [] test does not need to be confirmed in patients who have undergone permanent sterilization, are currently using an intrauterine system or contraceptive implant, or in whom is not possible. [] Patients not meeting conditions above: assess whether the patient is based on the first day of the last menstrual period in individuals who have regular menstrual cycles, is using reliable method of contraception correctly and consistently or have had a negative test [] A test is recommended if the individual has irregular menstrual cycles, is unsure of the first day of the last menstrual period or is not using effective contraception correctly and consistently [] Patient is not currently . is not (more content not included)... [facility] 02-06-2023 Instructions Mike Ramirez APRN.[facility] - 02/06/2023 5:26 PM EDT Fact Sheet for Patients And Caregivers Emergency Use Authorization (EUA) Of LAGEVRIO (molnupiravir) capsules For Coronavirus Disease 2019 (COVID-19) What is the most important information I should know about LAGEVRIO? LAGEVRIO may cause serious side effects, including: LAGEVRIO may cause harm to your unborn baby. It is not known if LAGEVRIO will harm your baby if you take LAGEVRIO during . LAGEVRIO is not recommended for use in . LAGEVRIO has not been studied in . LAGEVRIO was studied in animals only. When LAGEVRIO was given to animals, LAGEVRIO caused harm to their unborn babies. You and your healthcare provider may decide that you should take LAGEVRIO during if there are no other COVID-19 treatment options approved or authorized by the FDA that are accessible or clinically appropriate for you. If you and your healthcare provider decide that you should take LAGEVRIO during , you and your healthcare provider should discuss the known and potential benefits and the potential risks of taking LAGEVRIO during . For individuals who are able to become : You should use a reliable method of control (contraception) consistently and correctly during treatment with LAGEVRIO and for 4 days after the last dose of LAGEVRIO. Talk to your healthcare provider about reliable control methods. Before starting treatment with LAGEVRIO your healthcare provider may do a test to see if you are before starting treatment with LAGEVRIO. Tell your healthcare provider right away if you become or think you may be during treatment with LAGEVRIO. Registry: There is a registry for individuals who take LAGEVRIO during . The purpose of this program is to collect information about the health of you and your baby. If you are or become during treatment with LAGEVRIO, you are encouraged to report your use of LAGEVRIO during to this registry at https://[email or web address]-pr.Telunjuk.Dubaki or . For individuals who are sexually active with partners who are able to become : It is not known if LAGEVRIO can affect sperm. While the risk is regarded as low, animal studies to fully assess the potential for LAGEVRIO to affect the babies of males treated with LAGEVRIO have not been completed. A reliable method of control (contraception) should be used consistently and correctly during treatment with LAGEVRIO and for at least 3 months after the last dose. The risk to sperm beyond 3 months is not known. Studies to understand the risk to sperm beyond 3 months are ongoing. Talk to your healthcare provider about reliable control methods. Talk to your healthcare provider if you have questions or concerns about how LAGEVRIO may affect sperm. You are being given this fact sheet because your healthcare provider believes it is necessary to provide you with LAGEVRIO for the treatment of adults with a current diagnosis of mild-tomoderate coronavirus disease 2019 (COVID-19) who are at high risk for progression to severe COVID-19, including hospitalization or , and for whom other COVID-19 treatment options approved or authorized by the FDA are not accessible or clinically appropriate. The [place]. Food and Drug Administration (FDA) has issued an Emergency Use Authorization (EUA) to make LAGEVRIO available during the COVID-19 pandemic (for more details about an EUA please see What is an Emergency Use Authorization? at the end of this document). LAGEVRIO is not an FDA-approved medicine in the [place]. Read this Fact Sheet for information about LAGEVRIO. Talk to your healthcare provider about your options if you have any questions. It is your choice to take LAGEVRIO. What is COVID-19? COVID-19 is caused by a virus called a coronavirus. You can get COVID-19 through close contact with another person who has the virus. COVID-19 illnesses have ranged from very jwmk-ni-pzxkes, including illness resulting in . While information so far suggests that most COVID-19 illness is mild, serious illness can happen and may cause some of your other medical conditions to become worse. Older people and people of all ages with severe, long lasting (chronic) medical conditions like heart disease, lung disease and diabetes, for example seem to be at higher risk of being hospitalized for COVID-19. What is LAGEVRIO? LAGEVRIO is an investigational medicine used to treat adults with a current diagnosis of mild to moderate COVID-19: who are at high risk for progression to severe COVID-19 including hospitalization or , and for whom other COVID-19 treatment options approved or authorized by the FDA are not accessible or clinically appropriate. The FDA has authorized the emergency use of LAGEVRIO for the treatment of mild-tomoderate COVID-19 in adults under an EUA. For more information on EUA, see the What is an Emergency Use Authorization (EUA)? section at the end of this Fact Sheet. LAGEVRIO is not authorized: for use in people less than 18 years of age. for prevention of COVID-19. for people needing hospitalization for COVID-19. for use for longer than 5 consecutive days. What should I tell my healthcare provider before I take LAGEVRIO? Tell your healthcare provider if you: have any allergies are or plan to breastfeed have any serious illnesses Take any medicines including prescription, ejwt-dgx-kiahqri medicines, vitamins, and herbal products. How do I take LAGEVRIO? Take LAGEVRIO exactly as your healthcare provider tells you to take it. Take 4 capsules of LAGEVRIO every 12 hours (for example, at 8 am and at 8 pm) Take LAGEVRIO for 5 days. It is important that you complete the full 5 days of treatment with LAGEVRIO. Do not stop taking LAGEVRIO before you complete the full 5 days of treatment, even if you feel better. Take LAGEVRIO with or without food. You should stay in isolation for as long as your healthcare provider tells you to. Talk to your healthcare provider if you are not sure about how to properly isolate while you have COVID-19. Swallow LAGEVRIO capsules whole. Do not open, break, or crush the capsules. If you cannot swallow capsules whole, tell your healthcare provider. If your healthcare provider prescribes LAGEVRIO and tells you to take or give a dose through a nasogastric (NG) or orogastric (OG) tube, follow the instructions below: How to take or give a dose of LAGEVRIO through a nasogastric (NG) or orogastric (OG) feeding tube. You must have an NG or OG that is size 12 Korean (FR) or larger. If you miss a dose of LAGEVRIO: If it has been less than 10 hours since the missed dose, take it as soon as you remember. If it has been more than 10 hours since the missed dose, skip the missed dose and take your dose at the next scheduled time. Do not double the dose of LAGEVRIO to make up for a missed dose. How to take or give a dose of LAGEVRIO through a nasogastric (NG) or orogastric (OG) feeding tube: Wash your hands well with soap and water. Gather the supplies you will need to take or give the prescribed dose of LAGEVRIO. 4 LAGEVRIO capsules 1 liquid measuring cup with mL markings to measure 40 mL of room temperature water 1 clean container with a lid 1 catheter tip syringe. Your healthcare provider should tell you what size catheter tip syringe you will need to take or give a dose of LAGEVRIO. Place the needed supplies on a clean work surface. Follow your healthcare provider s instructions on how to flush the NG or OG feeding tube. Flush the NG or OG feeding tube with 5 mL of water before taking or giving a dose of LAGEVRIO. Carefully open 4 LAGEVRIO capsules, one at a time, and empty the contents into a clean container. Use the liquid measuring cup to measure 40 mL of room temperature water and add to the container containing the capsule contents. Place the lid on the container. Shake to mix the capsule contents and water well for 3 minutes. The capsule contents may not dissolve completely. Remove the lid from the container and draw up all the LAGEVRIO and water mixture into a catheter tip syringe. Give all of the mixture right away through the NG or OG feeding tube. Do not keep the mixture for future use. If any capsule contents are left in the container: Add 10 mL of water to the container, and mix to loosen any capsule contents that are left in the container. Use the catheter tip syringe to draw up all of the mixture in the container. Give the mixture through the NG or OG feeding tube. Repeat this process as needed until you no longer see any capsule contents left in the container or catheter tip syringe. Use the same catheter tip syringe to flush the NG or OG feeding tube 2 times with 5 mL of water (10mL total). Rinse the container, lid and catheter tip syringe well with clean water after use. Place on a clean paper towel until next use. What are the important possible side effects of LAGEVRIO? See, What is the most important information I should know about LAGEVRIO? Allergic Reactions. Allergic reactions can happen in people taking LAGEVRIO, even after only 1 dose. Stop taking LAGEVRIO and call your healthcare provider right away if you get any of the following symptoms of an allergic reaction: hives rapid heartbeat trouble swallowing or breathing swelling of the mouth, lips, or face throat tightness hoarseness skin rash The most common side effects of LAGEVRIO are: diarrhea nausea dizziness These are not all the possible side effects of LAGEVRIO. Not many people have taken LAGEVRIO. Serious and unexpected side effects may happen. This medicine is still being studied, so it is possible that all of the risks are not known at this time. What other treatment choices are there? Veklury (remdesivir) is FDA-approved as an intravenous (IV) infusion for the treatment of mildto-moderate COVID-19 in certain adults and children. Talk with your doctor to see if Veklury is appropriate for you. Like LAGEVRIO, FDA may also allow for the emergency use of other medicines to treat people with COVID-19. Go to https://www.fda.gov/emergency-pre ljxcspbcy-ity-tciervfz/mcm-legalr gmfpngsvl-dnq-kotnlc-framework/em ogusedz-ozb-hvgvnfryyjvmz for more information. It is your choice to be treated or not to be treated with LAGEVRIO. Should you decide not to take it, it will not change your standard medical care. What if I am ? is not recommended during treatment with LAGEVRIO and for 4 days after the last dose of LAGEVRIO. If you are or plan to breastfeed, talk to your healthcare provider about your options and specific situation before taking LAGEVRIO. How do I report side effects with LAGEVRIO? Contact your healthcare provider if you have any side effects that bother you or do not go away. Report side effects to FDA MedWatch at www.fda.gov/medwatch or call 6-818-PQT-9920 (1448.688.7217). How should I store LAGEVRIO? Store LAGEVRIO capsules at room temperature between 68 F to 77 F (20 C to 25 C). Keep LAGEVRIO and all medicines out of the reach of children. How can I learn more about COVID-19? Ask your healthcare provider. Visit www.cdc.gov/COVID19 Contact your local or state public health department. Call [employer] at (toll free in the [place] Visit www.[employer] What Is an Emergency Use Authorization (EUA)? The [place] FDA has made LAGEVRIO available under an emergency access mechanism called an Emergency Use Authorization (EUA) The EUA is supported by a Regenerator Operator of Health and Human Service (HHS) declaration that circumstances exist to justify emergency use of drugs and biological products during the COVID-19 pandemic. LAGEVRIO for the treatment of adults with a current diagnosis of hxpy-bg-amxqvetp COVID-19 who are at high risk for progression to severe COVID-19, including hospitalization or , and for whom alternative COVID-19 treatment options approved or authorized by FDA are not accessible or clinically appropriate, has not undergone the same type of review as an FDAapproved product. In issuing an EUA under the COVID-19 public health emergency, the FDA has determined, among other things, that based on the total amount of scientific evidence available including data from adequate and well-controlled clinical trials, if available, it is reasonable to believe that the product may be effective for diagnosing, treating, or preventing COVID-19, or a serious or life-threatening disease or condition caused by COVID-19; that the known and potential benefits of the product, when used to diagnose, treat, or prevent such disease or condition, outweigh the known and potential risks of such product; and that there are no adequate, approved, and available alternatives. All of these criteria must be met to allow for the product to be used in the treatment of patients during the COVID-19 pandemic. The EUA for LAGEVRIO is in effect for the duration of the COVID-19 declaration justifying emergency use of LAGEVRIO, unless terminated or revoked (after which LAGEVRIO may no longer be used under the EUA). Elie. for: [employer] [address] For patent information: www.eTutor/research/patent Copyright [employer] [place], [place], [place] and its affiliates. All rights reserved. [id number] Revised: December 2022 documented in this encounter [facility] 02-06-2023 History of Present illness Narrative Telemedicine Evaluation for COVID-19 Infection Alternative video platform was used for evaluation of this patient. I have communicated my name and active licensure. The patient's identity and physical location were verified at the time of this visit. Either the patient or their legal union contract representative has been informed of the risks and benefits of -- and alternatives to -- treatment through a remote evaluation and consents to proceed with the evaluation remotely. LYNDA Bethea is a 52 year old female who presents with 3 days of symptoms that are worsening. Took COVID x2 that resulted positive. Unknown exposure but is covid vaccinated. Symptoms include: Fever (?100.4F): Yes, 100.1 or Chills: Yes Cough: Yes Shortness of breath: Yes or Difficulty breathing: No Fatigue: Yes Muscle aches: No Headache: Yes New loss of smell or taste: Yes, taste Sore throat: Yes Nasal congestion: No or Rhinorrhea: Yes Nausea: No or Vomiting: No Diarrhea: No OTC meds/remedies that patient has tried: OTC cough syrup. High risk category assessment On immunosuppressive therapy Morbid Obesity (BMI>40) Exposures: Sick contacts? No Family or close contacts with confirmed/probable COVID-19 in last 14 days? No OBJECTIVE VIDEO EXAM GENERAL: well appearing, alert, in no acute distress HEENT: no conjunctival injection, pupils equal, moist mucous membranes, oropharynx clear without erythema, sinuses non-tender to self-palpation, and no cervical adenopathy by self-palpation PULMONARY: breathing comfortably on room air , coughing, and no wheezing noted ASSESSMENT/PLAN (U07.1) Positive self-administered antigen test for COVID-19 (primary encounter diagnosis) (R05.1) Acute cough Discussed COVID-19 symptom management, contagiousness, quarantine guidelines, along with Red Flag symptoms that would warrant in person exam if arise. Patient is a candidate for oral antiviral Molnupiravir. Discussed risks vs benefits, along with providing the fact sheet for patient to review. After receiving all of the information the patient has decided to start this medication - Discussed symptom monitoring and supportive care - Red flag symptoms requiring follow up discussed Molnupiravir Eligibility and Patient Discussion [facility] Formulary Restriction Criteria: Adult outpatients 18 years and older with ALL of the following: [x] Patient has symptoms for 5 days or less [x] Not requiring hospitalization at any time for management of COVID-19 [x] Not requiring supplemental oxygen or a change in baseline supplemental oxygen [x] Not utilized for pre-exposure or post-exposure prophylaxis for prevention of COVID-19 [x] Patient is not or lactating [x] Meeting at least one of the criteria for high risk of progression to severe COVID-19: [] Age over 65 years [] Cancer [] Chronic kidney disease [] Chronic liver disease [] Chronic lung diseases, including cystic fibrosis [] Dementia or other neurological conditions [] Diabetes (type 1 or type 2) [] Disabilities, including Down syndrome and neurodevelopmental disorders [] Heart conditions [] HIV infection [x] Immunocompromised state [] Mental health conditions [] Medical related technological dependence (tracheostomy, gastrostomy, or positive pressure ventilation (not related to COVID) [x] Overweight and obesity (BMI greater or equal to 25 for adults) [] Physical inactivity [] Sickle cell disease or thalassemia [] Smoking, current or former [] Solid organ or blood stem cell transplant [] Stroke or cerebrovascular disease [] Substance use disorders [] Tuberculosis [] People from racial and ethnic minority groups Criteria above are met: Yes Date of Symptom Onset: 01/03/23 Patient received COVID vaccine: Yes / status reviewed: Females: [x] Patient is not currently and there is no possibility the patient could be (select one of the following): [] test does not need to be confirmed in patients who have undergone permanent sterilization, are currently using an intrauterine system or contraceptive implant, or in whom is not possible. [] Patients not meeting conditions above: assess whether the patient is based on the first day of the last menstrual period in individuals who have regular menstrual cycles, is using reliable method of contraception correctly and consistently or have had a negative test [] A test is recommended if the individual has irregular menstrual cycles, is unsure of the first day of the last menstrual period or is not using effective contraception correctly and consistently [] Patient is not currently . is not recommended during treatment and for four days after final dose of molnupiravir. [] Females have been advised to use a reliable method of contraception correctly and consistently for the duration of treatment and for four days after the last dose of molnupiravir Males: [] Sexually active male with partner(s) of childbearing potential has been advised to use a reliable method of contraception correctly and consistently for intercourse for the duration of treatment and for three months after the last dose of molnupiravir I have discussed the use of the investigational therapeutic, molnupiravir, for the treatment of mild to moderate COVID-19 and its use under Emergency Use Authorization with the patient. The patient was informed that molnupiravir is not an FDA approved drug and that it is authorized for use under this Emergency Use Authorization. The patient was also informed of the significant known benefits and potential risks of molnupiravir, and the extent to which such potential risks and benefits are unknown. The patient was informed that there is mandatory reporting of all medication errors and serious adverse events potentially related to molnupiravir treatment within 7 calendar days from the onset of the event and that events up to 28 days after completion of therapy need to be reported. The discussion included alternatives to receiving molnupiravir, including clinical trials, and potential the risks and benefits of those alternatives. The patient was provided electronically with the Fact Sheet for Patients, Parents and Caregivers . The patient was also instructed that in addition to the treatment with molnupiravir, he/she should continue to self-isolate and use infection control measures (e.g., wear mask, isolate, social distance, avoid sharing personal items, clean and disinfect high touch surfaces, and frequent handwashing) according to CDC guidelines. The patient stated understanding and gave verbal consent to proceeding with molnupiravir treatment. Mike Ramirez APRN.CNP February 06, 2023 5:27 PM This patient encounter involved the screening or treatment of novel coronavirus infection (COVID-19). documented in this encounter [facility] 10-31-2022 Miscellaneous Notes OK to refill as ordered Sweetie Feng MD Last office visit: 02/22/22 F/u scheduled: none Catrachita Cobos Ma documented in this encounter [facility] 07-20-2022 Miscellaneous Notes The following approved medication requests have been transmitted electronically. Requested Prescriptions Pending Prescriptions Disp Refills levothyroxine (SYNTHROID) 200 mcg tablet 30 tablet 11 Sig: Take 1 tablet by mouth once daily. Take on empty stomach. For Thyroid. David Shaikh APRN.CNP Patient phones requesting refills as follows: Requested Prescriptions Pending Prescriptions Disp Refills levothyroxine (SYNTHROID) 200 mcg tablet 30 tablet 11 Sig: Take 1 tablet by mouth once daily. Take on empty stomach. For Thyroid. EILJAH-11/16/21 Labs-10/31/21 NOV-none med filled 07/13/21 Please review and advise. Melodie Gross LPN documented in this encounter [facility] 03-02-2022 Miscellaneous Notes The following approved medication requests have been transmitted electronically. Pending Prescriptions Disp Refills NABUMETONE 500 MG TABLET 60 tablet 6 Sig: take 1 tablet by mouth twice a day with food IGOR: Yes David Shaikh APRN.CHINO documented in this encounter [facility] 02-22-2022 History of Present illness Narrative Chief Complaint Patient presents with: Cough In lieu of an in person visit due to coronavirus 19 pandemic concerns, a virtual visit was performed with patient. Patient is aware that I am not fully able to assess symptoms and do a full physical exam including vital signs at this time. Patient consents to the visit. HPI Rene Bethea is a 51 year old female who presents here today for Above Complaints.. Patient c/o 3 days of dry cough, chest congestion, wheezing, sore throat, sneezing, and fatigue. Admits to fever 100.7 yesterday, chest pain with cough. Has been using albuterol PRN which does improve her wheezing. Also taking cough drops and has increased PO fluid intake. Denies nasal congestion, rhinorrhea, myalgias, headache, new loss of taste/smell, vomiting/diarrhea. Symptoms unchanged in the last 3 days. Did 2 rapid COVID tests in the last 3 days which were reportedly negative. No recent sick contacts or COVID exposure in the last 2 weeks. Has been off of work since Sunday. Past medical history, appointments, medications, allergies reviewed. Previous Medical History PAST MEDICAL HISTORY Diagnosis Date Depression Esophageal reflux Gastroesophageal reflux Mixed hyperlipidemia Hyperlipidemia Morbid obesity (HCC) Obstructive sleep apnea Sleep apnea Uses C-pap Unspecified hypothyroidism Hypothyroidism Previous Surgical History PAST SURGICAL HISTORY Procedure Laterality Date ARTHROSCOPY KNEE DIAGNOSTIC W/WO SYNOVIAL BX SPX 2003 Arthroscopy, knee, left times 2 ARTHROSCOPY KNEE DIAGNOSTIC W/WO SYNOVIAL BX SPX 2009 Arthroscopy, knee right ARTHRS KNE SURG W/MENISCECTOMY MED/LAT W/SHVG 07/29/2014 Right knee arthroscopic medial meniscectomy, PF chondroplasty and removal of loose body COLONOSCOPY W/BIOPSY SINGLE/MULTIPLE 03/06/14 EGD TRANSORAL BIOPSY SINGLE/MULTIPLE 03/06/14 LAMINECTOMY W/O FFD 11/06 VERT SEG LUMBAR 1999 Laminectomy, lumbar PAST SURGICAL HISTORY OF BTL PAST SURGICAL HISTORY OF remote laparoscopy THYROIDECTOMY TOTAL/COMPLETE 1993 Subtotal -for goiter TOTAL ABDOMINAL HYSTERECT W/WO RMVL TUBE OVARY 2002 Hysterectomy, OSWALD; 1 ovary left in Family History FAMILY HISTORY Problem Relation Age of Onset Cancer Mother non hodgkins lymphoma, reticular sarcoma Stroke Father other (afib) Father Diabetes Maternal Grandmother other (a-fib) Sister Patient Allergies ALLERGIES Allergen Reactions Bactrim [Sulfametho* Diarrhea Diclofenac Diarrhea severe Dioxyline Phosphate Diarrhea Doxycycline Vomiting Levofloxacin Other: See Comments Tramadol Other: See Comments, Swelling Patient reported to ER on 02/06/18 after taking tramadol. Pt. presented with swollen lips after taking this medication. Zpak [Other] Itching, Shortness of Breath Current Medications Current Outpatient Medications on File Prior to Visit Medication Sig cholecalciferol, Vitamin D3, (VITAMIN D3) 1,250 mcg (50,000 unit) cap capsule Take 1 capsule by mouth one time a week. albuterol HFA (PROVENTIL HFA, VENTOLIN HFA) 90 mcg/actuation inhaler Inhale 1-2 Puffs as instructed four times daily as needed. FOR WHEEZING AND SHORTNESS OF BREATH. predniSONE (DELTASONE) 10 mg tablet Take 2 tablets by mouth once daily. rOPINIRole (REQUIP) 1 mg tablet Take 1 tablet by mouth daily at bedtime. levothyroxine (SYNTHROID) 200 mcg tablet Take 1 tablet by mouth once daily. Take on empty stomach. For Thyroid. Blood Pressure Test Kit-Wrist kit 1 Each once daily. CPAP CPAP 11 cmH2O, suitable mask, tubing, humidifier, filters. Lifetime supplies. Dx: G47.33 - Obstructive sleep apnea CPAP CPAP 11 cmH2O, suitable mask, tubing, humidifier, filters. Lifetime supplies. Dx: 327.23 - Obstructive sleep apnea No current facility-administered medications on file prior to visit. Social History Social History Tobacco Use Smoking status: Former Smoker Packs/day: 1.00 Years: 30.00 Pack years: 30.00 Types: Cigarettes Quit date: 10/22/2012 Years since quittin.3 Smokeless tobacco: Former User Tobacco comment: quit 2011. Substance Use Topics Alcohol use: No Drug use: No Review of Symptoms REVIEW OF SYSTEMS See HPI EXAM: BP 125/74 Temp 36.5 C (97.7 F) SpO2 94% General Appearance: Ill appearing, non toxic, able to talk in complete sentences without SOB. Skin: Skin color, texture, turgor normal, no suspicious rashes or lesions. Nose/Sinuses: No reported sinus TTP. Neck: No reported lymphadenopathy. Lungs: No audible wheezing appreciated. Frequent dry cough. . Health Maintenance List HEPATITIS C SCREENING Never done HIV SCREENING Never done COLORECTAL CANCER SCREENING due on 2015 SHINGRIX VACCINE(1 of 2) Never done MAMMOGRAM due on 09/26/2020 COVID-19 VACCINE(3 - Booster for Pfizer series) due on 02/03/2022 ANNUAL PCP TEAM CHRONIC DISEASE VISIT due on 11/16/2022 DTAP,TDAP,TD(2 - Td or Tdap) due on 09/01/2024 DIABETES SCREEN due on 10/31/2024 LIPID SCREEN due on 10/31/2026 INFLUENZA Completed MENINGOCOCCAL CONJUGATE Aged Out PAP TESTING Discontinued HPV TESTING Discontinued ASSESSMENT/PLAN: 1. Viral bronchitis - ICD9: 466.0, ICD10: J20.8 (primary diagnosis) Continue albuterol inhaler for wheezing. Will add tessalon for cough. Continue to monitor SpO2 and call if <92% or go to the ED with sudden chest pain, SOB, wheezing uncontrolled with albuterol PRN. - BENZONATATE 100 MG CAPSULE 2. Viral URI with cough - ICD9: 465.9, ICD10: J06.9 - Discussed viral etiology and rationale for treatment. - Symptomatic treatment with prn analgesia - Supportive care with fluids and rest - The patient may also use OTC cough and cold meds as needed. I spent a total of 20 minutes on the date of the service which included preparing to see the patient, cjbm-kd-cpqa patient care, completing clinical documentation, obtaining and/or reviewing separately obtained history, performing a medically appropriate examination, counseling and educating the patient/family/caregiver and ordering medications, tests, or procedures. Ricardo Michaud MD documented in this encounter [facility] 01-30-2022 Miscellaneous Notes OK to refill as ordered Sweetie Feng MD Patient phones requesting refills as follows: Pending Prescriptions Disp Refills ALBUTEROL SULFATE HFA 90 MCG/ACTUATION AEROSOL INHALER 1 g 0 Sig: Inhale 1-2 Puffs as instructed four times daily as needed. FOR WHEEZING AND SHORTNESS OF BREATH. IGOR: No ELIJAH-11/16/21 Labs-10/31/21 NOV-none med filled 05/13/20 Please review and advise. Melodie Gross LPN documented in this encounter [facility] 01-30-2022 Miscellaneous Notes OK to refill as ordered Sweetie Feng MD Patient phones requesting refills as follows: Pending Prescriptions Disp Refills CHOLECALCIFEROL (VITAMIN D3) 1,250 MCG (50,000 UNIT) CAPSULE 4 capsule 5 Sig: Take 1 capsule by mouth one time a week. IGOR: No ELIJAH-11/16/21 Labs-10/31/21 NOV-none med filled 07/13/21 Please review and advise. Melodie Gross LPN documented in this encounter [facility] 09-14-2021 Hospital Discharge instructions Patient Education 09/14/2021 04:23:59 Wrist Sprain Wrist Sprain A sprain is an injury to the ligaments or capsule that holds a joint together. There are no broken bones. Most sprains take about 3 to 6 weeks to heal. If it a severe sprain where the ligament is completely torn, it can take months to recover. Most wrist sprains are treated with a splint, wrist brace, or elastic wrap for support. Severe sprains may require surgery. Home care Keep your arm elevated to reduce pain and swelling. This is very important during the first 48 hours. Apply an ice pack over the injured area for 15 to 20 minutes every 3 to 6 hours. You should do this for the first 24 to 48 hours. You can make an ice pack by filling a plastic bag that seals at the top with ice cubes and then wrapping it with a thin towel. Continue to use ice packs for relief of pain and swelling as needed. As the ice melts, be careful to avoid getting your wrap, splint, or cast wet. After 48 hours, apply heat (warm shower or warm bath) for 15 to 20 minutes several times a day, or alternate ice and heat. You may use [id number]-ylnbkfx pain medicine to control pain, unless another pain medicine was prescribed. If you have chronic liver or kidney disease or ever had a stomach ulcer or gastrointestinal bleeding, talk with your doctor before using these medicines. If you were given a splint or brace, wear it for the time advised by your doctor. Follow-up care Follow up with your healthcare provider, or as advised. Any X-rays you had today don t show any broken bones, breaks, or fractures. Sometimes fractures don t show up on the first X-ray. Bruises and sprains can sometimes hurt as much as a fracture. These injuries can take time to heal completely. If your symptoms don t improve or they get worse, talk with your doctor. You may need a repeat X-ray. If X-rays were taken, you will be told of any new findings that may affect your care. When to seek medical advice Call your healthcare provider right away if any of these occur: Pain or swelling increases Fingers or hand becomes cold, blue, numb, or tingly [id number] [employer]. [address] [place] [address], [place] [address]. All rights reserved. This information is not intended as a substitute for professional medical care. Always follow your healthcare professional's instructions. 09/14/2021 04:23:52 Shoulder Contusion Shoulder Contusion You have a shoulder injury called a contusion. This causes pain, swelling, and sometimes bruising on the skin. You don t have any broken bones. This injury will take from a few days to several weeks to heal, depending on how severe it is. Moderate to severe shoulder contusions are treated with a sling or shoulder immobilizer. Minor contusions can be treated without any special support. Home care Follow these tips when caring for yourself at home: If you were given a sling to use, leave it in place for the time advised by your healthcare provider. If you aren t sure how long to wear it, ask for advice. If the sling becomes loose, adjust it so that your forearm is level with the ground. Your shoulder should feel well supported. Put an ice pack on the injured area for 20 minutes every 1 to 2 hours the first day. You can make your own ice pack by putting ice cubes in a plastic bag. Wrap the bag in a thin towel. Continue with ice packs 3 to 4 times a day for the next 2 days. Then use the pack as needed to ease pain and swelling. You may use acetaminophen or ibuprofen to control pain, unless another pain medicine was prescribed. If you have chronic liver or kidney disease, talk with your healthcare provider before using these medicines. Also talk with your provider if you ve ever had a stomach ulcer or GI bleeding. Shoulder and elbow joints become stiff if left in a sling for too long. You should start range of motion exercises about 7 to 10 days after the injury. Talk with your provider to find out what type of exercises to do and how soon to start. Unless your provider told you otherwise, you can take the sling off to shower or bathe. Follow-up care Follow up with your healthcare provider if you don t start getting better in the next 5 days. When to seek medical advice Call your healthcare provider right away if any of these occur: Pain or swelling gets worse or continues for more than a few days Large amount of bruising on your shoulder or upper arm Your hand or fingers become cold, blue, numb, or tingly Difficulty moving your hand or fingers Weakness in your hand or fingers Your shoulder becomes stiff Your shoulder feels like it is popping out You aren t able to do your daily activities [phone] [employer]. [address] [place] [address]. All rights reserved. This information is not intended as a substitute for professional medical care. Always follow your healthcare professional's instructions. Follow Up Care 09/14/2021 03:41:18 With:SCOOBY VERA MD Address: [phone] When:2-4 days With:SWEETIE FENG MD Address: [address] [place] [address]- When:2-4 days [facility] Evaluation + Plan note No data available for this section [facility] documented in this encounter [facility] note* Diagnosis Viral bronchitis- Primary Acute bronchitis Viral URI with cough Acute upper respiratory infections of unspecified site documented in this encounter [facility] note* Diagnosis Myalgia Mylagia and myositis, unspecified documented in this encounter [facility] note* Diagnosis Encounter for screening mammogram for breast cancer documented in this encounter [facility] note* Diagnosis Hypothyroidism, unspecified type documented in this encounter [facility] note* Diagnosis Restless legs Restless legs syndrome (RLS) documented in this encounter [facility] note* Diagnosis Positive self-administered antigen test for COVID-19- Primary Acute cough documented in this encounter [facility] note* Diagnosis Morbid obesity (HCC)- Primary Morbid obesity documented in this encounter [facility] note* Diagnosis Encounter for screening mammogram for breast cancer documented in this encounter [facility] note* Diagnosis Class 3 severe obesity with body mass index (BMI) of 60.0 to 69.9 in adult, unspecified obesity type, unspecified whether serious comorbidity present (HCC)- Primary documented in this encounter [facility] note* Diagnosis Class 3 severe obesity with body mass index (BMI) of 60.0 to 69.9 in adult, unspecified obesity type, unspecified whether serious comorbidity present (HCC)- Primary Atrial fibrillation, unspecified type (HCC) NORBERT (obstructive sleep apnea) Obstructive sleep apnea (adult) (pediatric) documented in this encounter [facility] note* Diagnosis Vitamin D deficiency- Primary Unspecified vitamin D deficiency documented in this encounter [facility] note* Diagnosis Wellness examination- Primary Hypothyroid obesity Unspecified hypothyroidism Leg pain, left Pain in limb Atrial fibrillation, unspecified type (HCC) Encounter for immunization Need for other specified prophylactic vaccination against single bacterial disease Screening for colon cancer Special screening for malignant neoplasms, colon [facility]* Diagnosis Class 3 severe obesity with serious comorbidity and body mass index (BMI) of 60.0 to 69.9 in adult, unspecified obesity type (HCC)- Primary NAFLD (nonalcoholic fatty liver disease) Other chronic nonalcoholic liver disease NORBERT (obstructive sleep apnea) Obstructive sleep apnea (adult) (pediatric) Atrial fibrillation, unspecified type (HCC) Rheumatoid arteritis (HCC) Other specified disorders of arteries and arterioles Hyperlipidemia, unspecified hyperlipidemia type [facility]* Diagnosis Claustrophobia- Primary Other isolated or specific phobias Acute anxiety Anxiety state, unspecified [facility]* Diagnosis NORBERT (obstructive sleep apnea)- Primary Obstructive sleep apnea (adult) (pediatric) Morbid obesity (HCC) Morbid obesity Past use of tobacco Personal history of tobacco use, presenting hazards to health Paroxysmal atrial fibrillation (HCC) Atrial fibrillation Hypothyroidism, unspecified type RLS (restless legs syndrome) Restless legs syndrome (RLS) Insufficient sleep syndrome Persistent disorder of initiating or maintaining wakefulness [facility]* Diagnosis Dietary counseling and surveillance- Primary Dietary surveillance and counseling [facility]* Diagnosis Morbid obesity (HCC) Morbid obesity Past use of tobacco Personal history of tobacco use, presenting hazards to health Paroxysmal atrial fibrillation (HCC) Atrial fibrillation [facility]* Diagnosis Morbid obesity (HCC) Morbid obesity Past use of tobacco Personal history of tobacco use, presenting hazards to health Paroxysmal atrial fibrillation (HCC) Atrial fibrillation [facility]* Diagnosis Other specified disorders of kidney and ureter [facility]* Diagnosis Class 3 severe obesity with body mass index (BMI) of 60.0 to 69.9 in adult, unspecified obesity type, unspecified whether serious comorbidity present (HCC) [facility]* Diagnosis Acquired cyst of kidney- Primary [facility]* Diagnosis Eating disorder, unspecified type- Primary [facility] Diagnosis Acquired cyst of kidney [facility]* Diagnosis NORBERT (obstructive sleep apnea)- Primary Obstructive sleep apnea (adult) (pediatric) Morbid obesity (HCC) Morbid obesity documented in this encounter [facility] note* Diagnosis Kidney lesion- Primary Unspecified disorder of kidney and ureter documented in this encounter [facility] note* Diagnosis Dietary counseling and surveillance- Primary Dietary surveillance and counseling documented in this encounter [facility] note* Diagnosis Class 3 severe obesity with serious comorbidity and body mass index (BMI) of 60.0 to 69.9 in adult, unspecified obesity type (HCC) documented in this encounter [facility] note* Diagnosis Class 3 severe obesity due to excess calories with serious comorbidity and body mass index (BMI) of 50.0 to 59.9 in adult (HCC)- Primary NORBERT (obstructive sleep apnea) Obstructive sleep apnea (adult) (pediatric) Atrial fibrillation, unspecified type (HCC) Rheumatoid arteritis (HCC) Other specified disorders of arteries and arterioles documented in this encounter [facility] note* Diagnosis Hypothyroidism, unspecified type- Primary documented in this encounter [facility] note* Diagnosis Restless legs Restless legs syndrome (RLS) documented in this encounter [facility] note* Diagnosis Dietary counseling and surveillance- Primary Dietary surveillance and counseling NORBERT (obstructive sleep apnea) Obstructive sleep apnea (adult) (pediatric) Morbid obesity (HCC) Morbid obesity [facility] Diagnostic Procedure Only (Routine) - Pending Review Specialty Diagnoses / Procedures Referred By Anu maloney Referred To Contact [facility] Diagnoses Encounter for screening mammogram for breast cancer Procedures HAMLET SCREENING SCREENING MAMMOGRAPHY BI 2-VIEW BREAST INC Sweetie Collado MD [address] [place] [address] [facility] [address] [place] [id number] Referral ID Status Reason Start Date Expiration Date Visits Requested Visits Authorized [id number] Pending Review Auto-Generat ed Referral 05/03/2022 06/02/2023 1 [facility] Diagnostic Procedure Only (Routine) - Pending Review Specialty Diagnoses / Procedures Referred By Anu maloney Referred To Contact [facility] Diagnoses Encounter for screening mammogram for breast cancer Procedures HAMLET SCREENING SCREENING MAMMOGRAPHY BI 2-VIEW BREAST INC Sweetie Collado MD [address] [place] [address] [facility] [address] [place] [address] Referral ID Status Reason Start Date Expiration Date Visits Requested Visits Authorized [id number] Pending Review Auto-Generat ed Referral 04/04/2023 05/03/2024 1 1 [facility] for referral (narrative)* Diagnostic Procedure Only (Routine) - Authorized Specialty Diagnoses / Procedures Referred By Contac t Referred To Contact [facility] Diagnoses Class 3 severe obesity with body mass index (BMI) of 60.0 to 69.9 in adult, unspecified obesity type, unspecified whether serious comorbidity present (HCC) Procedures US ABD RIGHT UPPER QUADRANT US ABDOMINAL REAL TIME W/IMAGE LIMITED Dixon Campbell APRN.CNP [address] [place] [address] [place] [address] Referral ID Status Reason Start Date Expiration Date Visits Requested Visits Authorized [id number] Authorized Auto-Generat ed Referral 06/25/2023 07/24/2024 1 1 [facility] for referral (narrative)* Diagnostic Procedure Only (Routine) - Authorized Specialty Diagnoses / Procedures Referred By Contac t Referred To Contact XR IMAGING Diagnoses Class 3 severe obesity with serious comorbidity and body mass index (BMI) of 60.0 to 69.9 in adult, unspecified obesity type (HCC) Procedures XR UPPER GI ROUTINE DOUBLE CONTRAST/AIR RADIOLOGIC EXAM UPR GI TRC DOUBLE CONTRAST STUDY Karon Escamilla MD [address] [address] [place] [address] Referral ID Status Reason Start Date Expiration Date Visits Requested Visits Authorized [id number] Authorized Auto-Generat ed Referral 08/09/2023 09/07/2024 1 1 [facility] for referral (narrative)* Outpatient Procedure (Routine) - Pending Review Specialty Diagnoses / Procedures Referred By Contac t Referred To Contact [facility] Diagnoses Morbid obesity (HCC) Past use of tobacco Paroxysmal atrial fibrillation (HCC) Procedures LUNG VOLUMES Soha Shepherd DO [address] [place] [address] [address] [facility] [address] [address] Referral ID Status Reason Start Date Expiration Date Visits Requested Visits Authorized [id number] Pending Review Auto-Generat ed Referral 3 09/26/2024 1 1 * Outpatient Procedure (Routine) - Authorized Specialty Diagnoses / Procedures Referred By Contac t Referred To Contact [facility] [place] Diagnoses Morbid obesity (HCC) Past use of tobacco Paroxysmal atrial fibrillation (HCC) Procedures LUNG DIFFUSION CAPACITY (DLCO) DIFFUSING CAPACITY Soha Shepherd DO [address] [place] [id number] [address] [address] [address] Referral ID Status Reason Start Date Expiration Date Visits Requested Visits Authorized [id number] Authorized Auto-Generat ed Referral 3 09/26/2024 1 1 * Outpatient Procedure (Routine) - Authorized Specialty Diagnoses / Procedures Referred By Contac t Referred To [facility] [place] Diagnoses Morbid obesity (HCC) Past use of tobacco Paroxysmal atrial fibrillation (HCC) Procedures SPIROMETRY WITH DILATOR IF OBSTRUCTED BRNCDILAT RSPSE SPMTRY PRE&POST-BRNCDILAT ADMN Soha Shepherd DO [address] [place] [address] [address] [address] [address] Referral ID Status Reason Start Date Expiration Date Visits Requested Visits Authorized [id number] Authorized Auto-Generat ed Referral 3 09/26/2024 1 1 [facility] for referral (narrative)* Diagnostic Procedure Only (Routine) - Closed Specialty Diagnoses / Procedures Referred By Contac t Referred To Contact [facility] IMAG[facility] Diagnoses Class 3 severe obesity with body mass index (BMI) of 60.0 to 69.9 in adult, unspecified obesity type, unspecified whether serious comorbidity present (HCC) Procedures US ABD RIGHT UPPER QUADRANT US ABDOMINAL REAL TIME W/IMAGE LIMITED Dixon Campbell, PRICE ANALYST.SENIOR ORACLE [address] SQL DEVELOPER [address] [place] [address] [place] [address] Referral ID Status Reason Start Date Expiration Date V isits Requested Visits Authorized [id number] Closed Auto-Generate d Referral 06/25/2023 07/24/2024 1 1 [facility] for referral (narrative)* Diagnostic Procedure Only (Routine) - Closed Specialty Diagnoses / Procedures Referred By Contac t Referred To Contact XR IMAGING Diagnoses Class 3 severe obesity with serious comorbidity and body mass index (BMI) of 60.0 to 69.9 in adult, unspecified obesity type (HCC) Procedures XR UPPER GI ROUTINE DOUBLE CONTRAST/AIR RADIOLOGIC EXAM UPR GI TRC DOUBLE CONTRAST STUDY Karon Escamilla MD [address] [address] [place] [address] Referral ID Status Reason Start Date Expiration Date V isits Requested Visits Authorized [id number] Closed Auto-Generate d Referral 08/09/2023 09/07/2024 1 1 [facility] for visit Narrative* Diagnostic Procedure Only (Routine) - Closed Specialty Diagnoses / Procedures Referred By Contac t Referred To Contact [facility] Diagnoses Class 3 severe obesity with body mass index (BMI) of 60.0 to 69.9 in adult, unspecified obesity type, unspecified whether serious comorbidity present (HCC) Procedures US ABD RIGHT UPPER QUADRANT US ABDOMINAL REAL TIME W/IMAGE LIMITED Dixon Campbell, PRICE ANALYST.SENIOR ORACLE [address] SQL DEVELOPER [address] [place] [address] [place] [address] Referral ID Status Reason Start Date Expiration Date V isits Requested Visits Authorized [id number] Closed Auto-Generate d Referral 06/25/2023 07/24/2024 1 [facility] Diagnostic Procedure Only (Routine) - Closed Specialty Diagnoses / Procedures Referred By Anu maloney Referred To Contact XR IMAGING Diagnoses Class 3 severe obesity with serious comorbidity and body mass index (BMI) of 60.0 to 69.9 in adult, unspecified obesity type (HCC) Procedures XR UPPER GI ROUTINE DOUBLE CONTRAST/AIR RADIOLOGIC EXAM UPR GI TRC DOUBLE CONTRAST STUDY Karon Escamilla MD 1 [facility] [address] [place] [address] [place] [address] Referral ID Status Reason Start Date Expiration Date V isits Requested Visits Authorized [id number] Closed Auto-Generate d Referral 08/09/2023 09/07/2024 1 1 [facility] Discharge Instructions * Instructions* Melodie Casey RN - 07/04/2019 HOLD LISINOPRIL AND HYDROCHLOROTHIAZIDE DAY OF SURGERY MAY TAKE ALL OTHER MEDICATIONS PRESCRIBED BE SURE TO USE YOUR CPAP ARRIVE HOURS PRIOR TO SURGERY BE HERE AT Check in at registration using photo ID and insurance card Have a responsible adult with you that will be able to take you home and will be able to stay with you when you are home. If using public transportation a responsible adult must accompany you NO FOOD AFTER MIDNIGHT THE NIGHT BEFORE SURGERY This includes candy, gum, and mints MAY have CLEAR LIQUIDS (WATER, APPLE JUICE, CRANBERRY JUICE, BLACK COFFEE, CARBONATED POP) To drinkuntil arrival time for surgery Wear loose comfortable clean clothing that you can go home in Leave all jewelry and valuables at home No children under the age of 12 permitted Bring printed medication list with you Write the date and times of last dose DO NOT USE alcohol, recreational drugs or tobacco products for 24 hours before surgery Please write down any questions that you may have for your surgeon, anesthesiologist, Etc. documented in this encounter* Instructions* Stefano Jain, - 07/11/2019 DISCHARGE INSTRUCTIONS Thank you very much for allowing me to participate in your care, it is truly a privilege. Below please see discharge orders that will help you during your recovery. Please do not hesitate to call theoffice during the day at [phone] for any questions. After hours, the same number will allow you to reach the on-call surgeon. Leave steri strips in place after surgery. Any clear bandages and gauze placed in the navel, if applicable, can be removed in 5 days. If you have been provided with an abdominal binder, this is for your comfort. Please take this off in order to shower and use it as needed for your comfort. There is no designated time frame with which you should wear the binder. Do not lift anything that is 15-20 pounds or greater for 2 weeks from the date of your surgery. This is to prevent herniation at your incision sites. Activity restrictions will be addressed at the first post op visit. Please shower the day after surgery. Soap and water is adequate. Keep the incisions clean and dry. No lotions or ointments until you are seen in the office. Do not swim in a pool, go in a hot tub, orsoak in a bathtub for the first week after your surgery. Surgery can hurt! Please make every effort to take the pain medicine as instructed to help reduce your discomfort. I usually recommend that you take pain medicine when you wake up in the morning and before you go to sleep. Schedule the rest of the day in order to not interfere with medication dosages as prescribed. If you feel that the medicine is not working, please call the office. Make sure to take a stool softner such as Colace or Milk of Magnesia while you are taking pain medication. If you do not have a bowel movement within 2-3 days, switch to daily Miralax. If still no result - call the office. Should you have nausea after surgery you may have been prescribed nausea medication. Try taking themedicine and if you feel that the medicine is not working, please call the office. Should you be unable to urinate after ~12 hours after surgery - especially a inguinal hernia repair- please call the office or the answering line for instructions. For any emergencies, please dial 911. Thank you again for allowing me to participate in your care, and get well soon! Sincerely, Dr. Enrrique Marshall documented in this encounter Advance Directives No Advanced Directives Records FoundDocuments on File Type Date Recorded Patient Information Services Vice President Expl anation Advance Directives and Living Will Power of Ophthalmic Lens Inspector Latest Code Status on File Code Status Date Activated Date Inactivated Comments Full Code 07/11/2019 10:28 AM 07/11/2019 5:24 PM Latest Code Status on File Code Status Date Activated Date Inactivated Comments Full Code 07/11/2019 10:28 AM Summary Purpose Family History No Family History Records FoundNo Family History Records FoundNo Family History Records FoundNo Family History Records FoundNo Family History Records FoundNo Family History Records FoundNo Family History Records Found History of Present Illness * Debi Rodriguez RN - 07/11/2019 3:14 PM EDT Discharge information given to the patient. Patient and family verbalized understanding of information. All questions were answered before discharge. Patient ambulated, denies dizziness or nausea. Tolerating PO fluids and crackers. Vital signs are stable. Patient has changed and is being discharged home in a wheelchair with valuables. * Yamileth Wesley RN - 07/11/2019 2:35 PM EDT Instructed on incentive spirometer. Uses well with encouragement * Debi Rodriguez RN - 07/11/2019 12:45 PM EDT Patient arrived and ID verified. Vital signs stable. Call light in reach. documented in this encounter Assessments Diagnosis Biliary dyskinesia- Primary Other specified disorder of gallbladder Reason for Referral Specialty Diagnoses / Procedures Referred By Anu maloney Referred To Contact Nephrology Diagnoses Kidney lesion Procedures CONSULT TO NEPHROLOGY OFFICE/OUTPATIENT [facility] 60-74 MINUTES Dixon Campbell, PRICE ANALYST.SENIOR ORACLE [address] SQL DEVELOPER [address] [place] [address] Referral ID Status Reason Start Date Expiration Date Visits Requested Visits Authorized [id number] Authorized PCP Requested Referral 3 09/17/2024 1 1 Specialty Diagnoses / Procedures Referred By Conttori Referred To Contact CT IMAGING Diagnoses Acquired cyst of kidney Procedures CT KIDNEY WO/W IVCON CT ABDOMEN W & W/O CONTRAST Dixon Campbell, PRICE ANALYST.SENIOR ORACLE [address] SQL DEVELOPER [address] [place] [address] [place] [address] Referral ID Status Reason Start Date Expiration Date Visits Requested Visits Authorized [id number] Authorized Auto-Generat ed Referral 09/11/2023 10/10/2024 1 1 Specialty Diagnoses / Procedures Referred By Contac t Referred To Contact General Surgery Diagnoses Screening for colon cancer Procedures CONSULT TO GENERAL SURGERY OFFICE/OUTPATIENT [facility] 60-74 MINUTES David Shaikh APRN.SENIOR ORACLE [address] SQL DEVELOPER [address] [place] [address] Referral ID Status Reason Start Date Expiration Date Visits Requested Visits Authorized [id number] Authorized PCP Requested Referral 08/03/2023 08/02/2024 1 1 Specialty Diagnoses / Procedures Referred By Contac t Referred To Contact Diagnoses Morbid obesity (HCC) Procedures CONSULT [facility] OFFICE/OUTPATIENT [facility] 60-74 MINUTES Sweetie Feng MD [address] [place] [address] Referral ID Status Reason Start Date Expiration Date Visits Requested Visits Authorized [id number] Authorized PCP Requested Referral 03/31/2023 03/29/2024 1 1 Additional Source Comments INFORMATION SOURCE (unrecogn ized section and content) DATE CREATED AUTHOR AUTHOR'S ORGANIZ ATION 09/15/2021 [facility] [place] DATE CREATED AUTHOR AUTHOR'S ORGANIZ ATION 04/28/2023 [facility] DATE CREATED AUTHOR AUTHOR'S ORGANIZ ATION 09/17/2023 [facility] DATE CREATED AUTHOR AUTHOR'S ORGANIZ ATION 11/24/2023 [facility] DATE CREATED AUTHOR AUTHOR'S ORGANIZ ATION 11/26/2023 [facility] DATE CREATED AUTHOR AUTHOR'S ORGANIZ ATION 12/05/2023 [facility] Source Comments (unrecognize d section and content) In the event this informatio n is protected by the Federal Confidentiality of Alcohol and Drug Abuse Patient Records regulations: The Federal rules restrict any use of the information to criminally investigate or prosecute any alcohol or drug abuse patient.[facility] event this information is protected by the Federal Confidentiality of Alcohol and Drug Abuse Patient Records regulations: The Federal rules restrict any use of the information to criminally investigate or prosecute any alcohol or drug abuse patient.[facility] the event this information is protected by the Federal Confidentiality of Alcohol and Drug Abuse Patient Records regulations: The Federal rules restrict any use of the information to criminally investigate or prosecute any alcohol or drug abuse patient.[facility] the event this information is protected by the Federal Confidentiality of Alcohol and Drug Abuse Patient Records regulations: The Federal rules restrict any use of the information to criminally investigate or prosecute any alcohol or drug abuse patient.[facility] the event this information is protected by the Federal Confidentiality of Alcohol and Drug Abuse Patient Records regulations: The Federal rules restrict any use of the information to criminally investigate or prosecute any alcohol or drug abuse patient.[facility] the event this information is protected by the Federal Confidentiality of Alcohol and Drug Abuse Patient Records regulations: The Federal rules restrict any use of the information to criminally investigate or prosecute any alcohol or drug abuse patient.[facility] the event this information is protected by the Federal Confidentiality of Alcohol and Drug Abuse Patient Records regulations: The Federal rules restrict any use of the information to criminally investigate or prosecute any alcohol or drug abuse patient.[facility] the event this information is protected by the Federal Confidentiality of Alcohol and Drug Abuse Patient Records regulations: The Federal rules restrict any use of the information to criminally investigate or prosecute any alcohol or drug abuse patient.[facility] the event this information is protected by the Federal Confidentiality of Alcohol and Drug Abuse Patient Records regulations: The Federal rules restrict any use of the information to criminally investigate or prosecute any alcohol or drug abuse patient.[facility] the event this information is protected by the Federal Confidentiality of Alcohol and Drug Abuse Patient Records regulations: The Federal rules restrict any use of the information to criminally investigate or prosecute any alcohol or drug abuse patient.[facility] the event this information is protected by the Federal Confidentiality of Alcohol and Drug Abuse Patient Records regulations: The Federal rules restrict any use of the information to criminally investigate or prosecute any alcohol or drug abuse patient.[facility] the event this information is protected by the Federal Confidentiality of Alcohol and Drug Abuse Patient Records regulations: The Federal rules restrict any use of the information to criminally investigate or prosecute any alcohol or drug abuse patient.[facility] the event this information is protected by the Federal Confidentiality of Alcohol and Drug Abuse Patient Records regulations: The Federal rules restrict any use of the information to criminally investigate or prosecute any alcohol or drug abuse patient.[facility] the event this information is protected by the Federal Confidentiality of Alcohol and Drug Abuse Patient Records regulations: The Federal rules restrict any use of the information to criminally investigate or prosecute any alcohol or drug abuse patient.[facility] the event this information is protected by the Federal Confidentiality of Alcohol and Drug Abuse Patient Records regulations: The Federal rules restrict any use of the information to criminally investigate or prosecute any alcohol or drug abuse patient.[facility] CenterIn the event this information is protected by the Federal Confidentiality of Alcohol and Drug Abuse Patient Records regulations: The Federal rules restrict any use of the information to criminally investigate or prosecute any alcohol or drug abuse patient.[facility] CenterIn the event this information is protected by the Federal Confidentiality of Alcohol and Drug Abuse Patient Records regulations: The Federal rules restrict any use of the information to criminally investigate or prosecute any alcohol or drug abuse patient.[facility] CenterIn the event this information is protected by the Federal Confidentiality of Alcohol and Drug Abuse Patient Records regulations: The Federal rules restrict any use of the information to criminally investigate or prosecute any alcohol or drug abuse patient.[facility] CenterIn the event this information is protected by the Federal Confidentiality of Alcohol and Drug Abuse Patient Records regulations: The Federal rules restrict any use of the information to criminally investigate or prosecute any alcohol or drug abuse patient.[facility] CenterIn the event this information is protected by the Federal Confidentiality of Alcohol and Drug Abuse Patient Records regulations: The Federal rules restrict any use of the information to criminally investigate or prosecute any alcohol or drug abuse patient.[facility] CenterIn the event this information is protected by the Federal Confidentiality of Alcohol and Drug Abuse Patient Records regulations: The Federal rules restrict any use of the information to criminally investigate or prosecute any alcohol or drug abuse patient.[facility] CenterIn the event this information is protected by the Federal Confidentiality of Alcohol and Drug Abuse Patient Records regulations: The Federal rules restrict any use of the information to criminally investigate or prosecute any alcohol or drug abuse patient.[facility] CenterIn the event this information is protected by the Federal Confidentiality of Alcohol and Drug Abuse Patient Records regulations: The Federal rules restrict any use of the information to criminally investigate or prosecute any alcohol or drug abuse patient.[facility] CenterIn the event this information is protected by the Federal Confidentiality of Alcohol and Drug Abuse Patient Records regulations: The Federal rules restrict any use of the information to criminally investigate or prosecute any alcohol or drug abuse patient.[facility] CenterIn the event this information is protected by the Federal Confidentiality of Alcohol and Drug Abuse Patient Records regulations: The Federal rules restrict any use of the information to criminally investigate or prosecute any alcohol or drug abuse patient.[facility] CenterIn the event this information is protected by the Federal Confidentiality of Alcohol and Drug Abuse Patient Records regulations: The Federal rules restrict any use of the information to criminally investigate or prosecute any alcohol or drug abuse patient.[facility] CenterIn the event this information is protected by the Federal Confidentiality of Alcohol and Drug Abuse Patient Records regulations: The Federal rules restrict any use of the information to criminally investigate or prosecute any alcohol or drug abuse patient.[facility] CenterIn the event this information is protected by the Federal Confidentiality of Alcohol and Drug Abuse Patient Records regulations: The Federal rules restrict any use of the information to criminally investigate or prosecute any alcohol or drug abuse patient.[facility] CenterIn the event this information is protected by the Federal Confidentiality of Alcohol and Drug Abuse Patient Records regulations: The Federal rules restrict any use of the information to criminally investigate or prosecute any alcohol or drug abuse patient.[facility] CenterIn the event this information is protected by the Federal Confidentiality of Alcohol and Drug Abuse Patient Records regulations: The Federal rules restrict any use of the information to criminally investigate or prosecute any alcohol or drug abuse patient.[facility] CenterIn the event this information is protected by the Federal Confidentiality of Alcohol and Drug Abuse Patient Records regulations: The Federal rules restrict any use of the information to criminally investigate or prosecute any alcohol or drug abuse patient.[facility] CenterIn the event this information is protected by the Federal Confidentiality of Alcohol and Drug Abuse Patient Records regulations: The Federal rules restrict any use of the information to criminally investigate or prosecute any alcohol or drug abuse patient.[facility] CenterIn the event this information is protected by the Federal Confidentiality of Alcohol and Drug Abuse Patient Records regulations: The Federal rules restrict any use of the information to criminally investigate or prosecute any alcohol or drug abuse patient.[facility] CenterIn the event this information is protected by the Federal Confidentiality of Alcohol and Drug Abuse Patient Records regulations: The Federal rules restrict any use of the information to criminally investigate or prosecute any alcohol or drug abuse patient.[facility] CenterIn the event this information is protected by the Federal Confidentiality of Alcohol and Drug Abuse Patient Records regulations: The Federal rules restrict any use of the information to criminally investigate or prosecute any alcohol or drug abuse patient.[facility] CenterIn the event this information is protected by the Federal Confidentiality of Alcohol and Drug Abuse Patient Records regulations: The Federal rules restrict any use of the information to criminally investigate or prosecute any alcohol or drug abuse patient.[facility] the event this information is protected by the Federal Confidentiality of Alcohol and Drug Abuse Patient Records regulations: The Federal rules restrict any use of the information to criminally investigate or prosecute any alcohol or drug abuse patient.[facility] CenterIn the event this information is protected by the Federal Confidentiality of Alcohol and Drug Abuse Patient Records regulations: The Federal rules restrict any use of the information to criminally investigate or prosecute any alcohol or drug abuse patient.[facility] CenterIn the event this information is protected by the Federal Confidentiality of Alcohol and Drug Abuse Patient Records regulations: The Federal rules restrict any use of the information to criminally investigate or prosecute any alcohol or drug abuse patient.[facility] CenterIn the event this information is protected by the Federal Confidentiality of Alcohol and Drug Abuse Patient Records regulations: The Federal rules restrict any use of the information to criminally investigate or prosecute any alcohol or drug abuse patient.[facility] CenterIn the event this information is protected by the Federal Confidentiality of Alcohol and Drug Abuse Patient Records regulations: The Federal rules restrict any use of the information to criminally investigate or prosecute any alcohol or drug abuse patient.[facility] CenterIn the event this information is protected by the Federal Confidentiality of Alcohol and Drug Abuse Patient Records regulations: The Federal rules restrict any use of the information to criminally investigate or prosecute any alcohol or drug abuse patient.[facility] CenterIn the event this information is protected by the Federal Confidentiality of Alcohol and Drug Abuse Patient Records regulations: The Federal rules restrict any use of the information to criminally investigate or prosecute any alcohol or drug abuse patient.[facility] CenterIn the event this information is protected by the Federal Confidentiality of Alcohol and Drug Abuse Patient Records regulations: The Federal rules restrict any use of the information to criminally investigate or prosecute any alcohol or drug abuse patient.[facility] CenterIn the event this information is protected by the Federal Confidentiality of Alcohol and Drug Abuse Patient Records regulations: The Federal rules restrict any use of the information to criminally investigate or prosecute any alcohol or drug abuse patient.[facility] CenterIn the event this information is protected by the Federal Confidentiality of Alcohol and Drug Abuse Patient Records regulations: The Federal rules restrict any use of the information to criminally investigate or prosecute any alcohol or drug abuse patient.[facility] CenterIn the event this information is protected by the Federal Confidentiality of Alcohol and Drug Abuse Patient Records regulations: The Federal rules restrict any use of the information to criminally investigate or prosecute any alcohol or drug abuse patient.[facility] Reason for Visit (unrecogniz ed section and content) Reason Comments Cough Reason Comments Refill Request Reason Onset Date Comments Refill Request 07/20/2022 Reason Onset Date Comments Refill Request 10/31/2022 Reason Comments Covid Positive Reason Comments Patient Update Reason Comments Bariatric investigation Bariatric Investigation Reason Comments Established Patient Reason Comments Established Patient Reason Comments Physical Reason Comments New Patient Evaluation Reason Comments New Patient Evaluation for sleep apnea, bariatric surgery. Reason Comments Appointment Reason Comments Spirometry Specialty Diagnoses / Procedures Referred By Contac t Referred To Contact [facility] Diagnoses Morbid obesity (HCC) Past use of tobacco Paroxysmal atrial fibrillation (HCC) Procedures SPIROMETRY WITH DILATOR IF OBSTRUCTED BRNCDILAT RSPSE SPMTRY PRE&POST-BRNCDILAT ADMN Soha Shepherd, DO [address] [place] [id number] [facility] [place] [address] [place], [place] [id number] Referral ID Status Reason Start Date Expiration Date V isits Requested Visits Authorized [id number] Closed Auto-Generate d Referral 08/28/2023 09/26/2024 1 1 Specialty Diagnoses / Procedures Referred By Contac t Referred To Contact [facility] Diagnoses Morbid obesity (HCC) Past use of tobacco Paroxysmal atrial fibrillation (HCC) Procedures LUNG VOLUMES Soha Shepherd, DO [address] [place] [id number] [facility] [place] [id number] Referral ID Status Reason Start Date Expiration Date V isits Requested Visits Authorized [id number] Closed Auto-Generate d Referral 08/29/2023 11/04/2023 1 1 Specialty Diagnoses / Procedures Referred By Contac t Referred To Contact [facility] Diagnoses Morbid obesity (HCC) Past use of tobacco Paroxysmal atrial fibrillation (HCC) Procedures LUNG DIFFUSION CAPACITY (DLCO) DIFFUSING CAPACITY Soha Shepherd, DO [address] [place] [id number] [address] [address] Referral ID Status Reason Start Date Expiration Date V isits Requested Visits Authorized [id number] Closed Auto-Generate d Referral 08/28/2023 09/26/2024 1 1 Specialty Diagnoses / Procedures Referred By Contac t Referred To Contact CT IMAGING Diagnoses Other specified disorders of kidney and ureter Procedures CT KIDNEY WO/W IVCON CT ABDOMEN W & W/O CONTRAST Dixon Campbell, PRICE ANALYST.SENIOR ORACLE [address] SQL DEVELOPER [address] [facility] [place] [address] [place] [address] Referral ID Status Reason Start Date Expiration Date Visits Requested Visits Authorized [id number] Authorized Auto-Generat ed Referral 07/31/2023 08/29/2024 1 1 Reason Comments Orders Reason Comments Bariatric Psychology Follow Up Reason Comments PSG Check In Referral ID Status Reason Start Date Expiration Date V isits Requested Visits Authorized [id number] Closed Auto-Generate d Referral 09/14/2023 11/04/2023 1 1 Reason Comments Medical Clearance Reason Comments FYI-No Action Needed Reason Comments 2 month f/u Thyroid Reason Comments Release Of Medical Records Reason Onset Date Comments Refill Request 10/13/2023 Reason Comments Follow Up Care Teams (unrecognized sec tion and content) Primer Boxer Relationship Specialty Start Date End Date Sweetie Feng MD [address] [place] [address] PCP - General Family Practice 05/15/19 Primer Boxer Relationship Specialty Start Date End Date Sweetie Feng MD [address] [place] [address] PCP - General Family Practice 05/15/19 Primer Boxer Relationship Specialty Start Date End Date Sweetie Feng MD [address] [place] [address] PCP - General Family Practice 05/15/19 Primer Boxer Relationship Specialty Start Date End Date Sweetie Feng MD [address] [place] [address] PCP - General Family Practice 05/15/19 Primer Boxer Relationship Specialty Start Date End Date Sweetie Feng MD [address] [place] [address] PCP - General Family Medicine 05/15/19 Primer Boxer Relationship Specialty Start Date End Date Sweetie Feng MD [address] [place] [address] PCP - General Family Medicine 05/15/19 Primer Boxer Relationship Specialty Start Date End Date Sweetie Feng MD [address] [place] [address] PCP - General Family Medicine 05/15/19 Primer Boxer Relationship Specialty Start Date End Date Sweetie Feng MD [address] [place] [address] PCP - General Family Medicine 05/15/19 Primer Boxer Relationship Specialty Start Date End Date Sweetie Feng MD [address] [place] [address] PCP - General Family Medicine 05/15/19 Primer Boxer Relationship Specialty Start Date End Date Sweetie Feng MD [address] [place] [address] PCP - General Family Medicine 05/15/19 Primer Boxer Relationship Specialty Start Date End Date Sweetie Feng MD [address] [place] [address] PCP - General Family Medicine 05/15/19 Primer Boxer Relationship Specialty Start Date End Date Sweetie Feng MD [address] [place] [address] PCP - General Family Medicine 05/15/19 Primer Boxer Relationship Specialty Start Date End Date Sweetie Feng MD [address] [place] [address] PCP - General Family Medicine 05/15/19 Primer Boxer Relationship Specialty Start Date End Date Sweetie Feng MD [address] [place] [address] PCP - General Family Medicine 05/15/19 Primer Boxer Relationship Specialty Start Date End Date Sweetie Feng MD [address] [place] [address] PCP - General Family Medicine 05/15/19 Primer Boxer Relationship Specialty Start Date End Date Sweetie Feng MD [address] [place] [address] PCP - General Family Medicine 05/15/19 Primer Boxer Relationship Specialty Start Date End Date Sweetie Feng MD [address] [place] [address] PCP - General Family Medicine 05/15/19 Primer Boxer Relationship Specialty Start Date End Date Sweetie Feng MD [address] [place] [address] PCP - General Family Medicine 05/15/19 Primer Boxer Relationship Specialty Start Date End Date Sweetie Feng MD [address] [place] [address] PCP - General Family Medicine 05/15/19 Primer Boxer Relationship Specialty Start Date End Date Sweetie Feng MD [address] [place] [address] PCP - General Family Medicine 05/15/19 Primer Boxer Relationship Specialty Start Date End Date Sweetie Feng MD [address] [place] [address] PCP - General Family Medicine 05/15/19 Primer Boxer Relationship Specialty Start Date End Date Sweetie Feng MD [address] [place] [address] PCP - General Family Medicine 05/15/19 Primer Boxer Relationship Specialty Start Date End Date Sweetie Feng MD [address] [place] [address] PCP - General Family Medicine 05/15/19 Primer Boxer Relationship Specialty Start Date End Date Sweetie Feng MD [address] [place] [address] PCP - General Family Medicine 05/15/19 Primer Boxer Relationship Specialty Start Date End Date Sweetie Feng MD [address] [place] [address] PCP - General Family Medicine 05/15/19 Primer Boxer Relationship Specialty Start Date End Date Sweetie Feng MD [address] [place] [address] PCP - General Family Medicine 05/15/19 Primer Boxer Relationship Specialty Start Date End Date Sweetie Feng MD [address] [place] [address] PCP - General Family Medicine 05/15/19 Primer Boxer Relationship Specialty Start Date End Date Sweetie Feng MD [address] [place] [address] PCP - General Family Medicine 05/15/19 Primer Boxer Relationship Specialty Start Date End Date Sweetie Feng MD [address] [place] [address] PCP - General Family Medicine 05/15/19 Primer Boxer Relationship Specialty Start Date End Date Sweetie Feng MD [address] [place] [address] PCP - General Family Medicine 05/15/19 Primer Boxer Relationship Specialty Start Date End Date Sweetie Feng MD [address] [place] [address] PCP - General Family Medicine 05/15/19 Primer Boxer Relationship Specialty Start Date End Date Sweetie Feng MD [address] [place] [address] PCP - General Family Medicine 05/15/19 Dixon Campbell, PRICE ANALYST.SENIOR ORACLE [address] SQL DEVELOPER [address] [place] [address] Referring 09/24/23 Primer Boxer Relationship Specialty Start Date End Date Sweetie Feng MD [address] [place] [address] PCP - General Family Medicine 05/15/19 Dixon Campbell, PRICE ANALYST.SENIOR ORACLE [address] SQL DEVELOPER [address] [place] [address] Referring 09/24/23 Primer Boxer Relationship Specialty Start Date End Date Sweetie Feng MD [address] [place] [address] PCP - General Family Medicine 05/15/19 Dixon Campbell, PRICE ANALYST.SENIOR ORACLE [address] SQL DEVELOPER [address] [place] [address] Referring 09/24/23 Primer Boxer Relationship Specialty Start Date End Date Sweetie Feng MD [address] [place] [address] PCP - General Family Medicine 05/15/19 Dixon Campbell APRN.CNP [address] [place], [place] [id number] Referring 09/24/23 FOR RECORDS PERTAINING TO PATIENTS WHO ARE OR HAVE BEEN ENROLLED IN A CHEMICAL DEPENDENCY/SUBSTANCEABUSE PROGRAM, SOME INFORMATION MAY BE OMITTED. This clinical summary was aggregated from multiple sources. Caution should be exercised in using it in the provision of clinical care. This summary normalizes information from multiple sources, and as a consequence, information in this document may materially change the coding, format and clinical context of patient data. In addition, data may be omitted in some cases. CLINICAL DECISIONS SHOULD BE BASED ON THE PRIMARY CLINICAL RECORDS. [facility]. provides no warranty or guarantee of the accuracy or completeness of information in this document.
[2023-12-05 17:45] LABS: AST(SGOT) 15 U/L (15-37); Alanine Aminotransfer ALT/SGPT 36 U/L (13-56); Albumin, Serum 3.1 g/dL (3.2-5.0); Alkaline Phosphatase 55 U/L (45-117); Anion Gap 12 (5-15); BUN 18 mg/dL (7-18); BUN/Creat Ratio 9.5 RATIO (10-20); Chloride 111 mmol/L (98-107); Creatinine, Serum 1.89 mg/dL (0.55-1.02); EST Glomerular Filtration Rate 30 mL/min (>60); Est Glom Filt Rate - Afr Amer 36 mL/min (>60); Estimated Creatinine Clearance 48.67 ml/min; Globulin 3.2 g/dL (2.2-4.2); Glucose 224 mg/dL (74-106); Potassium 3.9 mmol/L (3.5-5.1); Protein, Total 6.3 g/dL (6.4-8.2); Sodium Level 142 mmol/L (136-145)
[2023-12-05 17:52] LABS: Differential Comment SCANNED
[2023-12-05 18:05] LABS: Lactic Acid 6.8 mmol/L (0.4-1.9)
[2023-12-05 19:17] LABS: Lipase 91 U/L (13-75)
[2023-12-05] MEDS: Ondansetron 4 MG/2 ML Vial IV (19:42)
[2023-12-05 21:24] LABS: Reflex Lactate? Y
[2023-12-07 09:24] LABS: Pathologist Review Reviewed
== END 2023-12-05 20:06 | disposition short-term general hospital (02) ==
PROVIDERS: Emergency Provider Emergency Medicine; PCP Family Medicine; Visit Provider Emergency Medicine
DX: K91.840 Postprocedural hemorrhage of a digestive system organ or structure following a digestive system procedure (principal); I48.0 Paroxysmal atrial fibrillation; D64.9 Anemia, unspecified; I95.9 Hypotension, unspecified; Z87.891 Personal history of nicotine dependence; E78.5 Hyperlipidemia, unspecified; Z98.84 Bariatric surgery status; E03.9 Hypothyroidism, unspecified; Z79.899 Other long term (current) drug therapy; Z90.49 Acquired absence of other specified parts of digestive tract; Z90.710 Acquired absence of both cervix and uterus
CPT/HCPCS: 71045; 74177; 80053; 83605; 83690; 85025; 93005; 96361; 96374; 99285; J7030; Q9967; A4216; J2405

== ENCOUNTER 2024-01-18 03:43 | Emergency (ER) | payer BC, SELFPAY ==
[2024-01-18] VITALS (20 sets, daily range): BP systolic 109–164; BP diastolic 57–102; PULSE 81–101; RESP 16–24; TEMP 36.3–36.9; O2SAT 88–97; BMI 51.6
--- NOTE | 2024-01-18 04:13 | CT_ITS ---
EXAM: CT ANGIOGRAPHY CHEST WITHOUT AND WITH INTRAVENOUS CONTRAST CLINICAL INDICATION: chest pain TECHNIQUE: Helically acquired angiography images were obtained of the chest without and with intravenous contrast. This CT exam was performed using one or more of the following dose reduction techniques: automated exposure control, adjustment of the mA and/or kV according to patient size, and/or use of iterative reconstruction technique. MIP reconstructed images were created and reviewed. CONTRAST: IV 100mL Isovue-370 RADIATION DOSE: CTDIvol = 77.27 mGy, DLP = 792.60 mGy-cm COMPARISON: No relevant prior studies available. FINDINGS: PULMONARY ARTERIES: Unremarkable. Normal in caliber. No evidence of pulmonary embolism. AORTA: Unremarkable. Normal in caliber. No evidence of dissection. GREAT VESSELS OF AORTIC ARCH: Unremarkable. Normal in caliber. No evidence of dissection. LUNGS AND PLEURAL SPACES: Mild bibasilar dependent atelectasis. No mass. No pleural effusion or thickening. No acute airspace disease. HEART: Small pericardial effusion measuring up to 8 mm in thickness. Heart size is normal. No significant coronary artery calcifications. MEDIASTINUM: Unremarkable. No mediastinal or hilar adenopathy. Esophagus is unremarkable. No hiatal hernia. THYROID: Unremarkable. No thyroid lesions. BONES/JOINTS: Degenerative changes of the spine. No suspicious lytic or blastic abnormality. CT/CTA Chest W/WO Contrast IMPRESSION: 1. Small pericardial effusion measuring up to 8 mm in thickness. 2. No evidence of pulmonary embolism. Electronically Signed: Reggie Lindsay MD at 6:02 EDT ,
[2024-01-18 04:24] LABS: Absolute Lymphocyte Count 1.48 X10^3/uL (0.83-4.51); Absolute Neutrophil Count 13.7 X10^3/uL (2.0-7.7); Basophil# 0.07 X10^3/uL; Basophil% 0.4 % (0-1); Eosinophil# 0.01 X10^3/uL; Eosinophils% 0.1 % (0-5); Hematocrit 37.2 % (37-47); Hemoglobin 10.7 g/dL (12.0-15.0); Lymphocyte # 1.48 X10^3/ul (0.83-4.51); Lymphocyte % 9.1 % (19-41); Mean Corp Hgb Conc 28.8 g/dL (32-36); Mean Corpuscular Hgb 24.3 pg (27.0-32.0); Mean Corpuscular Volume 84.4 fL (81-99); Mean Platelet Vol. 13.3 fl (6.2-12.0); Monocyte# 0.92 X10^3/uL; Monocyte% 5.7 % (0-10); NRBC Flagged by Analyzer 0 % (0-5); Neutrophil # 13.68 X10^3/uL (2.7-7.7); Neutrophil % 84.1 % (47-70); Platelet Count 286 K/mm3 (150-450); RBC Distribution Width CV 16.5 % (11.6-14.6); RBC Distribution Width SD 51.3 fl (35.1-43.9); Red Blood Count 4.41 M/mm3 (4.2-5.4); White Blood Count 16.3 K/mm3 (4.4-11.0)
[2024-01-18 04:31] LABS: International Normalized Ratio 1.2; Prothrombin Time (Protime)PT. 14.9 SECONDS (11.7-14.9)
[2024-01-18 04:32] LABS: Partial Thromboplast Time 36.4 Seconds (24.1-36.2)
[2024-01-18] MEDS: 0.9% Normal Saline (1000mL) 1,000 ML 999 ML IV (04:34)
[2024-01-18 04:43] LABS: Anion Gap 12 (5-15); BUN 13 mg/dL (7-18); BUN/Creat Ratio 14.1 RATIO (10-20); Calcium,Total 9.5 mg/dL (8.5-10.1); Chloride 107 mmol/L (98-107); Creatinine, Serum 0.92 mg/dL (0.55-1.02); EST Glomerular Filtration Rate 67 mL/min (>60); Est Glom Filt Rate - Afr Amer 82 mL/min (>60); Estimated Creatinine Clearance 94.18 ml/min; Glucose 134 mg/dL (74-106); Magnesium 1.8 mg/dL (1.6-2.6); Potassium 3.6 mmol/L (3.5-5.1); Sodium Level 142 mmol/L (136-145); Troponin-I HS 18 pg/mL (3.0-54.0)
[2024-01-18 04:43] LABS: Color, Urine Yellow (Yellow); Glucose, Dipstick Normal (Normal); Ketone-Dipstick 50 mg/dl (Negative); Leukocyte Esterase-Dipstick 100 /ul (Negative); Mucous, Urine 0 SEEN /hpf (<or=2+); Nitrite-Dipstick Positive (Negative); Occult Blood-Urine 10 /ul (Negative); Protein-Dipstick 30 mg/dl (Negative); Specific Gravity, Urine 1.025 (1.002-1.030); Urine Clarity Cloudy (Clear); Urine Urobilinogen 1 mg/dl (Normal)
[2024-01-18 04:57] LABS: Urine Bilirubin Dipstick 1 mg/dL (Negative)
[2024-01-18 05:00] LABS: Bacteria 4+ /hpf (None Seen); Red Blood Cells-Urine 0-5 SEEN /hpf (0-5); Squamous Epithelial Cells - UA 50-100 SEEN /hpf (5-10); White Blood Cells 5-10 SEEN /hpf (0-5)
[2024-01-18] MEDS: Ceftriaxone 1 GM/50 ML BAG IV (06:53)
[2024-01-18 07:02] LABS: Troponin-I HS 21 pg/mL (3.0-54.0)
--- NOTE | 2024-01-18 07:20 | EX.ED.DYSGE1 ---
HPI History of Present Illness Chief Complaint: Chest Pain Informant: patient Narrative Narrative: Patient is a 53-year-old female with past medical history of hypothyroidism obstructive sleep apnea and morbid obesity who underwent a gastric sleeve surgery roughly 2 months ago. She also has history of paroxysmal atrial fibrillation but is not on anticoagulation. Patient states that over the past 2 days she has noticed pain in her chest and upper back. She states that it seems to worsen when she lies flat. She states she is also not been eating or drinking well secondary to the pain but denies any bouts of vomiting. She states even the pain seemed to worsen and with concern this could be cardiac in nature she presents for evaluation [facility] Medical History Depression GERD (gastroesophageal reflux disease) Hyperlipidemia Hypothyroidism NORBERT on CPAP Paroxysmal atrial fibrillation Rheumatoid arthritis Home Medications diltiazem HCl 120 mg capsule,extended release 24 hr (Cardizem CD) 120 mg PO DAILY #30 caps 06/06/23 [Rx Last Taken Unknown] etanercept 50 mg/mL (1 mL) subcutaneous pen injector (Enbrel SureClick) 50 mg subcut QWEEK 07/02/23 [History Last Taken Unknown] hydroxychloroquine 200 mg tablet 200 mg PO BID 07/02/23 [History Last Taken Unknown] levothyroxine 200 mcg tablet 200 mcg PO DAILY 07/02/23 [History Last Taken Unknown] prednisone 10 mg tablet 10 mg PO DAILY PRN RA 07/02/23 [History Last Taken Unknown] ropinirole 1 mg tablet 1 mg PO QHS 07/02/23 [History Last Taken Unknown] albuterol sulfate 90 mcg/actuation aerosol inhaler 2 puff inhalation Q6H PRN shortness of breath or wheezing 08/01/23 [History Last Taken Unknown] cephalexin 500 mg capsule 500 mg PO TID 7 days #21 caps 01/18/24 [Rx Last Taken Unknown] oxycodone-acetaminophen 5 mg-325 mg tablet (Percocet) 1 tab PO Q6H PRN pain 3 days #12 tabs 01/18/24 [Rx Last Taken Unknown] Allergy/AdvReac Type Severity Reaction Status Date / Time azithromycin Allergy Hives Verified 12/05/23 17:23 tramadol Allergy Angioedema Verified 12/05/23 17:23 diclofenac AdvReac Vomiting Verified 12/05/23 17:23 doxycycline AdvReac Diarrhea Verified 12/05/23 17:23 levofloxacin [From Levaquin] AdvReac Other Verified 12/05/23 17:23 sulfamethoxazole AdvReac Diarrhea Verified 12/05/23 17:23 [From Bactrim] trimethoprim [From Bactrim] AdvReac Diarrhea Verified 12/05/23 17:23 dioxyline phosphate Allergy Unknown Diarrhea Uncoded 08/01/23 13:54 Family History Mother Cancer Non hodgkins lymphoma Reticular sarcoma Father CVA (cerebral vascular accident) Atrial fibrillation Grandmother Diabetes Sister Atrial fibrillation Surgical History H/O arthroscopic knee surgery History of cholecystectomy History of colonoscopy History of esophagogastroduodenoscopy (EGD) History of lumbar laminectomy History of subtotal thyroidectomy History of total abdominal hysterectomy and bilateral salpingo-oophorectomy Social History Smoking Status: Former smoker how long ago did patient quit smokin alcohol intake: never substance use type: does not use ROS ROS ED Constitutional Constitutional ED: Denies chills or fever(s) Eyes Eyes: Denies change in vision ENT ENT ED: Denies sore throat Cardiovascular Cardiovascular: Reports chest pain, palpitations and racing heartbeat Respiratory/Chest Respiratory/Chest: Denies cough or dyspnea Gastrointestinal Gastrointestinal: Reports nausea; Denies abdominal pain, diarrhea or vomiting Genitourinary Genitourinary ED: Denies dysuria or hematuria Musculoskeletal Musculoskeletal: Reports back pain; Denies myalgias Integumentary Denies rash Neurologic Neurologic: Denies headache(s) Hematologic/Lymphatic Hematologic/Lymphatic: Denies easy bleeding or easy bruising EXAM Physical Exam Const Vital Signs: 01/18/24 03:43 01/18/24 03:43 01/18/24 04:48 Temperature 97.3 F L Temperature Source Temporal Pulse Rate 101 H Respiratory Rate 20 H 18 Respiratory Effort Normal Non-Labored Blood Pressure 164/72 H Blood Pressure Mean 102 Pulse Ox 96 Oxygen Delivery Method Room Air 01/18/24 05:30 01/18/24 03:58 01/18/24 04:00 Temperature Temperature Source Pulse Rate 87 93 93 Respiratory Rate 24 H 22 H 21 H Respiratory Effort Blood Pressure 133/64 H Blood Pressure Mean 81 Pulse Ox 96 95 94 Oxygen Delivery Method Room Air 01/18/24 04:05 01/18/24 04:10 01/18/24 04:15 Temperature Temperature Source Pulse Rate 99 92 91 Respiratory Rate 21 H 20 H 24 H Respiratory Effort Blood Pressure 143/80 H 130/66 H 133/62 H Blood Pressure Mean 96 84 82 Pulse Ox 94 91 88 Oxygen Delivery Method 01/18/24 04:30 01/18/24 04:35 01/18/24 04:40 Temperature Temperature Source Pulse Rate 91 90 89 Respiratory Rate 23 H 21 H 21 H Respiratory Effort Blood Pressure 142/71 H 143/71 H Blood Pressure Mean 89 90 Pulse Ox 93 93 Oxygen Delivery Method 01/18/24 04:45 01/18/24 04:50 01/18/24 04:55 Temperature Temperature Source Pulse Rate 86 Respiratory Rate 22 H Respiratory Effort Blood Pressure 143/102 H 164/74 H 164/74 H Blood Pressure Mean 110 95 97 Pulse Ox 91 Oxygen Delivery Method 01/18/24 05:00 01/18/24 05:30 01/18/24 06:00 Temperature Temperature Source Pulse Rate 83 85 83 Respiratory Rate 22 H 23 H 21 H Respiratory Effort Blood Pressure 164/78 H Blood Pressure Mean 98 Pulse Ox 95 95 97 Oxygen Delivery Method 01/18/24 06:30 01/18/24 07:00 01/18/24 07:30 Temperature Temperature Source Pulse Rate 81 84 87 Respiratory Rate 21 H 23 H 23 H Respiratory Effort Blood Pressure Blood Pressure Mean Pulse Ox 96 95 96 Oxygen Delivery Method 01/18/24 07:37 Temperature 98.5 F Temperature Source Pulse Rate 91 Respiratory Rate 16 Respiratory Effort Blood Pressure 109/57 L Blood Pressure Mean 74 Pulse Ox 97 Oxygen Delivery Method Positive well nourished, well developed and obese General Appearance ED: well developed; Negative for pallor Nutritional Appearance: obese HEENT HEENT Narrative: Mucous membranes are slightly dry and intact without secondary changes to suggest infection No airway edema or compromise Eyes PERRL and EOMs intact bilaterally General Eye ED: Negative for scleral icterus Neck supple Neck Narrative: No nuchal rigidity or meningeal signs noted Chest Wall Chest Narrative: No bony deformity or crepitance with palpation of the chest wall noted However there is reproducible pain with palpation Resp normal respiratory effort and clear to auscultation bilaterally Resp Narrative: No nasal flaring retractions tachypnea or accessory muscle use Cardio regular rate and regular rhythm Rate: other Other Details: Heart is regular rate and rhythm without murmurs rubs or gallop Radial and carotid pulses are equal and symmetric GI normal to inspection, nondistended, normoactive bowel sounds, non-tender, non-distended and no masses GI Narrative: No voluntary guarding or rigidity or pulsatile mass Auscultation: normoactive bowel sounds Palpation: soft Back/Spine no CVA tenderness Extremity normal to inspection Extremity Narrative: No asymmetric edema no pitting edema negative Homans' sign bilaterally Neuro oriented x3, CN's II-XII intact bilaterally and no sensory deficits noted Sensorium / Orientation: alert Motor Exam: strength 5/5 throughout Psych mental status grossly normal Skin no rashes or lesions noted Skin Narrative: Skin turgor is slightly increased General Skin Exam: Negative for jaundice or pallor MDM MDM MDM Narrative Medical decision making narrative: Patient presented to the ER mildly hypertensive otherwise with stable vitals. She reported chest discomfort and has a history of paroxysmal atrial fibrillation without anticoagulation and also had recent surgery therefore there is concern for potential pulmonary embolus versus pneumonia versus pneumothorax versus dissection versus acute coronary syndrome. Secondary to his basic blood work was obtained. Patient's white count is slight elevated at 16.3 but otherwise her no clinically significant findings. Patient's troponins were 18 and then 21 with a difference of 3 this is not clinically significant and goes against acute coronary syndrome/active heart disease. CTA did not show any signs of PE or dissection or pneumonia or pneumothorax but it did document a small pericardial effusion. This could be the cause of the patient's pain but as she does not have any signs of tamponade there is no need for admission or emergent cardiology consultation. Patient is urine sample also questions infection versus contamination. She does not have true CVA pain so my concern for pyelonephritis is low. However she does have an elevated white count the urine will be sent for culture and to be certain antibiotics until the culture results. As patient has had improvement of her vitals with IV fluids and time and workup it reveals no obvious signs of active heart damage and there is no signs of cardiac tamponade there is no need for admission and she is otherwise safe for discharge History & Record Review Discussion w/independent historian: Patient Lab Data Attestation: I reviewed the patient's lab results. Labs: Laboratory Results - last 24 hr 01/18/24 01/18/24 01/18/24 03:55 04:35 06:40 WBC 16.3 H RBC 4.41 Hgb 10.7 L Hct 37.2 MCV 84.4 MCH 24.3 L MCHC 28.8 L RDW Std Deviation 51.3 H RDW Coeff of Vijaya 16.5 H Plt Count 286 MPV 13.3 H Immature Gran % (Auto) 0.600 Neut % (Auto) 84.1 H Lymph % (Auto) 9.1 L [place] % (Auto) 5.7 Eos % (Auto) 0.1 Baso % (Auto) 0.4 Absolute Neuts (auto) 13.7 H Absolute Lymphs (auto) 1.48 Nucleated RBC % 0 PT 14.9 INR 1.2 APTT 36.4 H Sodium 142 Potassium 3.6 Chloride 107 Carbon Dioxide 23.0 Anion Gap 12 BUN 13 Creatinine 0.92 Estim Creat Clear Calc 94.18 Est GFR (MDRD) Af Amer 82 Est GFR (MDRD) Non-Af 67 BUN/Creatinine Ratio 14.1 Glucose 134 H Calcium 9.5 Magnesium 1.8 Troponin I High Sens 18 21 Urine Color Yellow Urine Clarity Cloudy Urine pH 5.0 Ur Specific [place] 1.025 Urine Protein 30 H Urine Glucose (UA) Normal Urine Ketones 50 H Urine Occult Blood 10 H Urine Nitrite Positive H Urine Bilirubin 1 H Urine Urobilinogen 1 H Ur Leukocyte Esterase 100 H Urine RBC 0-5 SEEN Urine WBC 5-10 SEEN Ur Squamous Epith Cells 50-100 SEEN Urine Bacteria 4+ Urine Mucus 0 SEEN Radiography Diagnostic Testing: Clinical Impression(s) from Imaging Studies Chest CTA 01/18/24 04:13 IMPRESSION: 1. Small pericardial effusion measuring up to 8 mm in thickness. 2. No evidence of pulmonary embolism. Electronically Signed: Reggie Lindsay MD at 6:02 EDT , Discharge Plan Triage Chief Complaint: Chest Pain ED Provider: Jorge A Fam Dx/Rx/DC Orders Clinical Impression: UTI (urinary tract infection), Pericardial effusion, Paroxysmal atrial fibrillation Instructions: Urinary Tract Infections in Women, Understanding Pericardial Effusion Prescriptions: New cephalexin 500 mg capsule 500 mg PO TID 7 Days Qty: 21 0RF oxycodone-acetaminophen [Percocet] 5-325 mg tablet 1 tab PO Q6H PRN (Reason: pain) 3 Days Qty: 12 0RF No Action hydroxychloroquine 200 mg tablet 200 mg PO BID Hold Instructions: MD Ordered Patient Comments: take 1 tablet by mouth twice a day ropinirole 1 mg tablet 1 mg PO QHS Patient Comments: take 1 tablet by mouth at bedtime levothyroxine 200 mcg tablet 200 mcg PO DAILY Patient Comments: take 1 tablet by mouth once daily ON AN EMPTY STOMACH FOR THYROID prednisone 10 mg tablet 10 mg PO DAILY PRN (Reason: RA) Patient Comments: take 1 tablet by mouth once daily if needed take for 3-5 DAYS WITH A FLARE Enbrel SureClick 50 mg/mL (1 mL) pen injector 50 mg subcut QWEEK Hold Instructions: MD Ordered albuterol sulfate 90 mcg/actuation HFA aerosol inhaler 2 puff inhalation Q6H PRN (Reason: shortness of breath or wheezing) diltiazem HCl [Cardizem CD] 120 mg capsule,extended release 24hr 120 mg PO DAILY Qty: 30 0RF Primary Care Provider: Cirilo Feng Referrals: Domo Bettencourt MD [Med Staff - Active Staff] - Cirilo Feng MD [Primary Care Provider] - Activity Restrictions/Additional Instructions: Your workup showed no sign of active heart disease or blood clot. It did show small pericardial effusion and secondary his follow-up with your electrical technology instructor to discuss further testing and/or treatment options. As your urine shows questionable infection take antibiotic as directed. Return to the ER should you have any further concerns Disposition Disposition: Home, Self Care Discharge Date/Time: 01/18/24 07:37
== END 2024-01-18 07:37 | disposition home or self-care (01) ==
PROVIDERS: Emergency Provider Emergency Medicine; PCP Family Medicine; Visit Provider Emergency Medicine
DX: I31.39 Other pericardial effusion (noninflammatory) (principal); M06.9 Rheumatoid arthritis, unspecified; I48.0 Paroxysmal atrial fibrillation; E66.01 Morbid (severe) obesity due to excess calories; N39.0 Urinary tract infection, site not specified; Z87.891 Personal history of nicotine dependence; G47.33 Obstructive sleep apnea (adult) (pediatric); Z99.89 Dependence on other enabling machines and devices; E78.5 Hyperlipidemia, unspecified; E03.9 Hypothyroidism, unspecified; Z79.899 Other long term (current) drug therapy; Z90.49 Acquired absence of other specified parts of digestive tract; Z90.722 Acquired absence of ovaries, bilateral
CPT/HCPCS: 71275; 80048; 81001; 83735; 84484; 85025; 85610; 85730; 87086; 87088; 93005; 99282; J7030; Q9967; A4216

== ENCOUNTER → 2024-02-06 | Outpatient (CLI) | payer BC, SELFPAY ==
[2024-02-06 18:00] LABS: Absolute Lymphocyte Count 1.86 X10^3/uL (0.83-4.51); Absolute Neutrophil Count 4.5 X10^3/uL (2.0-7.7); Basophil% 1.4 % (0-1); Eosinophils% 4.2 % (0-5); Hematocrit 36.3 % (37-47); Hemoglobin 10.7 g/dL (12.0-15.0); Lymphocyte # 1.86 X10^3/ul (0.83-4.51); Lymphocyte % 25.8 % (19-41); Mean Corp Hgb Conc 29.5 g/dL (32-36); Mean Corpuscular Hgb 24.1 pg (27.0-32.0); Mean Corpuscular Volume 81.8 fL (81-99); Mean Platelet Vol. 12.8 fl (6.2-12.0); Monocyte# 0.49 X10^3/uL; Monocyte% 6.8 % (0-10); NRBC Flagged by Analyzer 0 % (0-5); Neutrophil # 4.45 X10^3/uL (2.7-7.7); Neutrophil % 61.5 % (47-70); Platelet Count 331 K/mm3 (150-450); RBC Distribution Width CV 16.2 % (11.6-14.6); RBC Distribution Width SD 48.5 fl (35.1-43.9); Red Blood Count 4.44 M/mm3 (4.2-5.4); White Blood Count 7.2 K/mm3 (4.4-11.0)
[2024-02-06 18:52] LABS: ALB/GLOB Ratio 0.9 RATIO (0.9-2.4); AST(SGOT) 13 U/L (15-37); Alanine Aminotransfer ALT/SGPT 21 U/L (13-56); Albumin, Serum 3.4 g/dL (3.2-5.0); Alkaline Phosphatase 62 U/L (45-117); Anion Gap 7 (5-15); BUN 20 mg/dL (7-18); BUN/Creat Ratio 21.9 RATIO (10-20); Calcium,Total 9.9 mg/dL (8.5-10.1); Chloride 108 mmol/L (98-107); Creatinine, Serum 0.91 mg/dL (0.55-1.02); EST Glomerular Filtration Rate 68 mL/min (>60); Est Glom Filt Rate - Afr Amer 83 mL/min (>60); Globulin 3.8 g/dL (2.2-4.2); Glucose 101 mg/dL (74-106); Potassium 3.8 mmol/L (3.5-5.1); Protein, Total 7.2 g/dL (6.4-8.2); Sodium Level 141 mmol/L (136-145)
== END | disposition home or self-care (01) ==
PROVIDERS: PCP Family Medicine; Referring Provider Internal Medicine Rheumatology; Visit Provider Internal Medicine Rheumatology
DX: M05.79 Rheumatoid arthritis with rheumatoid factor of multiple sites without organ or systems involvement (principal); Z79.899 Other long term (current) drug therapy; M17.0 Bilateral primary osteoarthritis of knee
CPT/HCPCS: 36415; 80053; 85025

== ENCOUNTER → 2024-03-07 | Outpatient (CLI) | payer BC, SELFPAY ==
--- NOTE | 2024-03-07 07:45 | ECHOCS_ITS ---
Reason For Study: AFib Procedure This was a 2D Doppler, Color Flow transthoracic echocardiogram. The study was technically difficult. Contrast injection was performed. Exam performed in department. Left Ventricle Normal LV size. Left ventricular systolic function is normal. The estimated ejection fraction is 60 %. Stage 1 diastolic dysfunction. No regional wall motion abnormalities noted. Right Ventricle Normal RV size. Normal systolic function. Atria Normal left atrium. Normal right atrium. Mitral Valve Normal mitral valve. Tricuspid Valve Normal tricuspid valve. Mild (1+) tricuspid valve insufficiency. Pulmonary artery systolic pressure is 34 mmHg. Aortic Valve Normal aortic valve. Pulmonic Valve Normal pulmonic valve. Great Vessels Normal aortic root. The pulmonary artery is normal size. Normal inferior vena cava. Pericardium/Pleural No pericardial effusion. Medication 22 gauge I.V. with prn adaptor inserted into right arm. Diluted definity 3ml given slow IV push to enhance endocardial definition. MMode/2D Measurements & Calculations LVIDd: 5.2 cm IVSd: 1.0 cm Ao root diam: 3.1 cm LVIDs: 3.3 cm LVPWd: 0.87 cm LA dimension: 4.5 cm RVDd: 3.9 cm FS: 36.3 % LAV(MOD-bp): 69.5 ml LVAd ap4: 39.5 cm2 SV(MOD-sp4): 83.1 ml LAV(MOD-bp) Indexed: 31.2 ml/m2 LVLd ap4: 8.7 cm LAV(MOD-sp2): 70.5 ml EDV(MOD-sp4): 147.7 ml LAV(MOD-sp4): 66.0 ml EDV(sp4-el): 152.0 ml LVAs ap4: 22.6 cm2 LVLs ap4: 6.8 cm ESV(MOD-sp4): 64.6 ml ESV(sp4-el): 63.8 ml EF(MOD-sp4): 56.2 % EF(sp4-el): 58.0 % SV(sp4-el): 88.2 ml LA A4 area: 21.4 cm2 RA A4 area: 18.5 cm2 TAPSE: 3.0 cm Time Measurements MV dec time: 0.23 sec Doppler Measurements & Calculations MV E max jean: 88.5 cm/sec Lat Peak E' Jean: 13.2 cm/sec Med Peak E' Jean: 11.1 cm/sec MV A max jean: 90.8 cm/sec E/E' lat: 6.7 E/E' med: 7.9 MV E/A: 0.97 MV V2 max: 108.1 cm/sec MV P1/2t max jean: 108.1 cm/sec Ao V2 max: 112.2 cm/sec MV max P.7 mmHg MV P1/2t: 81.9 msec Ao max P.0 mmHg MV V2 mean: 56.5 cm/sec Ao V2 mean: 74.5 cm/sec MV mean P.6 mmHg MV dec slope: 386.8 cm/sec2 Ao mean P.6 mmHg MV V2 VTI: 39.3 cm MVA(P1/2t): 2.7 cm2 Ao V2 VTI: 28.1 cm AV (velocity ratio): 0.88 LV V1 max: 110.0 cm/sec PA V2 max: 98.5 cm/sec TR max jean: 272.7 cm/sec LV V1 max P.9 mmHg PA V2 mean: 75.3 cm/sec TR max P.7 mmHg LV V1 mean P.4 mmHg LV V1 mean: 72.6 cm/sec LV V1 VTI: 24.8 cm ECHO/Echo Complete W/ Contrast Interpretation Summary Normal LV size. Left ventricular systolic function is normal. The estimated ejection fraction is 60 %. Stage 1 diastolic dysfunction. Pulmonary artery systolic pressure is 34 mmHg. Contrast injection was performed. Ordering Physician: Galen Downey Referring Physician: MD Cirilo Feng Performed By: Jefferson Guardado RCS
== END | disposition home or self-care (01) ==
LOC: CVS 07:43
PROVIDERS: PCP Family Medicine; Referring Provider Nurse Practitioner Family; Visit Provider Nurse Practitioner Family
DX: I48.0 Paroxysmal atrial fibrillation (principal); R07.9 Chest pain, unspecified; I31.39 Other pericardial effusion (noninflammatory)
CPT/HCPCS: 93306; Q9957; A4216; C8929

== ENCOUNTER → 2024-05-01 | Outpatient (CLI) | payer BC, SELFPAY ==
[2024-05-01 18:16] LABS: Absolute Lymphocyte Count 2.38 X10^3/uL (0.83-4.51); Absolute Neutrophil Count 4.3 X10^3/uL (2.0-7.7); Basophil# 0.05 X10^3/uL; Basophil% 0.7 % (0-1); Eosinophil# 0.15 X10^3/uL; Hematocrit 39.8 % (37-47); Hemoglobin 12.1 g/dL (12.0-15.0); Lymphocyte # 2.38 X10^3/ul (0.83-4.51); Lymphocyte % 31.6 % (19-41); Mean Corp Hgb Conc 30.4 g/dL (32-36); Mean Corpuscular Hgb 24.6 pg (27.0-32.0); Mean Corpuscular Volume 80.9 fL (81-99); Mean Platelet Vol. 13.2 fl (6.2-12.0); Monocyte# 0.61 X10^3/uL; Monocyte% 8.1 % (0-10); NRBC Flagged by Analyzer 0 % (0-5); Neutrophil # 4.32 X10^3/uL (2.7-7.7); Neutrophil % 57.2 % (47-70); Platelet Count 213 K/mm3 (150-450); RBC Distribution Width CV 15.9 % (11.6-14.6); RBC Distribution Width SD 46.6 fl (35.1-43.9); Red Blood Count 4.92 M/mm3 (4.2-5.4); White Blood Count 7.5 K/mm3 (4.4-11.0)
[2024-05-01 18:42] LABS: ALB/GLOB Ratio 1.1 RATIO (0.9-2.4); AST(SGOT) 14 U/L (15-37); Alanine Aminotransfer ALT/SGPT 21 U/L (13-56); Albumin, Serum 3.7 g/dL (3.2-5.0); Alkaline Phosphatase 65 U/L (45-117); Anion Gap 9 (5-15); BUN 27 mg/dL (7-18); BUN/Creat Ratio 33.2 RATIO (10-20); Calcium,Total 9.5 mg/dL (8.5-10.1); Chloride 106 mmol/L (98-107); Creatinine, Serum 0.81 mg/dL (0.55-1.02); EST Glomerular Filtration Rate 78 mL/min (>60); Est Glom Filt Rate - Afr Amer 94 mL/min (>60); Globulin 3.3 g/dL (2.2-4.2); Glucose 85 mg/dL (74-106); Sodium Level 141 mmol/L (136-145)
== END | disposition home or self-care (01) ==
LOC: MTLAB 15:09
PROVIDERS: PCP Family Medicine; Referring Provider Internal Medicine Rheumatology; Visit Provider Internal Medicine Rheumatology
DX: Z79.899 Other long term (current) drug therapy (principal); M17.0 Bilateral primary osteoarthritis of knee
CPT/HCPCS: 36415; 80053; 85025

== ENCOUNTER 2024-05-27 16:30 | Outpatient (RCR) | payer BC, SELFPAY ==
--- NOTE | 2024-03-28 15:18 | HP.PTEVAL ---
Patient's Visit Information Visit Information Visit Information: RENE BETHEA is a 53 year old F referred to Physical Therapy by PETER CARNEY with a diagnosis of B knee pain. Date of Evaluation: 03/28/24 Physical Therapist: Ronaldo Beal, DPT, OCS, CSCS Visit Plan Frequency: 2x /Week Duration: 2 Months Plan: 2x/week for 4-8 weeks , start in the pool x/week and patient to do comfortable exercises in gym as member 2x/week until we teach her full program. In pool: please teach 1. knee ROM and stretch quad and HS 2. Leg and core strength 3. Calorie burning interval programs and teach for I after one month as member. Then will likely see on land for machine based strength progression to tolerance with CV. Subjective Subjective: Will have L TKA in July, R oone needs done also. pain daily L knee to 7/10 with walking and worse with WB, R knee is 4/10.L knee is painful at rest . TKA will be done at [facility]. Wants therapy now to lose weight and strengthen without making pain worse. Had gastric sleeve in november. 268# now. Basic ADLs are going Ok, no steps at home. 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 Sleep is not great but that is normal for her, knees a problem just now and then. Hobbies: Bingo is going OK. Goes to [employer]. ([employer], ab crunches, rowing, UE exercises, no LE exercises. No9t doing LEg exercises. has knee brace that she wears. Pain L knee pain: Pain Intensity (Out of 10): 3 Pain Intensity Range: 0 and 7 Objective Objective: L knee -18 to 100 degrees. R knee -8 to 90. Limited by stiffness and pain and firm endfeel B. quads and psoas max tight, hips to neutral extension only, flexion to 100 and abduction to 20, rotations are symmetnrical and without pain. Ankle AROM WFL and no pain. strength is 3+ knee ext due to pain, 4- knee flexion B pain. hip 3+ abd and ext and 4- flexion, ankles are 4+/5. paatella stiff B. reflexes 2/3 B patella and achilles Sensation EL WNL to gross light touoch B. Walking is I but wide EVELYN and varus B knees, slow and labored and gives self a couple seconds to loosen up upon standing. Chair transfer with UE only and painful knees. Steps are reciprocal with two rail and limited knee ROM makes painful Balance/Special Test Scores Functional Gait Assessment Score: 23 % Disability: 23.3400 Lower Extremity Functional Score: 24 Goals Goal 1:: I appropriate pool and gym exercises to burn calories and strengthen legs and get ROM ready for TKA Goal Time Frame: 8-12 Weeks Goal 2:: Stand from chair and walk without hesitation Goal Time Frame: 8-12 Weeks Goal 3:: Patient feel pain in B knees 3/10 at worst and 50% better Goal Time Frame: 8-12 Weeks Goal 4:: sleep without waking at night Goal Time Frame: 6-8 Weeks Rehabilitation Potential Physical Therapy Diagnosis: knee stiffness, weakness limiting gait and mobility Rehabilitation Potential: Fair Anticipated Interventions Patient/Client Instruction: Educate patient on: Condition and Risk Factors For the Purpose of:: To decrease pain, To increase ROM, To improve nutrient delivery to tissue and To improve muscle performance and motor function Therapeutic Exercise to Include: Strength training, Flexibilty training, Gait and locomotor training, In an aquatic setting, Passive ROM and Active ROM For the Purpose of:: To decrease pain, To increase ROM, To improve nutrient delivery to tissue, To improve muscle performance and motor function, To increase tolerance to activity/condition/position, To improve ability of physical actions for home/community/work/leisure and To improve gait and locomotor functions Text: Thank you for the opportunity to evaluate your patient. For Medicare and Medicare HMO plans, please review the plan of care and approve it. It will need to be FAXED BACK to us at [phone] for Medicare purposes. For Medicare only, by signing this I certify the plan of care. Please let me know if there are questions or concerns regarding this plan of care. Physician Signature: Date:
--- NOTE | 2024-05-27 17:13 | HP.PTDCSUM ---
Discharge Summary D/C summary: It has been my pleasure to treat RENE BETHEA referred by PETER CARNEY, with the diagnosis of B knee pain for a total of 14 visit(s). Discharge Date: 05/27/24 Please see the following information for a summary of their discharge status. Subjective Subjective: In pool 3x week. Has gym exercises. PT really helped, walking further and less pain but it is intermittent. Pain this week 7/10 with work. will continue strength in gym 3x/week adn pool 3x/week. Not sleeping great due to pain. TKA on L and will see surgeon 07/05 adn have done in August. Pain L knee pain: Pain Intensity (Out of 10): 7 R knee: Pain Intensity (Out of 10): 5 Overall Improvement % Improvement: 10 Objective Objective/Function: -10 to 95 degree L knee adn -9 to 90 on R knee. Walks hobbling not even close to full extension on either leg and minimal flexion at swing B. Pt happy and to continue strength pool and gym until TKA Goals Goal 1:: I appropriate pool and gym exercises to burn calories and strengthen legs and get ROM ready for TKA Goal Progress: Goal Met Goal 2:: Stand from chair and walk without hesitation Goal Progress: Progressing Goal 3:: Patient feel pain in B knees 3/10 at worst and 50% better Goal Progress: Not Progressing Goal 4:: sleep without waking at night Goal Progress: Not Progressing Plan Plan: d/c to HEP, gyma dn pool D/C Information Discharge Comments: To doctor next week. d/c sentence: If there are questions or concerns regarding this patient's physical therapy, please feel free to call me at [phone]. Thank you for the referral of this patient. Sincerely, Ronaldo Beal, DPT, OCS, CSCS Balance/Gait/Functional tests Balance/Special Test Scores Functional Gait Assessment Score: 23 % Disability: 23.3400 Lower Extremity Functional Score: 27 Improvement % Improvement: 10
== END 2024-05-27 19:00 | disposition home or self-care (01) ==
LOC: PT 16:30
PROVIDERS: PCP Family Medicine
DX: M17.0 Bilateral primary osteoarthritis of knee (principal)
CPT/HCPCS: 97110; 97113; 97161; 97530